=== PATIENT | male | born 1950 | race Caucasian/White ===

== ENCOUNTER 2017-09-21 22:01 | Emergency (ER) | payer MEDICARE, OTHER, SELFPAY ==
[2017-09-21 22:03] VITALS: BP 193/94; PULSE 62; RESP 14; TEMP 36.8; O2SAT 97; BMI 37.4
[2017-09-21 22:23] LABS: Color, Urine Yellow (Yellow); Glucose, Dipstick Normal (Normal); Ketone-Dipstick 5 mg/dl (Negative); Leukocyte Esterase-Dipstick 25 /ul (Negative); Mucous, Urine 0 SEEN /hpf (<or=2+); Nitrite-Dipstick Negative (Negative); Occult Blood-Urine 250 /ul (Negative); Protein-Dipstick 30 mg/dl (Negative); Urine Bilirubin Dipstick Negative (Negative); Urine Clarity Cloudy (Clear); Urine Urobilinogen 1 mg/dl (Normal); White Blood Cells 0 SEEN /hpf (0-5)
[2017-09-21 22:33] LABS: Red Blood Cells-Urine > 100 SEEN /hpf (0-5)
[2017-09-21 22:34] LABS: Bacteria 1+ /hpf (None Seen); Squamous Epithelial Cells - UA 0-5 SEEN /hpf (0-5)
--- NOTE | 2017-09-21 22:49 | CT_ITS ---
CT Abdomen And Pelvis W/O Contrast INDICATION: LEFT FLANK PAIN x 15 MINS, HX KS IN PAST, HX HTN, AK, STENTS, DIAB COMPARISON: None TECHNIQUE: Axial CT imaging of the abdomen and pelvis without contrast. Coronal and sagittal reformatted images. Radiation dose optimization technique applied. FINDINGS: Subsegmental atelectasis is seen at the visualized lung bases. Heart size is within normal limits. Trace pericardial effusion is noted. The liver, gallbladder, spleen, adrenal glands, and pancreas demonstrate grossly unremarkable noncontrast CT appearance. There is mild left-sided hydronephrosis and a less than 1 mm calculus is appreciated in the proximal left ureter at the L4-5 level. Urinary bladder is decompressed. Residual 4 mm left renal calculus is seen. No evidence of hydronephrosis or nephrolithiasis on the right. Small right cortical renal cyst is noted. Bowel loops are nondistended. Appendix is unremarkable. There is sigmoid diverticulosis without evidence of acute diverticulitis. No evidence of free air or free fluid. The osseous structures demonstrate multilevel degenerative changes at the lumbar spine. CT/Abdomen/Pelvis without Cont IMPRESSION: Less than 1 mm calculus in the left mid ureter with mild left-sided hydronephrosis. Residual 4 mm left renal calculus. Right cortical renal cyst, no evidence of right-sided hydronephrosis. Normal appendix. Sigmoid diverticulosis without evidence of acute diverticulitis. at 2355 Reported and signed by: Jazmine Pretty MD Electronically Signed: Jazmine Pretty MD at 22:54 EST Tel , Service support ,
--- NOTE | 2017-09-21 23:01 | ED.VISSUMM ---
- ER Visit Summary Date of Service: 09/21/17 Chief Complaint: Left-sided flank pain History of Present Illness: The patient is a 66 M with history of prior kidney stone presents with rather sudden onset left-sided flank pain. Patient states he was in his normal state of health. About an hour prior to arrival, he had a sudden sharp stabbing pain in his left flank with some nausea. He denies any vomiting. Patient has had history of prior kidney stone. He has required stenting in the past. He denies any fevers or chills. He denies any dysuria. The pain is begun to radiate into his left lower quadrant. The patient does have history of prior UT. He denies any chest pain or trouble breathing. Physical Examination: Vital signs reviewed General: Well-nourished, well-developed Head: Normocephalic, atraumatic Eyes: Pupils equal and reactive, extraocular muscles intact Neck, supple, no lymphadenopathy Heart: Regular rate and rhythm Respiratory: No distress, clear bilaterally Abdomen: Soft, nontender, nondistended, no peritoneal signs Back: Mild left CVA tenderness Extremities: Nontender, no edema, no cords Skin: Normal color no rash Neuro: Alert and oriented, no focal or lateralizing deficits Test Results: [] Emergency Department Course and Treatment: The patient has signs and symptoms that are consistent with urolithiasis. IV was established. He was given IV analgesics and antispasmodics. He had marked improvement of his symptoms. Screening labs are unremarkable. Urine does show evidence of blood. CT shows a 1 mm stone in the mid ureter with mild hydro-. On reevaluation his pain is resolved. I do feel the patient is safe for discharge. He will be given a short course of analgesics and urology follow-up. Treatment Plan: [] Disposition: Discharge Impression: 1. 1 mm left kidney stone with renal colic This note was generated with [employer] dictation software. It may contain incorrect words, spelling, and punctuation that were not noted in review of the chart prior to signing ED Disposition - Plan for ED Patient: Chief Complaint: Flank Pain Instructions: ED Stone Renal W Colic Prescriptions: Hydrocodone Bitart/Apap 5-325 [[place] 5/325] 1 tab PO Q4H PRN PRN #12 tab PRN Reason: Pain Referrals: Jalen Tobin MD [STAFF PHYSICIAN] -
[2017-09-21] MEDS: 0.9% Normal Saline 1,000 ML 250 ML IV (23:09)
[2017-09-21] MEDS: Ondansetron 4 MG/2 ML Vial IV (23:09)
[2017-09-21] MEDS: HYDROmorphone 1 MG/ML Syringe IV (23:09)
[2017-09-21 23:13] VITALS: BP 167/80; PULSE 67; RESP 18; O2SAT 97
[2017-09-21 23:27] LABS: Absolute Lymphocyte Count 2.97 X10^3/ul (0.83-4.51); Absolute Neutrophil Count 6.8 X10^3/uL (2.0-7.7); Basophil# 0.04 X10^3/uL; Basophil% 0.4 % (0-1); Eosinophil# 0.36 X10^3/uL; Eosinophils% 3.2 % (0-5); Hematocrit 44.3 % (40-54); Hemoglobin 14.8 g/dl (13.0-16.5); Lymphocyte # 2.97 X10^3/ul (4.0); Lymphocyte % 26.7 % (19-41); Mean Corp Hgb Conc 33.4 g/gl (32-36); Mean Corpuscular Hgb 30.6 pg (27.0-32.0); Mean Corpuscular Volume 91.7 fL (80-94); Mean Platelet Vol. 10.4 fl (6.2-12.0); Monocyte# 0.89 X10^3/uL; Neutrophil # 6.82 X10^3/uL (2.7-7.7); Neutrophil % 61.4 % (47-70); Platelet Count 286 K/mm3 (150-450); RBC Distribution Width CV 15.5 % (11.6-14.6); RBC Distribution Width SD 49.6 fl (35.1-43.9); Red Blood Count 4.83 M/mm3 (4.6-6.2); White Blood Count 11.1 K/mm3 (4.4-11.0)
[2017-09-21 23:32] LABS: Anion Gap 8 (5-15); BUN 16 mg/dL (7-18); Calcium,Total 9.1 mg/dL (8.5-10.1); Chloride 103 mmol/L (98-107); Creatinine, Serum 1.23 mg/dL (0.70-1.30); EST Glomerular Filtration Rate 62 mL/min (>60); Est Glom Filt Rate - Afr Amer 75 mL/min (>60); Estimated Creatinine Clearance 60.17 ml/min; Glucose 127 mg/dL (70-110); Potassium 3.5 mmol/L (3.5-5.1); Sodium Level 141 mmol/L (136-145)
[2017-09-21 23:46] LABS: POSITIVE COUNT NO; POSITIVE DIFFERENTIAL NO; POSITIVE MORPHOLOGY NO
[2017-09-22] MEDS: HYDROcodone Bitartrate/Apap 5/325 Tablet PO (00:59)
[2017-09-22] MEDS: Ondansetron ODT 4 MG Tablet PO (01:00)
[2017-09-22 01:03] VITALS: BP 142/69; PULSE 66; RESP 16; O2SAT 97
== END 2017-09-22 01:04 | disposition home or self-care (01) ==
LOC: ED 09-22 00:34
PROVIDERS: Emergency Provider Emergency Medicine; Family Provider Family Medicine; PCP Family Medicine
DX: N20.0 Calculus of kidney (principal); N23 Unspecified renal colic; I10 Essential (primary) hypertension; E78.00 Pure hypercholesterolemia, unspecified; I25.10 Atherosclerotic heart disease of native coronary artery without angina pectoris; I25.2 Old myocardial infarction; Z87.442 Personal history of urinary calculi
CPT/HCPCS: 74176; 80048; 81001; 85025; 99284; J7030; J2405

== ENCOUNTER → 2017-11-22 11:13 | Outpatient (CLI) | payer MEDICARE, OTHER, SELFPAY ==
[2017-11-22 12:52] LABS: ALB/GLOB Ratio 0.8 RATIO (0.9-2.4); AST(SGOT) 30 U/L (15-37); Alanine Aminotransfer ALT/SGPT 39 U/L (16-61); Albumin, Serum 3.1 g/dL (3.2-5.0); Alkaline Phosphatase 86 U/L (45-117); Anion Gap 6 (5-15); BUN 15 mg/dL (7-18); BUN/Creat Ratio 14.6 RATIO (10-20); Calcium,Total 8.5 mg/dL (8.5-10.1); Chloride 106 mmol/L (98-107); Cholesterol 117 mg/dL (200); Creatinine, Serum 1.03 mg/dL (0.70-1.30); EST Glomerular Filtration Rate 76 mL/min (>60); Est Glom Filt Rate - Afr Amer 92 mL/min (>60); Globulin 3.8 g/dL (2.2-4.2); Glucose 126 mg/dL (74-106); High Density Lipoprotein 38 mg/dL; Potassium 3.4 mmol/L (3.5-5.1); Protein, Total 6.9 g/dL (6.4-8.2); Sodium Level 143 mmol/L (136-145); Thyroid Stim Hormone (TSH) 2.44 uIU/mL (0.358-3.74); Triglycerides 122 mg/dL; Very Low Density Lipoprotein 24 mg/dL (5-40)
== END ==
PROVIDERS: Visit Provider Family Medicine
DX: E11.9 Type 2 diabetes mellitus without complications (principal); I10 Essential (primary) hypertension
CPT/HCPCS: 36415; 80053; 80061; 84443

== ENCOUNTER → 2017-12-08 16:06 | Outpatient (CLI) | payer MEDICARE, OTHER, SELFPAY ==
[2017-12-08 17:54] LABS: Absolute Lymphocyte Count 2.11 X10^3/ul (0.83-4.51); Absolute Neutrophil Count 5.5 X10^3/uL (2.0-7.7); Basophil# 0.03 X10^3/uL; Basophil% 0.4 % (0-1); Eosinophil# 0.25 X10^3/uL; Eosinophils% 2.9 % (0-5); Hematocrit 42.5 % (40-54); Hemoglobin 13.7 g/dl (13.0-16.5); Lymphocyte # 2.11 X10^3/ul (4.0); Lymphocyte % 24.7 % (19-41); Mean Corp Hgb Conc 32.2 g/gl (32-36); Mean Corpuscular Hgb 30.1 pg (27.0-32.0); Mean Corpuscular Volume 93.4 fL (80-94); Mean Platelet Vol. 10.5 fl (6.2-12.0); Monocyte# 0.64 X10^3/uL; Monocyte% 7.5 % (0-10); Neutrophil # 5.49 X10^3/uL (2.7-7.7); Neutrophil % 64.1 % (47-70); Platelet Count 273 K/mm3 (150-450); RBC Distribution Width CV 15.7 % (11.6-14.6); RBC Distribution Width SD 51.4 fl (35.1-43.9); Red Blood Count 4.55 M/mm3 (4.6-6.2); White Blood Count 8.6 K/mm3 (4.4-11.0)
[2017-12-08 17:55] LABS: POSITIVE COUNT NO; POSITIVE DIFFERENTIAL NO; POSITIVE MORPHOLOGY NO
[2017-12-08 18:10] LABS: ALB/GLOB Ratio 0.9 RATIO (0.9-2.4); AST(SGOT) 25 U/L (15-37); Alanine Aminotransfer ALT/SGPT 30 U/L (16-61); Albumin, Serum 3.3 g/dL (3.2-5.0); Alkaline Phosphatase 80 U/L (45-117); Anion Gap 7 (5-15); BUN 18 mg/dL (7-18); BUN/Creat Ratio 16.4 RATIO (10-20); Calcium,Total 8.6 mg/dL (8.5-10.1); Chloride 106 mmol/L (98-107); EST Glomerular Filtration Rate 71 mL/min (>60); Est Glom Filt Rate - Afr Amer 86 mL/min (>60); Globulin 3.5 g/dL (2.2-4.2); Glucose 109 mg/dL (74-106); PSA,Total- Diagnostic 1.29 ng/mL (0.0-4.0); Potassium 3.6 mmol/L (3.5-5.1); Protein, Total 6.8 g/dL (6.4-8.2); Sodium Level 143 mmol/L (136-145)
== END ==
PROVIDERS: Family Provider Family Medicine; PCP Family Medicine; Visit Provider Family Medicine
DX: R31.9 Hematuria, unspecified (principal)
CPT/HCPCS: 36415; 80053; 84153; 85025; 87086

== ENCOUNTER → 2017-12-10 10:54 | Outpatient (CLI) | payer MEDICARE, OTHER, SELFPAY ==
--- NOTE | 2017-12-10 10:57 | US_ITS ---
STUDY: RENAL ULTRASOUND - COMPLETE REASON FOR EXAM: Male, 67 years old. HEMATURIA TECHNIQUE: Ultrasound evaluation of the kidneys was performed with real-time and static prado-scale imaging. COMPARISON: None. FINDINGS: RIGHT KIDNEY: Normal location of the right kidney, which is normal in size. The right kidney measures 11.7X6X6.7 cm. There is a normal cortex of the right kidney. The renal cortex measures 2.2 cm. Right renal cyst measuring 29 x 27 x 31 mm. There are no right renal calculi. There is no right hydronephrosis. DISTAL RIGHT URETER: There is non-visualization of the distal right ureter. There is no demonstrated right ureterovesical junction calculus. There is a visualized right ureteral jet. LEFT KIDNEY: Normal location of the left kidney, which is normal in size. The left kidney measures 11.4X4.8X5.7 cm. There is a normal cortex of the left kidney. The renal cortex measures 1.9 cm. 2 cysts. These measure 9 x 9 mm and 13 x 11 x 9 mm. Nonobstructive left renal stone measuring 3 x 6 mm. There is no left hydronephrosis. DISTAL LEFT URETER: There is non-visualization of the distal left ureter. There is no demonstrated left ureterovesical junction calculus. There is a visualized left ureteral jet. AORTA: There is obscuration of the abdominal aorta by overlying bowel gas I.V.C.: The IVC is obscured. BLADDER: The distended urinary bladder has a volume of 94.5 ml. The empty urinary bladder has a volume of 14.4 ml. There is a normal wall thickness of the distended urinary bladder. There is a 17 x 18 x 10 mm mass in the urinary bladder. This may be in an calcified stone versus a transitional cell carcinoma. There are no demonstrated bladder calculi. US/Kidney and Bladder IMPRESSION: Simple bilateral renal cysts. There is a 17 x 18 x 10 mm mass in the urinary bladder. This may be in an calcified stone versus a transitional cell carcinoma. Direct visualization with cystoscopy is recommended. Nonobstructive left renal stone. Electronically Signed: Mauricio Hendrix MD at 17:43 EDT , Service support ,
== END ==
PROVIDERS: Family Provider Family Medicine; PCP Family Medicine; Visit Provider Family Medicine
DX: R31.9 Hematuria, unspecified (principal)
CPT/HCPCS: 76770

== ENCOUNTER → 2017-12-22 14:42 | Outpatient (CLI) | payer MEDICARE, OTHER, SELFPAY ==
--- NOTE | 2017-12-22 14:47 | RAD_ITS ---
STUDY: X-RAY - LUMBAR SPINE REASON FOR EXAM: Male, 67 years old. Back pain TECHNIQUE: 5 view(s) of the lumbar spine were obtained. COMPARISON: None FINDINGS: Normal lumbar lordosis. There is scoliosis. There is a normal alignment of the vertebrae. Degenerative findings in the left hip. There is multilevel endplate spondylosis of the lumbar vertebrae. There is multi-level degenerative disc disease with multi-level disc space narrowing. There are atherosclerotic vascular calcifications. The soft tissue structures are unremarkable. RAD/L/S Spine Min 4 Views IMPRESSION: Degenerative changes of the spine, as detailed above. Electronically Signed: Mauricio Hendrix MD at 17:08 EDT , Service support ,
== END ==
PROVIDERS: Family Provider Family Medicine; PCP Family Medicine; Visit Provider Family Medicine
DX: M54.9 Dorsalgia, unspecified (principal)
CPT/HCPCS: 72110

== ENCOUNTER → 2017-12-27 19:18 | Outpatient (CLI) | payer MEDICARE, OTHER, SELFPAY ==
--- NOTE | 2017-12-27 16:30 | CYSPIN_PTH ---
PATIENT: ADARSH WYATT LOC: [facility] U#:[id number] AGE/SX: 74/M ROOM: RE12/27/[address]: Dr. Jalen Tobin MD : 1950 BED: DIS: SPEC #: [id number] RECD: 12/28/17 08:04 STATUS: ARPITA LEO #: [id number] LISS: 12/27/17 16:[address]: Jalen Tobin DEPT: CYTOLOGY RECD BY: Jc Sánchez ENTERED: 12/28/17 08:05 SP TYPE: CYSPIN FL OTHR DR: Dr. Mook Damon MD Tissues: Urine Procedures: Pap Stain (control) Special Stain Group II Cytospin Fluid HEADER OPERATION: Not noted PRE-OP DIAGNOSIS: Bladder mass TISSUE SUBMITTED: Urine for cytology DIAGNOSIS CYTOLOGY Urine for cytology (cytospin): A few mildly atypical urothelial cells noted.. SJ:lennie 12/29/17 COMMENT Clinical correlation and appropriate follow up are necessary. CYTOLOGY STUDY Slides are reviewed. CYTOLOGY GROSS Received is 40 ml of cloudy yellow fluid labeled with the patient's name and and designated per the requisition as urine. Submitted for cytology preparation. / RB:lyssa 12/28/17 TC:5 CPT: 42337
[2017-12-27 19:20] LABS: Cytology, Body Fluid / CSF SEE PATHOLOGY REPORT
== END ==
PROVIDERS: Family Provider Family Medicine; PCP Family Medicine; Visit Provider Urology
DX: N32.9 Bladder disorder, unspecified (principal)
CPT/HCPCS: 88108; 88313

== ENCOUNTER → 2018-01-06 16:26 | Outpatient (CLI) | payer MEDICARE, OTHER, SELFPAY ==
--- NOTE | 2018-01-06 16:29 | CT_ITS ---
STUDY: CT ABDOMEN AND PELVIS WITH CONTRAST REASON FOR EXAM: Male, 67 years old. Hematuria RADIATION DOSAGE (If Supplied By Facility): CTDIvol = ( 20.4 ) mGy, DLP = ( 2305.08 ) mGycm TECHNIQUE: Transaxial images were obtained from the dome of the diaphragm to the symphysis pubis without oral contrast. 100 ml of Isovue 250 contrast was administered. Sagittal and coronal images were reconstructed. Individualized dose optimization techniques were used for this CT. COMPARISON: 09/21/2017 FINDINGS: The visualized lung bases are unremarkable. Coronary artery calcifications are seen. Normal liver. Normal gallbladder and extrahepatic biliary system. Normal spleen. There are multiple splenules. Normal pancreas. Normal bilateral adrenal glands. There is a 2.8 cm cyst within the right kidney. A 6 mm calcification is seen within the left renal pelvis. No hydronephrosis or left ureteral calculus. Normal visualized stomach. Normal small intestine. There are multiple colonic diverticula consistent with diverticulosis. The appendix is visualized and appears normal. There is diffuse atherosclerotic calcification of the abdominal aorta, without a demonstrated aneurysm. Normal inferior vena cava. Normal retroperitoneum. Normal urinary bladder. The prostate gland is slightly enlarged. There are prostate calcifications. Bilateral fat-containing inguinal hernias are present. There are diffuse degenerative changes of the visualized lumbar spine. CT/Abdomen/Pelvis W IV Cont ONLY IMPRESSION: Diverticulosis, without acute diverticulitis. No bowel obstruction or acute renal pathology. 6 mm calculus within the left renal pelvis. Additional findings, as detailed above. Electronically Signed: Félix Claudio DO at 11:32 EDT Tel , Service support ,
== END ==
PROVIDERS: Family Provider Family Medicine; PCP Family Medicine; Visit Provider Urology
DX: R31.9 Hematuria, unspecified (principal)
CPT/HCPCS: 74177

== ENCOUNTER 2018-01-21 10:07 | Day surgery (SDC) | payer MEDICARE, OTHER, SELFPAY ==
[2018-01-14 14:28] VITALS: BP 133/73; PULSE 60; RESP 16; TEMP 36.7; O2SAT 95; BMI 37.3
--- NOTE | 2018-01-21 10:11 | RAD_ITS ---
STUDY: X-RAY - ABDOMEN/PELVIS REASON FOR EXAM: Male, 67 years old. Left kidney stone. TECHNIQUE: Two AP supine views of the abdomen and pelvis. COMPARISON: Comparison is made with a prior CT scan of abdomen dated January 06, 2018. FINDINGS: Normal visualized lung bases. There is a moderate amount of colonic fecal material. The visualized liver, spleen and kidneys are grossly normal in size and morphology. No left renal calculus is seen at this time. Prostatic calcifications. There are diffuse degenerative changes of the visualized lumbar spine. RAD/Abdomen Single View IMPRESSION: No abnormal calcification is seen overlying the kidneys or course of the ureters. Electronically Signed: Abner Gotti MD at 10:35 EDT Tel [phone], Service support ,
[2018-01-21 10:44] VITALS: BP 132/74; PULSE 57; RESP 16; TEMP 36.5; O2SAT 95; BMI 37.3
[2018-01-21 11:01] LABS: Bedside Glucose 160 mg/dL (70-110)
[2018-01-21] MEDS: Cefazolin 2 GM in 0.9% Normal Saline 100 ML IV (11:52)
--- NOTE | 2018-01-21 12:47 | DCINST_ITS ---
Discharge Diet: Light diet - advance as tolerated Discharge Activity: May not drive while taking narcotic pain medications. Instructions: Shock Wave Lithotripsy Allergies/Adverse Reactions: Allergies ticagrelor [From [facility]] Allergy (Verified 01/21/18 10:42) Shortness of breath Medications to take at Discharge Aspirin [Aspirin, Baby] 81 mg PO DAILY@0800 01/03/16 Hydrochlorothiazide [Hctz] 25 mg PO DAILY 01/03/16 Metformin HCl [Metformin HCl ER] 500 mg PO DAILY 01/03/16 Atorvastatin Calcium [Lipitor] 80 mg PO QHS 01/10/16 Carvedilol [Carvedilol] 12.5 mg PO BID 01/10/16 Clopidogrel Bisulfate [Plavix] 75 mg PO DAILY 01/10/16 Pantoprazole Sodium [Protonix] 40 mg PO DAILY 01/10/16 amlodipine 2.5 mg tablet 5 mg PO QDAY tab 12/09/17 lisinopril 20 mg tablet 20 mg PO BID tab 12/09/17 Nitroglycerin 0.4 mg SL PRN PRN 01/14/18 Hydrocodone Bitart/Apap 5-325 [[place] 5MG-325MG] 1 tab PO Q4H PRN PRN 5 Days #14 tab 01/21/18 The following prescriptions were given: Hydrocodone Bitart/Apap 5-325 [[place] 5MG-325MG] 1 tab PO Q4H PRN PRN 5 Days #14 tab PRN Reason: Pain Primary Care Physician: Nathan Damon MD [Primary Care Provider] - Please Follow Up With: Jalen Tobin MD When: February 03 at 3pm
--- NOTE | 2018-01-21 12:49 | PCM.OPRPT ---
Report of Operation Date of Procedure: 01/21/18 Pre-Operative Diagnosis: Left renal calculi Post-Operative Diagnosis: Same Surgery/Procedure Performed:: left extracorporeal shockwave lithotripsy Description of Surgical Findings:: 67-year-old male with a stone in the left renal pelvis taken to the operating room today for shockwave lithotripsy. After induction of anesthesia he was placed supine on the table we then used fluoroscopy to identify the stone in the left renal pelvis. We then delivered 3000 shockwaves to the stone at a rate of 90 power between 5-7 and at the end of the treatment cycle the stone appeared to break up fairly well, patient's anesthetic was reversed he is taken back to the PACU condition decided not to leave a stent and the stone broke up well and he will see us in the office in a few weeks with a KUB. Type of Anesthesia:: General - Admit VTE Documentation VTE Present on Admission: No VTE Mechan Device Prophylaxis: SCD's VTE Pharm Prophylaxis ordered?: No Reason prophylaxis not ordered:: Treatment Not Indicated
[2018-01-21 12:57] VITALS: BP 130/73; BP 133/73; PULSE 64; RESP 18; TEMP 36.6; O2SAT 92
[2018-01-21 13:00] VITALS: BP 131/78; BP 133/73; PULSE 69; RESP 18; O2SAT 94
[2018-01-21 13:16] VITALS: BP 131/73; BP 133/73; PULSE 63; RESP 16; TEMP 36.7; O2SAT 98
[2018-01-21 14:14] VITALS: BP 133/73
== END 2018-01-21 14:21 | disposition home or self-care (01) ==
LOC: SDC 10:08 → AC 10:10
PROVIDERS: Family Provider Family Medicine; PCP Family Medicine; Visit Provider Urology
PROC: (CPT 50590; principal; 2018-01-21 11:35)
DX: N20.0 Calculus of kidney (principal); N40.0 Benign prostatic hyperplasia without lower urinary tract symptoms; R31.0 Gross hematuria; I10 Essential (primary) hypertension; K21.9 Gastro-esophageal reflux disease without esophagitis; E11.9 Type 2 diabetes mellitus without complications; E78.00 Pure hypercholesterolemia, unspecified; Z87.442 Personal history of urinary calculi
CPT/HCPCS: 74018; 82962; J7120; J2405

== ENCOUNTER 2018-01-22 19:41 | Inpatient (IN) | payer MEDICARE, OTHER, SELFPAY ==
[2018-01-22 19:43] VITALS: BP 199/87; PULSE 78; RESP 18; TEMP 37.3; O2SAT 93; BMI 37.8
--- NOTE | 2018-01-22 19:57 | CT_ITS ---
STUDY: CT ABDOMEN AND PELVIS WITHOUT CONTRAST REASON FOR EXAM: Male, 67 years old. Left flank pain status post lithotripsy RADIATION DOSAGE (If Supplied By Facility): CTDIvol = ( 18.04 ) mGy, DLP = ( 1407.66 ) mGycm TECHNIQUE: Transaxial images were obtained from the dome of the diaphragm to the symphysis pubis without oral contrast, and without intravenous contrast. Sagittal and coronal images were reconstructed. Individualized dose optimization techniques were used for this CT. COMPARISON: January 06, 2015 FINDINGS: There is subsegmental atelectasis in both lower lobes.. The heart is enlarged and there is mild coronary artery calcification. Normal liver. Normal gallbladder and extrahepatic biliary system. Normal spleen. Normal pancreas. Normal bilateral adrenal glands. There is a small right renal cyst. The left kidney contains tiny nonobstructing stones.. There is also mild pelvocaliectasis and stranding in the perinephric fat in association with multiple tiny calcifications within the proximal to mid ureter Normal visualized stomach. Normal small intestine. There are diffuse diverticular changes of colon without evidence for acute diverticulitis The appendix is visualized and appears normal. Atherosclerotic changes of the aorta without evidence for aneurysm. Normal inferior vena cava. Normal retroperitoneum. Normal urinary bladder. There are moderate-sized umbilical hernia containing fat bilaterally. Lumbar spine demonstrates moderate spondylosis. CT/Abdomen/Pelvis without Cont IMPRESSION: Mild left hydroureteronephrosis secondary to multiple tiny proximal and mid ureteral calculi.. Electronically Signed: Gibran Disla MD at 21:08 EDT , Service support ,
[2018-01-22 20:02] LABS: Absolute Lymphocyte Count 1.45 X10^3/ul (0.83-4.51); Absolute Neutrophil Count 9.5 X10^3/uL (2.0-7.7); Basophil# 0.01 X10^3/uL; Basophil% 0.1 % (0-1); Eosinophil# 0.11 X10^3/uL; Eosinophils% 0.9 % (0-5); Hematocrit 44.7 % (40-54); Hemoglobin 14.4 g/dl (13.0-16.5); Lymphocyte # 1.45 X10^3/ul (4.0); Lymphocyte % 12.3 % (19-41); Mean Corp Hgb Conc 32.2 g/gl (32-36); Mean Corpuscular Hgb 29.4 pg (27.0-32.0); Mean Corpuscular Volume 91.4 fL (80-94); Mean Platelet Vol. 9.7 fl (6.2-12.0); Monocyte# 0.73 X10^3/uL; Monocyte% 6.2 % (0-10); Neutrophil % 80.2 % (47-70); POSITIVE COUNT NO; POSITIVE DIFFERENTIAL NO; POSITIVE MORPHOLOGY NO; Platelet Count 224 K/mm3 (150-450); RBC Distribution Width CV 14.7 % (11.6-14.6); RBC Distribution Width SD 49.4 fl (35.1-43.9); Red Blood Count 4.89 M/mm3 (4.6-6.2); White Blood Count 11.8 K/mm3 (4.4-11.0)
[2018-01-22] MEDS: Ondansetron 4 MG/2 ML Vial IV (20:03)
[2018-01-22] MEDS: Morphine 4 MG/ML Syringe IV (20:03)
[2018-01-22] MEDS: 0.9% Normal Saline 1,000 ML 999 ML IV (20:04)
[2018-01-22 20:11] LABS: Anion Gap 6 (5-15); BUN 16 mg/dL (7-18); BUN/Creat Ratio 13.1 RATIO (10-20); Calcium,Total 8.7 mg/dL (8.5-10.1); Chloride 105 mmol/L (98-107); Creatinine, Serum 1.22 mg/dL (0.70-1.30); EST Glomerular Filtration Rate 63 mL/min (>60); Est Glom Filt Rate - Afr Amer 76 mL/min (>60); Estimated Creatinine Clearance 61.72 ml/min; Glucose 148 mg/dL (74-106); Potassium 3.6 mmol/L (3.5-5.1); Sodium Level 142 mmol/L (136-145)
[2018-01-22 20:49] LABS: Bacteria 0 SEEN /hpf (None Seen); Mucous, Urine 0 SEEN /hpf (<or=2+)
[2018-01-22 20:53] LABS: Color, Urine Yellow (Yellow); Glucose, Dipstick Normal (Normal); Ketone-Dipstick 5 mg/dl (Negative); Leukocyte Esterase-Dipstick Negative /ul (Negative); Nitrite-Dipstick Negative (Negative); Occult Blood-Urine 250 /ul (Negative); Protein-Dipstick 30 mg/dl (Negative); Specific Gravity, Urine 1.015 (1.002-1.030); Urine Bilirubin Dipstick Negative (Negative); Urine Clarity Clear (Clear); Urine Urobilinogen Normal (Normal)
[2018-01-22] MEDS: HYDROmorphone 1 MG/ML Syringe IV ×2 (20:54→23:44)
[2018-01-22 21:07] LABS: Red Blood Cells-Urine 50-100 SEEN /hpf (0-5)
[2018-01-22 21:08] LABS: Squamous Epithelial Cells - UA 0-5 SEEN /hpf (0-5); White Blood Cells 0-5 SEEN /hpf (0-5)
--- NOTE | 2018-01-22 21:20 | NURSING ---
PER DR. MOORE PATIENT'S PAIN LEVEL IS A 4/10 AFTER THE DILAUDID.
[2018-01-22 21:21] VITALS: BP 204/102; PULSE 69; RESP 18; TEMP 37.1; O2SAT 98
--- NOTE | 2018-01-22 21:22 | EKG12_ITS ---
Test Reason : FLANK PAIN Blood Pressure : / mmHG Vent. Rate : 065 BPM Atrial Rate : 065 BPM P-R Int : 224 ms QRS Dur : 130 ms QT Int : 410 ms P-R-T Axes : 047 -47 053 degrees QTc Int : 426 ms Sinus rhythm with 1st degree A-V block Left axis deviation Nonspecific intra ventricular conduction delay Abnormal ECG Confirmed by KASSI SHERMAN, CATHIE ([id number]), manager editorial GABRIELA DELGADO ([id number]) on 01/26/2018 2:25:05 PM Referred By: OSCAR Confirmed By:CATHIE SOLITARIO MD
--- NOTE | 2018-01-22 21:22 | RAD_ITS ---
STUDY: X-RAY CHEST REASON FOR EXAM: Male, 67 years old. Hypoxia TECHNIQUE: AP portable COMPARISON: None. FINDINGS: Diminished inspiratory effort is seen. There is subsegmental atelectasis or evolving infiltrate in both lower lobes. There is no demonstrated pleural abnormality. Heart is enlarged. Normal mediastinum and marly. Normal visualized pulmonary arteries. Normal visualized aortic arch and descending thoracic aorta. Dorsal spine demonstrates spondylosis. Normal visualized ribs, clavicles, and shoulders. There is no demonstrated abnormality of the visualized soft tissue structures of the upper abdomen. RAD/Chest 1 View IMPRESSION: Diminished inspiratory effort and bibasilar atelectasis or evolving infiltrates Electronically Signed: Gibran Disla MD at 22:11 EDT , Service support ,
[2018-01-22 22:17] VITALS: BP 208/105; PULSE 67; RESP 20; O2SAT 99
[2018-01-22] MEDS: hydrALAZINE 20 MG/ML Vial 10 MG IV (22:18)
--- NOTE | 2018-01-22 22:27 | PCM.HP.STD ---
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 Comment: [facility] w/PCI-Aspiration Thrombectomy & TAQUERIA-Prox RCA 01/04/16 (5) Diabetes mellitus type II, controlled Status: Chronic (6) Hyperlipidemia Status: Chronic (7) Hypertension Status: Chronic (8) Non-ST elevation (NSTEMI) myocardial infarction Status: Chronic History of Present Illness Date of Admission: 01/22/18 Chief Complaint: Acute hypoxic respiratory failure and hydroureteronephrosis The patient is a 67 year old male w/ h/o lipidemia, DMII, HTN, CAD, and renal stones admitted for left hydroureteronephrosis due to multiple tiny proximal and mid ureteral calculi. He had lithotripsy yesterday but experienced sudden onset of severe left flank pain this afternoon. Nothing appeared to make it better or worse. Pain was sharp and constant. Pain moved from the back to the front. No radiation of pain. Pain was associated with nausea. He had dysuria and hematuria. No other complaint. He went to the ED for further workup. Past Medical History Past Medical History (Chronic Problems): Chronic Problems (Last Reviewed 12/09/17 @ 10:16 by Chris Frazier MD) Hyperlipidemia (Chronic) Diabetes mellitus type II, controlled (Chronic) Hypertension (Chronic) Non-ST elevation (NSTEMI) myocardial infarction (Chronic) Atherosclerotic heart disease of picayune coronary artery without angina pectoris (Chronic) [facility] w/PCI-Aspiration Thrombectomy & TAQUERIA-Prox RCA 01/04/16 Allergies ticagrelor [From [facility]] Allergy (Verified 01/22/18 19:42) Shortness of breath Home Medications: Ambulatory Orders Medication Instructions Recorded Aspirin [Aspirin, Baby] 81 mg PO DAILY@0800 01/03/16 Hydrochlorothiazide [Hctz] 25 mg PO DAILY 01/03/16 Metformin HCl [Metformin HCl ER] 500 mg PO DAILY 01/03/16 Atorvastatin Calcium [Lipitor] 80 mg PO QHS 01/10/16 Carvedilol [Carvedilol] 12.5 mg PO BID 01/10/16 Clopidogrel Bisulfate [Plavix] 75 mg PO DAILY 01/10/16 Pantoprazole Sodium [Protonix] 40 mg PO DAILY 01/10/16 amlodipine 2.5 mg tablet 5 mg PO QDAY tab 12/09/17 lisinopril 20 mg tablet 20 mg PO BID tab 12/09/17 Nitroglycerin 0.4 mg SL PRN PRN 01/14/18 Hydrocodone Bitart/Apap 5-325 1 tab PO Q4H PRN PRN 5 Days #14 tab 01/21/18 [[place] 5MG-325MG] Surgical History: cataract, herniorrhaphy, tonsillectomy, - - vasectomy Lives: Spouse/ Significant Other Smoking Status: Never smoker Alcohol: None Drugs: None - *Family History Maternal History Items: No pertinent history Review of Systems Constitutional: Denies: Chills, Fever, Weight Change HEENT: Denies: Head Aches, Sinus Congestion, Sinus Drainage Cardiovascular: Denies: Chest Pain, Palpitations Respiratory: Denies: Cough, Shortness of breath at rest, Sputum production Gastrointestinal: Denies: Abdominal Pain, Nausea, Vomiting Genitourinary: Denies: Dysuria Musculoskeletal: Denies: Joint Pain, Joint Tenderness Skin: Denies: Rash, Wounds Neurological: Denies: Numbness, Tingling, Focal weakness Psychiatric: Denies: Anxiety, Depression, Homicidal Ideations, Suicidal Ideations Hematologic/ Lymphatic: Denies: Easy Bruising, Easy Bleeding VTE Information - Inpt Only VTE Present on Admission: No VTE Mechan Device Prophylaxis: SCD's VTE Pharm Prophylaxis ordered?: No Patient Problems: Active and Suspected Problems (Last Reviewed 12/09/17 @ 10:16 by Chris Frazier MD) Acute respiratory failure with hypoxia (Acute) Hydroureteronephrosis (Acute) - Physical Exam General: Alert, Oriented x3, Cooperative HEENT: Atraumatic, PERRLA, EOMI, Normocephalic Neck: Supple, No JVD, Negative Carotid Bruits Lungs: Clear to auscultation, Normal air movement Cardiovascular: Regular rate, No murmurs Abdomen: Bowel Sounds Present, Soft, Non Tender Extremities: No edema, Capillary Refill Less than 3 Seconds Skin: No rashes, No breakdown Musculoskeletal: No Tenderness to Palpation of Joints or Extremities Neurological: Cranial nerves II-XII grossly intact Psych/Mental Status: Normal Affect, Appropriate Vital Signs Temp Pulse Resp BP Pulse Ox 98.8 F 67 20 H 208/105 H 99 01/22/18 21:21 01/22/18 22:17 01/22/18 22:17 01/22/18 22:17 01/22/18 22:17 Oxygen Flow Rate (L/min) 2 Oxygen Delivery Method Nasal Cannula Weight: 123.1 kg Body Mass Index (BMI) 37.8 Laboratory Tests Past 24 Hrs 01/22/18 01/22/18 01/22/18 19:47 19:47 19:47 WBC 11.8 H RBC 4.89 Hgb 14.4 Hct 44.7 MCV 91.4 MCH 29.4 MCHC 32.2 RDW 14.7 H RDW Differential 49.4 H Plt Count 224 MPV 9.7 Immature Gran % (Auto) 0.300 Neut % (Auto) 80.2 H Lymph % (Auto) 12.3 L [place] % (Auto) 6.2 Eos % (Auto) 0.9 Baso % (Auto) 0.1 Absolute Neuts (auto) 9.5 H Absolute Lymphs (auto) 1.45 Total Counted Not Reportable Sodium 142 Potassium 3.6 Chloride 105 Carbon Dioxide 31.0 Anion Gap 6 BUN 16 Creatinine 1.22 Estim Creat Clear Calc 61.72 Est GFR (MDRD) Af Amer 76 Est GFR (MDRD) Non-Af 63 BUN/Creatinine Ratio 13.1 Glucose 148 H Calcium 8.7 Troponin I 0.016 Urine Color Urine Clarity Urine pH Ur Specific [place] Urine Protein Urine Glucose (UA) Urine Ketones Urine Occult Blood Urine Nitrite Urine Bilirubin Urine Urobilinogen Ur Leukocyte Esterase Urine RBC Urine WBC Ur Squamous Epith Cells Urine Bacteria Urine Mucus 01/22/18 20:45 WBC RBC Hgb Hct MCV MCH MCHC RDW RDW Differential Plt Count MPV Immature Gran % (Auto) Neut % (Auto) Lymph % (Auto) [place] % (Auto) Eos % (Auto) Baso % (Auto) Absolute Neuts (auto) Absolute Lymphs (auto) Total Counted Sodium Potassium Chloride Carbon Dioxide Anion Gap BUN Creatinine Estim Creat Clear Calc Est GFR (MDRD) Af Amer Est GFR (MDRD) Non-Af BUN/Creatinine Ratio Glucose Calcium Troponin I Urine Color Yellow Urine Clarity Clear Urine pH 6.0 Ur Specific [place] 1.015 Urine Protein 30 H Urine Glucose (UA) Normal Urine Ketones 5 H Urine Occult Blood 250 H Urine Nitrite Negative Urine Bilirubin Negative Urine Urobilinogen Normal Ur Leukocyte Esterase Negative Urine RBC 50-100 SEEN Urine WBC 0-5 SEEN Ur Squamous Epith Cells 0-5 SEEN Urine Bacteria 0 SEEN Urine Mucus 0 SEEN Assessment/Plan Active and Suspected Problems (Last Reviewed 12/09/17 @ 10:16 by Chris Frazier MD) Acute respiratory failure with hypoxia (Acute) Hydroureteronephrosis (Acute) 67 year old male w/ h/o lipidemia, DMII, HTN, CAD, and renal stones admitted for left hydroureteronephrosis due to multiple tiny proximal and mid ureteral calculi. 1) Left hydroureteronephrosis due to multiple tiny proximal and mid ureteral calculi: Consulted urology. Hydration. Pain controlled. 2) Acute hypoxic respiratory failure: Continue with oxygen. Probably secondary to shunting secondary to atelectasis. C/w pulmonary toiletry. Will consider workup if no improvement. 3) HTN: Resume home meds. Will consider increase dose if SBP continues to be high. 4) Prophylaxis: SCD.
--- NOTE | 2018-01-22 22:36 | ED.DCSUM_ITS ---
- ER Visit Summary Date of Service: 01/22/18 Chief Complaint: Left flank pain History of Present Illness: The patient is a 67 M who presents with left flank pain. He had a lithotripsy yesterday at about 11 AM. He states he was doing well until about 6 hours prior to presentation. His pain is sharp. It is left flank. He currently rates it as 8 out of 10. He reports nausea. He does report dysuria and hematuria. No vomiting. No chest pain or shortness of breath. Physical Examination: Initial blood pressure 199/87 pulse ox 93% on 2 L nasal cannula vitals otherwise unremarkable Moist mucous membranes Heart regular rate and rhythm Lungs are clear Abdomen soft nontender nondistended Mild CVA tenderness on the left Extremities nontender Test Results: EKG shows sinus rhythm with a first-degree AV block at a rate of 65. Chest x-ray shows bibasilar atelectasis. CT of flank shows mild left hydroureteronephrosis due to multiple tiny proximal and mid ureteral calculi. Laboratory studies notable for white blood cell count 11.8-50, 250 blood and 50 to 100 RBCs in the urine. Troponin normal. Emergency Department Course and Treatment: Patient was treated with IV fluids morphine and Zofran. He continued to complain of severe pain and was given IV Dilaudid with about a 50% improvement of his pain. He was taken off of oxygen and desaturated down to 85-86%. He has no respiratory symptoms. I suspect this is likely related to obstructive sleep apnea and atelectasis. The patient was discussed with Dr. Sanchez who asked that the patient be admitted under the medical service. Patient discussed with the hospitalist and admitted. Patient also has uncontrolled hypertension. He does note that he has a history of poorly controlled hypertension. He was treated with hydralazine. Treatment Plan: [] Disposition: Admit Impression: Atelectasis Hypoxia Ureterolithiasis Uncontrolled hypertension This note was generated with [employer] dictation software. It may contain incorrect words, spelling, and punctuation that were not noted in review of the chart prior to signing ED Disposition - Plan for ED Patient: Chief Complaint: Flank Pain Referrals: Nathan Damon MD [Primary Care Provider] -
[2018-01-22 23:03] VITALS: BP 179/86; PULSE 74; O2SAT 95
[2018-01-22 23:47] VITALS: BP 196/86; PULSE 76; O2SAT 94
[2018-01-23] VITALS (16 sets, daily range): BP systolic 123–178; BP diastolic 68–86; PULSE 62–80; RESP 16–18; TEMP 36.7–37.8; O2SAT 93–98; BMI 37.8; BMI 37.9
[2018-01-23] MEDS: oxyCODONE 5 MG Tablet PO ×3 (00:43→23:16)
[2018-01-23] MEDS: Ipratropium/Albuterol Sulfate 3 ML AMPUL.NEB INHALATION (00:44)
[2018-01-23] MEDS: 0.9% Normal Saline 1,000 ML 125 ML IV (00:44)
[2018-01-23 01:06] LABS: D-Dimer Quantitative (DVT/PE) < 0.27 FEU/ug/m (0.27-0.49)
[2018-01-23 01:31] LABS: BNP,B-Type NATRIURETIC PEPTIDE 126.6 pg/mL (0-100)
[2018-01-23] MEDS: Morphine 4 MG/ML Syringe IV (05:48)
[2018-01-23 06:51] LABS: Absolute Lymphocyte Count 1.88 X10^3/ul (0.83-4.51); Absolute Neutrophil Count 9.3 X10^3/uL (2.0-7.7); Basophil# 0.01 X10^3/uL; Basophil% 0.1 % (0-1); Eosinophil# 0.07 X10^3/uL; Eosinophils% 0.5 % (0-5); Hematocrit 44.2 % (40-54); Hemoglobin 14.3 g/dl (13.0-16.5); Lymphocyte # 1.88 X10^3/ul (4.0); Lymphocyte % 14.7 % (19-41); Mean Corp Hgb Conc 32.4 g/gl (32-36); Mean Corpuscular Hgb 30.1 pg (27.0-32.0); Mean Corpuscular Volume 93.1 fL (80-94); Mean Platelet Vol. 10.2 fl (6.2-12.0); Monocyte# 1.46 X10^3/uL; Monocyte% 11.4 % (0-10); Neutrophil # 9.33 X10^3/uL (2.7-7.7); Neutrophil % 72.8 % (47-70); Platelet Count 243 K/mm3 (150-450); RBC Distribution Width CV 14.9 % (11.6-14.6); RBC Distribution Width SD 49.4 fl (35.1-43.9); Red Blood Count 4.75 M/mm3 (4.6-6.2); White Blood Count 12.8 K/mm3 (4.4-11.0)
[2018-01-23 07:13] LABS: POSITIVE COUNT NO; POSITIVE DIFFERENTIAL NO; POSITIVE MORPHOLOGY NO
[2018-01-23 07:37] LABS: ALB/GLOB Ratio 0.8 RATIO (0.9-2.4); AST(SGOT) 19 U/L (15-37); Alanine Aminotransfer ALT/SGPT 18 U/L (16-61); Alkaline Phosphatase 92 U/L (45-117); Anion Gap 6 (5-15); BUN 16 mg/dL (7-18); BUN/Creat Ratio 10.4 RATIO (10-20); Calcium,Total 8.5 mg/dL (8.5-10.1); Chloride 106 mmol/L (98-107); Creatinine, Serum 1.54 mg/dL (0.70-1.30); EST Glomerular Filtration Rate 48 mL/min (>60); Est Glom Filt Rate - Afr Amer 58 mL/min (>60); Globulin 3.8 g/dL (2.2-4.2); Glucose 127 mg/dL (74-106); Potassium 4.4 mmol/L (3.5-5.1); Protein, Total 6.8 g/dL (6.4-8.2); Sodium Level 142 mmol/L (136-145)
[2018-01-23 09:04] LABS: Hemoglobin A1c 6.2 % (4.2-6.3)
[2018-01-23] MEDS: Pantoprazole Sodium 40 MG Tablet PO (09:14)
[2018-01-23] MEDS: 0.9% Normal Saline 1,000 ML 100 ML IV ×2 (09:14→13:00)
[2018-01-23] MEDS: amLODIPine 5 MG Tablet PO (09:15)
[2018-01-23] MEDS: Carvedilol 12.5 MG Tablet PO ×2 (09:15→20:43)
[2018-01-23] MEDS: Lisinopril 20 MG Tablet PO ×2 (09:16→20:43)
--- NOTE | 2018-01-23 09:20 | PCM.PN.HOSP ---
Patient Problems: Active and Suspected Problems (Last Reviewed 12/09/17 @ 10:16 by Chris Frazier MD) Acute respiratory failure with hypoxia (Acute) Hydroureteronephrosis (Acute) Subjective: The patient is a 67 y/o M w/ PMHx: CAD s/p LHC w/PCI-Aspiration Thrombectomy & TAQUERIA-Prox RCA 01/04/16 w/ Hx NSTEMI, Diabetes mellitus type II, HTN, HLD, Obesity, Hx Nephrolithiasis who presents to the [facility] ED on 01/22/18 with recent admission for L hydroureteronephrosis due to multiple tiny proximal and mid ureteral calculi s/p lithotripsy; however, onset on day of ED presentation severe L flank pain with nausea as well as ongoing dysuria and hematuria and ED noted hypoxia. Acute Flank Pain, secondary to Acute Ureterolithiasis without apparent UTI: UA without evidence UTI, notable hematuria, admitted to [place], maintained on hydration, maintain NPO for intervention, continue PRN oral and IV pain regimen, alter as needed, Urology consulted and planned intervention later in the day for planned stent placement, PRN anti-emetics, monitor I&Os. Hypoxia, RULED OUT Acute Respiratory Failure: Noted ED hypoxia, not technically respiratory failure, secondary to acute pain, poor effort, atelectasis secondary to #1 and narcotic usage, encourage HOB, IS especially post-op as expect pain to improve. Patient overnight with continued discomfort with need for pain medication regimen changes. Discussed plan of care which includes evaluation by Dr. Bustamante and stent placement for left hydroureternephrosis later in the day. Patient denies fevers, chills, nausea, emesis, abdominal pain, chest pain or dyspnea but does note ongoing left-sided CVA tenderness. Objective: Physical Examination: General: awake, alert, oriented x 3 and cooperative, seated upright in bed, notes ongoing mild discomfort, L CVA. Skin: normal color, turgor, no icterus, cyanosis. HEENT: AT/NC, EOMI, PERRLA, mildly dry MM. Lungs: CTA bilaterally, moderate effort, mild decrease BL bases, no rales, ronchi or wheezing. Heart: Regular rate and rhythm; no gallop, rub audible. Abdomen: soft, NTTP, no suprapubic TTP, + L CVA TTP, ND, hypoactive BS. Extremities: no cyanosis, clubbing, or edema. Neurological: patient awake, alert, oriented x 3; cognitive function intact; pupils equally reactive to light and accomodation; cranial nerves II-XII grossly normal, moving all 4 extremities, no focal deficits, strength severely globally decreased secondary to acute presentation. Psychiatric: affect appears normal, no acute evidence of depressive or anxiety feelings. Vitals/I&O's: Vital Signs Temp Pulse Resp BP Pulse Ox 98.6 F 73 16 159/75 H 93 01/23/18 06:00 01/23/18 06:00 01/23/18 06:00 01/23/18 06:00 01/23/18 08:12 Oxygen Flow Rate (L/min) 2 Oxygen Delivery Method Nasal Cannula Weight: 271 lb 6.224 oz Body Mass Index (BMI) 37.8 Intake and Output for Last 24 Hours 01/21/18 01/22/18 01/23/18 23:59 23:59 23:59 Intake Total 867 / 867 Output Total 400 / 400 Balance 467 / 467 Microbiology Past 72 Hours 01/23/18 00:40 Mucosa - Nasopharyngeal Influenza Types A,B Direct FA (LOCO) - Final Laboratory Results 01/23/18 05:53: WBC 12.8 H, RBC 4.75, Hgb 14.3, Hct 44.2, MCV 93.1, MCH 30.1, MCHC 32.4, RDW 14.9 H, RDW Differential 49.4 H, Plt Count 243, MPV 10.2, Immature Gran % (Auto) 0.500, Neut % (Auto) 72.8 H, Lymph % (Auto) 14.7 L, [place] % (Auto) 11.4 H, Eos % (Auto) 0.5, Baso % (Auto) 0.1, Absolute Neuts (auto) 9.3 H, Absolute Lymphs (auto) 1.88, Total Counted Not Reportable 01/23/18 05:53: Sodium 142, Potassium 4.4, Chloride 106, Carbon Dioxide 30.0, Anion Gap 6, BUN 16, Creatinine 1.54 H, Estim Creat Clear Calc 48.90, Est GFR (MDRD) Af Amer 58 L, Est GFR (MDRD) Non-Af 48 L, BUN/Creatinine Ratio 10.4, Glucose 127 H, Calcium 8.5, Total Bilirubin 1.10 H, AST 19, ALT 18, Alkaline Phosphatase 92, Total Protein 6.8, Albumin 3.0 L, Globulin 3.8, Albumin/Globulin Ratio 0.8 L 01/23/18 05:53: Hemoglobin A1c 6.2 Current Medications Hydrocodone Bitart/Acetaminophen ([place] 5mg-325mg) 1 tablet PO Q4H PRN PRN PRN Reason: PAIN Albuterol/Ipratropium (Duoneb) 3 ml INHALATION Q4H.RT [facility] Last Admin: 01/23/18 07:20 Dose: Not Given Amlodipine Besylate (Norvasc) 5 mg PO DAILY [facility] Last Admin: 01/23/18 09:15 Dose: 5 mg Aspirin (Aspirin, Baby) 81 mg PO DAILY@0800 [facility] Atorvastatin Calcium (Lipitor) 80 mg PO QHS [facility] Carvedilol (Coreg) 12.5 mg PO BID [facility] Last Admin: 01/23/18 09:15 Dose: 12.5 mg Clopidogrel Bisulfate (Plavix) 75 mg PO DAILY [facility] Hydrochlorothiazide (Hctz) 25 mg PO DAILY [facility] Hydromorphone HCl (Dilaudid Inj) 0.5 - 1 mg IV Q3H PRN PRN PRN Reason: SEVERE PAIN (6-10/10) Hydromorphone HCl (Dilaudid Inj) 0.5 - 1 mg IV Q3H PRN PRN PRN Reason: SEVERE PAIN (6-10/10) Sodium Chloride () 1,000 mls @ 100 mls/hr IV .Q10H [facility] Last Admin: 01/23/18 09:14 Dose: 100 mls/hr Insulin Human Lispro (Humalog Kwikpen (Bkc)) 0 unit SC ACHS [facility] PRN Reason: Protocol Lisinopril (Zestril) 20 mg PO BID [facility] Last Admin: 01/23/18 09:16 Dose: 20 mg Oxycodone HCl (Oxyir) 5 - 10 mg PO Q4H PRN PRN PRN Reason: Moderate Pain (pain scale 4-5) Pantoprazole Sodium (Protonix) 40 mg PO DAILY [facility] Last Admin: 01/23/18 09:14 Dose: 40 mg Sodium Chloride () 5 - 30 ml IV UD PRN PRN Reason: SALINE FLUSH Medical Necessity - Tobacco Use Smoking Status: Never smoker Assessment/Plan Active and Suspected Problems (Last Reviewed 12/09/17 @ 10:16 by Chris Frazier MD) Acute respiratory failure with hypoxia (Acute) Hydroureteronephrosis (Acute) The patient is a 67 y/o M w/ PMHx: CAD s/p LHC w/PCI-Aspiration Thrombectomy & TAQUERIA-Prox RCA 01/04/16 w/ Hx NSTEMI, Diabetes mellitus type II, HTN, HLD, Obesity, Hx Nephrolithiasis who presents to the [facility] ED on 01/22/18 with recent admission for L hydroureteronephrosis due to multiple tiny proximal and mid ureteral calculi s/p lithotripsy; however, onset on day of ED presentation severe L flank pain with nausea as well as ongoing dysuria and hematuria and ED noted hypoxia. (1) Acute Flank Pain, secondary to Acute Ureterolithiasis without apparent UTI: UA without evidence UTI, notable hematuria, admitted to [place], maintained on hydration, maintain NPO for intervention, continue PRN oral and IV pain regimen, alter as needed, Urology consulted and planned intervention later in the day for planned stent placement, PRN anti-emetics, monitor I&Os. (2) Hypoxia, RULED OUT Acute Respiratory Failure: Noted ED hypoxia, not technically respiratory failure, secondary to acute pain, poor effort, atelectasis secondary to #1 and narcotic usage, encourage HOB, IS especially post-op as expect pain to improve. (3) CAD: s/p LHC w/PCI-Aspiration Thrombectomy & TAQUERIA-Prox RCA 01/04/16 w/ Hx NSTEMI, continue home regimen asa, statin, BB. (4) Hypertension, Uncontrolled: Likely uncontrolled secondary to pain w/ acute presentation as noted #1, BPs improved following admission, continue to trend, maintain on Norvasc, Coreg, hydrochlorothiazide, lisinopril given stable renal function, PRN hydralazine. (5) Hyperlipidemia: Continue home statin regimen. (6) Diabetes mellitus type II: Hold oral home regimen, continue home insulin regimen, ADA diet once diet allowed, accu checks w/ ISS. (7) Obesity: Weight loss and lifestyle changes encouraged. (8) DVT prophylaxis: SCDs, defer chemoprophylaxis given acute presentation as noted #1. Code Visit Inpatient E&M: 77965 Subs Hosp L2
--- NOTE | 2018-01-23 09:30 | PN_ITS ---
Patient Problems: Active and Suspected Problems (Last Reviewed 12/09/17 @ 10:16 by Chris Frazier MD ) Acute respiratory failure with hypoxia (Acute) Hydroureteronephrosis (Acute) Subjective: The patient is a 67 y/o M w/ PMHx: CAD s/p LHC w/PCI-Aspiration Thrombectomy & TAQUERIA-Prox RCA 01/04/16 w/ Hx NSTEMI, Diabetes mellitus type II, HTN, HLD, Obesity, Hx Nephrolithiasis who presents to the [facility] ED on 01/22/18 with recent admission for L hydroureteronephrosis due to multiple tiny proximal and mid ureteral calculi s/p lithotripsy; however, onset on day of ED presentation severe L flank pain with nausea as well as ongoing dysuria and hematuria and ED noted hypoxia. Acute Flank Pain, secondary to Acute Ureterolithiasis without apparent UTI: UA without evidence UTI, notable hematuria, admitted to [place], maintained on hydration, maintain NPO for intervention, continue PRN oral and IV pain regimen , alter as needed, Urology consulted and planned intervention later in the day for planned stent placement, PRN anti-emetics, monitor I&Os. Hypoxia, RULED OUT Acute Respiratory Failure: Noted ED hypoxia, not technically respiratory failure , secondary to acute pain, poor effort, atelectasis secondary to #1 and narcotic usage, encourage HOB, IS especially post-op as expect pain to improve. Patient overnight with continued discomfort with need for pain medication regimen changes. Discussed plan of care which includes evaluation by Dr. Bustamante and stent placement for left hydroureternephrosis later in the day. Patient denies fevers, chills, nausea, emesis, abdominal pain, chest pain or dyspnea but does note ongoing left-sided CVA tenderness. Objective: Physical Examination: General: awake, alert, oriented x 3 and cooperative, seated upright in bed, notes ongoing mild discomfort, L CVA. Skin: normal color, turgor, no icterus, cyanosis. HEENT: AT/NC, EOMI, PERRLA, mildly dry MM. Lungs: CTA bilaterally, moderate effort, mild decrease BL bases, no rales, ronchi or wheezing. Heart: Regular rate and rhythm; no gallop, rub audible. Abdomen: soft, NTTP, no suprapubic TTP, + L CVA TTP, ND, hypoactive BS. Extremities: no cyanosis, clubbing, or edema. Neurological: patient awake, alert, oriented x 3; cognitive function intact; pupils equally reactive to light and accomodation; cranial nerves II-XII grossly normal, moving all 4 extremities, no focal deficits, strength severely globally decreased secondary to acute presentation. Psychiatric: affect appears normal, no acute evidence of depressive or anxiety feelings. Vitals/I&O's: Vital Signs Temp Pulse Resp BP Pulse Ox 98.6 F 73 16 159/75 H 93 01/23/18 06:00 01/23/18 06:00 01/23/18 06:00 01/23/18 06:00 01/23/18 08:12 Oxygen Flow Rate (L/min) 2 Oxygen Delivery Method Nasal Cannula Weight: 271 lb 6.224 oz Body Mass Index (BMI) 37.8 Intake and Output for Last 24 Hours 01/21/18 01/22/18 01/23/18 23:59 23:59 23:59 Intake Total 867 / 867 Output Total 400 / 400 Balance 467 / 467 Microbiology Past 72 Hours 01/23/18 00:40 Mucosa - Nasopharyngeal Influenza Types A,B Direct FA (LOCO) - Final Laboratory Results 01/23/18 05:53: WBC 12.8 H, RBC 4.75, Hgb 14.3, Hct 44.2, MCV 93.1, MCH 30.1, MCHC 32.4, RDW 14.9 H, RDW Differential 49.4 H, Plt Count 243, MPV 10.2, Immature Gran % (Auto) 0.500, Neut % (Auto) 72.8 H, Lymph % (Auto) 14.7 L, [place] % (Auto) 11.4 H, Eos % (Auto) 0.5, Baso % (Auto) 0.1, Absolute Neuts (auto) 9.3 H, Absolute Lymphs (auto) 1.88, Total Counted Not Reportable 01/23/18 05:53: Sodium 142, Potassium 4.4, Chloride 106, Carbon Dioxide 30.0, Anion Gap 6, BUN 16, Creatinine 1.54 H, Estim Creat Clear Calc 48.90, Est GFR ( MDRD) Af Amer 58 L, Est GFR (MDRD) Non-Af 48 L, BUN/Creatinine Ratio 10.4, Glucose 127 H, Calcium 8.5, Total Bilirubin 1.10 H, AST 19, ALT 18, Alkaline Phosphatase 92, Total Protein 6.8, Albumin 3.0 L, Globulin 3.8, Albumin/ Globulin Ratio 0.8 L 01/23/18 05:53: Hemoglobin A1c 6.2 Current Medications Hydrocodone Bitart/Acetaminophen ([place] 5mg-325mg) 1 tablet PO Q4H PRN PRN PRN Reason: PAIN Albuterol/Ipratropium (Duoneb) 3 ml INHALATION Q4H.RT [facility] Last Admin: 01/23/18 07:20 Dose: Not Given Amlodipine Besylate (Norvasc) 5 mg PO DAILY [facility] Last Admin: 01/23/18 09:15 Dose: 5 mg Aspirin (Aspirin, Baby) 81 mg PO DAILY@0800 [facility] Atorvastatin Calcium (Lipitor) 80 mg PO QHS [facility] Carvedilol (Coreg) 12.5 mg PO BID [facility] Last Admin: 01/23/18 09:15 Dose: 12.5 mg Clopidogrel Bisulfate (Plavix) 75 mg PO DAILY [facility] Hydrochlorothiazide (Hctz) 25 mg PO DAILY [facility] Hydromorphone HCl (Dilaudid Inj) 0.5 - 1 mg IV Q3H PRN PRN PRN Reason: SEVERE PAIN (6-10/10) Hydromorphone HCl (Dilaudid Inj) 0.5 - 1 mg IV Q3H PRN PRN PRN Reason: SEVERE PAIN (6-10/10) Sodium Chloride () 1,000 mls @ 100 mls/hr IV .Q10H [facility] Last Admin: 01/23/18 09:14 Dose: 100 mls/hr Insulin Human Lispro (Humalog Kwikpen (Bkc)) 0 unit SC ACHS [facility] PRN Reason: Protocol Lisinopril (Zestril) 20 mg PO BID [facility] Last Admin: 01/23/18 09:16 Dose: 20 mg Oxycodone HCl (Oxyir) 5 - 10 mg PO Q4H PRN PRN PRN Reason: Moderate Pain (pain scale 4-5) Pantoprazole Sodium (Protonix) 40 mg PO DAILY [facility] Last Admin: 01/23/18 09:14 Dose: 40 mg Sodium Chloride () 5 - 30 ml IV UD PRN PRN Reason: SALINE FLUSH Medical Necessity - Tobacco Use Smoking Status: Never smoker Assessment/Plan Active and Suspected Problems (Last Reviewed 12/09/17 @ 10:16 by Chris Frazier MD ) Acute respiratory failure with hypoxia (Acute) Hydroureteronephrosis (Acute) The patient is a 67 y/o M w/ PMHx: CAD s/p LHC w/PCI-Aspiration Thrombectomy & TAQUERIA-Prox RCA 01/04/16 w/ Hx NSTEMI, Diabetes mellitus type II, HTN, HLD, Obesity, Hx Nephrolithiasis who presents to the [facility] ED on 01/22/18 with recent admission for L hydroureteronephrosis due to multiple tiny proximal and mid ureteral calculi s/p lithotripsy; however, onset on day of ED presentation severe L flank pain with nausea as well as ongoing dysuria and hematuria and ED noted hypoxia. (1) Acute Flank Pain, secondary to Acute Ureterolithiasis without apparent UTI: UA without evidence UTI, notable hematuria, admitted to [place], maintained on hydration, maintain NPO for intervention, continue PRN oral and IV pain regimen , alter as needed, Urology consulted and planned intervention later in the day for planned stent placement, PRN anti-emetics, monitor I&Os. (2) Hypoxia, RULED OUT Acute Respiratory Failure: Noted ED hypoxia, not technically respiratory failure, secondary to acute pain, poor effort, atelectasis secondary to #1 and narcotic usage, encourage HOB, IS especially post-op as expect pain to improve. (3) CAD: s/p LHC w/PCI-Aspiration Thrombectomy & TAQUERIA-Prox RCA 01/04/16 w/ Hx NSTEMI, continue home regimen asa, statin, BB. (4) Hypertension, Uncontrolled: Likely uncontrolled secondary to pain w/ acute presentation as noted #1, BPs improved following admission, continue to trend, maintain on Norvasc, Coreg, hydrochlorothiazide, lisinopril given stable renal function, PRN hydralazine. (5) Hyperlipidemia: Continue home statin regimen. (6) Diabetes mellitus type II: Hold oral home regimen, continue home insulin regimen, ADA diet once diet allowed, accu checks w/ ISS. (7) Obesity: Weight loss and lifestyle changes encouraged. (8) DVT prophylaxis: SCDs, defer chemoprophylaxis given acute presentation as noted #1. Code Visit Inpatient E&M: 56384 Subs Hosp L2
[2018-01-23] MEDS: HYDROmorphone 0.5 MG/0.5 ML SYRINGE IV ×2 (10:32→19:51)
--- NOTE | 2018-01-23 13:28 | CM.UR ---
Met face to face with patient. explained role of nurse case mgmt. Denies anticipating any needs upon discharge. Case management available should any needs arise. Gaby Townsend RN, [facility].
--- NOTE | 2018-01-23 14:21 | PCM.CONS.U ---
Reason for Consult Date of Consultation: 01/22/18 Reason for Consultation: renal colic, s/p left ESWL History of Present Illness: The patient is a 67 year old Male with a left kidney stone, s/p left ESWL passing a few small fragments, had severe pain uncontrolled by oral meds needs IV meds. will place stent to alleviate pain and help pass small fragments Past Medical History Past Medical History (Chronic Problems): Chronic Problems (Last Reviewed 12/09/17 @ 10:16 by Chris Frazier MD) Hyperlipidemia (Chronic) Diabetes mellitus type II, controlled (Chronic) Hypertension (Chronic) Non-ST elevation (NSTEMI) myocardial infarction (Chronic) Atherosclerotic heart disease of [place] coronary artery without angina pectoris (Chronic) [facility] w/PCI-Aspiration Thrombectomy & TAQUERIA-Prox RCA 01/04/16 Allergies ticagrelor [From [facility]] Allergy (Verified 01/22/18 19:42) Shortness of breath Home Medications: Ambulatory Orders Medication Instructions Recorded Aspirin [Aspirin, Baby] 81 mg PO DAILY@0800 01/03/16 Hydrochlorothiazide [Hctz] 25 mg PO DAILY 01/03/16 Metformin HCl [Metformin HCl ER] 500 mg PO DAILY 01/03/16 Atorvastatin Calcium [Lipitor] 80 mg PO QHS 01/10/16 Carvedilol [Carvedilol] 12.5 mg PO BID 01/10/16 Clopidogrel Bisulfate [Plavix] 75 mg PO DAILY 01/10/16 Pantoprazole Sodium [Protonix] 40 mg PO DAILY 01/10/16 amlodipine 2.5 mg tablet 5 mg PO QDAY tab 12/09/17 lisinopril 20 mg tablet 20 mg PO BID tab 12/09/17 Nitroglycerin 0.4 mg SL PRN PRN 01/14/18 Hydrocodone Bitart/Apap 5-325 1 tab PO Q4H PRN PRN 5 Days #14 tab 01/21/18 [[place] 5MG-325MG] Surgical History: cataract, herniorrhaphy, tonsillectomy, - - vasectomy Lives: Spouse/ Significant Other Smoking Status: Never smoker Alcohol: None Drugs: None - *Family History Maternal History Items: No pertinent history Review of Systems Constitutional: Denies: Chills, Fever, Weight Change HEENT: Denies: Head Aches, Sinus Congestion, Sinus Drainage Cardiovascular: Denies: Chest Pain, Palpitations Respiratory: Denies: Cough, Shortness of breath at rest, Sputum production Gastrointestinal: Reports: Abdominal Pain Genitourinary: Denies: Dysuria Musculoskeletal: Denies: Joint Pain, Joint Tenderness Skin: Denies: Rash, Wounds Neurological: Denies: Numbness, Tingling, Focal weakness Psychiatric: Denies: Anxiety, Depression, Homicidal Ideations, Suicidal Ideations Hematologic/ Lymphatic: Denies: Easy Bruising, Easy Bleeding Physical Exam - Physical Exam Vital Signs Temp 98.9 F 01/23/18 12:00 Pulse 72 01/23/18 12:00 Resp 18 01/23/18 12:00 BP 133/81 H 01/23/18 12:00 Pulse Ox 98 01/23/18 12:00 Intake & Output 01/21/18 01/22/18 01/23/18 23:59 23:59 23:59 Intake Total 867 / 867 Output Total 400 / 400 Balance 467 / 467 Weight: 123.1 kg Intake: Oral 240 / 240 IV fluid/meds 627 / 627 Output: Urine 400 / 400 General: Alert, Oriented x3, Cooperative HEENT: Atraumatic Oral: Moist Mucosa Neck: Supple Lungs: Normal air movement Cardiovascular: Regular rate, Regular Rhythm Abdomen: Soft, Obese Rectal: Exam deferred Scrotum: No lesions, No warts Skin: No rashes, No breakdown Neurological: Cranial nerves II-XII grossly intact Psych/Mental Status: Normal Affect Microbiology Past 72 Hours 01/23/18 00:40 Influenza Types A,B Direct FA (LOCO) - Final Mucosa - Nasopharyngeal Laboratory Tests Past 24 Hrs 01/23/18 01/23/18 01/23/18 05:53 05:53 05:53 WBC 12.8 H RBC 4.75 Hgb 14.3 Hct 44.2 MCV 93.1 MCH 30.1 MCHC 32.4 RDW 14.9 H RDW Differential 49.4 H Plt Count 243 MPV 10.2 Immature Gran % (Auto) 0.500 Neut % (Auto) 72.8 H Lymph % (Auto) 14.7 L [place] % (Auto) 11.4 H Eos % (Auto) 0.5 Baso % (Auto) 0.1 Absolute Neuts (auto) 9.3 H Absolute Lymphs (auto) 1.88 Total Counted Not Reportable Sodium 142 Potassium 4.4 Chloride 106 Carbon Dioxide 30.0 Anion Gap 6 BUN 16 Creatinine 1.54 H Estim Creat Clear Calc 48.90 Est GFR (MDRD) Af Amer 58 L Est GFR (MDRD) Non-Af 48 L BUN/Creatinine Ratio 10.4 Glucose 127 H Hemoglobin A1c 6.2 Calcium 8.5 Total Bilirubin 1.10 H AST 19 ALT 18 Alkaline Phosphatase 92 Total Protein 6.8 Albumin 3.0 L Globulin 3.8 Albumin/Globulin Ratio 0.8 L Assessment/Plan Active and Suspected Problems (Last Reviewed 12/09/17 @ 10:16 by Chris Frazier MD) Acute respiratory failure with hypoxia (Acute) Hydroureteronephrosis (Acute) plan to place a stent today in or.
--- NOTE | 2018-01-23 14:21 | NURSING ---
OR-RN called report given. requesting patient being taken to PACU
--- NOTE | 2018-01-23 14:25 | CON.PCM_ITS ---
Reason for Consult Date of Consultation: 01/22/18 Reason for Consultation: renal colic, s/p left ESWL History of Present Illness: The patient is a 67 year old Male with a left kidney stone, s/p left ESWL passing a few small fragments, had severe pain uncontrolled by oral meds needs IV meds. will place stent to alleviate pain and help pass small fragments Past Medical History Past Medical History (Chronic Problems): Chronic Problems (Last Reviewed 12/09/17 @ 10:16 by Chris Frazier MD) Hyperlipidemia (Chronic) Diabetes mellitus type II, controlled (Chronic) Hypertension (Chronic) Non-ST elevation (NSTEMI) myocardial infarction (Chronic) Atherosclerotic heart disease of [place] coronary artery without angina pectoris (Chronic) [facility] w/PCI-Aspiration Thrombectomy & TAQUERIA-Prox RCA 01/04/16 Allergies ticagrelor [From BRILINTA] Allergy (Verified 01/22/18 19:42) Shortness of breath Home Medications: Ambulatory Orders Medication Instructions Recorded Aspirin [Aspirin, Baby] 81 mg PO DAILY@0800 01/03/16 Hydrochlorothiazide [Hctz] 25 mg PO DAILY 01/03/16 Metformin HCl [Metformin HCl ER] 500 mg PO DAILY 01/03/16 Atorvastatin Calcium [Lipitor] 80 mg PO QHS 01/10/16 Carvedilol [Carvedilol] 12.5 mg PO BID 01/10/16 Clopidogrel Bisulfate [Plavix] 75 mg PO DAILY 01/10/16 Pantoprazole Sodium [Protonix] 40 mg PO DAILY 01/10/16 amlodipine 2.5 mg tablet 5 mg PO QDAY tab 12/09/17 lisinopril 20 mg tablet 20 mg PO BID tab 12/09/17 Nitroglycerin 0.4 mg SL PRN PRN 01/14/18 Hydrocodone Bitart/Apap 5-325 1 tab PO Q4H PRN PRN 5 Days #14 tab 01/21/18 [[place] 5MG-325MG] Surgical History: cataract, herniorrhaphy, tonsillectomy, - - vasectomy Lives: Spouse/ Significant Other Smoking Status: Never smoker Alcohol: None Drugs: None - *Family History Maternal History Items: No pertinent history Review of Systems Constitutional: Denies: Chills, Fever, Weight Change HEENT: Denies: Head Aches, Sinus Congestion, Sinus Drainage Cardiovascular: Denies: Chest Pain, Palpitations Respiratory: Denies: Cough, Shortness of breath at rest, Sputum production Gastrointestinal: Reports: Abdominal Pain Genitourinary: Denies: Dysuria Musculoskeletal: Denies: Joint Pain, Joint Tenderness Skin: Denies: Rash, Wounds Neurological: Denies: Numbness, Tingling, Focal weakness Psychiatric: Denies: Anxiety, Depression, Homicidal Ideations, Suicidal Ideations Hematologic/ Lymphatic: Denies: Easy Bruising, Easy Bleeding Physical Exam - Physical Exam Vital Signs Temp 98.9 F 01/23/18 12:00 Pulse 72 01/23/18 12:00 Resp 18 01/23/18 12:00 BP 133/81 H 01/23/18 12:00 Pulse Ox 98 01/23/18 12:00 Intake & Output 01/21/18 01/22/18 01/23/18 23:59 23:59 23:59 Intake Total 867 / 867 Output Total 400 / 400 Balance 467 / 467 Weight: 123.1 kg Intake: Oral 240 / 240 IV fluid/meds 627 / 627 Output: Urine 400 / 400 General: Alert, Oriented x3, Cooperative HEENT: Atraumatic Oral: Moist Mucosa Neck: Supple Lungs: Normal air movement Cardiovascular: Regular rate, Regular Rhythm Abdomen: Soft, Obese Rectal: Exam deferred Scrotum: No lesions, No warts Skin: No rashes, No breakdown Neurological: Cranial nerves II-XII grossly intact Psych/Mental Status: Normal Affect Microbiology Past 72 Hours 01/23/18 00:40 Influenza Types A,B Direct FA (LOCO) - Final Mucosa - Nasopharyngeal Laboratory Tests Past 24 Hrs 01/23/18 01/23/18 01/23/18 05:53 05:53 05:53 WBC 12.8 H RBC 4.75 Hgb 14.3 Hct 44.2 MCV 93.1 MCH 30.1 MCHC 32.4 RDW 14.9 H RDW Differential 49.4 H Plt Count 243 MPV 10.2 Immature Gran % (Auto) 0.500 Neut % (Auto) 72.8 H Lymph % (Auto) 14.7 L Todd % (Auto) 11.4 H Eos % (Auto) 0.5 Baso % (Auto) 0.1 Absolute Neuts (auto) 9.3 H Absolute Lymphs (auto) 1.88 Total Counted Not Reportable Sodium 142 Potassium 4.4 Chloride 106 Carbon Dioxide 30.0 Anion Gap 6 BUN 16 Creatinine 1.54 H Estim Creat Clear Calc 48.90 Est GFR (MDRD) Af Amer 58 L Est GFR (MDRD) Non-Af 48 L BUN/Creatinine Ratio 10.4 Glucose 127 H Hemoglobin A1c 6.2 Calcium 8.5 Total Bilirubin 1.10 H AST 19 ALT 18 Alkaline Phosphatase 92 Total Protein 6.8 Albumin 3.0 L Globulin 3.8 Albumin/Globulin Ratio 0.8 L Assessment/Plan Active and Suspected Problems (Last Reviewed 12/09/17 @ 10:16 by Chris Frazier MD ) Acute respiratory failure with hypoxia (Acute) Hydroureteronephrosis (Acute) plan to place a stent today in or.
[2018-01-23] MEDS: Cefazolin 1 GM/50 ML BAG IV (14:45)
--- NOTE | 2018-01-23 15:21 | PCM.OPRPT ---
Report of Operation Date of Procedure: 01/23/18 Pre-Operative Diagnosis: Left kidney stone status post left ESWL with multiple fragments still passing and causing left hydronephrosis Post-Operative Diagnosis: Same Surgery/Procedure Performed:: Cystoscopy left retrograde pyelogram and left stent placement Description of Surgical Findings:: 67-year-old male who underwent shockwave lithotripsy for stone in the left kidney, the stone broke up well during the procedure he was discharged home in good condition then presented to the emergency room 2 days later with severe left flank pain CAT scan was done to demonstrate multiple small calculi along the course of the left ureter without passing causing severe flank pain and hydronephrosis because of this was admitted for pain control also was hypoxic probably from pain medications and now is taken to the operating room for stent placement on the left side. 67-year-old male underwent anesthesia he was placed in dorsal lithotomy position the penis and testicles were prepped and draped in usual sterile fashion went into the bladder with a 21 [place] rigid cystourethroscope along the course of the urethra a few annular strictures was able to get the scope through them. Prostate was normal, trigone was very close of the bladder neck identified the right ureteral orifice and identified the left ureteral orifice use the light, and a Glidewire and advanced a wire up in the left kidney performed a left retrograde Polygram to see the pelvis left the wire in place and then advanced the stent into the left kidney from the bladder drain the bladder left stent in good position from the kidney and bladder left the string on the stent for extraction. Plan to see him back in the office about 2 weeks and will remove the stent at that point. Type of Anesthesia:: General Drains: stent left side. - Admit VTE Documentation VTE Present on Admission: No VTE Mechan Device Prophylaxis: SCD's VTE Pharm Prophylaxis ordered?: No Reason prophylaxis not ordered:: Treatment Not Indicated
[2018-01-23 16:56] LABS: Bedside Glucose 142 mg/dL (70-110)
[2018-01-23] MEDS: Atorvastatin Calcium 80 MG Tablet PO (20:43)
[2018-01-23 21:00] LABS: Bedside Glucose 119 mg/dL (70-110)
[2018-01-24] VITALS (9 sets, daily range): BP systolic 112–160; BP diastolic 59–82; PULSE 60–70; RESP 16–20; TEMP 36.9–38.2; O2SAT 94–96
[2018-01-24] MEDS: 0.9% Normal Saline 1,000 ML 100 ML IV ×2 (02:39→11:47)
[2018-01-24 07:11] LABS: Bedside Glucose 131 mg/dL (70-110)
[2018-01-24] MEDS: oxyCODONE 5 MG Tablet PO ×2 (07:43→13:36)
--- NOTE | 2018-01-24 08:48 | PCM.PN.HOSP ---
Patient Problems: Active and Suspected Problems (Last Reviewed 12/09/17 @ 10:16 by Chris Frazier MD) Hydroureteronephrosis (Acute) Subjective: Still with hematuria (has been going on for 1 months, but worse after stent on 01/23). Now hematuria improving--no blood clots. Vitals/I&O's: Vital Signs Temp Pulse Resp BP Pulse Ox 38.2 C H 67 20 H 139/82 H 96 01/24/18 04:55 01/24/18 07:45 01/24/18 04:55 01/24/18 04:55 01/24/18 04:55 Oxygen Flow Rate (L/min) 2 Oxygen Delivery Method Room Air Weight: 123.1 kg Body Mass Index (BMI) 37.8 Intake and Output for Last 24 Hours 01/22/18 01/23/18 01/24/18 23:59 23:59 23:59 Intake Total 2561 / 2561 2137 / 213 Output Total 400 / 400 Balance 2161 / 2161 2137 General: Alert, Cooperative, No apparent distress HEENT: Atraumatic, Normocephalic Neck: No Nodes, Thyroid Normal Size and Texture Lungs: Clear to auscultation, Normal air movement, No rhonchi, No wheeze Cardiovascular: Regular rate, Regular Rhythm, Normal S1, Normal S2, No murmurs Abdomen: Bowel Sounds Present, Soft, Non Tender, Non-Distended, No Hepato-splenomegaly Extremities: No edema, No Calf Tenderness Skin: No rashes, No breakdown Psych/Mental Status: Normal Affect, Appropriate Microbiology Past 72 Hours 01/23/18 00:40 Mucosa - Nasopharyngeal Influenza Types A,B Direct FA (LOCO) - Final Laboratory Results 01/23/18 05:53: Hemoglobin A1c 6.2 01/23/18 16:36: POC Glucose 142 H 01/23/18 20:54: POC Glucose 119 H 01/24/18 07:03: POC Glucose 131 H Current Medications Hydrocodone Bitart/Acetaminophen ([place] 5mg-325mg) 1 tablet PO Q4H PRN PRN PRN Reason: PAIN Albuterol/Ipratropium (Duoneb) 3 ml INHALATION Q4H.RT KELSEY Last Admin: 01/24/18 03:16 Dose: Not Given Amlodipine Besylate (Norvasc) 5 mg PO DAILY [facility] Last Admin: 01/23/18 09:15 Dose: 5 mg Aspirin (Aspirin, Baby) 81 mg PO DAILY@0800 [facility] Atorvastatin Calcium (Lipitor) 80 mg PO QHS [facility] Last Admin: 01/23/18 20:43 Dose: 80 mg Carvedilol (Coreg) 12.5 mg PO BID [facility] Last Admin: 01/23/18 20:43 Dose: 12.5 mg Clopidogrel Bisulfate (Plavix) 75 mg PO DAILY [facility] Hydrochlorothiazide (Hctz) 25 mg PO DAILY [facility] Last Admin: 01/23/18 10:16 Dose: Not Given Hydromorphone HCl (Dilaudid Inj) 0.5 - 1 mg IV Q3H PRN PRN PRN Reason: SEVERE PAIN (6-10/10) Last Admin: 01/23/18 19:51 Dose: 0.5 mg Hydromorphone HCl (Dilaudid Inj) 0.5 - 1 mg IV Q3H PRN PRN PRN Reason: SEVERE PAIN (6-10/10) Sodium Chloride () 1,000 mls @ 100 mls/hr IV .Q10H [facility] Last Admin: 01/24/18 02:39 Dose: 100 mls/hr Insulin Human Lispro (Humalog Kwikpen (Bkc)) 0 unit SC ACHS [facility] PRN Reason: Protocol Last Admin: 01/24/18 07:14 Dose: Not Given Lisinopril (Zestril) 20 mg PO BID [facility] Last Admin: 01/23/18 20:43 Dose: 20 mg Oxycodone HCl (Oxyir) 5 - 10 mg PO Q4H PRN PRN PRN Reason: Moderate Pain (pain scale 4-5) Last Admin: 01/24/18 07:43 Dose: 10 mg Pantoprazole Sodium (Protonix) 40 mg PO DAILY [facility] Last Admin: 01/23/18 09:14 Dose: 40 mg Sodium Chloride () 5 - 30 ml IV UD PRN PRN Reason: SALINE FLUSH Medical Necessity - Tobacco Use Smoking Status: Never smoker Assessment/Plan Active and Suspected Problems (Last Reviewed 12/09/17 @ 10:16 by Chris Frazier MD) Hydroureteronephrosis (Acute) 1. hydroureternephrosis POD #1 cystoscopy with left stent placement clinically improving follow up with urology in 2 weeks for stent extraction 2. hematuria: / #1 has been ongoing for 1 month, but acutely worse after stent placement monitor follow up with exacerbated by concomitant use of DAPT 3. DVT proph: SCDs 4. Acute hypoxic respiratory failure not formally placed on vital, though from ER note patient dropped to 85-86% it is unclear if directly related with administration of Dilaudid or not subsequently pt has not been hypoxic therefore, I suspect it was related to dilaudid Code Visit Inpatient E&M: 30008 Subs Hosp L2
--- NOTE | 2018-01-24 08:57 | PN_ITS ---
Patient Problems: Active and Suspected Problems (Last Reviewed 12/09/17 @ 10:16 by Chris Frazier MD ) Hydroureteronephrosis (Acute) Subjective: Still with hematuria (has been going on for 1 months, but worse after stent on ). Now hematuria improving--no blood clots. Vitals/I&O's: Vital Signs Temp Pulse Resp BP Pulse Ox 38.2 C H 67 20 H 139/82 H 96 01/24/18 04:55 01/24/18 07:45 01/24/18 04:55 01/24/18 04:55 01/24/18 04:55 Oxygen Flow Rate (L/min) 2 Oxygen Delivery Method Room Air Weight: 123.1 kg Body Mass Index (BMI) 37.8 Intake and Output for Last 24 Hours 01/22/18 01/23/18 01/24/18 23:59 23:59 23:59 Intake Total 2561 / 2561 2137 / 213 Output Total 400 / 400 Balance 2161 / 2161 2137 General: Alert, Cooperative, No apparent distress HEENT: Atraumatic, Normocephalic Neck: No Nodes, Thyroid Normal Size and Texture Lungs: Clear to auscultation, Normal air movement, No rhonchi, No wheeze Cardiovascular: Regular rate, Regular Rhythm, Normal S1, Normal S2, No murmurs Abdomen: Bowel Sounds Present, Soft, Non Tender, Non-Distended, No Hepato- splenomegaly Extremities: No edema, No Calf Tenderness Skin: No rashes, No breakdown Psych/Mental Status: Normal Affect, Appropriate Microbiology Past 72 Hours 01/23/18 00:40 Mucosa - Nasopharyngeal Influenza Types A,B Direct FA (LOCO) - Final Laboratory Results 01/23/18 05:53: Hemoglobin A1c 6.2 01/23/18 16:36: POC Glucose 142 H 01/23/18 20:54: POC Glucose 119 H 01/24/18 07:03: POC Glucose 131 H Current Medications Hydrocodone Bitart/Acetaminophen ([place] 5mg-325mg) 1 tablet PO Q4H PRN PRN PRN Reason: PAIN Albuterol/Ipratropium (Duoneb) 3 ml INHALATION Q4H.RT [place] Last Admin: 01/24/18 03:16 Dose: Not Given Amlodipine Besylate (Norvasc) 5 mg PO DAILY [facility] Last Admin: 01/23/18 09:15 Dose: 5 mg Aspirin (Aspirin, Baby) 81 mg PO DAILY@0800 [facility] Atorvastatin Calcium (Lipitor) 80 mg PO QHS [facility] Last Admin: 01/23/18 20:43 Dose: 80 mg Carvedilol (Coreg) 12.5 mg PO BID [facility] Last Admin: 01/23/18 20:43 Dose: 12.5 mg Clopidogrel Bisulfate (Plavix) 75 mg PO DAILY [facility] Hydrochlorothiazide (Hctz) 25 mg PO DAILY [facility] Last Admin: 01/23/18 10:16 Dose: Not Given Hydromorphone HCl (Dilaudid Inj) 0.5 - 1 mg IV Q3H PRN PRN PRN Reason: SEVERE PAIN (6-10/10) Last Admin: 01/23/18 19:51 Dose: 0.5 mg Hydromorphone HCl (Dilaudid Inj) 0.5 - 1 mg IV Q3H PRN PRN PRN Reason: SEVERE PAIN (6-10/10) Sodium Chloride () 1,000 mls @ 100 mls/hr IV .Q10H [facility] Last Admin: 01/24/18 02:39 Dose: 100 mls/hr Insulin Human Lispro (Humalog Kwikpen (Bkc)) 0 unit SC ACHS [facility] PRN Reason: Protocol Last Admin: 01/24/18 07:14 Dose: Not Given Lisinopril (Zestril) 20 mg PO BID [facility] Last Admin: 01/23/18 20:43 Dose: 20 mg Oxycodone HCl (Oxyir) 5 - 10 mg PO Q4H PRN PRN PRN Reason: Moderate Pain (pain scale 4-5) Last Admin: 01/24/18 07:43 Dose: 10 mg Pantoprazole Sodium (Protonix) 40 mg PO DAILY [facility] Last Admin: 01/23/18 09:14 Dose: 40 mg Sodium Chloride () 5 - 30 ml IV UD PRN PRN Reason: SALINE FLUSH Medical Necessity - Tobacco Use Smoking Status: Never smoker Assessment/Plan Active and Suspected Problems (Last Reviewed 12/09/17 @ 10:16 by Chris Frazier MD ) Hydroureteronephrosis (Acute) 1. hydroureternephrosis * POD #1 cystoscopy with left stent placement * clinically improving * follow up with urology in 2 weeks for stent extraction 2. hematuria: * 2/ #1 * has been ongoing for 1 month, but acutely worse after stent placement * monitor * follow up with * exacerbated by concomitant use of DAPT 3. DVT proph: SCDs 4. Acute hypoxic respiratory failure * not formally placed on vital, though from ER note patient dropped to 85-86% * it is unclear if directly related with administration of Dilaudid or not * subsequently pt has not been hypoxic * therefore, I suspect it was related to dilaudid Code Visit Inpatient E&M: 06797 Subs Hosp L2
[2018-01-24] MEDS: Pantoprazole Sodium 40 MG Tablet PO (10:30)
[2018-01-24] MEDS: Clopidogrel Bisulfate 75 MG Tablet PO (10:30)
[2018-01-24] MEDS: Aspirin 81 MG TAB.CHEW PO (10:30)
[2018-01-24] MEDS: Carvedilol 12.5 MG Tablet PO (10:30)
[2018-01-24] MEDS: Lisinopril 20 MG Tablet PO (10:30)
[2018-01-24] MEDS: amLODIPine 5 MG Tablet PO (10:31)
[2018-01-24] MEDS: hydroCHLOROthiazide 25 MG Tablet PO (10:31)
[2018-01-24 12:21] LABS: Bedside Glucose 119 mg/dL (70-110)
--- NOTE | 2018-01-24 14:50 | PCM.DC ---
- Discharge Diagnoses Current Active Problems: Current Active and Chronic Problems (Last Reviewed 12/09/17 @ 10:16 by Chris Frazier MD) Hydroureteronephrosis (Acute) You will use the following diet at home:: Calorie/Carbohydrate Controlled (specify 1200, 1400, etc) - 1800 kcal/day Your food should be the consistency of: Regular Your liquids should be the consistency of: Regular/Thin Discharge Activity: Return to Normal Activity, - - ease back into your normal routine Weight Bearing Status: Full weight bearing Call your doctor if you observe: Fever of 101 or Higher, Inability to urinate, - - worsening blood in urine. worsening flank/abdominal pain. Allergies/Adverse Reactions: Allergies ticagrelor [From BRIL[place]TA] Allergy (Verified 01/22/18 19:42) Shortness of breath Medications to take at Discharge Aspirin [Aspirin, Baby] 81 mg PO DAILY@0800 01/03/16 Hydrochlorothiazide [Hctz] 25 mg PO DAILY 01/03/16 Metformin HCl [Metformin HCl ER] 500 mg PO DAILY 01/03/16 Atorvastatin Calcium [Lipitor] 80 mg PO QHS 01/10/16 Carvedilol 12.5 mg PO BID 01/10/16 Clopidogrel Bisulfate [Plavix] 75 mg PO DAILY 01/10/16 Pantoprazole Sodium [Protonix] 40 mg PO DAILY 01/10/16 amlodipine 2.5 mg tablet 5 mg PO QDAY tab 12/09/17 lisinopril 20 mg tablet 20 mg PO BID tab 12/09/17 Nitroglycerin 0.4 mg SL PRN PRN 01/14/18 Hydrocodone Bitart/Apap 5-325 [[place] 5/325] 1 tab PO Q4H PRN PRN 5 Days #14 tab 01/21/18 Hydrocodone Bitart/Apap 5-325 [[place] 5MG-325MG] 1 tab PO Q6H PRN PRN 3 Days #12 tab 01/24/18 Phenazopyridine [Pyridium] 100 mg PO TID #9 tab 01/24/18 The following prescriptions were given: Hydrocodone Bitart/Apap 5-325 [[place] 5MG-325MG] 1 tab PO Q6H PRN PRN 3 Days #12 tab PRN Reason: Pain Phenazopyridine [Pyridium] 100 mg PO TID #9 tab Primary Care Physician: Nathan Damon MD [Primary Care Provider] - Within 2 Weeks Please Follow Up With: Jalen Tobin MD When: 2 weeks Proposed Discharge Date: 01/24/18
--- NOTE | 2018-01-24 14:53 | DCINST_ITS ---
- Discharge Diagnoses Current Active Problems: Current Active and Chronic Problems (Last Reviewed 12/09/17 @ 10:16 by Chris Frazier MD) Hydroureteronephrosis (Acute) You will use the following diet at home:: Calorie/Carbohydrate Controlled ( specify 1200, 1400, etc) - 1800 kcal/day Your food should be the consistency of: Regular Your liquids should be the consistency of: Regular/Thin Discharge Activity: Return to Normal Activity, - - ease back into your normal routine Weight Bearing Status: Full weight bearing Call your doctor if you observe: Fever of 101 or Higher, Inability to urinate, - - worsening blood in urine. worsening flank/abdominal pain. Allergies/Adverse Reactions: Allergies ticagrelor [From BRIL[place]TA] Allergy (Verified 01/22/18 19:42) Shortness of breath Medications to take at Discharge Aspirin [Aspirin, Baby] 81 mg PO DAILY@0800 01/03/16 Hydrochlorothiazide [Hctz] 25 mg PO DAILY 01/03/16 Metformin HCl [Metformin HCl ER] 500 mg PO DAILY 01/03/16 Atorvastatin Calcium [Lipitor] 80 mg PO QHS 01/10/16 Carvedilol 12.5 mg PO BID 01/10/16 Clopidogrel Bisulfate [Plavix] 75 mg PO DAILY 01/10/16 Pantoprazole Sodium [Protonix] 40 mg PO DAILY 01/10/16 amlodipine 2.5 mg tablet 5 mg PO QDAY tab 12/09/17 lisinopril 20 mg tablet 20 mg PO BID tab 12/09/17 Nitroglycerin 0.4 mg SL PRN PRN 01/14/18 Hydrocodone Bitart/Apap 5-325 [[place] 5/325] 1 tab PO Q4H PRN PRN 5 Days #14 tab 01/21/18 Hydrocodone Bitart/Apap 5-325 [[place] 5MG-325MG] 1 tab PO Q6H PRN PRN 3 Days #12 tab 01/24/18 Phenazopyridine [Pyridium] 100 mg PO TID #9 tab 01/24/18 The following prescriptions were given: Hydrocodone Bitart/Apap 5-325 [[place] 5MG-325MG] 1 tab PO Q6H PRN PRN 3 Days #12 tab PRN Reason: Pain Phenazopyridine [Pyridium] 100 mg PO TID #9 tab Primary Care Physician: Nathan Damon MD [Primary Care Provider] - Within 2 Weeks Please Follow Up With: Jalen Tobin MD When: 2 weeks Proposed Discharge Date: 01/24/18
--- NOTE | 2018-01-24 14:53 | PCM.DC.SUM ---
Discharge Date and Diagnosis - Problem List Patient Problems: Active and Suspected Problems (Last Reviewed 12/09/17 @ 10:16 by Chris Frazier MD) Hydroureteronephrosis (Acute) Date of Admission: 01/22/18 Date of Discharge: 01/24/18 - Primary Discharge Diagnosis Active and Suspected Problems (Last Reviewed 12/09/17 @ 10:16 by Chris Frazier MD) Hydroureteronephrosis (Acute) - Secondary Discharge Diagnosis Chronic Problems (Last Reviewed 12/09/17 @ 10:16 by Chris Frazier MD) Hyperlipidemia (Chronic) Diabetes mellitus type II, controlled (Chronic) Hypertension (Chronic) Non-ST elevation (NSTEMI) myocardial infarction (Chronic) Atherosclerotic heart disease of [place] coronary artery without angina pectoris (Chronic) [facility] w/PCI-Aspiration Thrombectomy & TAQUERIA-Prox RCA 01/04/16 Hospital Course and Treatment Imaging Results: Clinical Impression(s) from Imaging Studies Abdomen/Pelvis CT 01/22/18 19:57 IMPRESSION: Mild left hydroureteronephrosis secondary to multiple tiny proximal and mid ureteral calculi.. Electronically Signed: Gibran Disla MD at 21:08 EDT , Service support , Chest X-Ray 01/22/18 21:22 IMPRESSION: Diminished inspiratory effort and bibasilar atelectasis or evolving infiltrates Electronically Signed: Gibran Disla MD at 22:11 EDT , Service support , [place] Operations: None Procedures: - - cystoscopy with left stent placement. Summary of Care Provided: The patient is a 67 year old M presents with left flank pain. Patient had a CAT scan that showed a left hydronephrosis due to tiny proximal and mid ureteral calculi. Patient previously had had lithotripsy. Patient was admitted and on underwent a cystoscopy of the left stent placements. Patient overall improved. Patient was having hematuria before the procedure and then also got worse afterwards. Today the hematuria is much better. Patient was also has some intermittent flank pain but overall doing better as well. Patient does endorse that he is having some this dysuria plus some frequency as well. I feel that the symptoms are related with his cystoscopies. Urinalysis here was negative for infection. I recommend patient take some Pyridium to help with the dysuria. Patient will follow up with urology as outpatient for eventual stent removal. Patient advised to return if he has worsening hematuria, worsening flank pain. [] Discharge Diet: 1800 Calorie Control Diet Discharge Activity: Return to Normal Activity, - - ease back into your normal routine Weight Bearing Status: Full weight bearing Call your doctor if you observe: Fever of 101 or Higher, Inability to urinate, - - worsening blood in urine. worsening flank/abdominal pain. Home Medications: Medications to take at Discharge Aspirin [Aspirin, Baby] 81 mg PO DAILY@0800 01/03/16 Hydrochlorothiazide [Hctz] 25 mg PO DAILY 01/03/16 Metformin HCl [Metformin HCl ER] 500 mg PO DAILY 01/03/16 Atorvastatin Calcium [Lipitor] 80 mg PO QHS 01/10/16 Carvedilol 12.5 mg PO BID 01/10/16 Clopidogrel Bisulfate [Plavix] 75 mg PO DAILY 01/10/16 Pantoprazole Sodium [Protonix] 40 mg PO DAILY 01/10/16 amlodipine 2.5 mg tablet 5 mg PO QDAY tab 12/09/17 lisinopril 20 mg tablet 20 mg PO BID tab 12/09/17 Nitroglycerin 0.4 mg SL PRN PRN 01/14/18 Hydrocodone Bitart/Apap 5-325 [[place] 5/325] 1 tab PO Q4H PRN PRN 5 Days #14 tab 01/21/18 Hydrocodone Bitart/Apap 5-325 [[place] 5MG-325MG] 1 tab PO Q6H PRN PRN 3 Days #12 tab 01/24/18 Phenazopyridine [Pyridium] 100 mg PO TID #9 tab 01/24/18 Following Prescrptions Were Given to Patient: Hydrocodone Bitart/Apap 5-325 [[place] 5MG-325MG] 1 tab PO Q6H PRN PRN 3 Days #12 tab PRN Reason: Pain Phenazopyridine [Pyridium] 100 mg PO TID #9 tab Primary Care Physician: Nathan Damon MD [Primary Care Provider] - Within 2 Weeks Please Follow Up With: Jalen Tobin MD When: 2 weeks Disposition: Home Minutes spent on discharge:: 32 Patient Condition:: Good Medical Necessity - Tobacco Use Smoking Status: Never smoker Meaningful Use Info Meaningful Use Diagnoses (Choose all that apply): None applicable Code Visit Inpatient E&M: 73257 Disch Hosp
--- NOTE | 2018-01-24 14:57 | DS.PCM_ITS ---
Discharge Date and Diagnosis - Problem List Patient Problems: Active and Suspected Problems (Last Reviewed 12/09/17 @ 10:16 by Chris Frazier MD ) Hydroureteronephrosis (Acute) Date of Admission: 01/22/18 Date of Discharge: 01/24/18 - Primary Discharge Diagnosis Active and Suspected Problems (Last Reviewed 12/09/17 @ 10:16 by Chris Frazier MD ) Hydroureteronephrosis (Acute) - Secondary Discharge Diagnosis Chronic Problems (Last Reviewed 12/09/17 @ 10:16 by Chris Frazier MD) Hyperlipidemia (Chronic) Diabetes mellitus type II, controlled (Chronic) Hypertension (Chronic) Non-ST elevation (NSTEMI) myocardial infarction (Chronic) Atherosclerotic heart disease of [place] coronary artery without angina pectoris (Chronic) [facility] w/PCI-Aspiration Thrombectomy & TAQUERIA-Prox RCA 01/04/16 Hospital Course and Treatment Imaging Results: Clinical Impression(s) from Imaging Studies Abdomen/Pelvis CT 01/22/18 19:57 IMPRESSION: Mild left hydroureteronephrosis secondary to multiple tiny proximal and mid ureteral calculi.. Electronically Signed: Gibran Disla MD at 21:08 EDT , Service support , Chest X-Ray 01/22/18 21:22 IMPRESSION: Diminished inspiratory effort and bibasilar atelectasis or evolving infiltrates Electronically Signed: Gibran Disla MD at 22:11 EDT , Service support , [employer] Operations: None Procedures: - - cystoscopy with left stent placement. Summary of Care Provided: The patient is a 67 year old M presents with left flank pain. Patient had a CAT scan that showed a left hydronephrosis due to tiny proximal and mid ureteral calculi. Patient previously had had lithotripsy. Patient was admitted and on underwent a cystoscopy of the left stent placements. Patient overall improved. Patient was having hematuria before the procedure and then also got worse afterwards. Today the hematuria is much better. Patient was also has some intermittent flank pain but overall doing better as well. Patient does endorse that he is having some this dysuria plus some frequency as well. I feel that the symptoms are related with his cystoscopies. Urinalysis here was negative for infection. I recommend patient take some Pyridium to help with the dysuria. Patient will follow up with urology as outpatient for eventual stent removal. Patient advised to return if he has worsening hematuria, worsening flank pain. [] Discharge Diet: 1800 Calorie Control Diet Discharge Activity: Return to Normal Activity, - - ease back into your normal routine Weight Bearing Status: Full weight bearing Call your doctor if you observe: Fever of 101 or Higher, Inability to urinate, - - worsening blood in urine. worsening flank/abdominal pain. Home Medications: Medications to take at Discharge Aspirin [Aspirin, Baby] 81 mg PO DAILY@0800 01/03/16 Hydrochlorothiazide [Hctz] 25 mg PO DAILY 01/03/16 Metformin HCl [Metformin HCl ER] 500 mg PO DAILY 01/03/16 Atorvastatin Calcium [Lipitor] 80 mg PO QHS 01/10/16 Carvedilol 12.5 mg PO BID 01/10/16 Clopidogrel Bisulfate [Plavix] 75 mg PO DAILY 01/10/16 Pantoprazole Sodium [Protonix] 40 mg PO DAILY 01/10/16 amlodipine 2.5 mg tablet 5 mg PO QDAY tab 12/09/17 lisinopril 20 mg tablet 20 mg PO BID tab 12/09/17 Nitroglycerin 0.4 mg SL PRN PRN 01/14/18 Hydrocodone Bitart/Apap 5-325 [Mineral 5/325] 1 tab PO Q4H PRN PRN 5 Days #14 tab 01/21/18 Hydrocodone Bitart/Apap 5-325 [Mineral 5MG-325MG] 1 tab PO Q6H PRN PRN 3 Days #12 tab 01/24/18 Phenazopyridine [Pyridium] 100 mg PO TID #9 tab 01/24/18 Following Prescrptions Were Given to Patient: Hydrocodone Bitart/Apap 5-325 [Mineral 5MG-325MG] 1 tab PO Q6H PRN PRN 3 Days #12 tab PRN Reason: Pain Phenazopyridine [Pyridium] 100 mg PO TID #9 tab Primary Care Physician: Nathan Damon MD [Primary Care Provider] - Within 2 Weeks Please Follow Up With: Jalen Tobin MD When: 2 weeks Disposition: Home Minutes spent on discharge:: 32 Patient Condition:: Good Medical Necessity - Tobacco Use Smoking Status: Never smoker Meaningful Use Info Meaningful Use Diagnoses (Choose all that apply): None applicable Code Visit Inpatient E&M: 30576 Disch Hosp
--- NOTE | 2018-01-25 16:04 | CASEMGMT ---
RN CM Discharge Follow-up Phone Call: BRYAN: Hoang Strata: 3 Call Date: 01/25/18 Discharge Date: 01/24/18 Time of Call: 1605 Duration: 1 Min Admitting Diagnosis: Acute hypoxia resp failure, kidney stone RN CM attempted follow-up phone call after recent hospitalization. No answer and voice message left with return contact information.
== END 2018-01-24 15:48 | disposition home or self-care (01) | DRG 693 ==
LOC: ED 20:52 → MS3 23:16
PROVIDERS: Anesthesiology; Family Medicine; Urology; Admitting Provider Internal Medicine; Emergency Provider Emergency Medicine; Family Provider Family Medicine; PCP Family Medicine
PROC: BT1FZZZ Fluoroscopy of Left Kidney, Ureter and Bladder (ICD-10-PCS; principal; 2018-01-23 14:30)
DX: N13.2 Hydronephrosis with renal and ureteral calculous obstruction (principal); J96.01 Acute respiratory failure with hypoxia; J98.11 Atelectasis; R31.9 Hematuria, unspecified; I10 Essential (primary) hypertension; I25.10 Atherosclerotic heart disease of native coronary artery without angina pectoris; I25.2 Old myocardial infarction; E11.9 Type 2 diabetes mellitus without complications; K21.9 Gastro-esophageal reflux disease without esophagitis; E78.5 Hyperlipidemia, unspecified; E66.9 Obesity, unspecified; Z68.37 Body mass index [BMI] 37.0-37.9, adult; Z87.442 Personal history of urinary calculi; Z79.82 Long term (current) use of aspirin; Z79.84 Long term (current) use of oral hypoglycemic drugs; Z79.02 Long term (current) use of antithrombotics/antiplatelets; Z79.899 Other long term (current) drug therapy
CPT/HCPCS: 71045; 74018; 74176; 76000; 80048; 80053; 81001; 82962; 83036; 83880; 84484; 85025; 85379; 87804; 93005; 94640; 94667; 94668; 99285; J7030; J7120; A4216; C1769; C2617; J2405

== ENCOUNTER 2018-02-01 01:50 | Inpatient (IN) | payer MEDICARE, OTHER, SELFPAY ==
--- NOTE | 2018-02-01 01:40 | RAD_ITS ---
STUDY: X-RAY CHEST REASON FOR EXAM: Male, 67 years old. Fever, flank pain and difficulty breathing. TECHNIQUE: Single frontal view of the chest. COMPARISON: January 22, 2018 FINDINGS: There is low volume inspiration with bibasilar atelectasis, left greater than right. The atelectasis is less than it was on the prior comparison study. There is no demonstrated pleural abnormality. There is stable borderline cardiomegaly. Normal mediastinum and marly. Normal visualized pulmonary arteries. Normal visualized aortic arch and descending thoracic aorta. Normal visualized thoracic spine. Normal visualized ribs, clavicles, and shoulders. There is no demonstrated abnormality of the visualized soft tissue structures of the upper abdomen. RAD/Chest 1 View (Portable) IMPRESSION: Stable borderline cardiomegaly with diminished atelectasis since the prior study. Electronically Signed: Rodney Howell MD at 11:47 EDT , Service support ,
--- NOTE | 2018-02-01 02:00 | CT_ITS ---
STUDY: CT ABDOMEN AND PELVIS WITHOUT CONTRAST REASON FOR EXAM: Male, 67 years old. Left-sided flank pain after lithotripsy one week ago. RADIATION DOSAGE (If Supplied By Facility): CTDIvol = ( 20.91 ) mGy, DLP = ( 1285.49 ) mGycm TECHNIQUE: Transaxial images were obtained from the dome of the diaphragm to the symphysis pubis without oral contrast, and without intravenous contrast. Sagittal and coronal images were reconstructed. Individualized dose optimization techniques were used for this CT. COMPARISON: CT of the abdomen and pelvis dated January 06, 2018. Preliminary report was reviewed. FINDINGS: There is bilateral basilar dependent atelectasis. There is mild prominence of bronchovascular markings. Lucencies are visible in the subpleural regions of the posterior segments of both lower lobes that may represent small pneumatoceles or sequela of paraseptal emphysema. The visualized portions of the heart are within normal limits. There are vascular calcifications of the coronary arteries. Normal liver. Normal gallbladder and extrahepatic biliary system. Normal spleen. Normal pancreas. Normal bilateral adrenal glands. There is a right-sided renal cyst measuring 2.9 cm. This has attenuation of approximately 2 Hounsfield units consistent with a cyst. Left kidney has a double pigtail ureteral stent with the proximal end in the left renal collecting system and the distal end in the urinary bladder. There is a tiny nonobstructing left-sided renal calculus measuring 5 mm. Normal visualized stomach. There is no evidence for dilated bowel, ascites or pneumoperitoneum. Small bowel has a grossly normal appearance. There are multiple colonic diverticula consistent with diverticulosis. The appendix is visualized and appears normal. Normal abdominal aorta. Normal inferior vena cava. Normal retroperitoneum. Normal urinary bladder. There is enlargement of the prostate gland. There are prostatic calcifications. Normal abdominal wall. There are diffuse degenerative changes of the visualized thoracic and lumbar spine. CT/Abdomen/Pelvis without Cont IMPRESSION: 1. No CT evidence of acute intra-abdominal disease. 2. Left-sided ureteral stent is in appropriate position. 3. Nonobstructing left-sided renal calculus. 4. Right-sided renal cyst. Electronically Signed: Olga Lester MD at 7:28 EDT , Service support ,
--- NOTE | 2018-02-01 03:29 | DT_ITS ---
This patient was seen during an EMR downtime January 31, 2018 - February 07, 2018. This patient may have a combination of paper and electronic documentation or all paper documentation. All documentation is viewable within the e-chart portion of [employer] for each patient visit.
--- NOTE | 2018-02-02 10:35 | RAD_ITS ---
STUDY: X-RAY - ABDOMEN/PELVIS REASON FOR EXAM: Male, 67 years old. Ureteral stent TECHNIQUE: Two AP supine views of the abdomen and pelvis. COMPARISON: None. FINDINGS: Normal visualized lung bases. There is an unremarkable bowel gas pattern. There is no demonstrated free abdominal air. The visualized liver, spleen and kidneys are grossly normal in size and morphology. Left ureteral stent. Normal soft tissue structures. Normal visualized osseous structures. RAD/Abdomen Single View IMPRESSION: No obstruction. Left ureteral stent. Electronically Signed: Moises Bess DO at 21:34 EDT , Service support ,
[2018-02-03 18:47] LABS: Color, Urine Yellow (Yellow); Glucose, Dipstick Normal (Normal); Ketone-Dipstick Negative (Negative); Leukocyte Esterase-Dipstick 1+ /ul (Negative); Mucous, Urine 0 SEEN /hpf (<or=2+); Nitrite-Dipstick Positive (Negative); Occult Blood-Urine 250 /ul (Negative); Protein-Dipstick 15 mg/dl (Negative); Urine Bilirubin Dipstick Negative (Negative); Urine Clarity Cloudy (Clear); Urine Urobilinogen Normal (Normal)
[2018-02-03 18:48] LABS: Bacteria 1+ /hpf (None Seen); Red Blood Cells-Urine 50-100 SEEN /hpf (0-5); Squamous Epithelial Cells - UA 0-5 SEEN /hpf (0-5); White Blood Cells 10-25 SEEN /hpf (0-5)
[2018-02-04 10:08] LABS: BUN 25 mg/dL (7-18); BUN/Creat Ratio 17.4 RATIO (10-20); Calcium,Total 8.5 mg/dL (8.5-10.1); Creatinine, Serum 1.44 mg/dL (0.70-1.30); EST Glomerular Filtration Rate 52 mL/min (>60); Est Glom Filt Rate - Afr Amer 63 mL/min (>60); Glucose 141 mg/dL (74-106); Potassium 3.4 mmol/L (3.5-5.1); Sodium Level 144 mmol/L (136-145)
[2018-02-04 10:09] LABS: Anion Gap 8 (5-15); Chloride 105 mmol/L (98-107)
[2018-02-04 13:29] LABS: Prothrombin Time (Protime)PT. 13.4 SECONDS (11.7-14.9); Red Blood Count 5.23 M/mm3 (4.6-6.2); White Blood Count 18.1 K/mm3 (4.4-11.0)
[2018-02-04 13:30] LABS: Absolute Lymphocyte Count 0.65 X10^3/ul (0.83-4.51); Absolute Neutrophil Count 16.3 X10^3/uL (2.0-7.7); Basophil# 0.03 X10^3/uL; Basophil% 0.2 % (0-1); Eosinophils% 1.7 % (0-5); Hematocrit 47.2 % (40-54); Hemoglobin 15.3 g/dl (13.0-16.5); Lymphocyte # 0.65 X10^3/ul (4.0); Lymphocyte % 3.6 % (19-41); Mean Corp Hgb Conc 32.4 g/gl (32-36); Mean Corpuscular Hgb 29.3 pg (27.0-32.0); Mean Corpuscular Volume 90.2 fL (80-94); Mean Platelet Vol. 10.2 fl (6.2-12.0); Monocyte% 4.4 % (0-10); Neutrophil # 16.26 X10^3/uL (2.7-7.7); Neutrophil % 89.9 % (47-70); POSITIVE COUNT NO; POSITIVE DIFFERENTIAL NO; POSITIVE MORPHOLOGY NO; Platelet Count 245 K/mm3 (150-450); RBC Distribution Width CV 14.7 % (11.6-14.6); RBC Distribution Width SD 47.8 fl (35.1-43.9)
[2018-02-05 08:16] LABS: Hematocrit 39.2 % (40-54); Hemoglobin 12.5 g/dl (13.0-16.5); Mean Corp Hgb Conc 31.9 g/gl (32-36); Mean Corpuscular Hgb 29.3 pg (27.0-32.0); Platelet Count 196 K/mm3 (150-450); RBC Distribution Width CV 14.9 % (11.6-14.6); RBC Distribution Width SD 48.8 fl (35.1-43.9); Red Blood Count 4.26 M/mm3 (4.6-6.2); White Blood Count 19.1 K/mm3 (4.4-11.0)
[2018-02-05 08:17] LABS: Mean Platelet Vol. 10.2 fl (6.2-12.0); Scan Indicated on CBC? Y/N NO
[2018-02-05 09:44] LABS: Anion Gap 9 (5-15); BUN 19 mg/dL (7-18); BUN/Creat Ratio 15.1 RATIO (10-20); Calcium,Total 9.3 mg/dL (8.5-10.1); Chloride 104 mmol/L (98-107); Creatinine, Serum 1.26 mg/dL (0.70-1.30); EST Glomerular Filtration Rate 60 mL/min (>60); Est Glom Filt Rate - Afr Amer 73 mL/min (>60); Glucose 164 mg/dL (74-106); Potassium 3.3 mmol/L (3.5-5.1); Sodium Level 143 mmol/L (136-145)
[2018-02-05 09:47] LABS: Lactic Acid 3.3 mmol/L (0.4-2.0)
[2018-02-05 11:05] LABS: Lactic Acid 3.1 mmol/L (0.4-2.0)
[2018-02-05 15:04] LABS: Hematocrit 37.5 % (40-54); Hemoglobin 11.8 g/dl (13.0-16.5); Red Blood Count 4.05 M/mm3 (4.6-6.2); White Blood Count 15.2 K/mm3 (4.4-11.0)
[2018-02-05 15:05] LABS: Mean Corp Hgb Conc 31.5 g/gl (32-36); Mean Corpuscular Hgb 29.1 pg (27.0-32.0); Mean Corpuscular Volume 92.6 fL (80-94); Mean Platelet Vol. 10.3 fl (6.2-12.0); Platelet Count 192 K/mm3 (150-450); RBC Distribution Width CV 14.9 % (11.6-14.6); RBC Distribution Width SD 49.2 fl (35.1-43.9); Scan Indicated on CBC? Y/N NO
[2018-02-07 16:16] LABS: White Blood Count 10.5 K/mm3 (4.4-11.0)
[2018-02-07 16:19] LABS: Hematocrit 37.9 % (40-54); Hemoglobin 12.2 g/dl (13.0-16.5); Mean Corp Hgb Conc 32.2 g/gl (32-36); Mean Corpuscular Hgb 28.9 pg (27.0-32.0); Mean Corpuscular Volume 89.8 fL (80-94); Platelet Count 239 K/mm3 (150-450); RBC Distribution Width CV 14.8 % (11.6-14.6); RBC Distribution Width SD 48.4 fl (35.1-43.9); Red Blood Count 4.22 M/mm3 (4.6-6.2); Scan Indicated on CBC? Y/N NO
[2018-02-07 22:29] LABS: Anion Gap 8 (5-15); BUN 31 mg/dL (7-18); BUN/Creat Ratio 21.1 RATIO (10-20); Calcium,Total 8.4 mg/dL (8.5-10.1); Chloride 105 mmol/L (98-107); Creatinine, Serum 1.47 mg/dL (0.70-1.30); EST Glomerular Filtration Rate 51 mL/min (>60); Est Glom Filt Rate - Afr Amer 62 mL/min (>60); Glucose 140 mg/dL (74-106); Sodium Level 142 mmol/L (136-145)
[2018-02-16 10:33] LABS: Bedside Glucose 175 mg/dL (70-110)
== END 2018-02-04 12:00 | disposition home or self-care (01) | DRG 872 ==
LOC: ED 02-02 13:55 → PCU 02-03 11:40
PROVIDERS: Nurse Practitioner Family; Admitting Provider Family Medicine; Emergency Provider Emergency Medicine; Family Provider Family Medicine; PCP Family Medicine; Visit Provider Family Medicine
DX: A41.9 Sepsis, unspecified organism (principal); R65.20 Severe sepsis without septic shock; N12 Tubulo-interstitial nephritis, not specified as acute or chronic; N20.1 Calculus of ureter; B96.5 Pseudomonas (aeruginosa) (mallei) (pseudomallei) as the cause of diseases classified elsewhere; I10 Essential (primary) hypertension; R09.02 Hypoxemia; E87.6 Hypokalemia; K21.9 Gastro-esophageal reflux disease without esophagitis; T50.2X5A Adverse effect of carbonic-anhydrase inhibitors, benzothiadiazides and other diuretics, initial encounter; Y92.9 Unspecified place or not applicable; Z95.5 Presence of coronary angioplasty implant and graft
CPT/HCPCS: 36415; 71045; 74018; 74176; 80048; 81001; 82962; 83605; 85025; 85027; 85610; 87040; 87077; 87086; 87088; 87184; 87186; 96365; 96375; 97162; 97166; 97530; 99285; J7030; J7040; A4216; G8978; G8979; G8987; G8988; J0696

== ENCOUNTER → 2018-02-15 13:13 | Outpatient (CLI) | payer MEDICARE, OTHER, SELFPAY ==
--- NOTE | 2018-02-15 13:17 | RAD_ITS ---
STUDY: X-RAY - ABDOMEN/PELVIS REASON FOR EXAM: Male, 67 years old. Left-sided stone TECHNIQUE: 2 views COMPARISON: None. FINDINGS: Normal visualized lung bases. There is an unremarkable bowel gas pattern. There is no demonstrated free abdominal air. No calcifications are seen over the renal shadows. Normal soft tissue structures. The degenerative vertebral changes. RAD/Abdomen Single View IMPRESSION: No calcifications over the renal shadows. Electronically Signed: Yossi Ambrocio DO at 23:58 EDT Tel [phone], Service support ,
== END ==
PROVIDERS: Family Provider Family Medicine; PCP Family Medicine; Visit Provider Urology
DX: N20.0 Calculus of kidney (principal)
CPT/HCPCS: 74018

== ENCOUNTER 2018-03-09 06:58 | Observation (INO) | payer MEDICARE, OTHER, SELFPAY ==
[2018-03-09] VITALS (9 sets, daily range): BP systolic 117–138; BP diastolic 58–74; PULSE 59–71; RESP 12–26; TEMP 36.6–36.8; O2SAT 93–100; BMI 43.7; BMI 37.0
--- NOTE | 2018-03-09 07:12 | EKG12_ITS ---
Test Reason : CP Blood Pressure : / mmHG Vent. Rate : 067 BPM Atrial Rate : 067 BPM P-R Int : 240 ms QRS Dur : 132 ms QT Int : 426 ms P-R-T Axes : 078 -47 036 degrees QTc Int : 450 ms Sinus rhythm with 1st degree A-V block Left axis deviation Non-specific intra-ventricular conduction block Abnormal ECG Confirmed by CRYSTAL SHERMAN, YUKI ([id number]), material expeditor GABRIELA DELGADO ([id number]) on 03/15/2018 2:34:57 PM Referred By: DARIUS Confirmed By:YUKI ROJAS MD
--- NOTE | 2018-03-09 07:15 | RAD_ITS ---
STUDY: X-RAY CHEST REASON FOR EXAM: Male, 67 years old. Chest pain TECHNIQUE: Single AP portable view of the chest. COMPARISON: 02/01/2018 FINDINGS: The lungs are clear and expanded. There is no demonstrated pleural abnormality. There is mild cardiac enlargement. Normal mediastinum and marly. Normal visualized pulmonary arteries. Normal visualized aortic arch and descending thoracic aorta. Normal visualized thoracic spine. Normal visualized ribs, clavicles, and shoulders. There is no demonstrated abnormality of the visualized soft tissue structures of the upper abdomen. RAD/Chest 1 View (Portable) IMPRESSION: No acute findings Electronically Signed: Nahun Trotter DO at 7:50 EDT Tel , Service support ,
--- NOTE | 2018-03-09 07:30 | ED.DCSUM_ITS ---
- ER Visit Summary Date of Service: 03/09/18 Chief Complaint: Chest pain History of Present Illness: The patient is a 67 M with history of coronary artery disease and myocardial infarction who presents for chest pain for 4 hours. Patient noticed right sided chest pain when he woke up. It is been persistent since then. He has associated belching. These are the same symptoms he had with his first heart attack. Pain is described as a tightness and was not relieved with his nitro at home. EMS gave him nitro with improvement of his pain to 1 out of 10. Patient currently rates it 2 out of 10. He also received 4 aspirin. Pain is nonradiating. No associated shortness of breath, abdominal pain, back pain. Patient has history of coronary artery disease, cardiac stent, hypertension, diabetes. He is allergic to Brilinta. Takes Plavix daily. Physical Examination: Vital signs: afebrile, hemodynamically stable, no hypoxia on room air General: well nourished, well developed, in no distress, sitting in bed Skin: warm, dry, no rash, no pallor HEENT: normocephalic and atraumatic; PERRL, EOMI, moist mucous membranes Cardiovascular: regular rate and rhythm without murmurs, no peripheral edema, 2 + pulses all distal extremities Respiratory: No increased work of breathing, lungs are clear to auscultation bilaterally, no rales, rhonchi or wheezing Abdominal: Abdomen is soft, nontender with normoactive bowel sounds, no epigastric or right upper quadrant tenderness, no guarding or rebound, no masses MSK: Moves all extremities, no deformities, normal strength Neuro: Awake and alert, oriented ?4. No facial droop, sensation and motor function intact and symmetric Test Results: Abnormal Lab Results 03/09/18 03/09/18 03/09/18 07:00 07:00 07:00 WBC 8.6 RBC 4.58 L Hgb 13.1 Hct 41.5 MCV 90.6 MCH 28.6 MCHC 31.6 L RDW 15.5 H RDW Differential 51.5 H Plt Count 245 MPV 9.8 Immature Gran % (Auto) 0.500 Neut % (Auto) 57.4 Lymph % (Auto) 29.2 [place] % (Auto) 9.8 Eos % (Auto) 2.8 Baso % (Auto) 0.3 Absolute Neuts (auto) 5.0 Absolute Lymphs (auto) 2.52 Total Counted Not Reportable PT 13.5 INR 1.0 APTT 36.3 H Sodium 143 Potassium 3.6 Chloride 105 Carbon Dioxide 31.0 Anion Gap 7 BUN 22 H Creatinine 1.34 H Estim Creat Clear Calc 56.19 Est GFR (MDRD) Af Amer 68 Est GFR (MDRD) Non-Af 56 L BUN/Creatinine Ratio 16.4 Glucose 157 H Calcium 8.5 Total Bilirubin 0.70 Direct Bilirubin 0.16 AST 19 ALT 27 Alkaline Phosphatase 88 Troponin I < 0.015 Total Protein 6.9 Albumin 2.9 L Globulin 4.0 Lipase 232 03/09/18 03/09/18 09:56 12:47 WBC RBC Hgb Hct MCV MCH MCHC RDW RDW Differential Plt Count MPV Immature Gran % (Auto) Neut % (Auto) Lymph % (Auto) [place] % (Auto) Eos % (Auto) Baso % (Auto) Absolute Neuts (auto) Absolute Lymphs (auto) Total Counted PT INR APTT Sodium Potassium Chloride Carbon Dioxide Anion Gap BUN Creatinine Estim Creat Clear Calc Est GFR (MDRD) Af Amer Est GFR (MDRD) Non-Af BUN/Creatinine Ratio Glucose Calcium Total Bilirubin Direct Bilirubin AST ALT Alkaline Phosphatase Troponin I < 0.015 < 0.015 Total Protein Albumin Globulin Lipase Clinical Impression(s) from Imaging Studies Chest X-Ray 03/09/18 07:15 IMPRESSION: No acute findings Electronically Signed: Nahun Trotter DO at 7:50 EDT Tel , Service support , Emergency Department Course and Treatment: Patient received aspirin prehospital. Presentation is concerning for possible acute coronary syndrome given that these are the same symptoms patient had with his first heart attack. He has no PE risk factors, no dyspnea, hypoxia or tachycardia. Thus no further PE workup performed. EKG showed sinus rhythm with first-degree block and left bundle branch block, present on old EKG. No ischemic changes noted. Initial troponin negative. Labs otherwise unremarkable for any acute changes. Patient had continued chest pain after nitroglycerin and was given 1 dose of he was discussed with his screening representative Dr. Frazier, who admitted the patient to his service for further ideation and management. Patient complained to nursing at one point that the chest pain had worsened. A repeat EKG showed no changes. Treatment Plan: [] Disposition: [] Impression: Acute chest pain, history of coronary artery disease. This note was generated with [employer] dictation software. It may contain incorrect words, spelling, and punctuation that were not noted in review of the chart prior to signing ED Disposition - Plan for ED Patient: Disposition: Acute Care [facility] Chief Complaint: Chest Pain
[2018-03-09 07:43] LABS: Absolute Lymphocyte Count 2.52 X10^3/ul (0.83-4.51); Basophil# 0.03 X10^3/uL; Basophil% 0.3 % (0-1); Eosinophil# 0.24 X10^3/uL; Eosinophils% 2.8 % (0-5); Hematocrit 41.5 % (40-54); Hemoglobin 13.1 g/dl (13.0-16.5); Lymphocyte # 2.52 X10^3/ul (4.0); Lymphocyte % 29.2 % (19-41); Mean Corp Hgb Conc 31.6 g/gl (32-36); Mean Corpuscular Hgb 28.6 pg (27.0-32.0); Mean Corpuscular Volume 90.6 fL (80-94); Mean Platelet Vol. 9.8 fl (6.2-12.0); Monocyte# 0.85 X10^3/uL; Monocyte% 9.8 % (0-10); Neutrophil # 4.96 X10^3/uL (2.7-7.7); Neutrophil % 57.4 % (47-70); Platelet Count 245 K/mm3 (150-450); RBC Distribution Width CV 15.5 % (11.6-14.6); RBC Distribution Width SD 51.5 fl (35.1-43.9); Red Blood Count 4.58 M/mm3 (4.6-6.2); White Blood Count 8.6 K/mm3 (4.4-11.0)
[2018-03-09 07:58] LABS: POSITIVE COUNT NO; POSITIVE DIFFERENTIAL NO; POSITIVE MORPHOLOGY NO
[2018-03-09 08:02] LABS: AST(SGOT) 19 U/L (15-37); Alanine Aminotransfer ALT/SGPT 27 U/L (16-61); Albumin, Serum 2.9 g/dL (3.2-5.0); Alkaline Phosphatase 88 U/L (45-117); Anion Gap 7 (5-15); BUN 22 mg/dL (7-18); BUN/Creat Ratio 16.4 RATIO (10-20); Bilirubin, Direct 0.16 mg/dL (0.00-0.30); Calcium,Total 8.5 mg/dL (8.5-10.1); Chloride 105 mmol/L (98-107); Creatinine, Serum 1.34 mg/dL (0.70-1.30); EST Glomerular Filtration Rate 56 mL/min (>60); Est Glom Filt Rate - Afr Amer 68 mL/min (>60); Estimated Creatinine Clearance 56.19 ml/min; Glucose 157 mg/dL (74-106); Lipase 232 U/L (73-393); Potassium 3.6 mmol/L (3.5-5.1); Protein, Total 6.9 g/dL (6.4-8.2); Sodium Level 143 mmol/L (136-145)
[2018-03-09 08:07] LABS: Partial Thromboplast Time 36.3 Seconds (24.1-36.2); Prothrombin Time (Protime)PT. 13.5 SECONDS (11.7-14.9)
--- NOTE | 2018-03-09 08:52 | STEWCON_ITS ---
Reason For Study: Chest Pain Stress Results Protocol: Samuel Protocol Maximum Predicted HR: 152 bpm Target HR: 129 bpm% Max imum Predicted HR: 82 % DurationHeart Rate Stage (mm:ss) (bpm) BPCom ment Baseline 55 132/74 No Chest Pain; 3 ML Diluted Definity Given Samuel Protocol Stage I 3:00 93 146/72No Chest Pain Samuel Protocol Stage II 2:33 12 5 170/72No Chest Pain; Moderate Dyspnea Recovery 79 122/70 No Chest Pain Stress Duration: 5:33 mm:ss Maximum Stress HR: 125 bpm Baseline Echocardiogram Findings Stress Echo Wall motion Data Resting WMIntermediate WMStress WM Resting Wall Motion Wall Motion Stress No regional wall motion No regional wall motion abnormalities noted. abnormalities noted. Ejection Fraction 60 %. Ejection Fraction 65 %. EKG Data Baseline ECG demonstrates normal sinus rhythm with a rate of 55 beats per minute. Normal intervals are noted. The resting blood pressure was 132/74. The patient exercised according to the regular Samuel protocol for a total duration of 5 min 33. The maximum heart rate attained was 127 beats per minute. This was 83% of maximum predicted heart rate. The patient exercised into stage 2 of the Samuel protocol. During stress, there were no ST or T wave changes noted to suggest ischemia. At peak exercise, upsloping ST changes only were noted, which did not meet the criteria for ischemia. No arrhythmias noted. No clinical angina was noted. Interpretation Summary Normal resting LV systolic function. Nonstenotic valves. With stress, the LV size decreased and all segments augmented normally. The LVEF increased from 60% to 65%. Negative for ischemia at 83% of MPHR and at 7 METS. Normal stress echo at a moderate workload. Ordering Physician: Chris Frazier Referring Physician: Chris Frazier Performed By: Farhana Hernandez RDCS
--- NOTE | 2018-03-09 08:55 | EKG12_ITS ---
Test Reason : REPEAT CP Blood Pressure : / mmHG Vent. Rate : 058 BPM Atrial Rate : 058 BPM P-R Int : 246 ms QRS Dur : 138 ms QT Int : 440 ms P-R-T Axes : 053 -47 023 degrees QTc Int : 431 ms Poor data quality, interpretation may be adversely affected Sinus bradycardia with 1st degree A-V block Left axis deviation Non-specific intra-ventricular conduction block Abnormal ECG Confirmed by CRYSTAL SHERMAN, YUKI ([id number]), industrial editor GABRIELA DELGADO ([id number]) on 03/15/2018 2:58:50 PM Referred By: DARIUS Confirmed By:YUKI ROJAS MD
[2018-03-09] MEDS: Morphine 4 MG/ML Syringe IV (08:57)
[2018-03-09] MEDS: Lisinopril 20 MG Tablet PO (10:13)
[2018-03-09] MEDS: Clopidogrel Bisulfate 75 MG Tablet PO (10:13)
--- NOTE | 2018-03-09 12:46 | PCM.CONS.C ---
Reason for Consult Date of Consultation: 03/09/18 Reason for Consultation: Epigastric a right-sided chest discomfort History of Present Illness: The patient is a 67 year old M gentleman with a history of non-ST elevation myocardial infarction status post right coronary artery thrombectomy and drug-eluting stent placement. He also has a history of hypertension and hyperlipidemia. He presented to the emergency room this morning with a complaint of right-sided chest discomfort as well as belching feeling. He did not take any antacid but he says that this was similar to the discomfort he had when he had his myocardial infarction therefore he presented to the emergency room. He was evaluated in the emergency room his electric cardiogram was noted to be normal and his troponin was normal cardiology was called to evaluate him on the basis of the discomfort being similar to what he had had before. He denies any nausea no diaphoresis no dizziness no near syncope or syncope. He tells me that over the last few weeks his blood pressures at home have been elevated in the 170 range he had seen you in your office and you had increased his lisinopril to 20 mg twice a day and added 2.5 mg of amlodipine. His then he says his blood pressures have been much better. He has had no neck arm or jaw discomfort suggest angina no dizziness or diaphoresis no near syncope or syncope. He has been having some urinary tract problems and is seeing the urologist for the above. He remains on the clopidogrel for his previously placed stent. His physical exam today demonstrates an normal blood pressure clear lung villatoro regular rate and rhythm and no pedal edema[] Past Medical History Allergies/Adverse Reactions: Allergies ticagrelor [From BRILINTA] Allergy (Verified 03/09/18 06:59) Shortness of breath Home Medications: Ambulatory Orders Medication Instructions Recorded Aspirin [Aspirin, Baby] 81 mg PO DAILY@0800 01/03/16 Hydrochlorothiazide [Hctz] 25 mg PO DAILY 01/03/16 Metformin HCl [Metformin HCl ER] 500 mg PO DAILY 01/03/16 Atorvastatin Calcium [Lipitor] 80 mg PO QHS 01/10/16 Carvedilol 12.5 mg PO BID 01/10/16 Clopidogrel Bisulfate [Plavix] 75 mg PO DAILY 01/10/16 Pantoprazole Sodium [Protonix] 40 mg PO DAILY 01/10/16 amlodipine 2.5 mg tablet 5 mg PO QDAY tab 12/09/17 lisinopril 20 mg tablet 20 mg PO BID tab 12/09/17 Nitroglycerin 0.4 mg SL PRN PRN 01/14/18 Tamsulosin HCl [Flomax] 0.4 mg PO DAILY PRN 03/09/18 Past Medical History (Chronic Problems): Chronic Problems (Last Reviewed 12/09/17 @ 10:16 by Chris Frazier MD) Hyperlipidemia (Chronic) Diabetes mellitus type II, controlled (Chronic) Hypertension (Chronic) Non-ST elevation (NSTEMI) myocardial infarction (Chronic) Atherosclerotic heart disease of [place] coronary artery without angina pectoris (Chronic) [facility] w/PCI-Aspiration Thrombectomy & TAQUERIA-Prox RCA 01/04/16 Surgical History: cataract, herniorrhaphy, tonsillectomy, - - vasectomy - *Family History Maternal Family History: Family History (Last Reviewed 12/09/17 @ 10:16 by Chris Frazier MD) Father CAD (coronary artery disease) Diabetes History Items: No pertinent history Smoking Status: Never smoker Alcohol: None Drugs: None Review of Systems - Review of Systems General: Denies: Fever, Night Sweats, Fatigue Cardiovascular: Reports: Chest Discomfort. Denies: Shortness of Breath, Orthopnea, PND, Peripheral Edema, Palpitations, Lightheadedness, Dizziness, Near Syncope, Syncope Respiratory: Denies: Cough, Sputum Production, Hemoptysis Gastrointestinal: Denies: Hematemesis, Hematochezia, Melena Genitourinary: Denies: Dysuria, Hematuria Skin: Denies: Rash Subjectve: Pleasant gentleman in no apparent distress Objective: Vital Signs Temp Pulse Resp BP Pulse Ox 97.8 F 59 L 16 134/70 H 100 03/09/18 09:55 03/09/18 10:01 03/09/18 09:55 03/09/18 09:55 03/09/18 09:55 Oxygen Delivery Method Room Air Weight: 265 lb 8 oz Body Mass Index (BMI) 37.0 General: Awake, Alert, Oriented x 3 HEENT: PERRL, EOMI, Sclera Non Icteric Neck: Supple, Good ROM, No Lymph Node Enlargement Lungs: Clear to auscultation Cardiovascular: Regular Rhythm, Normal S1, Normal S2, No Murmurs, No Rubs, No Gallops Vascular: No Carotid Bruits, Normal Femoral Pulses, Normal Radial Pulses, Normal Dorsalis Pedal Pulse, Normal Posterior Tibial Pulses Abdomen: Bowel Sounds Present, Soft, Non Tender, No HSM, No Organomegaly Extremities: No Cyanosis, No Clubbing, No edema Neurological: No Focal Motor or Sensory Deficit 03/09/18 09:56: Troponin I < 0.015 Rhythm: EKG: Normal sinus rhythm with no acute changes ECHO: Stress Test: Cardiac Cath: PCI: CT Surgery: Holter monitor: EPS: PPM: CXR: Chest CT Scan: Assessment/Plan 1. Chest pain Patient presents with chest pain which appears to be somewhat atypical though he says that it is similar to what he had before. He does have known coronary artery disease status post stenting of his right coronary artery. I did suggest to him that we would perform serial cardiac enzymes with his normal EKG and also a stress test. If the above is normal then he will be followed up as an outpatient. He is agreeable to the above. 2. Hypertension His blood pressure appears to be under good control on the current medical therapy and no major changes will be made. 3. Hyperlipidemia He does have a history of hyperlipidemia and remains on lipid-lowering therapy which will be continued. Addendum The patient underwent stress echocardiographic evaluation where he exercised 5 minutes without any EKG evidence of ischemia and he did not have a recurrence of the chest discomfort. Echocardiographic images were noted to be normal at rest and at stress and therefore the patient will be discharged to have outpatient follow-up. The above has been communicated to the patient as well as his .
--- NOTE | 2018-03-09 12:51 | CON.PCM_ITS ---
Reason for Consult Date of Consultation: 03/09/18 Reason for Consultation: Epigastric a right-sided chest discomfort History of Present Illness: The patient is a 67 year old M gentleman with a history of non-ST elevation myocardial infarction status post right coronary artery thrombectomy and drug- eluting stent placement. He also has a history of hypertension and hyperlipidemia. He presented to the emergency room this morning with a complaint of right-sided chest discomfort as well as belching feeling. He did not take any antacid but he says that this was similar to the discomfort he had when he had his myocardial infarction therefore he presented to the emergency room. He was evaluated in the emergency room his electric cardiogram was noted to be normal and his troponin was normal cardiology was called to evaluate him on the basis of the discomfort being similar to what he had had before. He denies any nausea no diaphoresis no dizziness no near syncope or syncope. He tells me that over the last few weeks his blood pressures at home have been elevated in the 170 range he had seen you in your office and you had increased his lisinopril to 20 mg twice a day and added 2.5 mg of amlodipine. His then he says his blood pressures have been much better. He has had no neck arm or jaw discomfort suggest angina no dizziness or diaphoresis no near syncope or syncope. He has been having some urinary tract problems and is seeing the urologist for the above. He remains on the clopidogrel for his previously placed stent. His physical exam today demonstrates an normal blood pressure clear lung villatoro regular rate and rhythm and no pedal edema[] Past Medical History Allergies/Adverse Reactions: Allergies ticagrelor [From [facility]] Allergy (Verified 03/09/18 06:59) Shortness of breath Home Medications: Ambulatory Orders Medication Instructions Recorded Aspirin [Aspirin, Baby] 81 mg PO DAILY@0800 01/03/16 Hydrochlorothiazide [Hctz] 25 mg PO DAILY 01/03/16 Metformin HCl [Metformin HCl ER] 500 mg PO DAILY 01/03/16 Atorvastatin Calcium [Lipitor] 80 mg PO QHS 01/10/16 Carvedilol 12.5 mg PO BID 01/10/16 Clopidogrel Bisulfate [Plavix] 75 mg PO DAILY 01/10/16 Pantoprazole Sodium [Protonix] 40 mg PO DAILY 01/10/16 amlodipine 2.5 mg tablet 5 mg PO QDAY tab 12/09/17 lisinopril 20 mg tablet 20 mg PO BID tab 12/09/17 Nitroglycerin 0.4 mg SL PRN PRN 01/14/18 Tamsulosin HCl [Flomax] 0.4 mg PO DAILY PRN 03/09/18 Past Medical History (Chronic Problems): Chronic Problems (Last Reviewed 12/09/17 @ 10:16 by Chris Frazier MD) Hyperlipidemia (Chronic) Diabetes mellitus type II, controlled (Chronic) Hypertension (Chronic) Non-ST elevation (NSTEMI) myocardial infarction (Chronic) Atherosclerotic heart disease of [place] coronary artery without angina pectoris (Chronic) [facility] w/PCI-Aspiration Thrombectomy & TAQUERIA-Prox RCA 01/04/16 Surgical History: cataract, herniorrhaphy, tonsillectomy, - - vasectomy - *Family History Maternal Family History: Family History (Last Reviewed 12/09/17 @ 10:16 by Chris Frazier MD) Father CAD (coronary artery disease) Diabetes History Items: No pertinent history Smoking Status: Never smoker Alcohol: None Drugs: None Review of Systems - Review of Systems General: Denies: Fever, Night Sweats, Fatigue Cardiovascular: Reports: Chest Discomfort. Denies: Shortness of Breath, Orthopnea, PND, Peripheral Edema, Palpitations, Lightheadedness, Dizziness, Near Syncope, Syncope Respiratory: Denies: Cough, Sputum Production, Hemoptysis Gastrointestinal: Denies: Hematemesis, Hematochezia, Melena Genitourinary: Denies: Dysuria, Hematuria Skin: Denies: Rash Subjectve: Pleasant gentleman in no apparent distress Objective: Vital Signs Temp Pulse Resp BP Pulse Ox 97.8 F 59 L 16 134/70 H 100 03/09/18 09:55 03/09/18 10:01 03/09/18 09:55 03/09/18 09:55 03/09/18 09:55 Oxygen Delivery Method Room Air Weight: 265 lb 8 oz Body Mass Index (BMI) 37.0 General: Awake, Alert, Oriented x 3 HEENT: PERRL, EOMI, Sclera Non Icteric Neck: Supple, Good ROM, No Lymph Node Enlargement Lungs: Clear to auscultation Cardiovascular: Regular Rhythm, Normal S1, Normal S2, No Murmurs, No Rubs, No Gallops Vascular: No Carotid Bruits, Normal Femoral Pulses, Normal Radial Pulses, Normal Dorsalis Pedal Pulse, Normal Posterior Tibial Pulses Abdomen: Bowel Sounds Present, Soft, Non Tender, No HSM, No Organomegaly Extremities: No Cyanosis, No Clubbing, No edema Neurological: No Focal Motor or Sensory Deficit 03/09/18 09:56: Troponin I < 0.015 Rhythm: EKG: Normal sinus rhythm with no acute changes ECHO: Stress Test: Cardiac Cath: PCI: CT Surgery: Holter monitor: EPS: PPM: CXR: Chest CT Scan: Assessment/Plan 1. Chest pain * Patient presents with chest pain which appears to be somewhat atypical though he says that it is similar to what he had before. He does have known coronary artery disease status post stenting of his right coronary artery. I did suggest to him that we would perform serial cardiac enzymes with his normal EKG and also a stress test. If the above is normal then he will be followed up as an outpatient. He is agreeable to the above. * 2. Hypertension His blood pressure appears to be under good control on the current medical therapy and no major changes will be made. 3. Hyperlipidemia He does have a history of hyperlipidemia and remains on lipid-lowering therapy which will be continued. Addendum The patient underwent stress echocardiographic evaluation where he exercised 5 minutes without any EKG evidence of ischemia and he did not have a recurrence of the chest discomfort. Echocardiographic images were noted to be normal at rest and at stress and therefore the patient will be discharged to have outpatient follow-up. The above has been communicated to the patient as well as his .
--- NOTE | 2018-03-09 12:54 | DCINST_ITS ---
Allergies/Adverse Reactions: Allergies ticagrelor [From [facility]] Allergy (Verified 03/09/18 06:59) Shortness of breath Medications to take at Discharge Aspirin [Aspirin, Baby] 81 mg PO DAILY@0800 01/03/16 Hydrochlorothiazide [Hctz] 25 mg PO DAILY 01/03/16 Metformin HCl [Metformin HCl ER] 500 mg PO DAILY 01/03/16 Atorvastatin Calcium [Lipitor] 80 mg PO QHS 01/10/16 Carvedilol 12.5 mg PO BID 01/10/16 Clopidogrel Bisulfate [Plavix] 75 mg PO DAILY 01/10/16 Pantoprazole Sodium [Protonix] 40 mg PO DAILY 01/10/16 amlodipine 2.5 mg tablet 5 mg PO QDAY tab 12/09/17 lisinopril 20 mg tablet 20 mg PO BID tab 12/09/17 Nitroglycerin 0.4 mg SL PRN PRN 01/14/18 Tamsulosin HCl [Flomax] 0.4 mg PO DAILY PRN 03/09/18 Primary Care Physician: Nathan Damon MD [Primary Care Provider] - Test Results: Test results from this visit will be discussed in further detail at your follow- up appointment, if applicable.
[2018-03-09] MEDS: Carvedilol 12.5 MG Tablet PO (13:09)
[2018-03-09] MEDS: hydroCHLOROthiazide 25 MG Tablet PO (13:09)
[2018-03-09] MEDS: amLODIPine 5 MG Tablet PO (13:09)
[2018-03-09] MEDS: Pantoprazole Sodium 40 MG Tablet PO (13:09)
== END 2018-03-09 12:51 | disposition home or self-care (01) ==
LOC: ED 07:37 → PCU 09:20
PROVIDERS: Admitting Provider Internal Medicine Cardiovascular Disease; Emergency Provider Emergency Medicine; Family Provider Family Medicine; PCP Family Medicine; Visit Provider Internal Medicine Cardiovascular Disease
DX: R07.89 Other chest pain (principal); I25.2 Old myocardial infarction; I10 Essential (primary) hypertension; E78.5 Hyperlipidemia, unspecified; I25.10 Atherosclerotic heart disease of native coronary artery without angina pectoris; R14.2 Eructation; Z79.899 Other long term (current) drug therapy; Z79.82 Long term (current) use of aspirin; Z79.02 Long term (current) use of antithrombotics/antiplatelets; Z79.84 Long term (current) use of oral hypoglycemic drugs; E11.9 Type 2 diabetes mellitus without complications; Z95.5 Presence of coronary angioplasty implant and graft
CPT/HCPCS: 36415; 71045; 80048; 80076; 83690; 84484; 85025; 85610; 85730; 93005; 93017; 93350; 96374; 99218; 99285; J7050; Q9957; A4216; C8928; G0378

== ENCOUNTER → 2018-06-13 15:01 | Outpatient (CLI) | payer MEDICARE, OTHER, SELFPAY ==
--- NOTE | 2018-06-13 15:04 | RAD_ITS ---
STUDY: X-RAY - LUMBAR SPINE REASON FOR EXAM: Male, 67 years old. Injury. TECHNIQUE: 5 view(s) of the lumbar spine were obtained. COMPARISON: None FINDINGS: Normal lumbar lordosis. There is mild levoscoliosis of the lumbar spine. 5 mm anterolisthesis of L3 relative to L2. There is otherwise normal alignment of the vertebrae. There is multilevel endplate spondylosis of the lumbar vertebrae. Findings most pronounced at L2-L3. Multilevel facet joint degenerative disease. There is no demonstrated fracture. There is atherosclerotic calcification of the abdominal aorta without a demonstrated aneurysm. RAD/L/S Spine Min 4 Views IMPRESSION: No acute abnormality. Multilevel degenerative changes. Electronically Signed: Grant Forrest MD at 18:16 EDT , Service support ,
== END ==
PROVIDERS: Family Provider Family Medicine; PCP Family Medicine; Referring Provider Family Medicine; Visit Provider Family Medicine
DX: M54.40 Lumbago with sciatica, unspecified side (principal)
CPT/HCPCS: 72110

== ENCOUNTER 2018-08-18 14:00 | Outpatient (RCR) | payer MEDICARE, OTHER, SELFPAY ==
--- NOTE | 2018-06-23 16:49 | HP.PTEVAL_ITS ---
Patient's Visit Information ADARSH WYATT is a 67 year old M referred to Physical Therapy by Mook Damon with a diagnosis of DDD LUMBAR SPINE. Date of Evaluation: 06/23/18 Physical Therapist: Madhu Morocho PT, - Visit Plan Frequency: 2x /Week Duration: 4 Weeks Plan: INTIALLY MODALITIES FOR PAIN RELEIVE ,PROGRESS TO GRADE ROM ,OMAR EX''S ,DLS,. POSTURAL EX' - Subjective Subjective: This 67 y/o male presents to physical therapy with DDD lumbar spine with pain in lumbar region with radicular symptoms right greater left. Patient developed symmtrical lumbar pain [place] farm [place] [address] Thomson one later. Provided tramadol,steroid pack . Patient symptoms location symmtrical to hamstrings to calf. Patient had x-rays. Symptoms walking ,standing,lifting,bending. Symptoms better with sitting . Denies parathesia,c/o tingling legs. Patient pain affects sleeping unable to sleep in bed. Patient bowel/bladder -. Sneezing/coughing-. 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 SOCIAL: . VOCATION: [place] - Pain Bilateral Back Pain Intensity (Out of 10): 5 Pain Intensity Range: 10 Bilateral Lower Extremity Pain Intensity (Out of 10): 7 Pain Intensity Range: 10 - Objective POSTURE: lateral shift to left ,flat lumbar spine,flexed foward posture. GAIT: lateral shift ,hips knees flexed slow danny reciprocal antalgic gait. NEUR0: reflexes L3-4,L4-5,L5-S1 1/3 ,c/o tingling legs,mytomes intact. PALAPTION: unremarkable. LUMBAR ROM: flexion mod loss,extension mod/severe loss pain,side glides severe loss right left mod loss. MMT: quads/hams 4/5,hip flexion 4/5,ankle 4/5,GTE 4/5. FLEXABLITY: mod tight. SYMTRICAL: align - Special Tests L/S Slump test left side: Negative L/S Slump test right side: Negative L/S Left Straight Leg Raise: Positive L/S Right Straight Leg Raise: Positive Lumbar Standing: Flexion - Mechanical Response: No effect Lumbar Standing: Flexion - Symptoms During Testing: Increases Lumbar Standing: Flexion - Symptoms After Testing: No worse Lumbar Standing: Extension - Mechanical Response: No effect Lumbar Standing: Extension - Symptoms During Testing: Increases Lumbar Standing: Extension - Symptoms After Testing: Worse Comments:: right L-S Lumbar Standing: Right Side Glides - Mechanical Response: No effect Lumbar Standing: Right Side [place] - Symptoms During Testing: Increases Lumbar Standing: Right Side [place] - Symptoms After Testing: Worse Comments:: right L-S Lumbar Standing: Left Side [place] - Mechanical Response: No effect Lumbar Standing: Left Side [place] - Symptoms During Testing: Increases Lumbar Standing: Left Side [place] - Symptoms After Testing: No worse - Goals Goal 1:: Independant with HEP Goal Time Frame: 4-6 Weeks Goal 2:: Independant with posture for ADL'S Goal Time Frame: 4-6 Weeks Goal 3:: Decrease lumbar pain by 50% or greater to improve function with walking standing Goal Time Frame: 4-6 Weeks Goal 4:: Patient to improve lumbar ROM for function of recovery with less pain Goal Time Frame: 4-6 Weeks Goal 5:: Patient to normalize gait pattern with les antalgic gait Goal Time Frame: 4-6 Weeks Goal 6:: Patient to improve bcak owsestry by 5 pints to improve QOL Goal Time Frame: 4-6 Weeks - Rehabilitation Potential Physical Therapy Diagnosis: This patient has severe lumbar pain with radicular symptoms in legs with poor lumbar ROM ,lateral shift to left ,pain with walking standing impression with possible stenosis along with possible disc involvemnt with lateral left side shit ,may need MRI Rehabilitation Potential: Good - Anticipated Interventions Patient/Client Instruction: Educate patient on: Condition, Plan of Care For the Purpose of:: To decrease pain, To increase ROM, To improve muscle performance and motor function, To increase tolerance to activity/condition/position, To improve performance and independence with ADL's, To improve ability of physical actions for home/community/work/leisure, To improve gait and locomotor functions, To improve health of tissue, To decrease soft tissue restriction, To increase flexibility/ROM, To improve ability to perform tasks related to life management Therapeutic Exercise to Include: Strength training, Body mechanics, Postural training, Flexibilty training, Dynamic Lumbar Stabilization, Omar Exercises For the Purpose of:: To decrease pain, To increase ROM, To improve muscle performance and motor function, To improve ability to perform ADL's, To increase tolerance to activity/condition/position, To improve ability of physical actions for home/community/work/leisure, To improve health of tissue, To decrease soft tissue restriction, To increase flexibility/ROM, To reduce risk of recurrence, To improve ability to perform tasks related to life management TENS: Yes IF ES: Yes Cryotherapy (ice pack, ice massage): Yes Thermo therapy (hot pack): Yes Ultrasound (thermal/non thermal): Yes For the Purpose of:: To decrease pain, To increase ROM, To improve nutrient delivery to tissue, To increase oxygenation perfusion, To improve health of tissue, To decrease soft tissue restriction Thank you for the opportunity to evaluate your patient. For Medicare and Medicare HMO plans, please review the plan of care and approve it. It will need to be FAXED BACK to us at [phone] for Medicare purposes. Please let me know if there are questions or concerns regarding this plan of care. Physician Signature: Date:
--- NOTE | 2018-08-18 14:24 | HP.PTDCSUM ---
HP - PT D/C Summary It has been my pleasure to treat ADARSH WYATT under orders from Nathan Damon MD, for the diagnosis of DDD LUMBAR SPINE for a total of 9 visit(s). Discharge Date: 08/18/18 Please see the following information for a summary of their discharge status. - Subjective Subjective: Doing better .. min pain - Pain Bilateral Back Pain Intensity (Out of 10): 1 Bilateral Lower Extremity Pain Intensity (Out of 10): 0 - Objective Objective/Function: POSTURE: mild foward posture. GAIT: mild foward posture reciprocal pattern improved posture. LUMBAR ROM: flexion min loss,extension mod loss,side glides mod loss. MMT: 4/5 - Goals Goal 1:: Independant with HEP Goal Progress: Goal Met Goal 2:: Independant with posture for ADL'S Goal Progress: Goal Met Goal 3:: Decrease lumbar pain by 50% or greater to improve function with walking standing Goal Progress: Goal Met Goal 4:: Patient to improve lumbar ROM for function of recovery with less pain Goal Progress: Goal Met Goal 5:: Patient to normalize gait pattern with les antalgic gait Goal Progress: Goal Met Goal 6:: Patient to improve bcak owsestry by 5 pints to improve QOL Goal Progress: Goal Met - Plan Plan: D/C TO HEP - D/C Information Discharge Comments: HEP If there are questions or concerns regarding this patient's physical therapy, please feel free to call me at [phone]. Thank you for the referral of this patient. Sincerely, Madhu Morocho, PT, Cert MDT, OCS
== END 2018-08-18 19:00 | disposition home or self-care (01) ==
LOC: PT 14:00
PROVIDERS: Family Provider Family Medicine; PCP Family Medicine; Referring Provider Family Medicine; Visit Provider Family Medicine
DX: M51.36 Other intervertebral disc degeneration, lumbar region (principal)
CPT/HCPCS: 97014; 97035; 97110; 97162; 97530; G0283

== ENCOUNTER → 2019-01-18 12:54 | Outpatient (CLI) | payer MEDICARE, OTHER, SELFPAY ==
[2018-12-08 13:40] VITALS: BMI 39.0
[2019-01-18 14:25] LABS: ALB/GLOB Ratio 0.8 RATIO (0.9-2.4); AST(SGOT) 18 U/L (15-37); Alanine Aminotransfer ALT/SGPT 28 U/L (16-61); Alkaline Phosphatase 93 U/L (45-117); Anion Gap 4 (5-15); BUN 18 mg/dL (7-18); BUN/Creat Ratio 14.1 RATIO (10-20); Calcium,Total 8.6 mg/dL (8.5-10.1); Chloride 108 mmol/L (98-107); Cholesterol 125 mg/dL (200); Creatinine, Serum 1.28 mg/dL (0.70-1.30); EST Glomerular Filtration Rate 59 mL/min (>60); Est Glom Filt Rate - Afr Amer 72 mL/min (>60); Glucose 129 mg/dL (74-106); High Density Lipoprotein 40 mg/dL; Potassium 3.6 mmol/L (3.5-5.1); Sodium Level 144 mmol/L (136-145); Thyroid Stim Hormone (TSH) 2.35 uIU/mL (0.358-3.74); Triglycerides 167 mg/dL; Very Low Density Lipoprotein 33 mg/dL (5-40)
== END ==
PROVIDERS: Family Provider Family Medicine; PCP Family Medicine; Referring Provider Family Medicine; Visit Provider Family Medicine
DX: E11.9 Type 2 diabetes mellitus without complications (principal)
CPT/HCPCS: 36415; 80053; 80061; 84443

== ENCOUNTER → 2019-01-19 17:22 | Outpatient (CLI) | payer MEDICARE, OTHER, SELFPAY ==
[2018-12-08 13:40] VITALS: BMI 39.0
--- NOTE | 2019-01-19 17:25 | RAD_ITS ---
STUDY: X-RAY - LUMBAR SPINE REASON FOR EXAM: Male, 68 years old. Low back pain TECHNIQUE: 5 view(s) of the lumbar spine were obtained. COMPARISON: 12/22/2017 FINDINGS: There is straightening of the normal lumbar lordosis. There is a mild levoscoliosis of the lumbar spine. There is a normal alignment of the vertebrae in the lateral view. There is multilevel endplate spondylosis of the lumbar vertebrae. There is multi-level degenerative disc disease with multi-level disc space narrowing. There is no demonstrated fracture. There is atherosclerotic calcification of the abdominal aorta without a demonstrated aneurysm. RAD/L/S Spine Min 4 Views IMPRESSION: Degenerative changes of the spine, as detailed above. Electronically Signed: Gareth Sen MD at 13:34 EDT , Service support ,
== END ==
PROVIDERS: Family Provider Family Medicine; PCP Family Medicine; Referring Provider Family Medicine; Visit Provider Family Medicine
DX: M54.9 Dorsalgia, unspecified (principal)
CPT/HCPCS: 72110

== ENCOUNTER → 2020-05-09 12:10 | Outpatient (CLI) | payer MEDICARE, OTHER, SELFPAY ==
[2019-12-08 12:39] VITALS: BMI 37.8
[2020-05-09 15:51] LABS: ALB/GLOB Ratio 0.7 RATIO (0.9-2.4); AST(SGOT) 13 U/L (15-37); Alanine Aminotransfer ALT/SGPT 20 U/L (16-61); Albumin, Serum 3.1 g/dL (3.2-5.0); Alkaline Phosphatase 103 U/L (45-117); Anion Gap 6 (5-15); BUN 13 mg/dL (7-18); BUN/Creat Ratio 11.6 RATIO (10-20); Calcium,Total 9.2 mg/dL (8.5-10.1); Chloride 101 mmol/L (98-107); Creatinine, Serum 1.12 mg/dL (0.70-1.30); EST Glomerular Filtration Rate 69 mL/min (>60); Est Glom Filt Rate - Afr Amer 83 mL/min (>60); Globulin 4.3 g/dL (2.2-4.2); Glucose 137 mg/dL (74-106); PSA,Total - Annual Screen 1.49 ng/mL (0.00-4.00); Protein, Total 7.4 g/dL (6.4-8.2); Sodium Level 141 mmol/L (136-145); Thyroid Stim Hormone (TSH) 1.89 uIU/mL (0.358-3.74)
== END ==
PROVIDERS: PCP Family Medicine; Visit Provider Family Medicine
DX: E11.9 Type 2 diabetes mellitus without complications (principal); E78.00 Pure hypercholesterolemia, unspecified; Z12.5 Encounter for screening for malignant neoplasm of prostate
CPT/HCPCS: 36415; 80053; 84153; 84403; 84443; G0103

== ENCOUNTER → 2020-05-21 15:58 | Outpatient (CLI) | payer MEDICARE, OTHER, SELFPAY ==
[2019-12-08 12:39] VITALS: BMI 37.8
--- NOTE | 2020-05-21 16:02 | RAD_ITS ---
STUDY: X-RAY - LEFT FOOT CLINICAL: Male, 69 years old. [place] a pop 3 days ago, while walking TECHNIQUE: 3 view(s) of the foot. COMPARISON: None. FINDINGS: There is a plantar calcaneal spur. Spurring along the anterior talus. Spurring along the tibiotalar joint. Normal visualized subtalar, talonavicular, calcaneocuboid, tarsal and mild degenerative changes of the tarsometatarsal articulations. Normal metatarsi. There is mild degenerative arthrosis of the metatarsophalangeal joint of the hallux . There is a bipartite fibula sesamoid. Sclerosis of the sesamoid bones. Normal interphalangeal joint of the great toe. Normal phalanges of the great toe. Normal second through fifth metatarsophalangeal joints. Normal interphalangeal joints and phalanges of the lesser toes. Calcification along the dorsal plantar upper neurosis and lower Achilles tendon. RAD/Foot min 3 Views IMPRESSION: Mild degenerative changes. Soft tissue calcification as above. There is no acute displaced fracture or dislocation. Electronically Signed: Faith Lincoln MD at 5:49 EDT , Service support ,
--- NOTE | 2020-05-21 16:02 | RAD_ITS ---
STUDY: X-RAY - LEFT ANKLE REASON FOR EXAM: Male, 69 years old. [place] a pop 3 days ago, while walking TECHNIQUE: 3 view(s) of the ankle. COMPARISON: None. FINDINGS: Normal visualized distal tibia and fibula. Remote injuries lateral greater than medial malleolus versus ossicle/avulsed spurs. Mild cystic changes along the lateral malleolus cortex. Aligned tibiotalar articulation and ankle mortise. Heterogeneous trabecular pattern of the talus. Substantial calcification along the Achilles tendon and posterior plantar aponeurosis with moderate-sized plantar calcaneal spur. Joint space narrowing of the subtalar joint. The visualized talonavicular, calcaneocuboid and tarsal articulations are normal. The soft tissue structures are unremarkable. RAD/Ankle min 3 Views IMPRESSION: Calcification along the plantar aponeurosis and Achilles tendon with plantar calcaneal spur. Degenerative changes along the malleoli rather than remote injury/ossicles. Heterogeneous trabecular pattern of the talus, areas of subchondral cysts involving the lateral malleolus and talus. Degenerative changes of the subtalar joint. Electronically Signed: Faith Lincoln MD at 5:21 EDT , Service support ,
== END ==
PROVIDERS: PCP Family Medicine; Referring Provider Family Medicine; Visit Provider Family Medicine
DX: M79.672 Pain in left foot (principal); S93.402A Sprain of unspecified ligament of left ankle, initial encounter
CPT/HCPCS: 73610; 73630

== ENCOUNTER → 2020-06-10 14:15 | Outpatient (CLI) | payer MEDICARE, OTHER, SELFPAY ==
[2019-12-08 12:39] VITALS: BMI 37.8
== END ==
PROVIDERS: PCP Family Medicine; Referring Provider Family Medicine; Visit Provider Family Medicine
DX: Z00.00 Encounter for general adult medical examination without abnormal findings (principal)

== ENCOUNTER → 2020-06-12 15:54 | Outpatient (CLI) | payer MEDICARE, OTHER, SELFPAY ==
[2019-12-08 12:39] VITALS: BMI 37.8
[2020-06-12 18:22] LABS: Anion Gap 8 (5-15); BUN 24 mg/dL (7-18); BUN/Creat Ratio 19.8 RATIO (10-20); Calcium,Total 9.3 mg/dL (8.5-10.1); Chloride 105 mmol/L (98-107); Creatinine, Serum 1.21 mg/dL (0.70-1.30); EST Glomerular Filtration Rate 63 mL/min (>60); Est Glom Filt Rate - Afr Amer 76 mL/min (>60); Glucose 183 mg/dL (74-106); Potassium 3.8 mmol/L (3.5-5.1); Sodium Level 142 mmol/L (136-145)
== END ==
PROVIDERS: PCP Family Medicine; Referring Provider Family Medicine; Visit Provider Family Medicine
DX: E87.6 Hypokalemia (principal)
CPT/HCPCS: 36415; 80048

== ENCOUNTER → 2020-09-23 16:08 | Outpatient (CLI) | payer MEDICARE, OTHER, SELFPAY ==
[2019-12-08 12:39] VITALS: BMI 37.8
[2020-09-23 18:08] LABS: Anion Gap 4 (5-15); BUN 16 mg/dL (7-18); Calcium,Total 9.1 mg/dL (8.5-10.1); Chloride 104 mmol/L (98-107); Creatinine, Serum 1.23 mg/dL (0.70-1.30); EST Glomerular Filtration Rate 62 mL/min (>60); Est Glom Filt Rate - Afr Amer 75 mL/min (>60); Glucose 103 mg/dL (74-106); Potassium 3.7 mmol/L (3.5-5.1); Sodium Level 142 mmol/L (136-145)
== END ==
PROVIDERS: PCP Family Medicine; Visit Provider Family Medicine
DX: I10 Essential (primary) hypertension (principal)
CPT/HCPCS: 36415; 80048

== ENCOUNTER → 2020-12-23 14:47 | Outpatient (CLI) | payer MEDICARE, OTHER, SELFPAY ==
[2020-12-10 13:10] VITALS: BMI 39.3
[2020-12-23 18:31] LABS: Anion Gap 6 (5-15); BUN 16 mg/dL (7-18); BUN/Creat Ratio 13.3 RATIO (10-20); Calcium,Total 9.1 mg/dL (8.5-10.1); Chloride 103 mmol/L (98-107); EST Glomerular Filtration Rate 63 mL/min (>60); Est Glom Filt Rate - Afr Amer 77 mL/min (>60); Glucose 88 mg/dL (74-106); Potassium 3.6 mmol/L (3.5-5.1); Sodium Level 142 mmol/L (136-145)
== END ==
PROVIDERS: PCP Family Medicine; Visit Provider Family Medicine
DX: E11.9 Type 2 diabetes mellitus without complications (principal)
CPT/HCPCS: 36415; 80048

== ENCOUNTER → 2021-01-08 14:27 | Outpatient (CLI) | payer MEDICARE, OTHER, SELFPAY ==
[2020-12-10 13:10] VITALS: BMI 39.3
--- NOTE | 2021-01-08 14:43 | MRI_ITS ---
STUDY: MRI LUMBAR SPINE WITHOUT CONTRAST REASON FOR EXAM: Male, 70 years old. DDD TECHNIQUE: Standardized fat and water weighted pulse sequences were obtained in the sagittal and axial planes. COMPARISON: X-ray 01/19/2019 FINDINGS: T12-L1: Mild broad disc protrusion produces mild spinal stenosis and mild bilateral neural foraminal stenosis. Normal lumbar lordosis. Moderate levoscoliosis centered at L3. Normal conus medullaris that terminates at the L1. L1-2: Mild bilateral facet hypertrophy and moderate ligament flavum hypertrophy. 2 mm retrolisthesis of L1 on L2 with a moderate bilobed disc protrusion produces moderate spinal stenosis and mild bilateral neural foraminal stenosis. L2-3: Moderate bilateral facet hypertrophy and ligament flavum hypertrophy. 2 mm of retrolisthesis of L2 on L3 with a moderate bilobed disc protrusion produces moderate spinal stenosis with moderate bilateral lateral recess stenosis with abutment of the L3 nerve roots bilaterally and moderate right neural foraminal stenosis and mild left neural foraminal stenosis. Associated Modic type II endplate changes. L3-4: Moderate bilateral facet hypertrophy and ligament flavum hypertrophy. Moderate bilobed disc protrusion produces moderate spinal stenosis with moderate bilateral lateral recess stenosis with abutment of the L4 nerve roots bilaterally, moderate right neural foraminal stenosis and mild left neural foraminal stenosis. L4-5: Severe bilateral facet hypertrophy and ligament flavum hypertrophy. Moderate broad disc protrusion produces a severe spinal stenosis with severe bilateral lateral recess stenosis with effacement of the L5 nerve roots bilaterally and moderate bilateral neural foraminal stenosis. L5-S1: Moderate by lateral facet hypertrophy and ligament flavum hypertrophy. Mild broad disc protrusion produces a moderate spinal stenosis with moderate bilateral lateral recess stenosis with abutment of the S1 nerve roots bilaterally and moderate bilateral neural foraminal stenosis. Normal visualized sacral ala. Normal visualized paraspinous soft tissue structures. MRI/Spine Lumbar (Routine) IMPRESSION: Moderate levoscoliosis and degenerative disc disease as described above. Electronically Signed: Cruz Ortiz MD at 9:05 EDT Tel , Service support ,
== END ==
PROVIDERS: PCP Family Medicine; Referring Provider Family Medicine; Visit Provider Family Medicine
DX: M51.36 Other intervertebral disc degeneration, lumbar region (principal)
CPT/HCPCS: 72148

== ENCOUNTER → 2021-01-13 10:41 | Outpatient (CLI) | payer MEDICARE, OTHER, SELFPAY ==
[2020-12-10 13:10] VITALS: BMI 39.3
[2021-01-13 12:58] LABS: Anion Gap 5 (5-15); BUN 26 mg/dL (7-18); BUN/Creat Ratio 18.6 RATIO (10-20); Chloride 103 mmol/L (98-107); EST Glomerular Filtration Rate 53 mL/min (>60); Est Glom Filt Rate - Afr Amer 64 mL/min (>60); Glucose 162 mg/dL (74-106); Potassium 3.5 mmol/L (3.5-5.1); Sodium Level 143 mmol/L (136-145)
== END ==
PROVIDERS: PCP Family Medicine; Visit Provider Family Medicine
DX: I10 Essential (primary) hypertension (principal)
CPT/HCPCS: 36415; 80048

== ENCOUNTER → 2021-02-24 13:21 | Outpatient (CLI) | payer MEDICARE, OTHER, SELFPAY ==
[2020-12-10 13:10] VITALS: BMI 39.3
--- NOTE | 2021-02-24 13:25 | RAD_ITS ---
STUDY: X-RAY - PELVIS AND LEFT HIP REASON FOR EXAM: Male, 70 years old. Hip pain. TECHNIQUE: 3 views of the pelvis and hip. COMPARISON: None. FINDINGS: There is a non-specific bowel gas pattern. Vascular calcifications. Generalized osteopenia. Mild arthrosis of the sacroiliac joints. Normal bilateral superior and inferior pubic rami. Mild arthrosis of the symphysis pubis. Normal bilateral ischial tuberosities. Mild arthrosis of both hips without significant osteophyte formation. RAD/HIP, UNI W/ Pelvis 2-3 Views IMPRESSION: Osteopenia with mild arthrosis of the sacroiliac joints, symphysis pubis and both hips. No acute abnormality, erosive changes or periostitis. Electronically Signed: Rodney Howell MD at 9:35 EDT , Service support ,
== END ==
PROVIDERS: PCP Family Medicine; Referring Provider Anesthesiology Pain Medicine; Visit Provider Anesthesiology Pain Medicine
DX: M25.552 Pain in left hip (principal)
CPT/HCPCS: 73502

== ENCOUNTER → 2021-07-02 08:42 | Outpatient (CLI) | payer MEDICARE, OTHER, SELFPAY ==
[2021-07-02 10:29] LABS: Vitamin B12 323 pg/mL (211-911)
[2021-07-02 10:41] LABS: ALB/GLOB Ratio 0.7 RATIO (0.9-2.4); AST(SGOT) 15 U/L (15-37); Alanine Aminotransfer ALT/SGPT 22 U/L (16-61); Albumin, Serum 2.8 g/dL (3.2-5.0); Alkaline Phosphatase 89 U/L (45-117); Anion Gap 4 (5-15); BUN 23 mg/dL (7-18); BUN/Creat Ratio 17.3 RATIO (10-20); Chloride 103 mmol/L (98-107); Cholesterol 139 mg/dL (200); Creatinine, Serum 1.33 mg/dL (0.70-1.30); EST Glomerular Filtration Rate 56 mL/min (>60); Est Glom Filt Rate - Afr Amer 68 mL/min (>60); Globulin 4.3 g/dL (2.2-4.2); Glucose 130 mg/dL (74-106); High Density Lipoprotein 38 mg/dL; PSA,Total - Annual Screen 1.68 ng/mL (0.00-4.00); Potassium 3.7 mmol/L (3.5-5.1); Protein, Total 7.1 g/dL (6.4-8.2); Sodium Level 140 mmol/L (136-145); Thyroid Stim Hormone (TSH) 2.57 uIU/mL (0.358-3.74); Triglycerides 135 mg/dL; Very Low Density Lipoprotein 27 mg/dL (5-40)
== END ==
PROVIDERS: PCP Family Medicine; Referring Provider Family Medicine; Visit Provider Family Medicine
DX: E11.65 Type 2 diabetes mellitus with hyperglycemia (principal); Z12.5 Encounter for screening for malignant neoplasm of prostate
CPT/HCPCS: 36415; 80053; 80061; 82607; 84153; 84443; G0103

== ENCOUNTER 2021-11-06 10:30 | Outpatient (CLI) | payer MEDICARE, OTHER, SELFPAY ==
[2021-11-06 12:47] LABS: Anion Gap 3 (5-15); BUN 24 mg/dL (7-18); BUN/Creat Ratio 19.8 RATIO (10-20); Calcium,Total 9.1 mg/dL (8.5-10.1); Chloride 104 mmol/L (98-107); Creatinine, Serum 1.21 mg/dL (0.70-1.30); EST Glomerular Filtration Rate 63 mL/min (>60); Est Glom Filt Rate - Afr Amer 76 mL/min (>60); Glucose 133 mg/dL (74-106); Potassium 3.6 mmol/L (3.5-5.1); Sodium Level 141 mmol/L (136-145); Uric Acid 8.1 mg/dL (3.5-7.2)
[2021-11-06 13:05] LABS: Hemoglobin A1c 6.4 % (3.8-5.6)
== END 2021-11-06 23:59 | disposition home or self-care (01) ==
LOC: MFPLAB 10:33
PROVIDERS: PCP Family Medicine; Referring Provider Family Medicine; Visit Provider Family Medicine
DX: E11.65 Type 2 diabetes mellitus with hyperglycemia (principal); M10.9 Gout, unspecified
CPT/HCPCS: 36415; 80048; 83036; 84550

== ENCOUNTER 2021-12-10 13:55 | Outpatient (CLI) | payer MEDICARE, OTHER, SELFPAY ==
[2021-12-10 16:20] LABS: Uric Acid 7.3 mg/dL (3.5-7.2)
== END 2021-12-10 23:59 | disposition home or self-care (01) ==
LOC: MFPLAB 13:58
PROVIDERS: PCP Family Medicine; Referring Provider Family Medicine; Visit Provider Family Medicine
DX: M10.9 Gout, unspecified (principal)
CPT/HCPCS: 36415; 84550

== ENCOUNTER → 2022-02-03 | Outpatient (CLI) | payer MEDICARE, OTHER, SELFPAY ==
[2022-02-03 12:31] LABS: Vitamin B12 310 pg/mL (211-911)
[2022-02-03 12:52] LABS: ALB/GLOB Ratio 0.8 RATIO (0.9-2.4); AST(SGOT) 17 U/L (15-37); Alanine Aminotransfer ALT/SGPT 22 U/L (16-61); Albumin, Serum 3.1 g/dL (3.2-5.0); Alkaline Phosphatase 92 U/L (45-117); Anion Gap 3 (5-15); BUN 25 mg/dL (7-18); BUN/Creat Ratio 20.2 RATIO (10-20); Calcium,Total 9.3 mg/dL (8.5-10.1); Chloride 106 mmol/L (98-107); Cholesterol 120 mg/dL (200); Creatinine, Serum 1.24 mg/dL (0.70-1.30); EST Glomerular Filtration Rate 61 mL/min (>60); Est Glom Filt Rate - Afr Amer 74 mL/min (>60); Glucose 125 mg/dL (74-106); High Density Lipoprotein 40 mg/dL; Potassium 3.6 mmol/L (3.5-5.1); Protein, Total 7.1 g/dL (6.4-8.2); Sodium Level 141 mmol/L (136-145); Thyroid Stim Hormone (TSH) 4.07 uIU/mL (0.358-3.74); Triglycerides 89 mg/dL; Very Low Density Lipoprotein 18 mg/dL (5-40)
[2022-02-05 14:04] LABS: T4 Free Direct 1.13 ng/dL (0.76-1.46)
== END | disposition home or self-care (01) ==
LOC: MFPLAB 10:12
PROVIDERS: PCP Family Medicine; Referring Provider Family Medicine; Visit Provider Family Medicine
DX: E11.9 Type 2 diabetes mellitus without complications (principal)
CPT/HCPCS: 36415; 80053; 80061; 82607; 84439; 84443

== ENCOUNTER → 2022-11-24 | Outpatient (CLI) | payer MEDICARE, OTHER, SELFPAY ==
[2022-11-24 18:13] LABS: Hematocrit 46.9 % (40-54); Mean Corpuscular Hgb 28.4 pg (27.0-32.0); Mean Corpuscular Volume 88.8 fL (80-94); Mean Platelet Vol. 10.1 fl (6.2-12.0); Platelet Count 293 K/mm3 (150-450); RBC Distribution Width CV 16.1 % (11.6-14.6); RBC Distribution Width SD 52.7 fl (35.1-43.9); Red Blood Count 5.28 M/mm3 (4.6-6.2); White Blood Count 13.5 K/mm3 (4.4-11.0)
[2022-11-24 18:22] LABS: ALB/GLOB Ratio 0.9 RATIO (0.9-2.4); AST(SGOT) 14 U/L (15-37); Alanine Aminotransfer ALT/SGPT 19 U/L (16-61); Albumin, Serum 3.2 g/dL (3.2-5.0); Alkaline Phosphatase 97 U/L (45-117); Anion Gap 6 (5-15); BUN 29 mg/dL (7-18); BUN/Creat Ratio 23.6 RATIO (10-20); Calcium,Total 9.4 mg/dL (8.5-10.1); Chloride 102 mmol/L (98-107); Cholesterol 133 mg/dL (200); Creatinine, Serum 1.23 mg/dL (0.70-1.30); EST Glomerular Filtration Rate 61 mL/min (>60); Est Glom Filt Rate - Afr Amer 74 mL/min (>60); Globulin 3.7 g/dL (2.2-4.2); Glucose 121 mg/dL (74-106); High Density Lipoprotein 54 mg/dL; PSA,Total - Annual Screen 1.91 ng/mL (0.00-4.00); Potassium 3.9 mmol/L (3.5-5.1); Protein, Total 6.9 g/dL (6.4-8.2); Sodium Level 140 mmol/L (136-145); Triglycerides 111 mg/dL; Uric Acid 6.8 mg/dL (3.5-7.2); Very Low Density Lipoprotein 22 mg/dL (5-40)
[2022-11-24 18:35] LABS: Vitamin B12 285 pg/mL (211-911)
== END | disposition home or self-care (01) ==
LOC: MFPLAB 15:36
PROVIDERS: PCP Family Medicine; Referring Provider Family Medicine; Visit Provider Family Medicine
DX: I25.10 Atherosclerotic heart disease of native coronary artery without angina pectoris (principal); E11.22 Type 2 diabetes mellitus with diabetic chronic kidney disease; M10.9 Gout, unspecified; R79.89 Other specified abnormal findings of blood chemistry; Z12.5 Encounter for screening for malignant neoplasm of prostate
CPT/HCPCS: 36415; 80053; 80061; 82607; 84153; 84443; 84550; 85027; G0103

== ENCOUNTER → 2023-03-05 | Outpatient (CLI) | payer MEDICARE, OTHER, SELFPAY ==
--- NOTE | 2023-03-05 10:00 | STRESSREP ---
Stress Test Report Exercise myocardial perfusion stress test. 72-year-old male with a history of coronary artery disease Stress protocol: Resting EKG demonstrates normal sinus rhythm, with a first-degree AV block with a rate of 65 bpm resting blood pressure is 138/84 mmHg. The patient exercised according to the regular Samuel protocol for a total duration of 3 minutes and 42 seconds attaining a maximum heart rate of 139 bpm which was 94% of maximum predicted heart rate; the maximum workload was 6.2 metabolic equivalents. At rest there were no ST or T wave changes noted to suggest ischemia and at peak exercise upsloping ST changes only were noted which did not meet the criteria for ischemia. No clinical angina was noted the test was terminated due to the target heart rate being achieved/fatigue. The peak blood pressure was 184/94 mmHg. Rate-pressure product was 18,000. Myocardial perfusion protocol. 14.8 mCi of technetium 99m sestamibi was injected at rest. The patient exercised according to regular Samuel protocol for total duration of 3 minutes and 42 seconds and at peak exercise 44.7 mCi of technetium 99m sestamibi was injected stress images were obtained stress and rest images were reconstructed in comparing the short axis vertical long and horizontal long axis. Gated images were also obtained. Perfusion SPECT analysis: Review of the stress images demonstrate normal uptake of tracer noted in all areas of the myocardium. The resting images similarly demonstrate normal uptake of tracer noted in all areas of the myocardium. No areas of reversibility are noted to suggest ischemia no previous infarct was noted. Gated SPECT analysis: The gated ejection fraction is 63%. Conclusion: Normal exercise myocardial perfusion stress test at a low to moderate workload Preserved ejection fraction.
== END | disposition home or self-care (01) ==
LOC: CVS 06:58
PROVIDERS: PCP Family Medicine; Referring Provider Internal Medicine Cardiovascular Disease; Visit Provider Internal Medicine Cardiovascular Disease
DX: I25.10 Atherosclerotic heart disease of native coronary artery without angina pectoris (principal); Z95.5 Presence of coronary angioplasty implant and graft
CPT/HCPCS: 78452; 93017; A9500; A4216

== ENCOUNTER 2023-03-13 11:09 | Emergency (ER) | payer MEDICARE, OTHER, SELFPAY ==
[2023-03-13 11:10] VITALS: BP 150/83; PULSE 57; RESP 16; TEMP 36.5; O2SAT 93; BMI 38.0
[2023-03-13 11:19] VITALS: BP 155/75; PULSE 59; RESP 15; O2SAT 90
[2023-03-13 11:24] VITALS: BP 155/75; PULSE 58; RESP 19; O2SAT 94
--- NOTE | 2023-03-13 11:27 | CT_ITS ---
INDICATION: Right arm tingling EXAMINATION: CT BRAIN - CT Head or Brain W/O Contrast Injection TECHNIQUE: Multiple axial images were obtained of the head without intravenous contrast. A radiation dose optimization technique was used for this scan. IV Contrast dosage and agent: None. RADIATION DOSAGE (If Supplied By Facility): CTDIvol = ( 44.99 ) mGy, DLP = ( 846.73 ) mGycm COMPARISON: No prior examinations are available for comparison. FINDINGS: BRAIN PARENCHYMA: No intra- or extra-axial hemorrhage. No evidence of acute infarct. No intracranial mass or mass effect. There is preservation of the silva/white matter interface. Posterior fossa structures are unremarkable. Atherosclerotic calcifications of the cavernous internal carotid arteries. The CSF SPACES: Appropriate for age. No hydrocephalus. Basal cisterns are patent. CALVARIUM, SKULL BASE, PARANASAL SINUSES AND MASTOID AIR CELLS: Mild mucosal thickening of the frontal sinuses. No discrete lytic or blastic abnormalities. ORBITS: The globes are grossly intact. Left cataract surgery. ASPECTS Score for Acute Strokes: 10 CT/Brain/Head without Contrast IMPRESSION: No acute intracranial process. Intracranial atherosclerotic vascular calcifications. Electronically Signed: Des Norwood MD at 13:07 EDT ,
--- NOTE | 2023-03-13 11:29 | EDS_ITS ---
HPI History of Present Illness Chief Complaint: Numb/Ting Informant: patient and spouse/S.O. Onset/Context/Timing Onset: Days Context: Gradual Onset Timing: Intermittent Current Severity: Mild Maximum Severity: Mild Narrative Narrative: 72-year-old male history of CAD, IA, 1 cardiac stent, cardiomyopathy, diabetes and hypertension. He is on aspirin and Plavix. He says really felt well for a week there is been good days and not so good days. Has had some intermittent tingling of his right arm but no weakness or clumsiness. No trouble with his vision or speech. No trouble ambulating. Denies any recent illness. No vomiting, diarrhea or fever. No chest pain or shortness of breath. He actually had a outpatient stress test about 1 to 2 weeks ago which was unremarkable. Prior similar symptoms: No Recent Illness/Hospitalization: No [facility] Medical History (Updated 03/13/23 @ 13:[address] Hu Fields MD) Acute respiratory failure with hypoxia Atherosclerosis of [place] coronary artery of [place] heart without angina pectoris Diabetes mellitus type II, controlled Essential (primary) hypertension Hematuria Hydroureteronephrosis Ischemic cardiomyopathy Kidney stones Non-ST elevation (NSTEMI) myocardial infarction (01/14/16) Obesity Pure hypercholesterolemia Home Medications aspirin 81 mg chewable tablet 81 mg PO DAILY@0800 01/03/16 [History Last Taken 01/14/18 81 MG] nitroglycerin 0.4 mg sublingual tablet 0.4 mg sublingual ONCE PRN chest pain #25 tabs 12/10/20 [Rx Last Taken Unknown] lisinopril 20 mg tablet 20 mg PO BID #180 tabs 06/10/21 [Rx Last Taken Unknown] furosemide 20 mg tablet 10 mg PO DAILY 12/10/21 [History Last Taken Unknown] potassium chloride 20 mEq tablet,extended release 20 meq PO DAILY 12/10/21 [ History Last Taken Unknown] carvedilol 12.5 mg tablet 12.5 mg PO BID #180 tabs 02/08/22 [Rx Last Taken Unknown] clopidogrel 75 mg tablet 75 mg PO DAILY #90 tabs 07/06/22 [Rx Last Taken Unknown] hydrochlorothiazide 25 mg tablet 25 mg PO DAILY #90 tabs 07/06/22 [Rx Last Taken Unknown] pantoprazole 40 mg tablet,delayed release 40 mg PO DAILY #90 tabs 08/27/22 [Rx Last Taken Unknown] amlodipine 5 mg tablet See Rx Instructions .Route .COMPLEX #90 tabs 12/30/22 [Rx Last Taken Unknown] allopurinol 100 mg tablet 200 mg PO DAILY 01/07/23 [History Last Taken Unknown] cyanocobalamin (vitamin B-12) 1,000 mcg tablet 1,000 mcg PO DAILY 01/07/23 [History Last Taken Unknown] metformin 500 mg 24 hr tablet,extended release 1,000 mg PO DAILY 01/07/23 [History Last Taken Unknown] atorvastatin 80 mg tablet 80 mg PO QHS #90 tabs 01/12/23 [Rx Last Taken Unknown] Allergy/AdvReac Type Severity Reaction Status Date / Time ticagrelor [From [facility]] Allergy Shortness Verified 03/13/23 11:12 of breath Family History Father CAD (coronary artery disease) Diabetes Surgical History History of cataract surgery History of coronary artery stent placement (01/04/16) History of tonsillectomy History of umbilical hernia repair History of vasectomy Social History Smoking Status: Never smoker ROS ROS ED ROS Narrative Denies recent illness. Review of Systems ROS Unobtainable: Denies due to encephalopathy Constitutional Constitutional ED: Denies chills or fever(s) Eyes Eyes: Denies blurry vision ENT ENT ED: Denies ear pain Cardiovascular Cardiovascular: Denies chest pain Respiratory/Chest Respiratory/Chest: Denies cough or dyspnea Gastrointestinal Gastrointestinal: Denies abdominal pain, diarrhea, melena, nausea or vomiting Genitourinary Genitourinary ED: Denies dysuria or hematuria Musculoskeletal Musculoskeletal: Denies arthralgias Integumentary Denies abscess Neurologic Neurologic: Denies headache(s) Psychiatric Psychiatric: Denies anxiety Endocrine Endocrinology: Denies cold intolerance Hematologic/Lymphatic Hematologic/Lymphatic: Reports none Allergic/Immunologic Allergic/Immunologic ED: Denies mouth swelling, tongue swelling or urticaria EXAM Physical Exam Narrative Exam Narrative: 72-year-old male no acute distress. Vital signs stable afebrile. Patient does not look septic or toxic in any distress. Sitting upright in bed. at bedside. H EENT exam unremarkable. No facial droop. Normal speech. Neck nontender. No lymphadenopathy. Lungs clear to auscultation bilaterally. Heart regular rate and rhythm rate about 60 no murmur. Chest wall nontender. Abdomen soft nontender. Moving all 4 extremities. 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 Equal symmetrical radial pulses. He has normal fingertip to nose. Normal range of motion. No deformity or tenderness. Lower extremities are unremarkable. Normal dorsi and plantarflexion. Neurologically he is awake and alert with no focal motor deficits. Const Vital Signs: 03/13/23 11:10 03/13/23 11:19 03/13/23 11:22 Temperature 97.7 F L Temperature Source Temporal Pulse Rate 57 L 59 L Respiratory Rate 16 15 Respiratory Effort Short of Breath Blood Pressure 150/83 H 155/75 H Blood Pressure Mean 105 101 Pulse Ox 93 90 Oxygen Delivery Method Room Air Room Air 03/13/23 11:24 03/13/23 13:06 Temperature Temperature Source Pulse Rate 58 L 56 L Respiratory Rate 19 H 24 H Respiratory Effort Blood Pressure 155/75 H 151/81 H Blood Pressure Mean 101 104 Pulse Ox 94 93 Oxygen Delivery Method Room Air Room Air Positive well nourished and well developed; Negative for cachectic, contractures or unkempt General Appearance ED: well developed and NAD; Negative for unkempt, cachectic, contractures, cyanotic, diaphoretic or pallor Nutritional Appearance: Negative for cachectic HEENT Reports moist mucous membranes; Denies dry mucous membranes or other Negative for trauma, tenderness or other Mouth ED: No dry mucous membranes Mouth: No dry mucous membranes Eyes PERRL and EOMs intact bilaterally General Eye ED: Negative for pale conjunctiva or scleral icterus Neck no lymphadenopathy, supple and no JVD General: Negative for tenderness Lymph Lymphatic: Negative for other Chest Wall inspection of chest normal and palpation of chest normal Chest: Negative for other Resp normal respiratory effort and clear to auscultation bilaterally Effort and Inspection: Negative for retractions Auscultation: Negative for rales, rhonchi or wheezes Cardio regular rate, regular rhythm, S1 normal heart sound, S2 normal heart sound and no murmurs GI normal to inspection, nondistended, normoactive bowel sounds, non-tender, non- distended and no masses Inspection: Negative for abdominal distention Auscultation: normoactive bowel sounds Palpation: soft; Negative for tender or guarding Back/Spine no CVA tenderness General Back: Negative for CVA tenderness Cervical Spine: Negative for cervical spine tenderness Thoracic Spine / Upper Back: Negative for thoracic spinal tenderness Lumbar Spine / Lower Back: Negative for lumbar spinal tenderness Extremity normal to inspection Neuro oriented x3 and CN's II-XII intact bilaterally Sensorium / Orientation: alert; Negative for orientation impaired, lethargic or stuporous Motor Exam: strength 5/5 throughout Psych mental status grossly normal Appearance: Negative for unkempt Attitude: No agitated Mood & Affect: Negative for depressed, anxious or tearful Skin no rashes or lesions noted, no wounds and skin turgor normal General Skin Exam: elasticity normal; Negative for jaundice or pallor Lesions: No lesion noted Rashes: No rashes noted Trauma: Negative for abrasion Wounds: Negative for wounds noted MDM MDM MDM Narrative Medical decision making narrative: 72-year-old male with right arm tingling. Has a normal neurologic exam. He just had malaise intermittently for a week. Screening labs will be obtained. His exam is benign as are his vital signs. Exam at 1:20 PM patient is doing well. We went over all his test results of both he and his . His repeat exam is normal and unchanged. He has normal strength and pulse in his right hand. Hand is neurovascularly intact. He will be discharged home with outpatient follow-up. He does not need any further testing or imaging. He does not require admission. History & Record Review Discussion w/independent historian: Patient and Family Lab Data Attestation: I reviewed the patient's lab results. Lab results narrative: CBC unremarkable. White count is 6.9. H&H 13.6 and 42. Platelets 218. Chemistries show a gap of 3. Normal BUN and creatinine of 1.2. Glucose of 112. Labs: Laboratory Results - last 24 hr 03/13/23 11:40 WBC 6.9 RBC 4.80 Hgb 13.6 Hct 42.3 MCV 88.1 MCH 28.3 MCHC 32.2 RDW Std Deviation 52.7 H RDW Coeff of Zay 16.4 H Plt Count 218 MPV 10.1 Immature Gran % (Auto) 0.400 Neut % (Auto) 65.0 Lymph % (Auto) 22.1 Cloud % (Auto) 7.9 Eos % (Auto) 4.2 Baso % (Auto) 0.4 Absolute Neuts (auto) 4.5 Absolute Lymphs (auto) 1.53 Nucleated RBC % 0 Sodium 142 Potassium 4.0 Chloride 109 H Carbon Dioxide 30.0 Anion Gap 3 L BUN 18 Creatinine 1.22 Estim Creat Clear Calc 55.68 Est GFR (MDRD) Af Amer 75 Est GFR (MDRD) Non-Af 62 BUN/Creatinine Ratio 14.8 Glucose 112 H Calcium 9.0 Radiography Chest X-Ray - ED: 1 View, Read by ED Physician, Read by Radiologist, Heart, Lungs, Mediastinum, Bony Structures, No Acute Disease and Chronic Changes Diagnostic Testing: Clinical Impression(s) from Imaging Studies Brain CT 03/13/23 11:27 IMPRESSION: No acute intracranial process. Intracranial atherosclerotic vascular calcifications. Electronically Signed: Des Norwood MD at 13:07 EDT , Chest X-Ray 03/13/23 11:57 IMPRESSION: No radiographic evidence of acute cardiopulmonary disease. Electronically Signed: Des Norwood MD at 12:11 EDT , Chest x-ray, portable, single view shows no acute abnormality. Interpreted both by myself and radiologist. Rhythm Strip Rhythm Strip: Sinus Rhythm Rate: 57 Ectopy: None EKG Initial EKG: Attestation: I personally reviewed and interpreted this EKG as follows: Interpretation: Sinus Rhythm and Sinus Bradycardia Comments: Sinus bradycardia rate of 57. No acute signs of IA or ischemia. Discharge Plan Triage Chief Complaint: Numb/Ting ED Provider: Hu Fields Dx/Rx/DC Orders Clinical Impression: Numbness and tingling of right arm, History of diabetes mellitus Instructions: ED Paraesthesias Prescriptions: No Action nitroglycerin 0.4 mg tablet, sublingual 0.4 mg SUBLINGUAL ONCE PRN (Reason: chest pain) Qty: 25 6RF Rx Instructions: take one tablet for chest pain every 5-15 minutes for a total of 3 doses potassium chloride 20 mEq tablet extended release 20 meq PO DAILY furosemide 20 mg tablet 10 mg PO DAILY allopurinol 100 mg tablet 200 mg PO DAILY cyanocobalamin (vitamin B-12) 1,000 mcg tablet 1,000 mcg PO DAILY aspirin 81 MG tablet,chewable 81 mg PO DAILY@0800 Patient Comments: ON HOLD metformin 500 mg tablet,ER ana.retention 24 hr 1,000 mg PO DAILY lisinopril 20 mg tablet 20 mg PO BID Qty: 180 4RF carvedilol 12.5 mg tablet 12.5 mg PO BID Qty: 180 4RF clopidogrel 75 mg tablet 75 mg PO DAILY Qty: 90 4RF hydrochlorothiazide 25 mg tablet 25 mg PO DAILY Qty: 90 4RF pantoprazole 40 mg tablet,delayed release (DR/EC) 40 mg PO DAILY Qty: 90 3RF amlodipine 5 mg tablet See Rx Instructions .ROUTE .COMPLEX Qty: 90 3RF Dose Instruction: TAKE 1 TABLET EVERY DAY Rx Instructions: TAKE 1 TABLET EVERY DAY atorvastatin 80 mg tablet 80 mg PO QHS Qty: 90 4RF Primary Care Provider: Nathan Damon Referrals: Nathan Damon MD [Primary Care Provider] - 3-5 Days Activity Restrictions/Additional Instructions: Your exam, lab work, chest x-ray, EKG and CAT scan are unremarkable. Nothing bad that we can find. Call and follow-up your primary care physician. Disposition Disposition: Home, Self Care
[2023-03-13 11:54] LABS: Absolute Lymphocyte Count 1.53 X10^3/uL (0.83-4.51); Absolute Neutrophil Count 4.5 X10^3/uL (2.0-7.7); Basophil# 0.03 X10^3/uL; Basophil% 0.4 % (0-1); Eosinophil# 0.29 X10^3/uL; Eosinophils% 4.2 % (0-5); Hematocrit 42.3 % (40-54); Hemoglobin 13.6 g/dL (13.0-16.5); Lymphocyte # 1.53 X10^3/ul (0.83-4.51); Lymphocyte % 22.1 % (19-41); Mean Corp Hgb Conc 32.2 g/dL (32-36); Mean Corpuscular Hgb 28.3 pg (27.0-32.0); Mean Corpuscular Volume 88.1 fL (80-94); Mean Platelet Vol. 10.1 fl (6.2-12.0); Monocyte# 0.55 X10^3/uL; Monocyte% 7.9 % (0-10); NRBC Flagged by Analyzer 0 % (0-5); Platelet Count 218 K/mm3 (150-450); RBC Distribution Width CV 16.4 % (11.6-14.6); RBC Distribution Width SD 52.7 fl (35.1-43.9); White Blood Count 6.9 K/mm3 (4.4-11.0)
--- NOTE | 2023-03-13 11:57 | RAD_ITS ---
INDICATION: weakness EXAMINATION/TECHNIQUE: X-RAY - XR Chest 1 View COMPARISON: None. FINDINGS: LINES/DEVICES: None. LUNGS: No consolidation, edema or effusion. No pneumothorax. MEDIASTINUM AND CARDIOVASCULAR STRUCTURES: Cardiac silhouette not enlarged. Central airways and mediastinal contour are unremarkable. BONES AND SOFT TISSUES: Unremarkable. RAD/Chest 1 View (Portable) IMPRESSION: No radiographic evidence of acute cardiopulmonary disease. Electronically Signed: Des Norwood MD at 12:11 EDT ,
[2023-03-13 12:06] LABS: Anion Gap 3 (5-15); BUN 18 mg/dL (7-18); BUN/Creat Ratio 14.8 RATIO (10-20); Chloride 109 mmol/L (98-107); Creatinine, Serum 1.22 mg/dL (0.70-1.30); EST Glomerular Filtration Rate 62 mL/min (>60); Est Glom Filt Rate - Afr Amer 75 mL/min (>60); Estimated Creatinine Clearance 55.68 ml/min; Glucose 112 mg/dL (74-106); Sodium Level 142 mmol/L (136-145)
[2023-03-13 13:06] VITALS: BP 151/81; PULSE 56; RESP 24; O2SAT 93
[2023-03-13 13:29] VITALS: BP 153/71
== END 2023-03-13 13:30 | disposition home or self-care (01) ==
PROVIDERS: Emergency Provider Emergency Medicine; PCP Family Medicine; Visit Provider Emergency Medicine
DX: R20.2 Paresthesia of skin (principal); E11.9 Type 2 diabetes mellitus without complications; E78.00 Pure hypercholesterolemia, unspecified; Z95.5 Presence of coronary angioplasty implant and graft; I25.5 Ischemic cardiomyopathy; I10 Essential (primary) hypertension; R20.0 Anesthesia of skin; I25.2 Old myocardial infarction; I5A Non-ischemic myocardial injury (non-traumatic); Z79.02 Long term (current) use of antithrombotics/antiplatelets; Z79.82 Long term (current) use of aspirin; Z79.899 Other long term (current) drug therapy; Z79.84 Long term (current) use of oral hypoglycemic drugs; Z98.52 Vasectomy status
CPT/HCPCS: 70450; 71045; 80048; 85025; 93005; 99285

== ENCOUNTER → 2023-03-23 | Outpatient (CLI) | payer MEDICARE, OTHER, SELFPAY ==
--- NOTE | 2023-03-23 16:20 | RAD_ITS ---
EXAM: XR ABDOMEN, 2 VIEWS AND XR CHEST, 1 VIEW CLINICAL INDICATION: bloating, belching. TECHNIQUE: Frontal view of the chest, frontal view of the abdomen/pelvis and upright or decubitus view of the abdomen. COMPARISON: Previous chest radiographs of 03/13/2023 and 03/09/2018. FINDINGS: CHEST: LUNGS AND PLEURAL SPACES: Small pleural effusions have developed, blunting the lateral costophrenic angles; the left pleural effusion is slightly larger than the right. Minimal infiltrate is noted adjacent to the pleural effusions, consistent with bibasilar atelectasis. Mid to upper lungs are clear. HEART: Heart size is mildly enlarged with normal pulmonary vasculature. MEDIASTINUM: Central airways and mediastinal contour are unremarkable. ABDOMEN: INTRAPERITONEAL SPACE: No free air. GASTROINTESTINAL TRACT: Unremarkable. Non-obstructive. No bowel or stomach distention. ORGANS: Unremarkable as visualized. No organomegaly. No abnormal calcifications. TUBES, LINES AND DEVICES: None. BONES/JOINTS: Thoracolumbar degenerative spurring is present with mild thoracic levoscoliosis. SOFT TISSUES: No acute findings. RAD/Acute Abdomen Inc Chest IMPRESSION: Small pleural effusions with bibasilar atelectasis. No findings of small bowel obstruction or other acute intra-abdominal abnormality. Electronically Signed: Luis Villatoro MD at 4:53 EDT ,
[2023-03-23 18:25] LABS: BNP,B-Type NATRIURETIC PEPTIDE 59.9 pg/mL (0-100)
[2023-03-23 18:48] LABS: ALB/GLOB Ratio 0.9 RATIO (0.9-2.4); AST(SGOT) 15 U/L (15-37); Alanine Aminotransfer ALT/SGPT 22 U/L (16-61); Albumin, Serum 3.1 g/dL (3.2-5.0); Alkaline Phosphatase 109 U/L (45-117); Anion Gap 4 (5-15); BUN 19 mg/dL (7-18); BUN/Creat Ratio 14.6 RATIO (10-20); Calcium,Total 8.8 mg/dL (8.5-10.1); Chloride 111 mmol/L (98-107); Cholesterol 111 mg/dL (200); EST Glomerular Filtration Rate 57 mL/min (>60); Est Glom Filt Rate - Afr Amer 70 mL/min (>60); Globulin 3.6 g/dL (2.2-4.2); Glucose 89 mg/dL (74-106); High Density Lipoprotein 36 mg/dL; Potassium 3.8 mmol/L (3.5-5.1); Protein, Total 6.7 g/dL (6.4-8.2); Sodium Level 145 mmol/L (136-145); Triglycerides 134 mg/dL; Very Low Density Lipoprotein 27 mg/dL (5-40)
[2023-03-23 18:49] LABS: Vitamin B12 643 pg/mL (211-911)
== END | disposition home or self-care (01) ==
LOC: MTLAB 16:17
PROVIDERS: PCP Family Medicine; Referring Provider Family Medicine; Visit Provider Family Medicine
DX: R10.13 Epigastric pain (principal); E11.22 Type 2 diabetes mellitus with diabetic chronic kidney disease; E53.8 Deficiency of other specified B group vitamins; I25.10 Atherosclerotic heart disease of native coronary artery without angina pectoris
CPT/HCPCS: 36415; 74022; 80053; 80061; 82607; 83880

== ENCOUNTER 2023-06-23 04:36 | Inpatient (IN) | payer MEDICARE, OTHER, SELFPAY ==
[2023-06-23] VITALS (12 sets, daily range): BP systolic 149–193; BP diastolic 70–92; PULSE 62–67; RESP 16–27; TEMP 36.4–36.6; O2SAT 84–97; BMI 39.1; BMI 37.8
--- NOTE | 2023-06-23 05:10 | EX.ED.DYSGE1 ---
HPI History of Present Illness Chief Complaint: Shortness of Breath Informant: patient and spouse/S.O. Narrative Narrative: 72-year-old male with a history of coronary artery disease presenting to the emergency room with dyspnea. Patient notes months of shortness of breath. He states that during the summer due to having a prior coronary artery disease and intervention he underwent a stress test. After that he began to notice belching particularly with every breath at night. He notes that he has been short of breath ever since. He states last week he did a home sleep test that measured his oxygen level and he was told that his oxygen drops into the 50% at night. He has not had a formal sleep study. He was referred to pulmonology has an appointment July 07. He states that he has been now sleeping in a chair unable to lay flat. He wakes up gasping/frequently catching his breath. He notes dyspnea with exertion. He takes Lasix 10 mg per day. He states that he was having problems with the higher doses of Lasix because of having to spend so much time using the bathroom. He denies a history of congestive heart failure. He follows locally with [facility]. He did have the stress test which was negative earlier this year. He denies fevers. He notes a cough that is nonproductive and frequent. [facility] Medical History (Updated 06/23/23 @ 06:[address] Konrad Maldonado ) Acute respiratory failure with hypoxia Atherosclerosis of [place] coronary artery of [place] heart without angina pectoris Diabetes mellitus type II, controlled Essential (primary) hypertension Hematuria Hydroureteronephrosis Ischemic cardiomyopathy Kidney stones Non-ST elevation (NSTEMI) myocardial infarction (01/14/16) Obesity Pure hypercholesterolemia Home Medications aspirin 81 mg chewable tablet 81 mg PO DAILY@0800 01/03/16 [History Last Taken 01/14/18 81 MG] lisinopril 20 mg tablet 20 mg PO BID #180 tabs 06/10/21 [Rx Last Taken Unknown] furosemide 20 mg tablet 10 mg PO DAILY 12/10/21 [History Last Taken Unknown] potassium chloride 20 mEq tablet,extended release 20 meq PO DAILY 12/10/21 [History Last Taken Unknown] clopidogrel 75 mg tablet 75 mg PO DAILY #90 tabs 07/06/22 [Rx Last Taken Unknown] pantoprazole 40 mg tablet,delayed release 40 mg PO DAILY #90 tabs 08/27/22 [Rx Last Taken Unknown] allopurinol 100 mg tablet 200 mg PO DAILY 01/07/23 [History Last Taken Unknown] cyanocobalamin (vitamin B-12) 1,000 mcg tablet 1,000 mcg PO DAILY 01/07/23 [History Last Taken Unknown] metformin 500 mg 24 hr tablet,extended release 1,000 mg PO DAILY 01/07/23 [History Last Taken Unknown] atorvastatin 80 mg tablet 80 mg PO QHS #90 tabs 01/12/23 [Rx Last Taken Unknown] nitroglycerin 0.4 mg sublingual tablet 0.4 mg sublingual ONCE PRN chest pain #25 tabs 03/19/23 [Rx Last Taken Unknown] carvedilol 12.5 mg tablet 12.5 mg PO BID #180 tabs 03/29/23 [Rx Last Taken Unknown] amlodipine 5 mg tablet 5 mg PO DAILY 06/23/23 [History Last Taken Unknown] Allergy/AdvReac Type Severity Reaction Status Date / Time ticagrelor [From [place]] Allergy Shortness Verified 06/23/23 04:42 of breath Family History Father CAD (coronary artery disease) Diabetes Surgical History History of cataract surgery History of coronary artery stent placement (01/04/16) History of tonsillectomy History of umbilical hernia repair History of vasectomy Social History Smoking Status: Never smoker ROS ROS ED Constitutional Constitutional ED: Denies chills or weight loss Eyes Eyes: Denies change in vision or diplopia ENT ENT ED: Denies ear pain, rhinorrhea or sore throat Cardiovascular Cardiovascular: Reports orthopnea; Denies chest pain, palpitations or racing heartbeat Respiratory/Chest Respiratory/Chest: Reports cough, dyspnea, dyspnea on exertion and orthopnea Gastrointestinal Gastrointestinal: Reports other Details: Belching ; Denies abdominal pain, diarrhea, nausea or vomiting Genitourinary Genitourinary ED: Denies dysuria, hematuria or urinary frequency Musculoskeletal Musculoskeletal: Denies arthralgias or myalgias Integumentary Denies abscess or rash Neurologic Neurologic: Denies headache(s) or weakness Psychiatric Psychiatric: Denies anxiety, depression, suicidal ideation or suicidal thoughts Endocrine Endocrinology: Denies polydipsia, polyphagia or polyuria Allergic/Immunologic Allergic/Immunologic ED: Denies mouth swelling, tongue swelling or urticaria EXAM Physical Exam Const Vital Signs: 06/23/23 04:37 06/23/23 04:40 06/23/23 06:00 Temperature 97.7 F L 97.7 F L Temperature Source Temporal Temporal Pulse Rate 65 64 Respiratory Rate 27 H 24 H Respiratory Effort Short of Breath Respiratory Depth Normal Respiratory Pattern Normal Blood Pressure 183/85 H 183/85 H Blood Pressure Mean 117 117 Pulse Ox 89 88 Oxygen Delivery Method Room Air Room Air Oxygen Flow Rate (L/min) 06/23/23 06:31 06/23/23 06:36 06/23/23 06:50 Temperature Temperature Source Pulse Rate Respiratory Rate Respiratory Effort Respiratory Depth Respiratory Pattern Blood Pressure Blood Pressure Mean Pulse Ox 84 84 95 Oxygen Delivery Method Room Air Room Air Nasal Cannula Oxygen Flow Rate (L/min) 2 06/23/23 07:38 Temperature 97.5 F L Temperature Source Oral Pulse Rate 67 Respiratory Rate 19 H Respiratory Effort Respiratory Depth Respiratory Pattern Blood Pressure 193/92 H Blood Pressure Mean 125 Pulse Ox 95 Oxygen Delivery Method Nasal Cannula Oxygen Flow Rate (L/min) 2 Positive well nourished, well developed and obese General Appearance ED: well developed Nutritional Appearance: obese HEENT Reports normocephalic, head/scalp atraumatic and moist mucous membranes Eyes PERRL and EOMs intact bilaterally Neck no lymphadenopathy, supple and no JVD Resp normal respiratory effort Auscultation: diminished lung sounds bilateral lower Cardio regular rate, regular rhythm and no murmurs GI normal to inspection, nondistended, normoactive bowel sounds and non-tender Palpation: soft Back/Spine no CVA tenderness and normal ROM Extremity General Extremety ED: Yes edema General Extremity: edema bilateral lower extremity Details: moderate Neuro oriented x3 and CN's II-XII intact bilaterally Sensorium / Orientation: alert Motor Exam: strength 5/5 throughout Psych mental status grossly normal Mood & Affect: Negative for depressed or tearful Skin no rashes or lesions noted and no wounds MDM MDM MDM Narrative Medical decision making narrative: While at rest the patient's oxygen is 90 to 93% with a good waveform. The 10 to 15 feet to the bathroom the patient becomes acutely dyspneic and his pulse ox is in the mid to low 80s. My independent interpretation of the chest x-ray is small pleural effusions. White count 8.6 with hemoglobin of 13.4. Platelet count of 2 2 BUN of 18 with a creatinine of 1.18. Total bilirubin 1.8 direct bilirubin 0.48. Urinalysis shows no overt infection. CT of the chest with IV contrast obtained which demonstrates bilateral pleural effusions -right greater than left. No large pericardial effusion was noted. Coming back from CT and sitting him up he is 84% on room air. This is with a good waveform. Patient received supplemental oxygen and later Lasix 80 mg IV. I do not see a recent echocardiogram with ejection fraction of the computer. He has bilateral pleural effusions and orthopnea. He has hypoxia with exertion. He does not feel like he can take a deep breath. He has lower extremity edema. His diuretics are low-dose. Any the patient most likely has evidence of heart failure would benefit from admission and aggressive diuresis further treatment. In addition he is requiring supplemental oxygen with any type of exertion. Lab Data Attestation: I reviewed the patient's lab results. Labs: Laboratory Results - last 24 hr 06/23/23 06/23/23 04:47 06:00 WBC 8.6 RBC 5.08 Hgb 13.4 Hct 43.5 MCV 85.6 MCH 26.4 L MCHC 30.8 L RDW Std Deviation 56.3 H RDW Coeff of [place] 18.3 H Plt Count 228 MPV 10.9 Immature Gran % (Auto) 0.600 Neut % (Auto) 71.9 H Lymph % (Auto) 15.8 L [place] % (Auto) 7.1 Eos % (Auto) 3.9 Baso % (Auto) 0.7 Absolute Neuts (auto) 6.2 Absolute Lymphs (auto) 1.36 Nucleated RBC % 0 Sodium 144 Potassium 3.6 Chloride 110 H Carbon Dioxide 32.0 Anion Gap 2 L BUN 18 Creatinine 1.18 Estim Creat Clear Calc 57.57 Est GFR (MDRD) Af Amer 78 Est GFR (MDRD) Non-Af 64 BUN/Creatinine Ratio 15.3 Glucose 117 H Calcium 8.9 Total Bilirubin 1.80 H Direct Bilirubin 0.48 H AST 13 L ALT 20 Alkaline Phosphatase 111 Troponin I High Sens 41 Total Protein 7.1 Albumin 3.2 Globulin 3.9 Urine Color Yellow Urine Clarity Clear Urine pH 7.0 Ur Specific [place] 1.010 Urine Protein 15 H Urine Glucose (UA) Normal Urine Ketones 5 H Urine Occult Blood Negative Urine Nitrite Negative Urine Bilirubin Negative Urine Urobilinogen 8 H Ur Leukocyte Esterase Negative Urine RBC 0 SEEN Urine WBC 0 SEEN Ur Squamous Epith Cells 0 SEEN Amorphous Sediment 1+ Urine Bacteria 0 SEEN Urine Mucus 1+ Radiography Diagnostic Testing: Clinical Impression(s) from Imaging Studies Chest X-Ray 06/23/23 05:30 IMPRESSION: Small bilateral pleural effusions more prominent on the left. Compressive atelectasis in the lung bases. Electronically Signed: Chio Corona MD at 6:01 EDT , Chest CT 06/23/23 06:09 IMPRESSION: Moderate bilateral pleural effusions with compressive atelectasis in the lung bases. There is a small pericardial effusion. Electronically Signed: Chio Corona MD at 7:26 EDT , EKG Initial EKG: Attestation: I personally reviewed and interpreted this EKG as follows: Comments: Sinus rhythm with 1st degree AV Block. ventricular rate 64 bpm. Discharge Plan Dx/Rx/DC Orders Clinical Impression: Congestive heart failure, Acute hypoxemic respiratory failure, Atherosclerosis of [place] coronary artery of [place] heart without angina pectoris, Bilateral pleural effusion Disposition Disposition: Acute Care [facility]
[2023-06-23 05:21] LABS: Absolute Lymphocyte Count 1.36 X10^3/uL (0.83-4.51); Absolute Neutrophil Count 6.2 X10^3/uL (2.0-7.7); Basophil# 0.06 X10^3/uL; Basophil% 0.7 % (0-1); Eosinophil# 0.34 X10^3/uL; Eosinophils% 3.9 % (0-5); Hematocrit 43.5 % (40-54); Hemoglobin 13.4 g/dL (13.0-16.5); Lymphocyte # 1.36 X10^3/ul (0.83-4.51); Lymphocyte % 15.8 % (19-41); Mean Corp Hgb Conc 30.8 g/dL (32-36); Mean Corpuscular Hgb 26.4 pg (27.0-32.0); Mean Corpuscular Volume 85.6 fL (80-94); Mean Platelet Vol. 10.9 fl (6.2-12.0); Monocyte# 0.61 X10^3/uL; Monocyte% 7.1 % (0-10); NRBC Flagged by Analyzer 0 % (0-5); Neutrophil # 6.21 X10^3/uL (2.7-7.7); Neutrophil % 71.9 % (47-70); Platelet Count 228 K/mm3 (150-450); RBC Distribution Width CV 18.3 % (11.6-14.6); RBC Distribution Width SD 56.3 fl (35.1-43.9); Red Blood Count 5.08 M/mm3 (4.6-6.2); White Blood Count 8.6 K/mm3 (4.4-11.0)
--- NOTE | 2023-06-23 05:30 | RAD_ITS ---
INDICATION: dyspnea EXAMINATION/TECHNIQUE: X-RAY - XR Chest 1 View COMPARISON: CR Chest, Mar 09 2018 . CR Chest, Mar 13 2023 FINDINGS: LINES/DEVICES: None. LUNGS: Small bilateral pleural effusions more prominent on the left. Compressive atelectasis in the lung bases. MEDIASTINUM AND CARDIOVASCULAR STRUCTURES: Cardiac silhouette not enlarged. Central airways and mediastinal contour are unremarkable. BONES AND SOFT TISSUES: Unremarkable. RAD/Chest 1 View (Portable) IMPRESSION: Small bilateral pleural effusions more prominent on the left. Compressive atelectasis in the lung bases. Electronically Signed: Chio Corona MD at 6:01 EDT ,
[2023-06-23 05:38] LABS: AST(SGOT) 13 U/L (15-37); Alanine Aminotransfer ALT/SGPT 20 U/L (16-61); Albumin, Serum 3.2 g/dL (3.2-5.0); Alkaline Phosphatase 111 U/L (45-117); Anion Gap 2 (5-15); BUN 18 mg/dL (7-18); BUN/Creat Ratio 15.3 RATIO (10-20); Bilirubin, Direct 0.48 mg/dL (0.00-0.30); Calcium,Total 8.9 mg/dL (8.5-10.1); Chloride 110 mmol/L (98-107); Creatinine, Serum 1.18 mg/dL (0.70-1.30); EST Glomerular Filtration Rate 64 mL/min (>60); Est Glom Filt Rate - Afr Amer 78 mL/min (>60); Estimated Creatinine Clearance 57.57 ml/min; Globulin 3.9 g/dL (2.2-4.2); Glucose 117 mg/dL (74-106); Potassium 3.6 mmol/L (3.5-5.1); Protein, Total 7.1 g/dL (6.4-8.2); Sodium Level 144 mmol/L (136-145); Troponin-I HS 41 pg/mL (3.0-78.0)
--- NOTE | 2023-06-23 06:09 | CT_ITS ---
INDICATION: dyspnea pleural effusion EXAMINATION: CT CHEST WITH CONTRAST - CT Chest W/ Contrast Injection TECHNIQUE: Helically acquired images were obtained of the chest following IV contrast. A radiation dose optimization technique was used for this scan. IV Contrast dosage and agent: 100mL [id number] RADIATION DOSAGE (If Supplied By Facility): CTDIvol = ( 18.38 ) mGy, DLP = ( 858.73 ) mGycm COMPARISON: CR Chest, Mar 13 2023 FINDINGS: LUNGS, PLEURA AND LARGE AIRWAYS: Moderate bilateral pleural effusions with compressive atelectasis in the lung bases. No pneumothorax. THYROID: No thyroid lesions. HEART AND PERICARDIUM: Heart size is normal. There is a small pericardial effusion. VESSELS: Thoracic aorta is not dilated. No aortic dissection. No obvious central pulmonary embolism although this study was not performed with the pulmonary embolism protocol. MEDIASTINUM AND ZEE: No mediastinal or hilar adenopathy. Esophagus is unremarkable. No hiatal hernia. UPPER ABDOMEN: Bilateral renal cysts, the largest measures 4 cm. BONES: No suspicious lytic or blastic abnormality. CT/Chest WITH Contrast IMPRESSION: Moderate bilateral pleural effusions with compressive atelectasis in the lung bases. There is a small pericardial effusion. Electronically Signed: Chio Corona MD at 7:26 EDT ,
[2023-06-23 06:11] LABS: Bacteria 0 SEEN /hpf (None Seen); Red Blood Cells-Urine 0 SEEN /hpf (0-5); Squamous Epithelial Cells - UA 0 SEEN /hpf (0-5); White Blood Cells 0 SEEN /hpf (0-5)
[2023-06-23 06:12] LABS: Color, Urine Yellow (Yellow); Glucose, Dipstick Normal (Normal); Ketone-Dipstick 5 mg/dl (Negative); Leukocyte Esterase-Dipstick Negative /ul (Negative); Nitrite-Dipstick Negative (Negative); Occult Blood-Urine Negative /ul (Negative); Protein-Dipstick 15 mg/dl (Negative); Urine Bilirubin Dipstick Negative (Negative); Urine Clarity Clear (Clear); Urine Urobilinogen 8 mg/dl (Normal)
[2023-06-23 06:34] LABS: Amorphous Sediment 1+; Mucous, Urine 1+ /hpf (<or=2+)
[2023-06-23] MEDS: Furosemide 100 MG/10 ML Vial 80 MG IV (06:39)
--- NOTE | 2023-06-23 07:39 | NURSING ---
DR MARTINEZ FOR DR JOHN
--- NOTE | 2023-06-23 07:50 | NURSING ---
PCU CHF, HYPOXIA KOTSONIS
--- NOTE | 2023-06-23 10:48 | ECHOD_ITS ---
Reason For Study: CHF Procedure This was a 2D Doppler, Color Flow transthoracic echocardiogram. The study was technically difficult. Exam performed portable in patient room. Left Ventricle Mild concentric left ventricular hypertrophy. Normal LV size. The left ventricular ejection fraction is 55 %. Diastolic function is indeterminate. Right Ventricle Normal right ventricle. A moderator band is seen in the right ventricle. Atria The left atrium is moderately enlarged. Normal right atrium. Mitral Valve Trivial mitral valve insufficiency. Tricuspid Valve Trivial tricuspid valve insufficiency. Unable to estimate RV systolic pressure due to insufficient tricuspid regurgitant envelope. Aortic Valve The aortic valve is not well visualized in the short axis view. Trivial aortic valve insufficiency. Pulmonic Valve The pulmonic valve is not well visualized. Great Vessels Normal sized aortic root. Pericardium/Pleural Small pericardial effusion noted. No echo evidence of tamponade. MMode/2D Measurements & Calculations LVIDd: 5.8 cm IVSd: 1.2 cm Ao root diam: 3.2 cm LVIDs: 3.7 cm LVPWd: 1.2 cm RVDd: 3.4 cm FS: 35.4 % LAV(MOD-bp): 127.9 ml LVAd ap4: 37.9 cm2 LVAd ap2: 36.4 cm2 LAV(MOD-bp) Indexed: 54.5 ml/m2 LVLd ap4: 8.2 cm LVLd ap2: 8.1 cm LAV(MOD-sp2): 105.7 ml EDV(MOD-sp4): 150.5 ml EDV(MOD-sp2): 140.8 ml LAV(MOD-sp4): 134.0 ml EDV(sp4-el): 147.9 ml EDV(sp2-el): 138.1 ml LVAs ap4: 17.9 cm2 LVAs ap2: 19.3 cm2 LVLs ap4: 7.1 cm LVLs ap2: 6.6 cm ESV(MOD-sp4): 41.3 ml ESV(MOD-sp2): 53.4 ml ESV(sp4-el): 38.3 ml ESV(sp2-el): 48.0 ml EF(MOD-sp4): 72.6 % EF(MOD-sp2): 62.1 % EF(sp4-el): 74.1 % SV(MOD-sp4): 109.2 ml SV(MOD-sp2): 87.5 ml SV(sp4-el): 109.6 ml LA dimension(2D): 4.1 cm LA A4 area: 32.8 cm2 RA A4 area: 18.5 cm2 TAPSE: 2.4 cm Time Measurements MV dec time: 0.18 sec Doppler Measurements & Calculations MV E max glen: 108.6 cm/sec Lat Peak E' Glen: 9.2 cm/sec Med Peak E' Glen: 6.7 cm/sec MV A max glen: 68.8 cm/sec E/E' lat: 11.9 E/E' med: 16.2 MV E/A: 1.6 MV V2 max: 146.4 cm/sec MV P1/2t max glen: 123.2 cm/sec Ao V2 max: 123.4 cm/sec MV max P.6 mmHg MV P1/2t: 62.7 msec Ao max P.1 mmHg MV V2 mean: 64.8 cm/sec MV dec slope: 575.6 cm/sec2 Ao V2 mean: 83.2 cm/sec MV mean P.2 mmHg Ao mean P.2 mmHg MV V2 VTI: 38.1 cm MVA(P1/2t): 3.5 cm2 Ao V2 VTI: 27.7 cm AV (velocity ratio): 0.80 LV V1 max: 102.3 cm/sec PA V2 max: 114.9 cm/sec LV V1 max P.2 mmHg PA V2 mean: 82.3 cm/sec LV V1 mean P.3 mmHg LV V1 mean: 72.7 cm/sec LV V1 VTI: 22.3 cm ECHO/Echo Complete Interpretation Summary Mild concentric left ventricular hypertrophy. The left ventricular ejection fraction is 55 %. Diastolic function is indeterminate. The left atrium is moderately enlarged. The study was technically difficult. Small pericardial effusion noted. No echo evidence of tamponade. Ordering Physician: Davide Vasques Referring Physician: Mook Damon Performed By: Ashley Jane, KIMBERLEE, RVT
[2023-06-23 11:15] LABS: Magnesium 2.1 mg/dL (1.6-2.6); Phosphorus 2.5 mg/dL (2.5-4.9)
[2023-06-23 11:28] LABS: BNP,B-Type NATRIURETIC PEPTIDE 118.3 pg/mL (0-100)
[2023-06-23 11:30] LABS: Bedside Glucose 129 mg/dL (74-106)
[2023-06-23] MEDS: Potassium Chloride Oral Tablet 20 MEQ PO (11:49)
[2023-06-23] MEDS: amLODIPine 5 MG Tablet PO (11:50)
[2023-06-23] MEDS: Carvedilol 12.5 MG Tablet PO ×2 (11:51→21:55)
[2023-06-23] MEDS: Pantoprazole Sodium 40 MG Tablet PO (11:52)
[2023-06-23] MEDS: Aspirin 81 MG TAB.CHEW PO (11:52)
[2023-06-23] MEDS: Clopidogrel Bisulfate 75 MG Tablet PO (11:52)
[2023-06-23] MEDS: Lisinopril 20 MG Tablet PO ×2 (11:52→21:56)
[2023-06-23] MEDS: Enoxaparin 40 MG/0.4 ML Syringe SC (11:53)
[2023-06-23] MEDS: Allopurinol 100 MG Tablet 200 MG PO (11:57)
[2023-06-23] MEDS: 0.9% Saline Lock 10 ML Syringe IV (12:30)
--- NOTE | 2023-06-23 15:23 | CHAPLAIN ---
Type of Pastoral Visit _x__ Initial Visit ___ Follow-up Visit ___ On-call Visit ___ General Patient Visit ___ Spiritual Assessment ___ Family Conference ___ Bereavement ___ Rapid Response ___ Code Blue ___ Other (describe below) Pastoral Care Referral From _x__ Patient ___ Family ___ Nurse ___ Physician ___ New Accounts Representative ___ Client Services Associate ___ Other (describe below) Sacrament/Intervention _x__ Active listening ___ Anointing ___ Synagogue ___ Bereavement ___ Communion _x__ Maye exploration ___ ___ Life review _x__ Prayer ___ Reconciliation ___ Sacrament of Sick _x__ Supportive presence ___ Wedding ___ Other (describe below) Pastoral Comments patient expresses relief as he has had improvement and has been given some answers or plans for treatment; pt expresses his maye in God and is acknolwedging the blessing of his large and maye filled family; pt welcomes presence and prayer for support today
--- NOTE | 2023-06-23 15:32 | HP.PCM.HOS_ITS ---
HPI - General General Date of Admission: 06/23/23 HPI Narrative ADARSH WYATT, is a 72 M who presents to the hospital with current progressive worsening shortness of breath. He has difficulty walking even 10 feet and has also noticed issues with laying flat and he wakes up gasping for air while sleeping for the last several months. says that he has had signs of sleep apnea with snoring and apneic episodes over the last several years and there had been discussions about 10 to 15 years ago about potentially needing sleep study. Unfortunate this was never done. In the ER he has a CT scan of his chest which demonstrates bilateral mild to moderate pleural effusions. He was given of dose of Lasix in the ED. BNP was slightly elevated to 118 with a normal troponin. He has not seen pulmonology yet as an outpatient as the referral was for 07/07/2023. [facility] Medical History Acute respiratory failure with hypoxia Atherosclerosis of [place] coronary artery of [place] heart without angina pectoris Diabetes mellitus type II, controlled Essential (primary) hypertension Hematuria Hydroureteronephrosis Ischemic cardiomyopathy Kidney stones Non-ST elevation (NSTEMI) myocardial infarction (01/14/16) Obesity Pure hypercholesterolemia Home Medications aspirin 81 mg chewable tablet 81 mg PO DAILY@0800 01/03/16 [History Last Taken 01/14/18 81 MG] lisinopril 20 mg tablet 20 mg PO BID #180 tabs 06/10/21 [Rx Last Taken Unknown] furosemide 20 mg tablet 10 mg PO DAILY 12/10/21 [History Last Taken Unknown] potassium chloride 20 mEq tablet,extended release 20 meq PO DAILY 12/10/21 [History Last Taken Unknown] clopidogrel 75 mg tablet 75 mg PO DAILY #90 tabs 07/06/22 [Rx Last Taken Unknown] pantoprazole 40 mg tablet,delayed release 40 mg PO DAILY #90 tabs 08/27/22 [Rx Last Taken Unknown] allopurinol 100 mg tablet 200 mg PO DAILY 01/07/23 [History Last Taken Unknown] cyanocobalamin (vitamin B-12) 1,000 mcg tablet 1,000 mcg PO DAILY 01/07/23 [History Last Taken Unknown] metformin 500 mg 24 hr tablet,extended release 1,000 mg PO DAILY 01/07/23 [History Last Taken Unknown] atorvastatin 80 mg tablet 80 mg PO QHS #90 tabs 01/12/23 [Rx Last Taken Unknown] nitroglycerin 0.4 mg sublingual tablet 0.4 mg sublingual ONCE PRN chest pain #25 tabs 03/19/23 [Rx Last Taken Unknown] carvedilol 12.5 mg tablet 12.5 mg PO BID #180 tabs 03/29/23 [Rx Last Taken Unknown] amlodipine 5 mg tablet 5 mg PO DAILY 06/23/23 [History Last Taken Unknown] Allergy/AdvReac Type Severity Reaction Status Date / Time ticagrelor [From [place]] Allergy Shortness Verified 06/23/23 04:42 of breath Family History Father CAD (coronary artery disease) Diabetes Surgical History History of cataract surgery History of coronary artery stent placement (01/04/16) History of tonsillectomy History of umbilical hernia repair History of vasectomy Social History Smoking Status: Never smoker ROS Constitutional Constitutional: Denies chills, fatigue, fever(s) or malaise Eyes Eyes: Denies blurry vision ENT HEENT: Denies headache(s) or nasal discharge Cardiovascular Cardiovascular: Reports orthopnea; Denies chest pain, dyspnea on exertion or syncope Respiratory/Chest Respiratory/Chest: Reports shortness of breath with exertion; Denies cough or shortness of breath at rest Gastrointestinal Gastrointestinal: Denies constipation, diarrhea, nausea or vomiting Genitourinary Genitourinary: Denies dysuria Neurologic Neurologic: Denies focal weakness, numbness or tremor(s) Psychiatric Psychiatric: Denies anxiety or depression Vital Signs Vital Signs Vital Signs: 06/23/23 04:37 06/23/23 04:40 06/23/23 06:00 Temperature 97.7 F L 97.7 F L Temperature Source Temporal Temporal Pulse Rate 65 64 Pulse Strength Respiratory Rate 27 H 24 H Respiratory Effort Short of Breath Respiratory Depth Normal Respiratory Pattern Normal Blood Pressure 183/85 H 183/85 H Blood Pressure Mean 117 117 Blood Pressure Source Blood Pressure Position Blood Pressure Location Pulse Ox 89 88 Oxygen Delivery Method Room Air Room Air Oxygen Flow Rate (L/min) 06/23/23 06:31 06/23/23 06:36 06/23/23 06:50 Temperature Temperature Source Pulse Rate Pulse Strength Respiratory Rate Respiratory Effort Respiratory Depth Respiratory Pattern Blood Pressure Blood Pressure Mean Blood Pressure Source Blood Pressure Position Blood Pressure Location Pulse Ox 84 84 95 Oxygen Delivery Method Room Air Room Air Nasal Cannula Oxygen Flow Rate (L/min) 2 06/23/23 07:38 06/23/23 08:13 06/23/23 08:45 Temperature 97.5 F L 97.5 F L 97.7 F L Temperature Source Oral Oral Oral Pulse Rate 67 64 67 Pulse Strength Respiratory Rate 19 H 21 H 18 Respiratory Effort Respiratory Depth Respiratory Pattern Blood Pressure 193/92 H 158/70 H 166/81 H Blood Pressure Mean 125 99 109 Blood Pressure Source Monitor Blood Pressure Position Semi-Fowlers Blood Pressure Location Right Arm Pulse Ox 95 93 95 Oxygen Delivery Method Nasal Cannula Nasal Cannula Nasal Cannula Oxygen Flow Rate (L/min) 2 2 2 06/23/23 10:00 06/23/23 08:45 06/23/23 12:02 Temperature Temperature Source Pulse Rate Pulse Strength Weak (1+) Respiratory Rate Respiratory Effort Normal Non-Labored Respiratory Depth Normal Respiratory Pattern Normal Blood Pressure Blood Pressure Mean Blood Pressure Source Blood Pressure Position Blood Pressure Location Pulse Ox 95 Oxygen Delivery Method Nasal Cannula Nasal Cannula Oxygen Flow Rate (L/min) 2 2 Weight Weight: 263 lb 3.711 oz Body Mass Index (BMI) 37.8 Physical Exam Narrative General: Alert, Oriented x3, Cooperative, No apparent distress HEENT: Atraumatic, PERRLA, EOMI, Normocephalic Oral: Moist Mucosa Neck: Supple, No JVD Lungs: Diminished, Normal air movement, No rhonchi, No wheeze, rales bilateral bases Cardiovascular: Regular rate, Regular Rhythm, Normal S1, Normal S2, No murmurs Abdomen: Soft, Non Tender, Non-Distended, No Hepato-splenomegaly Extremities: Edema, Capillary Refill Less than 3 Seconds Skin: No rashes, No breakdown Musculoskeletal: No Tenderness to Palpation of Joints or Extremities Neurological: Cranial nerves II-XII grossly intact, Motor Exam 5/5 strength throughout, Sensory exam intact to light touch and pain Psych/Mental Status: Flat Results Lab / Micro Data 06/23/23 04:47 06/23/23 04:47 Labs: Laboratory Results - last 24 hr 06/23/23 04:47: WBC 8.6, RBC 5.08, Hgb 13.4, Hct 43.5, MCV 85.6, MCH 26.4 L, MCHC 30.8 L, RDW Std Deviation 56.3 H, RDW Coeff of Zay 18.3 H, Plt Count 228, MPV 10.9, Immature Gran % (Auto) 0.600, Neut % (Auto) 71.9 H, Lymph % (Auto) 15.8 L, [place] % (Auto) 7.1, Eos % (Auto) 3.9, Baso % (Auto) 0.7, Absolute Neuts ( auto) 6.2, Absolute Lymphs (auto) 1.36, Nucleated RBC % 0, Sodium 144, Potassium 3.6, Chloride 110 H, Carbon Dioxide 32.0, Anion Gap 2 L, BUN 18, Creatinine 1.18, Estim Creat Clear Calc 57.57, Est GFR (MDRD) Af Amer 78, Est GFR (MDRD) Non-Af 64, BUN/Creatinine Ratio 15.3, Glucose 117 H, Calcium 8.9, Phosphorus 2.5, Magnesium 2.1, Total Bilirubin 1.80 H, Direct Bilirubin 0.48 H, AST 13 L, ALT 20, Alkaline Phosphatase 111, Troponin I High Sens 41, B-Natriuretic Peptide 118.3 H, Total Protein 7.1, Albumin 3.2, Globulin 3.9 06/23/23 06:00: Urine Color Yellow, Urine Clarity Clear, Urine pH 7.0, Ur Specific [place] 1.010, Urine Protein 15 H, Urine Glucose (UA) Normal, Urine Ketones 5 H, Urine Occult Blood Negative, Urine Nitrite Negative, Urine Bilirubin Negative, Urine Urobilinogen 8 H, Ur Leukocyte Esterase Negative, Urine RBC 0 SEEN, Urine WBC 0 SEEN, Ur Squamous Epith Cells 0 SEEN, Amorphous Sediment 1+, Urine Bacteria 0 SEEN, Urine Mucus 1+ 06/23/23 11:10: POC Glucose 129 H Radiology Impression Chest X-Ray 06/23/23 05:30 IMPRESSION: Small bilateral pleural effusions more prominent on the left. Compressive atelectasis in the lung bases. Electronically Signed: Chio Corona MD at 6:01 EDT Reading Location ID and State: [facility] / [place] Tel , Service support , Chest CT 06/23/23 06:09 IMPRESSION: Moderate bilateral pleural effusions with compressive atelectasis in the lung bases. There is a small pericardial effusion. Electronically Signed: Chio Corona MD at 7:26 EDT Reading Location ID and State: [facility] / [place] Tel , Service support , Assessment & Plan Assessment/Plan (1) Bilateral pleural effusion: (2) Congestive heart failure: PLAN: Plan 1. CHF unknown type with bilateral pleural effusions/HTN/HLD/CAD status post stent ? He likely has worsening obstructive sleep apnea leading to right-sided heart failure though his BNP is only slightly elevated to 118 ? We will order an echo ? We will place him on a fluid restriction ? Continue with Lasix ? We will resume his home blood pressure medications and monitor make adjustments as necessary ? We will continue his home Lipitor 2. DM2 ? We will hold his metformin ? Accu-Cheks ACHS ? Sliding scale insulin ? We will monitor and make adjustments as necessary 3. GERD ? Stable ? Continue with PPI DVT: Lovenox 75 minutes was spent on direct patient care, including documentation as well as chart review and collaboration with colleagues Charges/Coding Visit Charges Inpatient E&M: 04052 Init Hosp L3
[2023-06-23 17:20] LABS: Bedside Glucose 115 mg/dL (74-106)
[2023-06-23 21:31] LABS: Bedside Glucose 132 mg/dL (74-106)
[2023-06-23] MEDS: Atorvastatin Calcium 80 MG Tablet PO (21:59)
[2023-06-24 02:30] VITALS: BP 148/71; PULSE 62; RESP 18; TEMP 36.7; O2SAT 97
[2023-06-24 02:50] VITALS: BMI 37.1
[2023-06-24 06:45] LABS: Absolute Lymphocyte Count 1.02 X10^3/uL (0.83-4.51); Absolute Neutrophil Count 5.1 X10^3/uL (2.0-7.7); Basophil# 0.03 X10^3/uL; Basophil% 0.4 % (0-1); Eosinophil# 0.19 X10^3/uL; Eosinophils% 2.6 % (0-5); Hematocrit 39.5 % (40-54); Hemoglobin 11.9 g/dL (13.0-16.5); Lymphocyte # 1.02 X10^3/ul (0.83-4.51); Lymphocyte % 14.2 % (19-41); Mean Corp Hgb Conc 30.1 g/dL (32-36); Mean Corpuscular Hgb 25.9 pg (27.0-32.0); Mean Corpuscular Volume 85.9 fL (80-94); Mean Platelet Vol. 10.7 fl (6.2-12.0); Monocyte# 0.86 X10^3/uL; NRBC Flagged by Analyzer 0 % (0-5); Neutrophil # 5.06 X10^3/uL (2.7-7.7); Neutrophil % 70.5 % (47-70); Platelet Count 195 K/mm3 (150-450); RBC Distribution Width CV 18.2 % (11.6-14.6); RBC Distribution Width SD 56.6 fl (35.1-43.9); White Blood Count 7.2 K/mm3 (4.4-11.0)
[2023-06-24 07:11] LABS: Anion Gap 2 (5-15); BUN 22 mg/dL (7-18); BUN/Creat Ratio 17.5 RATIO (10-20); Calcium,Total 8.7 mg/dL (8.5-10.1); Chloride 105 mmol/L (98-107); Creatinine, Serum 1.26 mg/dL (0.70-1.30); EST Glomerular Filtration Rate 60 mL/min (>60); Est Glom Filt Rate - Afr Amer 72 mL/min (>60); Estimated Creatinine Clearance 53.91 ml/min; Glucose 114 mg/dL (74-106); Potassium 3.2 mmol/L (3.5-5.1); Sodium Level 142 mmol/L (136-145)
[2023-06-24 07:27] VITALS: O2SAT 93
[2023-06-24 09:44] VITALS: BP 120/68; PULSE 61; RESP 16; TEMP 36.7; O2SAT 95
[2023-06-24] MEDS: Potassium Chloride Oral Tablet 20 MEQ PO (09:56)
[2023-06-24] MEDS: Potassium Chloride Oral Tablet 20 MEQ 60 MEQ PO (09:56)
[2023-06-24] MEDS: Aspirin 81 MG TAB.CHEW PO (09:56)
[2023-06-24] MEDS: Furosemide 40 MG/4 ML Vial IV ×2 (09:57→18:01)
[2023-06-24] MEDS: Enoxaparin 40 MG/0.4 ML Syringe SC (09:57)
[2023-06-24] MEDS: Allopurinol 100 MG Tablet 200 MG PO (09:57)
[2023-06-24] MEDS: amLODIPine 5 MG Tablet PO (09:57)
[2023-06-24] MEDS: Carvedilol 12.5 MG Tablet PO ×2 (09:57→22:27)
[2023-06-24] MEDS: 0.9% Saline Lock 10 ML Syringe IV ×2 (09:58→18:01)
[2023-06-24] MEDS: Pantoprazole Sodium 40 MG Tablet PO (09:58)
[2023-06-24] MEDS: Lisinopril 20 MG Tablet PO ×2 (09:58→22:27)
[2023-06-24] MEDS: Clopidogrel Bisulfate 75 MG Tablet PO (09:58)
[2023-06-24 11:41] LABS: Bedside Glucose 109 mg/dL (74-106)
[2023-06-24 12:50] LABS: Bedside Glucose 113 mg/dL (74-106)
--- NOTE | 2023-06-24 13:32 | PCM.PN.HOSP ---
Subjective Subjective Doing well, feels little bit better today than yesterday. Down to 1 L nasal cannula Objective Data Objective Data Vital Signs: Vital Signs Temp Pulse Resp BP Pulse Ox O2 Del Method O2 Flow Rate 98.1 F 61 16 120/68 95 Nasal Cannula 1 06/24/23 09:44 06/24/23 09:44 06/24/23 09:44 06/24/23 09:44 06/24/23 09:44 06/24/23 09:51 06/24/23 09:51 Oxygen Flow Rate (L/min) 1 Oxygen Delivery Method Nasal Cannula Weight: 258 lb 13.163 oz Body Mass Index (BMI) 37.1 Intake & Output: Intake and Output for Last 24 Hours 06/23/23 06/24/23 06/25/23 03:59 03:59 03:59 Intake Total 1230 / 1230 150 / 150 Output Total 5600 / 5600 250 / 250 Balance -4370 / -4370 -100 / -100 Lab / Micro Data 06/24/23 05:57 06/24/23 05:57 Labs: Laboratory Results - last 24 hr 06/23/23 17:00: POC Glucose 115 H 06/23/23 20:48: POC Glucose 132 H 06/24/23 05:57: WBC 7.2, RBC 4.60, Hgb 11.9 L, Hct 39.5 L, MCV 85.9, MCH 25.9 L, MCHC 30.1 L, RDW Std Deviation 56.6 H, RDW Coeff of Z[place] 18.2 H, Plt Count 195, MPV 10.7, Immature Gran % (Auto) 0.300, Neut % (Auto) 70.5 H, Lymph % (Auto) 14.2 L, [place] % (Auto) 12.0 H, Eos % (Auto) 2.6, Baso % (Auto) 0.4, Absolute Neuts (auto) 5.1, Absolute Lymphs (auto) 1.02, Nucleated RBC % 0, Sodium 142, Potassium 3.2 L, Chloride 105, Carbon Dioxide 35.0 H, Anion Gap 2 L, BUN 22 H, Creatinine 1.26, Estim Creat Clear Calc 53.91, Est GFR (MDRD) Af Amer 72, Est GFR (MDRD) Non-Af 60, BUN/Creatinine Ratio 17.5, Glucose 114 H, Calcium 8.7 06/24/23 06:04: POC Glucose 109 H 06/24/23 12:31: POC Glucose 113 H Radiography Diagnostic Testing: Radiology Impression Echocardiogram 06/23/23 10:48 Interpretation Summary Mild concentric left ventricular hypertrophy. The left ventricular ejection fraction is 55 %. Diastolic function is indeterminate. The left atrium is moderately enlarged. The study was technically difficult. Small pericardial effusion noted. No echo evidence of tamponade. Ordering Physician: Davide Vasques Referring Physician: Mook Damon Performed By: Ashley Jane, LAMONTECS, RVT Physical Exam Narrative General: Alert, Oriented x3, Cooperative, No apparent distress HEENT: Atraumatic, PERRLA, EOMI, Normocephalic Oral: Moist Mucosa Neck: Supple, No JVD Lungs: Diminished, Normal air movement, No rhonchi, No wheeze, rales bilateral bases Cardiovascular: Regular rate, Regular Rhythm, Normal S1, Normal S2, No murmurs Abdomen: Soft, Non Tender, Non-Distended, No Hepato-splenomegaly Extremities: Trace edema, Capillary Refill Less than 3 Seconds Skin: No rashes, No breakdown Musculoskeletal: No Tenderness to Palpation of Joints or Extremities Neurological: Cranial nerves II-XII grossly intact, Motor Exam 5/5 strength throughout, Sensory exam intact to light touch and pain Psych/Mental Status: Normal affect Assessment & Plan Assessment/Plan (1) Bilateral pleural effusion: (2) Congestive heart failure: PLAN: Plan 1. CHF unknown type with bilateral pleural effusions/HTN/HLD/CAD status post stent ? He likely has worsening obstructive sleep apnea leading to right-sided heart failure though his BNP is only slightly elevated to 118 ? Echo with 55% unfortunately it was a difficult study so it was difficult to assess pulmonary artery function however right atrium was normal and the right ventricle also appeared to be normal ? We will place him on a fluid restriction ? Continue with Lasix ? We will resume his home blood pressure medications and monitor make adjustments as necessary ? We will continue his home Lipitor 2. DM2 ? We will hold his metformin ? Accu-Cheks ACHS ? Sliding scale insulin ? We will monitor and make adjustments as necessary 3. GERD ? Stable ? Continue with PPI DVT: Lovenox Charges/Coding Visit Charges Inpatient E&M: 95473 Subs Hosp L2
--- NOTE | 2023-06-24 14:00 | CASEMGMT ---
RN?CM?CRM ARCHITECT?CM?to room to meet with patient for initial transition planning/care coordination?assessment.?RN?CM?introduced self and role at [facility].? Pt voices understanding and consents to?assessment?at this time.? Pt resting in bed in no distress at this time. at bedside.? Pt is A/O at this time and answers all questions appropriately.?? Care providers, pharmacy, and demographics verified/updated at this time. PCP: Dr Damon Specialists: [facility]/cardiology, Dr Martinez-pain mgnt. Pt has 1st appt w/Dr Castillo, pulmonology, scheduled for Jul 07. Preferred Pharmacy: [facility] @ [address] Insurance:MCR, AARP Prescription Benefit:? Living Will/HPOA:?Pt has both LW and HCPOA. brought in paperwork, copies made and placed on chart, and original given back to pt by nurse. LNOK: , Rose Marie. Son, Thaddeus Living Arrangements: Lives w/ in 2-story home w/basement and 4 steps to enter. [employer]. Indep w/ADL's. and pt share home mgnt tasks. Transportation:?Pt states drives self and states no transportation concerns at this time.? also drives. DME: ? Denies using any DME and denies needs.?No home O2 and pt does not have a pulse ox. Pt states if O2 is needed, [employer] is preferred co and he states he can afford to purchase a pulse ox. HHC/SNF: No hx of either. No needs identified. Pt Link: Discussed Pt Link. Pt agreeable to a referral, although he is not sure if he will sign on. Pt wishes to return home and states has no concerns with going home at time of discharge.? CM?to follow for home oxygen needs and any further discharge planning/needs.? Pt voices no further concerns/needs at this time.? Advised pt to ask for?CM?if any further questions/concerns/needs arise.? Voices understanding. PLAN:??Home w/Pt Link referral. Follow for possible home O2. Renu ABBASIN?RN?CM
[2023-06-24 15:25] VITALS: BP 120/59; PULSE 55; RESP 16; TEMP 36.8; O2SAT 95
[2023-06-24 17:56] VITALS: BP 143/67; PULSE 61; RESP 16; O2SAT 90
[2023-06-24 18:12] LABS: Bedside Glucose 117 mg/dL (74-106)
[2023-06-24 21:08] LABS: Bedside Glucose 177 mg/dL (74-106)
[2023-06-24 21:25] VITALS: BP 143/57; PULSE 65; RESP 18; TEMP 36.7; O2SAT 92
[2023-06-24] MEDS: Atorvastatin Calcium 80 MG Tablet PO (22:27)
[2023-06-25 05:24] VITALS: BMI 36.6
[2023-06-25 08:05] LABS: Anion Gap 3 (5-15); BUN 21 mg/dL (7-18); BUN/Creat Ratio 18.1 RATIO (10-20); Calcium,Total 8.9 mg/dL (8.5-10.1); Chloride 105 mmol/L (98-107); Creatinine, Serum 1.16 mg/dL (0.70-1.30); EST Glomerular Filtration Rate 66 mL/min (>60); Est Glom Filt Rate - Afr Amer 79 mL/min (>60); Estimated Creatinine Clearance 58.56 ml/min; Glucose 106 mg/dL (74-106); Potassium 3.3 mmol/L (3.5-5.1); Sodium Level 142 mmol/L (136-145)
[2023-06-25 08:26] VITALS: O2SAT 93
[2023-06-25 09:17] VITALS: BP 141/59; PULSE 61; RESP 16; TEMP 37.1; O2SAT 92
[2023-06-25 09:30] VITALS: O2SAT 88; O2SAT 94; O2SAT 95
[2023-06-25] MEDS: Aspirin 81 MG TAB.CHEW PO (09:42)
[2023-06-25] MEDS: Allopurinol 100 MG Tablet 200 MG PO (09:43)
[2023-06-25] MEDS: Pantoprazole Sodium 40 MG Tablet PO (09:43)
[2023-06-25] MEDS: Carvedilol 12.5 MG Tablet PO (09:43)
[2023-06-25] MEDS: Potassium Chloride Oral Tablet 20 MEQ PO (09:43)
[2023-06-25] MEDS: Furosemide 40 MG/4 ML Vial IV (09:43)
[2023-06-25] MEDS: Enoxaparin 40 MG/0.4 ML Syringe SC (09:44)
[2023-06-25] MEDS: Clopidogrel Bisulfate 75 MG Tablet PO (09:44)
[2023-06-25] MEDS: 0.9% Saline Lock 10 ML Syringe IV (09:44)
[2023-06-25] MEDS: Lisinopril 20 MG Tablet PO (09:44)
[2023-06-25] MEDS: amLODIPine 5 MG Tablet PO (09:44)
[2023-06-25 12:22] LABS: Bedside Glucose 159 mg/dL (74-106)
--- NOTE | 2023-06-25 12:56 | CASEMGMT ---
Patient discharging today. Patient qualifies for home oxgen, script received. KEVIN TINAJERO in to discuss discharge needs with patient. Patient prefers [facility] for home oxygen. Patient denied further needs. Patient had no further questions or concerns. KEVIN TINAJERO sent referral to [employer] via [employer] and arranged for delivery of portable tank to room.
--- NOTE | 2023-06-25 12:59 | DCINST_ITS ---
Discharge Instructions Diet Discharge Diet: Low fat / Low cholesterol, 6 Cup Fluid Restriction and Carb Control Diet Activity Discharge Activity: Return to Normal Activity Dressing / Incision Call your doctor if you observe: Fever of 101 or Higher, Shortness of breath, Dizziness, Fainting spells, Swelling in the ankles, Chest pain and Increased palpitations (irregular heartbeat) Follow Up Care Test Results: Test results from this visit will be discussed in further detail at your follow- up appointment, if applicable. Discharge Plan Admission Admit Date/Time: 06/23/23 10:12 Attending Provider: Davide Vasques Primary Care Provider: Nathan Damon Instructions Additional Instructions / Restrictions: Up with your PCP in 3 to 5 days to monitor your renal function and potassium secondary to your Lasix usage. Continue with oxygen and monitor your pulse oximeter as an outpatient and follow-up with pulmonology as previously scheduled on 07/07/2023 Discharge Orders/Prescriptions Prescriptions: New furosemide [Lasix] 40 mg tablet 40 mg PO DAILY Qty: 30 3RF Continued potassium chloride 20 mEq tablet extended release 20 meq PO DAILY allopurinol 100 mg tablet 200 mg PO DAILY cyanocobalamin (vitamin B-12) 1,000 mcg tablet 1,000 mcg PO DAILY aspirin 81 MG tablet,chewable 81 mg PO DAILY@0800 Patient Comments: ON HOLD metformin 500 mg tablet,ER ana.retention 24 hr 1,000 mg PO DAILY amlodipine 5 mg tablet 5 mg PO DAILY Rx Instructions: TAKE 1 TABLET EVERY DAY lisinopril 20 mg tablet 20 mg PO BID Qty: 180 4RF clopidogrel 75 mg tablet 75 mg PO DAILY Qty: 90 4RF pantoprazole 40 mg tablet,delayed release (DR/EC) 40 mg PO DAILY Qty: 90 3RF atorvastatin 80 mg tablet 80 mg PO QHS Qty: 90 4RF nitroglycerin 0.4 mg tablet, sublingual 0.4 mg SUBLINGUAL ONCE PRN (Reason: chest pain) Qty: 25 3RF Rx Instructions: take one tablet for chest pain every 5-15 minutes for a total of 3 doses carvedilol 12.5 mg tablet 12.5 mg PO BID Qty: 180 4RF Discontinued furosemide 20 mg tablet 10 mg PO DAILY Referrals / Follow Up: Nathan Damon MD [Primary Care Provider] - Within 1 Week Kwaku Castillo MD [Med Staff - Active Staff] - 07/07/23 Disposition Disposition (needs filled in before D/C Order can be placed): Home, Self Care
--- NOTE | 2023-06-25 13:34 | DS.PCM_ITS ---
Providers Date of Admission: 06/23/23 Primary Care Physician: Dr. Nathan Damon MD Reason For Visit: CHF EXACERBATION Diagnosis Discharge Diagnosis (1) Bilateral pleural effusion: Status: Acute Code(s): J90 - Pleural effusion, not elsewhere classified (2) Congestive heart failure: Status: Acute Code(s): I50.9 - Heart failure, unspecified Plan 1. CHF unknown type with bilateral pleural effusions/HTN/HLD/CAD status post stent ? He likely has worsening obstructive sleep apnea leading to right-sided heart failure though his BNP is only slightly elevated to 118 ? Echo with 55% unfortunately it was a difficult study so it was difficult to assess pulmonary artery function however right atrium was normal and the right ventricle also appeared to be normal ? We will place him on a fluid restriction ? Continue with Lasix ? We will resume his home blood pressure medications and monitor make adjustments as necessary ? We will continue his home Lipitor 2. DM2 ? We will hold his metformin ? Accu-Cheks ACHS ? Sliding scale insulin ? We will monitor and make adjustments as necessary 3. GERD ? Stable ? Continue with PPI DVT: Lovenox Medications at Discharge Home Medications aspirin 81 mg chewable tablet 81 mg PO DAILY@0800 01/03/16 lisinopril 20 mg tablet 20 mg PO BID #180 tabs 06/10/21 potassium chloride 20 mEq tablet,extended release 20 meq PO DAILY 12/10/21 clopidogrel 75 mg tablet 75 mg PO DAILY #90 tabs 07/06/22 pantoprazole 40 mg tablet,delayed release 40 mg PO DAILY #90 tabs 08/27/22 allopurinol 100 mg tablet 200 mg PO DAILY 01/07/23 cyanocobalamin (vitamin B-12) 1,000 mcg tablet 1,000 mcg PO DAILY 01/07/23 metformin 500 mg 24 hr tablet,extended release 1,000 mg PO DAILY 01/07/23 atorvastatin 80 mg tablet 80 mg PO QHS #90 tabs 01/12/23 nitroglycerin 0.4 mg sublingual tablet 0.4 mg sublingual ONCE PRN chest pain #25 tabs 03/19/23 carvedilol 12.5 mg tablet 12.5 mg PO BID #180 tabs 03/29/23 amlodipine 5 mg tablet 5 mg PO DAILY 06/23/23 furosemide 40 mg tablet (Lasix) 40 mg PO DAILY #30 tabs 06/25/23 Hospital Course Operations None Procedures 2-D Echocardiogram Summary of Care Provided Minutes Spent on Discharge: 45 Hospital Course: Per HPI: ADARSH WYATT, is a 72 M who presents to the hospital with current progressive worsening shortness of breath. He has difficulty walking even 10 feet and has also noticed issues with laying flat and he wakes up gasping for air while sleeping for the last several months. says that he has had signs of sleep apnea with snoring and apneic episodes over the last several years and there had been discussions about 10 to 15 years ago about potentially needing sleep study. Unfortunate this was never done. In the ER he has a CT scan of his chest which demonstrates bilateral mild to moderate pleural effusions. He was given of dose of Lasix in the ED. BNP was slightly elevated to 118 with a normal troponin. He has not seen pulmonology yet as an outpatient as the referral was for 07/07/2023. Hospital Course: 1. CHF unknown type with bilateral pleural effusion/HTN/HLD/CAD status post stent?72-year-old male presented with signs and symptoms consistent with heart failure etiology still unclear though it is likely component of obstructive sleep apnea. He did have an echo which demonstrated an EF of 55% however it was a difficult study performing diastolic dysfunction could not be assessed neither could have pulmonary artery function. The right side of the heart did look okay but he did have significant improvement with IV Lasix while here in the hosp ital. He had about 7-1/2 L removed and he is down to about 255 pounds on the day of discharge. I had extensive discussion with him the need for fluid restriction as well as continuing Lasix. He did have an ambulatory pulse ox today which demonstrated the need for 2 L at rest and with ambulation, will need portable oxygen as he is active in the community. He does have outpatient appointment with pulmonology on July 07, 2023. Recommend outpatient sleep study to evaluate for RABIA. I discussed with him the plan for discharge and he expressed understanding of the risk benefits of going home and he would like to go home today. I did give him the option to stay 1 more day to see if we can get him home without oxygen however he would prefer to go home today. The only medication change was increasing his home Lasix from 10 mg p.o. daily to 40 mg p.o. daily. 2. Type 2 diabetes and GERD are chronic medical conditions which complicate his care. His home medications were continued where appropriate Physical Exam Narrative General: Alert, Oriented x3, Cooperative, No apparent distress HEENT: Atraumatic, PERRLA, EOMI, Normocephalic Oral: Moist Mucosa Neck: Supple, No JVD Lungs: Diminished, Normal air movement, No rhonchi, No wheeze, rales bilateral bases Cardiovascular: Regular rate, Regular Rhythm, Normal S1, Normal S2, No murmurs Abdomen: Soft, Non Tender, Non-Distended, No Hepato-splenomegaly Extremities: Trace edema, Capillary Refill Less than 3 Seconds Skin: No rashes, No breakdown Musculoskeletal: No Tenderness to Palpation of Joints or Extremities Neurological: Cranial nerves II-XII grossly intact, Motor Exam 5/5 strength throughout, Sensory exam intact to light touch and pain Psych/Mental Status: Normal affect Weight / BMI Weight Weight: 255 lb 1.197 oz Body Mass Index (BMI) 36.6 ABG / Lab / Microbiology Data 06/24/23 05:57 06/25/23 06:44 Laboratory: Laboratory Results - last 24 hr 06/24/23 16:23: POC Glucose 117 H 06/24/23 20:27: POC Glucose 177 H 06/25/23 06:44: Sodium 142, Potassium 3.3 L, Chloride 105, Carbon Dioxide 34.0 H , Anion Gap 3 L, BUN 21 H, Creatinine 1.16, Estim Creat Clear Calc 58.56, Est GFR (MDRD) Af Amer 79, Est GFR (MDRD) Non-Af 66, BUN/Creatinine Ratio 18.1, Glucose 106, Calcium 8.9 06/25/23 12:02: POC Glucose 159 H D/C Instructions Discharge Diet: Low fat / Low cholesterol, 6 Cup Fluid Restriction and Carb Control Diet Call your doctor if you observe: Fever of 101 or Higher, Shortness of breath, Dizziness, Fainting spells, Swelling in the ankles, Chest pain and Increased palpitations (irregular heartbeat) Meaningful Use Info Meaningful Use Diagnoses (Choose all that apply): None applicable Discharge Plan Admission Admit Date/Time: 06/23/23 10:12 Attending Provider: Davide Vasques Primary Care Provider: Nathan Damon Instructions Additional Instructions / Restrictions: Up with your PCP in 3 to 5 days to monitor your renal function and potassium secondary to your Lasix usage. Continue with oxygen and monitor your pulse oximeter as an outpatient and follow-up with pulmonology as previously scheduled on 07/07/2023 Discharge Orders/Prescriptions Prescriptions: New furosemide [Lasix] 40 mg tablet 40 mg PO DAILY Qty: 30 3RF Continued potassium chloride 20 mEq tablet extended release 20 meq PO DAILY allopurinol 100 mg tablet 200 mg PO DAILY cyanocobalamin (vitamin B-12) 1,000 mcg tablet 1,000 mcg PO DAILY aspirin 81 MG tablet,chewable 81 mg PO DAILY@0800 Patient Comments: ON HOLD metformin 500 mg tablet,ER ana.retention 24 hr 1,000 mg PO DAILY amlodipine 5 mg tablet 5 mg PO DAILY Rx Instructions: TAKE 1 TABLET EVERY DAY lisinopril 20 mg tablet 20 mg PO BID Qty: 180 4RF clopidogrel 75 mg tablet 75 mg PO DAILY Qty: 90 4RF pantoprazole 40 mg tablet,delayed release (DR/EC) 40 mg PO DAILY Qty: 90 3RF atorvastatin 80 mg tablet 80 mg PO QHS Qty: 90 4RF nitroglycerin 0.4 mg tablet, sublingual 0.4 mg SUBLINGUAL ONCE PRN (Reason: chest pain) Qty: 25 3RF Rx Instructions: take one tablet for chest pain every 5-15 minutes for a total of 3 doses carvedilol 12.5 mg tablet 12.5 mg PO BID Qty: 180 4RF Discontinued furosemide 20 mg tablet 10 mg PO DAILY Referrals / Follow Up: Nathan Damon MD [Primary Care Provider] - Within 1 Week Adarsh Castillo MD [Med Staff - Active Staff] - 07/07/23 Disposition Disposition (needs filled in before D/C Order can be placed): Home, Self Care Charges/Coding Visit Charges Inpatient E&M: 00202 Disch Hosp >30min
[2023-06-25 14:03] VITALS: BP 109/66; PULSE 57; RESP 16; TEMP 37; O2SAT 94
--- NOTE | 2023-06-30 13:34 | CCN.REFER ---
Patient has sinced decline patient link after going home. Education provided on importance of monitoring vitals, but patient continues to decline.
== END 2023-06-25 15:57 | disposition home or self-care (01) | DRG 293 ==
LOC: ED 06:31 → PCU 10:25
PROVIDERS: Admitting Provider Family Medicine; Emergency Provider Emergency Medicine; PCP Family Medicine; Visit Provider Family Medicine
DX: I11.0 Hypertensive heart disease with heart failure (principal); E11.9 Type 2 diabetes mellitus without complications; I50.9 Heart failure, unspecified; G47.33 Obstructive sleep apnea (adult) (pediatric); K21.9 Gastro-esophageal reflux disease without esophagitis; I25.2 Old myocardial infarction
CPT/HCPCS: 36415; 71045; 71260; 80048; 80076; 81001; 82962; 83735; 83880; 84100; 84484; 85025; 93005; 93306; 99284; Q9967; A4216; J1940

== ENCOUNTER → 2023-07-08 | Outpatient (CLI) | payer MEDICARE, OTHER, SELFPAY ==
[2023-07-08 19:22] LABS: BNP,B-Type NATRIURETIC PEPTIDE 56.8 pg/mL (0-100)
== END | disposition home or self-care (01) ==
LOC: MTLAB 14:17
PROVIDERS: PCP Family Medicine; Referring Provider Internal Medicine Pulmonary Disease; Visit Provider Internal Medicine Pulmonary Disease
DX: R06.02 Shortness of breath (principal)
CPT/HCPCS: 36415; 83880

== ENCOUNTER → 2023-12-08 | Outpatient (CLI) | payer MEDICARE, OTHER, SELFPAY ==
[2023-12-08 15:21] LABS: Anion Gap 2 (5-15); BUN 23 mg/dL (7-18); BUN/Creat Ratio 18.4 RATIO (10-20); Calcium,Total 9.3 mg/dL (8.5-10.1); Chloride 109 mmol/L (98-107); Creatinine, Serum 1.25 mg/dL (0.70-1.30); EST Glomerular Filtration Rate 60 mL/min (>60); Est Glom Filt Rate - Afr Amer 73 mL/min (>60); Glucose 90 mg/dL (74-106); Potassium 3.8 mmol/L (3.5-5.1); Sodium Level 145 mmol/L (136-145); Uric Acid 5.9 mg/dL (3.5-7.2)
== END | disposition home or self-care (01) ==
LOC: MFPLAB 12:12
PROVIDERS: PCP Family Medicine; Visit Provider Family Medicine
DX: I50.9 Heart failure, unspecified (principal); M10.9 Gout, unspecified
CPT/HCPCS: 36415; 80048; 84550

== ENCOUNTER → 2024-07-18 | Outpatient (CLI) | payer MEDICARE, OTHER, SELFPAY ==
[2024-07-18 12:11] LABS: Hematocrit 41.6 % (40-54); Mean Corp Hgb Conc 31.3 g/dL (32-36); Mean Corpuscular Hgb 28.4 pg (27.0-32.0); Mean Platelet Vol. 10.6 fl (6.2-12.0); Platelet Count 258 K/mm3 (150-450); RBC Distribution Width CV 16.1 % (11.6-14.6); RBC Distribution Width SD 54.3 fl (35.1-43.9); Red Blood Count 4.57 M/mm3 (4.6-6.2); White Blood Count 8.1 K/mm3 (4.4-11.0)
[2024-07-18 12:38] LABS: ALB/GLOB Ratio 0.8 RATIO (0.9-2.4); AST(SGOT) 15 U/L (15-37); Alanine Aminotransfer ALT/SGPT 19 U/L (16-61); Albumin, Serum 3.1 g/dL (3.2-5.0); Alkaline Phosphatase 104 U/L (45-117); Anion Gap 3 (5-15); BUN 19 mg/dL (7-18); BUN/Creat Ratio 16.1 RATIO (10-20); Calcium,Total 9.5 mg/dL (8.5-10.1); Chloride 107 mmol/L (98-107); Cholesterol 146 mg/dL (200); Creatinine, Serum 1.18 mg/dL (0.70-1.30); EST Glomerular Filtration Rate 64 mL/min (>60); Est Glom Filt Rate - Afr Amer 77 mL/min (>60); Glucose 104 mg/dL (74-106); High Density Lipoprotein 47 mg/dL; PSA,Total - Annual Screen 2.13 ng/mL (0.00-4.00); Potassium 3.8 mmol/L (3.5-5.1); Protein, Total 7.1 g/dL (6.4-8.2); Sodium Level 141 mmol/L (136-145); Triglycerides 96 mg/dL; Very Low Density Lipoprotein 19 mg/dL (5-40)
== END | disposition home or self-care (01) ==
LOC: MFPLAB 09:30
PROVIDERS: PCP Family Medicine; Visit Provider Family Medicine
DX: I25.10 Atherosclerotic heart disease of native coronary artery without angina pectoris (principal); Z12.5 Encounter for screening for malignant neoplasm of prostate
CPT/HCPCS: 36415; 80053; 80061; 84153; 84443; 85027; G0103

== ENCOUNTER → 2024-10-25 | Outpatient (CLI) | payer MEDICARE, OTHER, SELFPAY ==
[2024-10-25 15:25] LABS: Hemoglobin 13.2 g/dL (13.0-16.5); Mean Corp Hgb Conc 30.7 g/dL (32-36); Mean Corpuscular Hgb 26.9 pg (27.0-32.0); Mean Corpuscular Volume 87.8 fL (80-94); Mean Platelet Vol. 10.9 fl (6.2-12.0); Platelet Count 262 K/mm3 (150-450); RBC Distribution Width CV 16.1 % (11.6-14.6); White Blood Count 8.8 K/mm3 (4.4-11.0)
[2024-10-25 16:00] LABS: Microalbumin,Random Urine < 12.0 mg/L (NO RANGE EST.)
[2024-10-25 19:57] LABS: ALB/GLOB Ratio 1.4 RATIO (0.9-2.4); AST(SGOT) 26 U/L (<=37); Alanine Aminotransfer ALT/SGPT 12 U/L (<=46); Albumin, Serum 4.1 g/dL (3.4-4.8); Alkaline Phosphatase 127 U/L (40-129); BUN 18 mg/dL (4-19); BUN/Creat Ratio 15.6 RATIO (10-20); Calcium 9.7 mg/dL (7.6-11.0); Carbon Dioxide 29.3 mmol/L (22.0-29.0); Creatinine, Serum 1.1 mg/dL (0.8-1.3); EST Glomerular Filtration Rate 69 (>60); Glucose 107 mg/dL (70-99); Protein, Total 7.1 g/dL (5.9-8.4); Total Bilirubin 0.86 mg/dL (0.00-1.30)
[2024-10-25 20:00] LABS: Anion Gap 11 (5-15); Chloride 102 mmol/L (96-108); Potassium 4.2 mmol/L (3.3-5.1); Sodium Level 143 mmol/L (133-145)
[2024-10-26 01:17] LABS: Pro- Brain NATRIURETIC PEPTIDE 173 pg/mL (<=1800)
== END | disposition home or self-care (01) ==
PROVIDERS: PCP Family Medicine; Referring Provider Family Medicine; Visit Provider Family Medicine
DX: Z00.00 Encounter for general adult medical examination without abnormal findings (principal); I50.9 Heart failure, unspecified
CPT/HCPCS: 36415; 80053; 82043; 83880; 85027

== ENCOUNTER → 2024-11-03 | Outpatient (CLI) | payer MEDICARE, OTHER, SELFPAY ==
--- NOTE | 2024-11-03 09:15 | US_ITS ---
PROCEDURE: ULTRASOUND ABDOMEN COMPLETE REASON FOR EXAM: Intra-abdominal and pelvic swelling. COMPARISON: CT abdomen dated 02/01/2018. Acute abdomen series dated 03/23/2023. FINDINGS: Liver: Grossly normal size and echotexture. Liver measures 16 cm sagittally. Hepatopetal blood flow. Gallbladder: No stones, sludge, wall thickening or tenderness. A non mobile hyperechoic nodule measuring 0.4 x 0.3 x 0.3 cm. Common bile duct: Normal measuring 0.22 cm.. Pancreas: Echogenic parenchyma. Kidneys: The right kidney measures 13.5 x 6.6 x 6.4 cm. Right renal cortex measures 1.5 cm.. The left kidney measures 11.5 x 4.6 x 5.2 cm. Left renal cortex measures 1.4 cm.. Tiny hyper echogenic foci in the right kidney measuring up to 0.5 cm. Hyper echogenic foci in the left kidney measuring up to 0.4 cm. Right superior pole anechoic mass measuring 5.0 x 5.0 x 4.5 cm. Small anechoic mass in the left superior pole measuring 2.01 x 1.02 x 1.69 cm. Spleen: Normal in size and echotexture measuring spleen measures 10.0 x 5.0 x 7.5 cm.. Aorta: Visualized abdominal aorta is of normal size. IVC: Visualized inferior vena cava is unremarkable. Peritoneal Findings: No ascites identified. US/Abdomen Complete IMPRESSION: 1. Small gallbladder polyp 2. Bilateral nonobstructing nephrolithiasis. 3. Bilateral renal cysts. Reading Location: [place] [id number]
== END | disposition home or self-care (01) ==
LOC: US 09:13
PROVIDERS: PCP Family Medicine; Referring Provider Family Medicine; Visit Provider Family Medicine
DX: R19.00 Intra-abdominal and pelvic swelling, mass and lump, unspecified site (principal)
CPT/HCPCS: 76700

== ENCOUNTER → 2025-03-06 | Outpatient (CLI) | payer MEDICARE, OTHER, SELFPAY ==
[2025-03-06 15:54] LABS: Anion Gap 10 (5-15); BUN 17 mg/dL (4-19); BUN/Creat Ratio 13.7 RATIO (10-20); Calcium,Total 9.2 mg/dL (7.6-11.0); Carbon Dioxide 27.9 mmol/L (21.0-32.0); Chloride 107 mmol/L (98-108); Glucose 97 mg/dL (70-99); Potassium 4.4 mmol/L (3.3-5.1)
[2025-03-07 18:57] LABS: Creatinine, Urine (random) 80.30 mg/dL (39.00-259.00)
[2025-03-07 19:00] LABS: Microalbumin,Random Urine < 12.0 mg/L (NO RANGE EST.)
== END | disposition home or self-care (01) ==
LOC: LAB 13:55
PROVIDERS: PCP Family Medicine; Referring Provider Internal Medicine Cardiovascular Disease; Visit Provider Internal Medicine Cardiovascular Disease
DX: Z95.5 Presence of coronary angioplasty implant and graft (principal)
CPT/HCPCS: 36415; 80048; 82043; 82570

== ENCOUNTER 2025-07-26 13:04 | Emergency (ER) | payer MEDICARE, OTHER, SELFPAY ==
[2025-07-26 13:05] VITALS: BP 196/68; PULSE 65; RESP 15; TEMP 36.6; O2SAT 100
--- NOTE | 2025-07-26 13:23 | EX.ED.DYSGE1 ---
HPI History of Present Illness Chief Complaint: Abscess Detail of Chief Complaint: Painful lump left side of face near the angle of the mandible Informant: patient and spouse/S.O. Onset/Context/Timing Onset: Days (Initial marble sized mass noted July 24) Context: Sudden Onset Timing: Continuous Quality: Pain Location: In the proximity of the left parotid gland Current Severity: Mild Maximum Severity: Moderate Worsened by: Palpation Relieved by: Nothing Associated Symptoms Associated Symptoms: No fever or chills or symptoms of hyperglycemia Narrative Narrative: Patient is a 74-year-old male. He states he noted a bump that was a size of a small to medium sized marble on July 24. The mass enlarged and he went to urgent care. There was consideration for mumps. He then was told this is not his parotid gland. He denies fever or chills. He denies headache. He denies dysphonia. He denies trouble swallowing. He denies ocular or auditory symptoms. He denies dental pain. He has a past medical history of coronary disease with stent placement, non-ST elevation [place], essential primary hypertension, pure hypercholesterolemia, and type 2 diabetes on metformin. Prior similar symptoms: No Recent Illness/Hospitalization: No [facility] Medical History (Updated 07/26/25 @ 14:[address] Jason Vasquez MD) Atherosclerosis of [place] coronary artery of [place] heart without angina pectoris Pure hypercholesterolemia Essential (primary) hypertension Hydroureteronephrosis Acute respiratory failure with hypoxia Hematuria Kidney stones Obesity Diabetes mellitus type II, controlled Non-ST elevation (NSTEMI) myocardial infarction (01/14/16) Ischemic cardiomyopathy Home Medications ?Medication ?Instructions ?Recorded ?Last Taken ?Type aspirin 81 mg chewable tablet 81 mg PO DAILY@0800 01/03/16 01/14/18 History 81 MG allopurinol 100 mg tablet 200 mg PO DAILY 01/07/23 Unknown History cyanocobalamin (vitamin B-12) 1,000 mcg PO DAILY 01/07/23 Unknown History 1,000 mcg tablet atorvastatin 80 mg tablet 80 mg PO QHS #90 tabs 01/12/23 Unknown Rx nitroglycerin 0.4 mg sublingual 0.4 mg sublingual ONCE PRN chest 03/19/23 Unknown Rx tablet pain #25 tabs lisinopril 20 mg tablet 20 mg PO BID #180 tabs 02/23/25 Unknown Rx amlodipine 10 mg tablet 10 mg PO DAILY #90 TABLETS 03/06/25 Unknown Rx furosemide 40 mg tablet (Lasix) 40 mg PO Q OTHER DAY #30 tabs 03/06/25 Unknown Rx metformin 500 mg 24 hr 500 mg PO DAILY 03/06/25 Unknown History tablet,extended release (gastric retention) carvedilol 6.25 mg tablet 6.25 mg PO BID #180 tabs 05/14/25 Unknown Rx clopidogrel 75 mg tablet 75 mg PO QDAY #90 tabs 06/07/25 Unknown Rx amoxicillin 875 mg-potassium 875 mg PO Q12H #14 TABLETS 07/26/25 Unknown Rx clavulanate 125 mg tablet hydrocodone-acetaminophen 5-325mg 1 tab PO Q6H PRN PRN Pain 2 days 07/26/25 Unknown Rx 5mg-325mg #6 TABLETS Allergy/AdvReac Type Severity Reaction Status Date / Time ticagrelor (From [place]) Allergy Shortness Verified 07/26/25 13:06 of breath Family History Father CAD (coronary artery disease) Diabetes Surgical History History of vasectomy History of tonsillectomy History of cataract surgery History of umbilical hernia repair History of coronary artery stent placement (01/04/16) Social History (Updated 07/26/25 @ 13:[address] Jason Vasquez MD) household members: spouse Smoking Status: Never smoker ROS ROS ED Constitutional Constitutional ED: Denies chills, fever(s), subjective or sweats Eyes Eyes: Denies blurry vision, change in vision or diplopia ENT ENT ED: Denies ear pain, rhinorrhea or sore throat Cardiovascular Cardiovascular: Denies chest pain, palpitations or racing heartbeat Respiratory/Chest Respiratory/Chest: Denies cough, dyspnea or dyspnea on exertion Gastrointestinal Gastrointestinal: Denies nausea or vomiting Integumentary Denies rash Neurologic Neurologic: Denies headache(s) EXAM Physical Exam Const Vital Signs: 07/26/25 13:05 07/26/25 13:55 Temperature 97.9 F Temperature Source Oral Pulse Rate 65 56 L Respiratory Rate 15 16 Blood Pressure 196/68 H 132/59 H Blood Pressure Mean 110 83 Pulse Ox 100 94 Oxygen Delivery Method Room Air Room Air Positive well nourished and well developed Constitutional Narrative: Blood pressure is elevated 196/68 with a wide pulse pressure. Patient has no allergy to antibiotics. BMI is greater than 40. General Appearance ED: well developed; Negative for pallor HEENT Reports moist mucous membranes HEENT Narrative: Patient has no obvious acute dental pathology. There is no trismus. There is no discomfort with tapping of his teeth. There is pain palpation over the left parotid gland. With massaging of the parotid gland there is no discharge noted from Stensen's duct. There is no submandibular lymphadenopathy. There is no dysphonia. There is no drooling. Eyes PERRL and EOMs intact bilaterally General Eye ED: Negative for pale conjunctiva or scleral icterus Neck no lymphadenopathy, supple and no JVD Neck Narrative: There is no carotid bruit noted on the left. Resp normal respiratory effort and clear to auscultation bilaterally Cardio regular rate, regular rhythm and no murmurs Extremity normal to inspection Neuro oriented x3 and CN's II-XII intact bilaterally Sensorium / Orientation: alert Psych mental status grossly normal Skin no rashes or lesions noted, no wounds and skin turgor normal General Skin Exam: Negative for jaundice or pallor MDM MDM MDM Narrative Medical decision making narrative: There is pain to palpation and swelling of the left parotid gland. There is no discharge with palpation from Stensen's duct. This may represent an infection due to an obstructing stone. Since patient is diabetic we will obtain BMP to assess glucose CO2 anion gap and renal function since he will require antibiotics and to determine if his dosage needs to be adjusted. CBC was obtained to determine if he is got a significantly elevated white count. If his white count is significantly elevated we will consider CT of the neck with IV contrast. He received 3.0 g of Unasyn in the emergency department. Will monitor his blood pressure. He has seen Dr. Martinez in the past. He has not seen him recently, however. History & Record Review Additional record(s) reviewed:: Prior inpatient record (Admitted May 2023 for acute hypoxemic respiratory failure.), Prior ED visit (Seen for hyperglycemia due to diabetes February 2023.) and Prior labs Lab Data Labs: Laboratory Results - last 24 hr 07/26/25 13:39 WBC 10.6 RBC 4.89 Hgb 13.5 Hct 42.7 MCV 87.3 MCH 27.6 MCHC 31.6 L RDW Std Deviation 52.6 H RDW Coeff of Zay 16.4 H Plt Count 250 MPV 9.9 Immature Gran % (Auto) 0.600 Neut % (Auto) 71.5 H Lymph % (Auto) 17.0 L [place] % (Auto) 8.1 Eos % (Auto) 2.3 Baso % (Auto) 0.5 Absolute Neuts (auto) 7.6 Absolute Lymphs (auto) 1.81 Nucleated RBC % 0 Sodium 143 Potassium 4.0 Chloride 107 Carbon Dioxide 26.7 Anion Gap 10 BUN 25 H Creatinine 1.20 Estim Creat Clear Calc 67.98 Est GFR (MDRD) Non-Af 63 BUN/Creatinine Ratio 20.8 H Glucose 154 H Calcium 9.5 Treatment and Re-Evaluation :: Apparently there are no pharmacies are open. Until 7 PM there is no meds to bed. Trouble Clerk was contacted since patient will need to be discharged with antibiotics. Asked if possible for me to send prescription electronically to the retail pharmacy and to be filled after 7 PM. Comments:: Since our no pharmacies open and unable to send to the retail pharmacy at the hospital and have patient [facility] pharmacist will give an additional dose of Augmentin to be taken later this evening and he is to [facility] his prescription at his regular pharmacy tomorrow morning. Discharge Plan Triage Chief Complaint: Abscess ED Provider: Jason Vasquez Dx/Rx/DC Orders Clinical Impression: Acute parotitis, Elevated blood pressure reading with diagnosis of hypertension, Prerenal azotemia Instructions: ED Salivary Gland Infection Prescriptions: New amoxicillin-pot clavulanate 875-125 mg tablet 875 mg PO Q12H Qty: 14 0RF hydrocodone-acetaminophen 5-325 mg tablet 1 tab PO Q6H PRN PRN (Reason: Pain) 2 Days Qty: 6 0RF No Action allopurinol 100 mg tablet 200 mg PO DAILY cyanocobalamin (vitamin B-12) 1,000 mcg tablet 1,000 mcg PO DAILY furosemide [Lasix] 40 mg tablet 40 mg PO Q OTHER DAY Qty: 30 3RF amlodipine 10 mg tablet 10 mg PO DAILY Qty: 90 3RF aspirin 81 MG tablet,chewable 81 mg PO DAILY@0800 Patient Comments: ON HOLD metformin 500 mg tablet,ER ana.retention 24 hr 500 mg PO DAILY atorvastatin 80 mg tablet 80 mg PO QHS Qty: 90 4RF nitroglycerin 0.4 mg tablet, sublingual 0.4 mg SUBLINGUAL ONCE PRN (Reason: chest pain) Qty: 25 3RF Rx Instructions: take one tablet for chest pain every 5-15 minutes for a total of 3 doses lisinopril 20 mg tablet 20 mg PO BID Qty: 180 3RF carvedilol 6.25 mg tablet 6.25 mg PO BID Qty: 180 3RF clopidogrel 75 mg tablet 75 mg PO QDAY Qty: 90 3RF Primary Care Provider: Mook Damon Referrals: Mook Damon MD [Primary Care Provider, Family Practice] Thaddeus Westbrook MD [Med Staff - Active Staff, Ear Nose Throat (ENT)] - 3-5 Days Activity Restrictions/Additional Instructions: Take medication as prescribed. Contact Dr. Thaddeus Westbrook's office tomorrow morning to be seen first part of next week. If you would develop a temperature greater than 100, unable to open or close your mouth completely, trouble swallowing return to the emergency department Print Language: U[place] Disposition Disposition: Home, Self Care
--- OUTSIDE RECORDS SUMMARY | 2025-07-26 13:28 | XMS RPT_ITS | CCD ---
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 Nathan Damon Primary Care Provider Dr. Nathan Damon Referring Provider [facility] TEMPORARY DATA ENTRY CLERK, TEMPORARY DATA ENTRY CLERKFrances Koo Attending Provider Roxie Damon MD Primary Care Provider RILEY JAEGER Attending Unavailable Melany Crespo Referring Unavailable ROXIE DAMON Primary Care UnavailMelany Evans Attending Unavailable ROXIE DAMON Primary Care Dr. Nathan Vital Primary Care Provider [phone] Dr. Nathan Damon Referring Provider Dr. Chris Frazier Attending Provider Dr. Chris Frazier Referring Provider Dr. Chris Frazier Other Provider Dr. Nathan Damon Primary Care Provider Dr. Chris Frazier Attending Provider Dr. Konrad Maldonado Emergency Provider Dr. Davide Vasques Admit Provider Dr. Davide Vasques Attending Provider Dr. Davide Vasques Other Provider Dr. Marilyn Araujo Attending Provider Roxie Damon MD Primary Care Provider Marisol SHERMAN, Dr. Delvalle Primary Care Provider Marisol SHERMAN, Dr. Delvalle Attending Provider [phone] Marisol SHERMAN, Dr. Delvalle Referring Provider Marisol SHERMAN, Dr. Delvalle Primary Care Provider Marisol SHERMAN, Dr. Delvalle Attending Provider Marisol SHERMAN, Dr. Delvalle Primary Care Provider Marisol SHERMAN, Dr. Delvalle Referring Provider [phone] Freddie SHERMAN, Dr. Perez Attending Provider [phone] Freddie SHERMAN, Dr. Perez Referring Provider [phone] Roxie Damon Primary Care Unavailable Chris Frazier Attending Unavailable Chris Frazier Referring Unavailable Roxie Damon Primary Care Unavailable Roxie Damon Attending Unavailable Roxie Damon Referring Unavailable Roxie Damon Primary Care Unavailable Roxie Damon Attending Unavailable Roxie Damon Primary Care Unavailable Chris Frazier Attending Unavailable Roxie Damon Referring Unavailable Roxie Damon Referring Unavailable Roxie Damon Primary Care Unavailable Roxie Damon Attending Unavailable Allergies Allergy Classification Reported Allergen(s) Allergy Type Date of Onset Reaction(s) Facility (3 sources) ticagrelor drug allergy 6 shortness of breath [facility] Work Phone: (6 sources) NKDA; Translations: [NKDA] allergy to substance [address] [facility] [employer] Work Phone: (15 sources) Ticagrelor; Translations: [TICAGRELOR] Drug Allergy 9 Shortness of Breath [facility] (1 source) Ticagrelor Drug Allergy 5 [facility] Medications Current Medications Medication Drug Class(es) Dates Sig (Normalized) Sig (Original) allopurinol 100 mg oral tablet (13 sources) Xanthine Oxidase Inhibitor Start: 01-07-2023 take 2 tablets by mouth once daily Allopurinol 100 mg tablet Active 200 mg PO DAILY January 07, 2023 12:00am Start: 01-07-2023 take 200 mg by mouth once pratibha y Allopurinol Active 200 MG PO DAILY January 07, 2023 12:00am take 1 tablet by jayson th twice daily allopurinol (ZYLOPRIM) 100 mg tablet Take 100 mg by mouth twice daily. 0 Active Comment on above: Take 100 mg by mouth twice daily. amLODIPine 10 mg oral tablet (20 sources) Dihydropyridine Calcium Channel Angelica Start: take 1 tablet by mouth once daily Amlodipine 10 mg tablet Active 10 mg PO DAILY 90 March 06, 2025 1:50pm Start: 06-09-2018 End: 03-06-2025 take 1 tablet by mouth once daily Amlodipine 5 mg tablet Discontinued 5 mg PO DAILY 90 3 December 30, 2023 8:02am March 06, 2025 1:51pm Start: 12-09-2017 End: 06-09-2018 take 2 tablets by mouth once daily Amlodipine 2.5 mg tablet Discontinued 5 mg PO daily December 09, 2017 12:00am June 09, 2018 1:17pm Start: 12-09-2017 End: 06-09-2018 take 5 mg by mouth once daily Amlodipine Discontinued 5 MG PO daily December 09, 2017 12:00am June 09, 2018 1:17pm Comment on above: Take 5 mg by mouth o nce daily. carvedilol 6.25 mg oral tablet (20 sources) alpha-Adrenergic Angelica, beta-Adrenergic Angelica Start: 03-06-2025 take 1 tablet by mouth twice daily Carvedilol 6.25 mg tablet Active 6.25 mg PO TWICE A DAY 60 March 06, 2025 1:48pm Start: 01-10-2016 End: 03-06-2025 take 1 tablet by mouth twice daily Carvedilol 12.5 mg tablet Discontinued 12.5 mg PO TWICE A DAY 180 August 27, 2023 2:33pm March 06, 2025 1:51pm Comment on above: Take 12.5 mg by mout h twice daily with meals. furosemide 40 mg oral tablet (20 sources) Loop Diuretic Start: 03-06-2025 take 1 tablet by mouth every other day Furosemide (Lasix) 40 mg tablet Active 40 mg PO every other day 30 3 March 06, 2025 1:49pm Start: 06-25-2023 End: 03-06-2025 take 1 tablet by mouth once daily Furosemide (Lasix) 40 mg tablet Discontinued 40 mg PO DAILY 30 3 June 25, 2023 12:00am March 06, 2025 1:51pm Start: 12-10-2021 End: 06-25-2023 take 10 mg by mouth once daily Furosemide 20 mg tablet Discontinued 10 mg PO DAILY December 10, 2021 12:00am June 25, 2023 12:59pm Start: 12-10-2021 End: 06-25-2023 take 10 mg by mouth once daily Furosemide Discontinued 10 MG PO DAILY December 10, 2021 12:00am June 25, 2023 12:59pm take 1 tablet by jayson th twice daily furosemide (LASIX) 20 mg tablet Take 20 mg by mouth twice daily. 0 Active Comment on above: Take 20 mg by mouth twice daily. modified 24 hr metFORMIN hydrochloride 500 mg extended release oral tablet (20 sources) Biguanide Start: 03-06-2025 take 1 tablet by mouth once daily Metformin 500 mg tablet,ER ana.retention 24 hr Active 500 mg PO DAILY March 06, 2025 1:21pm Start: 01-07-2023 End: 03-06-2025 take 1 tablet by mouth once daily Metformin 500 mg tablet,ER ana.retention 24 hr Discontinued 1000 mg PO DAILY January 07, 2023 1:06pm March 06, 2025 1:22pm Start: 12-10-2020 End: 01-07-2023 take 1 tablet by mouth twice daily Metformin 500 mg tablet,ER ana.retention 24 hr Discontinued 500 mg PO TWICE A DAY December 10, 2020 1:12pm January 07, 2023 1:06pm Start: 01-20-2016 take 1 tablet by jayson th once daily METFORMIN HCL 500 MG TABS One tablet by mouth daily METFORMIN HCL [id number] Aurelia Charles RN Start: 01-03-2016 End: 12-10-2020 take 1 tablet by mouth once daily Metformin 500 MG tablet,ER ana.retention 24 hr Discontinued 500 mg PO DAILY January 03, 2016 12:00am December 10, 2020 1:12pm Comment on above: Take 500 mg by mouth daily with breakfast. vitamin b12 1 mg oral tablet (11 sources) Vitamin B12 Start: 01-07-2023 take 1 tablet by mouth once daily Cyanocobalamin (Vitamin B-12) 1,000 mcg tablet Active 1000 ug PO DAILY January 07, 2023 12:00am Completed/Discontinued Medications Medication Drug Class(es) Dates Sig (Normalized) Sig (Original) acetaminophen 325 mg / HYDROcodone bitartrate 5 mg oral tablet (20 sources) Opioid Agonist Start: 07-01-2017 End: 12-09-2017 Hydrocodone-Acetami nophen 1 TABLET tablet Discontinued 1 {tbl} PO EVERY 4 HOURS NEEDED as needed for Pain September 22, 2017 1:00am December 09, 2017 9:33am Calculus of left kidney Calculus of kidney Start: 07-01-2017 End: 12-09-2017 take 1 tablet by mouth every four hours as needed Hydrocodone-Acetaminophen Discontinued 1 TABLET PO EVERY 4 HOURS NEEDED September 22, 2017 1:00am December 09, 2017 9:33am aspirin 81 mg oral tablet (20 sources) Nonsteroidal Anti-inflammatory Drug Start: 01-20-2016 take 1 tablet by mouth once daily ASPIRIN 81 MG TABS One tablet by mouth daily ASPIRIN [id number] Aurelia Charles RN Start: 01-03-2016 take 1 tablet by jayson th once daily Aspirin 81 MG tablet,chewable Active 81 mg PO DAILY@0800 January 03, 2016 12:00am Start: 10-24-2012 take 1 tablet by jayson th once daily aspirin, enteric coated (ASPIR-LOW) 81 mg EC tablet Take 1 tablet by mouth once daily. 0 10/24/2012 Active Comment on above: Take 1 tablet by jayson th once daily. atorvastatin 80 mg oral tablet (20 sources) HMG-CoA Reductase Inhibitor Start: 2015 End: 2022 take 1 tablet by mouth at bedtime Atorvastatin 80 mg tablet Discontinued 80 mg PO AT BEDTIME 90 4 July 06, 2022 5:05pm January 12, 2023 2:48pm Comment on above: Take 80 mg by mouth once daily. clopidogrel 75 mg oral tablet (20 sources) P2Y12 Platelet Inhibitor Start: 2015 End: 2024 Clopidogrel 75 mg tablet Discontinued 0 .ROUTE .COMPLEX 90 3 November 07, 2024 4:16pm March 06, 2025 1:48pm TAKE 1 TABLET EVERY DAY Comment on above: Take 75 mg by mouth once daily. hydroCHLOROthiazide 25 mg oral tablet (20 sources) Thiazide Diuretic Start: 2015 End: 2022 take 1 tablet by mouth once daily Hydrochlorothiazide 25 mg tablet Discontinued 25 mg PO DAILY 90 4 July 06, 2022 4:54pm June 23, 2023 6:45am Comment on above: Take 25 mg by mouth once daily. lisinopril 20 mg oral tablet (20 sources) Angiotensin Converting Enzyme Inhibitor Start: 2017 End: 2024 take 1 tablet by mouth twice daily Lisinopril 20 mg tablet Discontinued 20 mg PO TWICE A DAY 60 February 23, 2025 1:27pm February 23, 2025 1:28pm Start: 01-20-2016 take 1 tablet by jayson th once daily LISINOPRIL 2.5 MG TABS One tablet by mouth daily LISINOPRIL [id number] Chris Frazier MD Start: 01-20-2016 take 1 tablet by jayson th once daily LISINOPRIL 20 MG TABS One tablet by mouth daily LISINOPRIL [id number] Chris Frazier MD Start: 01-03-2016 End: 12-09-2017 Lisinopril 40 MG tablet Disc ontinued 20 mg PO DAILY January 03, 2016 12:00am December 09, 2017 9:32am Start: 01-03-2016 End: 12-09-2017 take 20 mg by mouth once daily Lisinopril Discontinued 20 MG PO DAILY January 03, 2016 12:00am December 09, 2017 9:32am Start: 10-24-2012 take 1 tablet by jayson th once daily lisinopril (ZESTRIL) 40 mg tablet Take 1 tablet by mouth once daily. 0 10/24/2012 Active Comment on above: Take 1 tablet by jayson th once daily. nitroglycerin 0.4 mg sublingual tablet (20 sources) Nitrate Vasodilator Start: 01-14-2018 End: 03-19-2023 Nitroglycerin 0.4 mg tablet, sublingual Discontinued 0.4 mg SL ONCE as needed for chest pain 21 02December 10, 2020 1:21pm March 19, 2023 12:57pm take one tablet for chest pain every 5-15 minutes for a total of 3 doses Start: 01-10-2016 End: 12-09-2017 Nitroglycerin 0.4 MG tablet Discontinued 0.4 mg SL Q5M as needed for Chest Pain January 10, 2016 12:00am December 09, 2017 9:33am Comment on above: Dissolve 0.4 mg unde r the tongue every 5 minutes as needed. pantoprazole 40 mg delayed release oral tablet (20 sources) Proton Pump Inhibitor Start: 6 End: 5 take 1 tablet by mouth once daily Pantoprazole 40 mg tablet,delayed release (DR/EC) Discontinued 40 mg PO DAILY 90 3 August 09, 2024 9:31am March 06, 2025 1:50pm Comment on above: Take 40 mg by mouth once daily. polyethylene glycol 3350 133522 mg / potassium chloride 2970 mg / sodium bicarbonate 6740 mg / sodium chloride 5860 mg / sodium sulfate 50795 mg powder for oral solution (1 source) Osmotic Laxative Start: 3 End: 3 peg 3350-Electrolytes (GOLYTELY) 236-22.74-6.74 -5.86 gram suspension Take 4,000 mL by mouth one time only for 1 dose. 1 Each 0 11/27/2022 11/27/2022 Comment on above: Take 4,000 mL by jayson th one time only for 1 dose. potassium chloride 20 meq extended release oral tablet (14 sources) Start: 2 End: 5 take 1 tablet by mouth once daily Potassium Chloride 20 mEq tablet extended release Discontinued 20 meq PO DAILY December 10, 2021 12:00am March 06, 2025 1:49pm potassium chlori de SR (MICRO-K) 10 mEq CR capsule Take 20 mEq by mouth once daily. 0 Active Comment on above: Take 20 mEq by mouth once daily. tamsulosin hydrochloride 0.4 mg oral capsule (12 sources) alpha-Adrenergic Angelica Start: 8 End: 1 take 1 capsule by mouth once daily as needed Tamsulosin 0.4 MG capsule Discontinued 0.4 mg PO DAILY as needed for kidney stone March 09, 2018 12:00am December 10, 2020 1:12pm Problems Active Problems Problem Classification Problem Date Documented Da te Episodic/Chronic Acute myocardial infarction (16 sources) Non-ST elevation (NSTEMI) myocardial infarction; Translations: [Myocardial infarction] Onset: 01-14-2016 01-20-2016 Chronic Congestive heart failure; nonhypertensive (11 sources) Congestive heart failure; Translations: [Heart failure, unspecified] Onset: 03-06-2025 06-23-2023 Chronic Coronary atherosclerosis and other heart disease (20 sources) Generalized ischemic myocardial dysfunction; Translations: [Atherosclerotic heart disease of [place] coronary artery without angina pectoris] Onset: 01-20-2016 01-20-2016 Chronic Coronary atherosclerosis and other heart disease (5 sources) Presence of coronary angioplasty implant and graft; Translations: [Percutaneous transluminal coronary angioplasty status] Onset: 01-04-2016 Episodic Diabetes mellitus without complication (3 sources) Type 2 diabetes mellitus without complication; Translations: [Type 2 diabetes mellitus without complications] Onset: 01-20-2016 01-20-2016 Chronic Disorders of lipid metabolism (20 sources) Hyperlipidemia; Translations: [Pure hypercholesterolemi a] Onset: 01-20-2016 01-20-2016 Chronic Essential hypertension (20 sources) Hypertensive disorder; Translations: [Essential hypertension] Onset: 01-20-2016 01-20-2016 Chronic Other and unspecified benign neoplasm (2 sources) History of polyp of colon; Translations: [Personal history of colonic polyps] Episodic Other and unspecified benign neoplasm (1 source) Personal history of colonic polyps; Translations: [Personal history of colonic polyps] Onset: 01-05-2023 Episodic Other nervous system disorders (10 sources) Paresthesia of upper limb; Translations: [Anesthesia of skin] 03-13-2023 Episodic Other nutritional; endocrine; and metabolic disorders (10 sources) H/O: diabetes mellitus; Translations: [Personal history of other endocrine, nutritional and metabolic disease] 03-13-2023 Episodic Other screening for suspected conditions (not mental disorders or infectious disease) (2 sources) Encounter for screening for malignant neoplasm of colon; Translations: [Patient encounter status] Onset: 01-05-2023 01-03-2023 Episodic Pleurisy; pneumothorax; pulmonary collapse (10 sources) Bilateral pleural effusion; Translations: [Pleural effusion, not elsewhere classified] 06-23-2023 Episodic Residual codes; unclassified (2 sources) Family history of cancer of colon; Translations: [Family history of malignant neoplasm of digestive organs] Episodic Residual codes; unclassified (1 source) Family history of malignant neoplasm of digestive organs; Translations: [Family history of colon cancer] Onset: 01-05-2023 Episodic Respiratory failure; insufficiency; arrest (adult) (10 sources) Acute hypoxemic respiratory failure; Translations: [Acute respiratory failure with hypoxia] 06-23-2023 Episodic Unclassified (3 sources) Body mass index (BMI) 37.0-37.9, adult; Translations: [Body mass index (BMI) 37.0-37.9, adult] Onset: 03-05-2016 03-05-2016 Chronic Unclassified (3 sources) Placement of stent in coronary artery ; Translations: [Presence of coronary angioplasty implant and graft] Onset: 01-20-2016 01-20-2016 Unclassified (2 sources) Long-term drug therapy; Translations: [Other fdc (current) drug therapy] Onset: 01-20-2016 01-20-2016 Past or Other Problems Problem Classification Problem Date Documented Da te Episodic/Chronic Abdominal hernia (4 sources) Hernia of anterior abdominal wall; Translations: [Ventral hernia without obstruction or gangrene] Onset: 01-26-2013 01-26-2013 Episodic Other aftercare (1 source) 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; Translations: [Other fdc (current) drug therapy] Onset: 01-20-2016 01-20-2016 Episodic Other and unspecified benign neoplasm (2 sources) Benign neoplasm of colon; Translations: [Benign neoplasm of colon, unspecified] Onset: 07-09-2014 07-09-2014 Episodic Other gastrointestinal disorders (1 source) Intra-abdominal and pelvic swelling, mass and lump, unspecified site; Translations: [Intra-abdominal and pelvic swelling, mass and lump, unspecified site] Onset: 11-16-2024 Episodic Results Test Name Value Interpretation Reference Range Facility Microalb:Creat Ratio,Random URon 03-07-2025 MALB:CREAT UNABLE TO CALCULATE Normal [facility] Comment on above: Performed By: #### L 501.9910, L500.4100, L500.4050, L100.0500, L501.9520 #### [facility] [address] [place], [address] MICROALBUMIN,UR < 12.0 Normal NO RANGE EST. [facility] Comment on above: Performed By: #### L 501.9910, L500.4100, L500.4050, L100.0500, L501.9520 #### [facility] [address] [place], [address] Anion gap in Serum or Plasma Ordered By: Providence Freddie on 03-06-2025 Anion gap [Moles/Vol] 10 mmol/L 01-11 [facility] BUN/creatinine ratioOrdered By: Providence Freddie on 03-06-2025 Urea nitrogen/Creatinine [Mass ratio] 13.7 mg/mg 06-18 [facility] Basic Metabolic Profile (BMP )on 03-06-2025 BUN/CRE 13.7 RATIO Normal 06-18 [facility] Comment on above: Performed By: #### L 501.9910, L500.4100, L500.4050, L100.0500, L501.9520 #### [facility] [address] [place], [address] GAP 10 Normal 01-11 [facility] Comment on above: Performed By: #### L [id number], L500.4100, L500.4050, L100.0500, L501.9520 #### [facility] [address] [place], [address] Potassium [Moles/Vol] 4.4 mmol/L Normal 3.3-5.1 [facility] Comment on above: Result Comment: Hemo lysis present, Results??could be affected. ?? Performed By: #### L [id number], L500.4100, L500.4050, L100.0500, L501.9520 #### [facility] [address] [place], [address] Carbon dioxide, total [Moles /volume] in Central venous bloodOrdered By: Chris Frazier on 03-06-2025 CO2 [Moles/Vol] 27.9 mmol/L Normal 21.0-32.0 [facility] Comment on above: Performed By: #### L 501.9910, L500.4100, L500.4050, L100.0500, L501.9520 #### [facility] [address] [place], [place], [address] Cardiology Visit Reporton Cardiology Visit Report [facility] [address] [place], [place] [address] OFFICE VISIT Date of Service: 03/06/25 MR#: [id number] Acct: [id number] Name: ADARSH MAYER Rep #: [id number] : 1950 Provider: Dr. Chris Frazier MD Age/Sex: 74/M Location: [facility] Status: Signed HPI HPI History of Present Illness Details: ADARSH MAYER, is a 74 M who presents to the office today for a cardiovascular outpatient follow- up. He has a history of coronary artery disease status post non-ST elevated myocardial infarction with RCA thrombectomy and drug-eluting stent placement in December 2014, hypertension, and hyperlipidemia. He underwent a stress test in February of 2023- No ischemia was noted. He states he is now using a CPAP. From a cardiac standpoint, the patient is doing well. He denies any palpitations, chest pain, pressure or heaviness. He denies SOB, Orthopnea, and PND. He does not have bleeding issues; no blood in urine, stool or nosebleeds. He denies any decrease in energy level, myalgias, or claudication. He does have occasional bilateral lower extremity edema. He denies sudden weight gain. He denies dizziness, lightheadedness, syncopal or near syncopal episodes, and headaches. 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 Accompanied by: Self Is patient in pain?: No Allergies ticagrelor (From [facility]) Allergy (Verified 03/06/25 13:20) Shortness of breath Medications ???Medication ???Instructions ???Recorded ???Confirmed ???Type aspirin 81 mg chewable tablet 81 mg PO DAILY@0800 01/03/1603/06 History allopurinol 100 mg tablet 200 mg PO DAILY 01/07/23 03/06/25 History cyanocobalamin (vitamin B-12) 1,000 mcg PO DAILY 01/07/23 History 1,000 mcg tablet atorvastatin 80 mg tablet 80 mg PO QHS #90 tabs 01/12/2304/23 Rx nitroglycerin 0.4 mg sublingual 0.4 mg sublingual ONCE PRN chest 0 03/19/23 03/06/25 Rx tablet pain #25 tabs lisinopril 20 mg tablet 20 mg PO BID #180 tabs 02/23/25 Rx amlodipine 10 mg tablet 10 mg PO DAILY #90 TABLETS 5 03/06/25 Rx carvedilol 6.25 mg tablet 6.25 mg PO BID #60 tabs 03/06/25 0 03/06/25 Rx furosemide 40 mg tablet (Lasix) 40 mg PO Q OTHER DAY #30 tabs 04/2303/06/25 Rx metformin 500 mg 24 hr 500 mg PO DAILY 03/06/25 03/06/25 History tablet,extended release (gastric retention) Have you fallen in the past year?: No PFSH Medical History Atherosclerosis of [place] coronary artery of [place] heart without angina pectoris Pure hypercholesterolemia Essential (primary) hypertension Hydroureteronephrosis Acute respiratory failure with hypoxia Hematuria Kidney stones Obesity Diabetes mellitus type II, controlled Non-ST elevation (NSTEMI) myocardial infarction (01/14/16) Ischemic cardiomyopathy Surgical History History of vasectomy History of tonsillectomy History of cataract surgery History of umbilical hernia repair History of coronary artery stent placement (01/04/16) Family History Father CAD (coronary artery disease) Diabetes Social History Smoking Status: Never smoker ROS Const Const: Negative for fatigue, weakness, headache(s), daytime sleepiness or difficulty sleeping ENT ENT: Negative for headache(s), dizziness or Nosebleed/epistaxis Cardio Chest Pain: No Palpitations: No Edema: Bilateral (BLE trace at times ) Resp Respiratory: Negative for SOB with activity, SOB at rest, SOB orthopnea SOB lying down or Cough GI GI: Negative nausea, vomiting or heartburn Neuro Neuro: Negative for dizziness, lightheadedness, near syncope, headache(s) or weakness Endo Endo: Negative for fatigue Cardiology Exam Const Appearance: cooperative, healthy appearing, no acute distress, well developed and well groomed Nutritional Appearance: average body habitus, well nourished and obese Orientation: alert, awake and oriented x3 Head Head: normal to inspection, normocephalic and atraumatic Ears: hearing grossly normal bilaterally and external ears normal Nose: external nose normal, nares normal and nasal mucous membranes and turbinates normal Face and Sinus: face symmetric Eyes General: appearance normal, both eyes and all related structures Eyelids: eyelids normal Conjunctivae: conjunctivae no (more content not included)... Normal [facility] Chloride assayOrdered By: Jose Frazier on 03-06-2025 Chloride [Moles/Vol] 107 mmol/L Normal 98-108 [facility] Comment on above: Performed By: #### L 501.9910, L500.4100, L500.4050, L100.0500, L501.9520 #### [facility] [address] [place], [address] Glomerular filtration rate ( GFR) estimation/1.73 sq m using serum, plasma, or whole bOrdered By: Chris Frazier on 03-06-2025 GFR/1.73 sq M.predicted among non-blacks MDRD (S/P/Bld) [Vol rate/Area] 59 mL/min/{1.73_m2} Low >60 [facility] Comment on above: mL/min/1.73m2 CKD-EP I Creatinine Equation (2020) Result Comment: mL/m in/1.73m2 CKD-EPI Creatinine Equation (2020) Performed By: #### L [id number], L500.4100, L500.4050, L100.0500, L501.9520 #### [facility] [address] [place], [place], [id number] Microalbumin/creat ratio urO rdered By: Chris Freddie on 03-06-2025 Urine microalbumin/creatinine ratio measurement UNABLE TO CALCULATE mg/g CRE [facility] Potassium measurement (mass/ volume)Ordered By: Chris Freddie on 03-06-2025 Potassium (Unsp spec) [Mass/Vol] 4.4 mmol/L 3.3-5.1 [facility] Comment on above: Hemolysis present, R esults could be affected. Random urine creatinine barron urement (mass/volume)Ordered By: Chris Frazire on 03-06-2025 Creatinine Unsp time (U) [Mass/Vol] 80.30 mg/dL 39.00-259.0 0 [facility] Serum creatinine measurement (mass/volume)Ordered By: Chris Freddie on 03-06-2025 Creatinine [Mass/Vol] 1.27 mg/dL High 0.70-1.20 [facility] Comment on above: Performed By: #### L 501.9910, L500.4100, L500.4050, L100.0500, L501.9520 #### [facility] [address] [place], [place], [id number] Serum glucose measurement (m ass/volume)Ordered By: Chris Frazier on 03-06-2025 Glucose [Mass/Vol] 97 mg/dL Normal 70-99 [facility] Comment on above: Performed By: #### L 501.9910, L500.4100, L500.4050, L100.0500, L501.9520 #### [facility] [address] [place], [address] Serum or plasma calcium barron urement (mass/volume)Ordered By: Chris Freddie on 03-06-2025 Calcium [Mass/Vol] 9.2 mg/dL Normal 7.6-11.0 [facility] Comment on above: Performed By: #### L 501.9910, L500.4100, L500.4050, L100.0500, L501.9520 #### [facility] [address] [facility] [place], [address] Serum or plasma urea nitroge n measurement (mass/volume)Ordered By: Chris Freddie on 03-06-2025 Urea nitrogen [Mass/Vol] 17 mg/dL Normal 4-19 [facility] Comment on above: Performed By: #### L 501.9910, L500.4100, L500.4050, L100.0500, L501.9520 #### [facility] [address] [facility] [place], [address] Sodium levelOrdered By: Josexenia mcdaniels Freddie on 03-06-2025 Sodium [Moles/Vol] 145 mmol/L Normal 133-145 [facility] Comment on above: Performed By: #### L 501.9910, L500.4100, L500.4050, L100.0500, L501.9520 #### [facility] [address] [place], [place], [address] Urine albumin measurement [facility] detection limit of 20 mg/L or less (mass/volume)Ordered By: Chris Freddie on 03-06-2025 Albumin DL <= 20 mg/L (U) [Mass/Vol] < 12.0 mg/L NO RANGE EST. [facility] Abdomen Completeon Abdomen Complete [facility] [address] [place], [place] [address] Abdomen Complete MR#: [id number] Acct: [id number] Name: ADARSH MAYER Rep #: [id number] : 1950 M 74 From: Chirag Ponce MD PCP: Dr. Roxie Damon MD Status: REG CLI Study: Abdomen Complete Date of Exam: 11/03/24 Exam# [id number] Ordering Dr: Roxie Damon M D PROCEDURE: ULTRASOUND ABDOMEN COMPLETE REASON FOR EXAM: Intra-abdominal and pelvic swelling. COMPARISON: CT abdomen dated 02/01/2018. Acute abdomen series dated 03/23/2023. FINDINGS: Liver: Grossly normal size and echotexture. Liver measures 16 cm sagittally. Hepatopetal blood flow. Gallbladder: No stones, sludge, wall thickening or tenderness. A non mobile hyperechoic nodule measuring 0.4 x 0.3 x 0.3 cm. Common bile duct: Normal measuring 0.22 cm.. Pancreas: Echogenic parenchyma. Kidneys: The right kidney measures 13.5 x 6.6 x 6.4 cm. Right renal cortex measures 1.5 cm.. The left kidney measures 11.5 x 4.6 x 5.2 cm. Left renal cortex measures 1.4 cm.. Tiny hyper echogenic foci in the right kidney measuring up to 0.5 cm. Hyper echogenic foci in the left kidney measuring up to 0.4 cm. Right superior pole anechoic mass measuring 5.0 x 5.0 x 4.5 cm. Small anechoic mass in the left superior pole measuring 2.01 x 1.02 x 1.69 cm. Spleen: Normal in size and echotexture measuring spleen measures 10.0 x 5.0 x 7.5 cm.. Aorta: Visualized abdominal aorta is of normal size. IVC: Visualized inferior vena cava is unremarkable. Peritoneal Findings: No ascites identified. US/Abdomen Complete IMPRESSION: 1. Small gallbladder polyp 2. Bilateral nonobstructing nephrolithiasis. 3. Bilateral renal cysts. Reading Location: [place] [address] CC: Dr. 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, [address] Laboratory - Chemistry and C hemistry - challengeOrdered By: Roxie Damon on 10-26-2024 Natriuretic peptide B (Bld) [Mass/Vol] 173 pg/mL <1800 [facility] Comment on above: Heart Failure Unlike ly: < 300 pg/mLHeart Failure Likely< 50 Years: > 450 pg/mL50-75 Years: > 900 pg/mL>75 Years: > 1800 pg/mL HF Unlikely: <300 pg/mL HF Likely: <50 years: >450 pg/mL 50 - 75 years: >900 pg/mL >75 years: >1800 pg/mL Albumin DL <= 20 mg/L (U) [M ass/Vol]Ordered By: Roxie Damon on 10-25-2024 Urine Random Microalbumin < 12.0 mg/L NO RANGE EST. [facility] Automated blood erythrocyte countOrdered By: Roxie Damon on 10-25-2024 RBC (Bld) [#/Vol] 4.90 10*6/uL Normal 4.6-6.2 [facility] Comment on above: Order Comment: Order Date: 10/25/24 Order Info: [id number] - CBC Performed By: #### L 500.4050, L100.0500 #### [facility] [address] [place], [place], [address] Automated blood hematocrit ( percentage)Ordered By: Roxie Damon on 10-25-2024 Hematocrit (Bld) [Volume fraction] 43.0 % Normal 40-54 [facility] Comment on above: Order Comment: Order Date: 10/25/24 Order Info: [id number] - CBC Performed By: #### L 500.4050, L100.0500 #### [facility] [address] [place], [address] BUN/creatinine ratioOrdered By: Roxie Damon on 10-25-2024 Urea nitrogen/Creatinine [Mass ratio] 15.6 mg/mg 10-20 [facility] Bilirubin, totalOrdered By: Roxie Damon on 10-25-2024 Bilirubin [Mass/Vol] 0.86 mg/dL 0.00-1.30 [facility] CBC-Complete Blood Cnt No Di ffon 10-25-2024 RDW SD 52.0 fl High 35.1-43.9 [facility] Comment on above: Order Comment: Order Date: 10/25/24 Order Info: [id number] - CBC Performed By: #### L 500.4050, L100.0500 #### [facility] [address] [place], [address] Carbon dioxide measurementOr dered By: Roxie Damon on 10-25-2024 CO2 [Moles/Vol] 29.3 mmol/L High 22.0-29.0 [facility] Chloride measurementOrdered By: Roxie Damon on 10-25-2024 Chloride [Moles/Vol] 102 mmol/L Normal 96-108 [facility] Comment on above: Order Comment: Order Date: 10/25/24 Order Info: [id number] - CMP Performed By: #### L 500.4050, L100.0500 #### [facility] [address] [place], [address] Creatinine [Moles/Vol]Ordere d By: Roxie Damon on 10-25-2024 Creatinine [Mass/Vol] 1.1 mg/dL 0.8-1.3 [facility] Erythrocyte distribution wid th ratioOrdered By: Roxie Damon on 10-25-2024 Erythrocyte distribution width (RBC) [Ratio] 16.1 % High 11.6-14.6 [facility] Comment on above: Order Comment: Order Date: 10/25/24 Order Info: [id number] - CBC Performed By: #### L 500.4050, L100.0500 #### [facility] [address] [place], [place], [address] Erythrocyte distribution wid th standard deviationOrdered By: Roxie Damon on 10-25-2024 Erythrocyte distribution width (RBC) [Entitic vol] 52.0 fL High 35.1-43.9 [facility] GFR/1.73 sq M.predicted martinez g non-blacks MDRD (S/P/Bld) [Vol rate/Area]Ordered By: Roxie Damon on 10-25-2024 Estimated GFR (MDRD) Non-Af Amer 69 >60 [facility] Comment on above: mL/min/1.73m2 CKD-EP I Creatinine Equation (2020) Hemoglobin measurementOrdere d By: Roxie Damon on 10-25-2024 Hemoglobin (Bld) [Mass/Vol] 13.2 g/dL Normal 13.0-16.5 [facility] Comment on above: Order Comment: Order Date: 10/25/24 Order Info: [id number] - CBC Performed By: #### L 500.4050, L100.0500 #### [facility] [address] [place], [place], [id number] Laboratory - Chemistry and C hemistry - challengeOrdered By: Roxie Damon on 10-25-2024 AST [Catalytic activity/Vol] 26 U/L <38 [facility] MCV (mean corpuscular volume ) determinationOrdered By: Roxie Damon on 10-25-2024 MCV (RBC) [Entitic vol] 87.8 fL Normal 80-94 [facility] Comment on above: Order Comment: Order Date: 10/25/24 Order Info: [id number] - CBC Performed By: #### L 500.4050, L100.0500 #### [facility] [address] [place], [address] Mean corpuscular hemoglobin (MCH) determinationOrdered By: Roxie Damon on 10-25-2024 MCH (RBC) [Entitic mass] 26.9 pg Low 27.0-32.0 [facility] Comment on above: Order Comment: Order Date: 10/25/24 Order Info: [id number] - CBC Performed By: #### L 500.4050, L100.0500 #### [facility] [address] [place], [address] Mean corpuscular hemoglobin concentration (MCHC) determinationOrdered By: Roxie Damon on 10-25-2024 MCHC (RBC) [Mass/Vol] 30.7 g/dL Low 32-36 [facility] Comment on above: Order Comment: Order Date: 10/25/24 Order Info: [id number] - CBC Performed By: #### L 500.4050, L100.0500 #### [facility] [address] [place], [address] Mean platelet volume determi nationOrdered By: Roxie Damon on 10-25-2024 Platelet mean volume (Bld) [Entitic vol] 10.9 fL Normal 6.2-12.0 [facility] Comment on above: Order Comment: Order Date: 10/25/24 Order Info: [id number] - CBC Performed By: #### L 500.4050, L100.0500 #### [facility] [address] [place], [address] Microalbumin,Random Urineon 10-25-2024 MICROALBUMIN,UR < 12.0 Normal NO RANGE EST. [facility] Comment on above: Order Comment: Order Date: 03/27/24 Order Info: [id number] - MIALB Performed By: #### L 502.0500 #### [facility] [address] [place], [address] Platelet countOrdered By: Norbert Damon on 10-25-2024 Platelets (Bld) [#/Vol] 262 10*3/uL Normal 150-450 [facility] Comment on above: Order Comment: Order Date: 10/25/24 Order Info: [id number] - CBC Performed By: #### L 500.4050, L100.0500 #### [facility] [address] [place], [place], [address] Serum globulin measurementOr dered By: Roxie Damon on 10-25-2024 Globulin (S) [Mass/Vol] 3.0 g/dL 2.2-4.2 [facility] Serum glucose measurement (m ass/volume)Ordered By: Roxie Damon on 10-25-2024 Glucose [Mass/Vol] 107 mg/dL High 70-99 [facility] Serum or plasma alanine doss otransferase (ALT) measurementOrdered By: Roxie Damon on 10-25-2024 ALT [Catalytic activity/Vol] 12 U/L <47 [facility] Serum or plasma albumin barron urement (mass/volume)Ordered By: Roxie Damon on 10-25-2024 Albumin [Mass/Vol] 4.1 g/dL 3.4-4.8 [facility] Serum or plasma albumin/glob ulin mass ratioOrdered By: Roxie Damon on 10-25-2024 Albumin/Globulin [Mass ratio] 1.4 {ratio} 0.9-2.4 [facility] Serum or plasma alkaline jimmie sphatase measurementOrdered By: Roxie Damon on 10-25-2024 ALP [Catalytic activity/Vol] 127 U/L 40-129 [facility] Serum or plasma anion gap de termination (moles/volume)Ordered By: Roxie Damon on 10-25-2024 Anion gap [Moles/Vol] 11 mmol/L Normal 5-15 [facility] Comment on above: Order Comment: Order Date: 10/25/24 Order Info: [id number] - CMP Performed By: #### L 500.4050, L100.0500 #### [facility] [address] [place], [address] Serum or plasma calcium barron urement (mass/volume)Ordered By: Roxie Damon on 10-25-2024 Calcium [Mass/Vol] 9.7 mg/dL 7.6-11.0 [facility] Serum or plasma potassium me asurementOrdered By: Roxie Damon on 10-25-2024 Potassium [Moles/Vol] 4.2 mmol/L Normal 3.3-5.1 [facility] Comment on above: Order Comment: Order Date: 10/25/24 Order Info: [id number] - CMP Performed By: #### L 500.4050, L100.0500 #### [facility] [address] [place], [place], [address] Serum or plasma sodium measu rement (moles/volume)Ordered By: Roxie Damon on 10-25-2024 Sodium [Moles/Vol] 143 mmol/L Normal 133-145 [facility] Comment on above: Order Comment: Order Date: 10/25/24 Order Info: [id number] - CMP Performed By: #### L 500.4050, L100.0500 #### [facility] [address] [place], [place], [address] Serum or plasma urea nitroge n measurement (mass/volume)Ordered By: Roxie Damon on 10-25-2024 Urea nitrogen [Mass/Vol] 18 mg/dL 4-19 [facility] Total proteinOrdered By: Rosanna Damon on 10-25-2024 Protein [Mass/Vol] 7.1 g/dL 5.9-8.4 [facility] White blood cell (WBC) count Ordered By: Roxie Damon on 10-25-2024 WBC (Bld) [#/Vol] 8.8 10*3/uL Normal 4.4-11.0 [facility] Comment on above: Order Comment: Order Date: 10/25/24 Order Info: [id number] - CBC Performed By: #### L 500.4050, L100.0500 #### [facility] [address] [place], [address] Albumin to globulin ratioOrd ered By: Roxie Damon on 07-18-2024 Albumin/Globulin [Mass ratio] 0.8 {ratio} Low 0.9-2.4 [facility] Bilirubin, totalOrdered By: Roxie Damon on 07-18-2024 Bilirubin [Mass/Vol] 0.70 mg/dL 0.20-1.00 [facility] Comment on above: For patients on eltr ombopag therapy, use of Dimension [place] TBIL is not recommended. Blood urea nitrogen (BUN)/cr eatinine ratioOrdered By: Roxie Damon on 07-18-2024 Urea nitrogen/Creatinine [Mass ratio] 16.1 mg/mg 10- [facility] CBC-Complete Blood Cnt No Di ffon 07-18-2024 Erythrocyte distribution width (RBC) [Ratio] 16.1 % High 11.6-14.6 [facility] Comment on above: Order Comment: Order Date: 03/27/24 Order Info: [id number] - CBC Performed By: #### L 501.9910, L500.4100, L500.4050, L100.0500, L501.9520 #### [facility] [address] [place], [address] Hematocrit (Bld) [Volume fraction] 41.6 % Normal 40-54 [facility] Comment on above: Order Comment: Order Date: 03/27/24 Order Info: [id number] - CBC Performed By: #### L 501.9910, L500.4100, L500.4050, L100.0500, L501.9520 #### [facility] [address] [place], [address] Hemoglobin (Bld) [Mass/Vol] 13.0 g/dL Normal 13.0-16.5 [facility] Comment on above: Order Comment: Order Date: 03/27/24 Order Info: [id number] - CBC Performed By: #### L 501.9910, L500.4100, L500.4050, L100.0500, L501.9520 #### [facility] [address] [place], [address] MCH (RBC) [Entitic mass] 28.4 pg Normal 27.0-32.0 [facility] Comment on above: Order Comment: Order Date: 03/27/24 Order Info: [id number] - CBC Performed By: #### L 501.9910, L500.4100, L500.4050, L100.0500, L501.9520 #### [facility] [address] [place], [address] MCHC (RBC) [Mass/Vol] 31.3 g/dL Low 32-36 [facility] Comment on above: Order Comment: Order Date: 03/27/24 Order Info: [id number] - CBC Performed By: #### L 501.9910, L500.4100, L500.4050, L100.0500, L501.9520 #### [facility] [address] [place], [address] MCV (RBC) [Entitic vol] 91.0 fL Normal 80-94 [facility] Comment on above: Order Comment: Order Date: 03/27/24 Order Info: [id number] - CBC Performed By: #### L 501.9910, L500.4100, L500.4050, L100.0500, L501.9520 #### [facility] [address] [place], [address] Platelet mean volume (Bld) [Entitic vol] 10.6 fL Normal 6.2-12.0 [facility] Comment on above: Order Comment: Order Date: 03/27/24 Order Info: [id number] - CBC Performed By: #### L 501.9910, L500.4100, L500.4050, L100.0500, L501.9520 #### [facility] [address] [place], [address] Platelets (Bld) [#/Vol] 258 10*3/uL Normal 150-450 [facility] Comment on above: Order Comment: Order Date: 03/27/24 Order Info: [id number] - CBC Performed By: #### L 501.9910, L500.4100, L500.4050, L100.0500, L501.9520 #### [facility] [address] [place], [address] RBC (Bld) [#/Vol] 4.57 10*6/uL Low 4.6-6.2 [facility] Comment on above: Order Comment: Order Date: 03/27/24 Order Info: [id number] - CBC Performed By: #### L 501.9910, L500.4100, L500.4050, L100.0500, L501.9520 #### [facility] [address] [place], [address] RDW SD 54.3 fl High 35.1-43.9 [facility] Comment on above: Order Comment: Order Date: 03/27/24 Order Info: [id number] - CBC Performed By: #### L 501.9910, L500.4100, L500.4050, L100.0500, L501.9520 #### [facility] [address] [place], [address] WBC (Bld) [#/Vol] 8.1 10*3/uL Normal 4.4-11.0 [facility] Comment on above: Order Comment: Order Date: 03/27/24 Order Info: [id number] - CBC Performed By: #### L 501.9910, L500.4100, L500.4050, L100.0500, L501.9520 #### [facility] [address] [place], [address] Carbon dioxide measurementOr dered By: Roxie Damon on 07-18-2024 CO2 [Moles/Vol] 30.0 mmol/L 21.0-32.0 [facility] Chloride measurementOrdered By: Roxie Damon on 07-18-2024 Chloride [Moles/Vol] 107 mmol/L 98-107 [facility] Comprehensive Metabolic Prof ilon 07-18-2024 Albumin [Mass/Vol] 3.1 g/dL Low 3.2-5.0 [facility] Comment on above: Order Comment: Order Date: 03/27/24 Order Info: [id number] - CMP Order Info: - LIPID Order Info: [id number] - TSH Order Info: [id number] - PSA Performed By: #### L 501.9910, L500.4100, L500.4050, L100.0500, L501.9520 #### [facility] [address] [place], [address] Albumin/Globulin [Mass ratio] 0.8 {ratio} Low 0.9-2.4 [facility] Comment on above: Order Comment: Order Date: 03/27/24 Order Info: [id number] - CMP Order Info: - LIPID Order Info: 3 - TSH Order Info: [id number] - PSA Performed By: #### L 501.9910, L500.4100, L500.4050, L100.0500, L501.9520 #### [facility] [address] [place], [address] ALK P 104 U/L Normal 45-117 [facility] Comment on above: Order Comment: Order Date: 03/27/24 Order Info: [id number] - CMP Order Info: [id number] - LIPID Order Info: 3 - TSH Order Info: 1 - PSA Performed By: #### L 501.9910, L500.4100, L500.4050, L100.0500, L501.9520 #### [facility] [address] [place], [address] ALT [Catalytic activity/Vol] 19 U/L Normal 16-61 [facility] Comment on above: Order Comment: Order Date: 03/27/24 Order Info: [id number]- - CMP Order Info: - LIPID Order Info: [id number] - TSH Order Info: [id number] - PSA Performed By: #### L 501.9910, L500.4100, L500.4050, L100.0500, L501.9520 #### [facility] [address] [place], [address] AST [Catalytic activity/Vol] 15 U/L Normal 15-37 [facility] Comment on above: Order Comment: Order Date: 03/27/24 Order Info: [id number] - CMP Order Info: - LIPID Order Info: [id number] - TSH Order Info: [id number] - PSA Performed By: #### L 501.9910, L500.4100, L500.4050, L100.0500, L501.9520 #### [facility] [address] [place], [address] Bilirubin [Mass/Vol] 0.70 mg/dL Normal 0.20-1.00 [facility] Comment on above: Order Comment: Order Date: 03/27/24 Order Info: [id number] - CMP Order Info: - LIPID Order Info: [id number] - TSH Order Info: [id number] - PSA Result Comment: For patients on eltrombopag therapy, use of Dimension [place] TBIL is not recommended. Performed By: #### L 501.9910, L500.4100, L500.4050, L100.0500, L501.9520 #### [facility] [address] [place], [address] BUN/CRE 16.1 RATIO Normal 10-20 [facility] Comment on above: Order Comment: Order Date: 03/27/24 Order Info: [id number] - CMP Order Info: [id number] - LIPID Order Info: 3 - TSH Order Info: [id number] - PSA Performed By: #### L 501.9910, L500.4100, L500.4050, L100.0500, L501.9520 #### [facility] [address] [place], [address] CA,Total 9.5 mg/dL Normal 8.5-10.1 [facility] Comment on above: Order Comment: Order Date: 03/27/24 Order Info: 785-1 - CMP Order Info: [id number] - LIPID Order Info: 3 - TSH Order Info: [id number] - PSA Performed By: #### L 501.9910, L500.4100, L500.4050, L100.0500, L501.9520 #### [facility] [address] [place], [address] Chloride [Moles/Vol] 107 mmol/L Normal 98-107 [facility] Comment on above: Order Comment: Order Date: 03/27/24 Order Info: [id number] - CMP Order Info: - LIPID Order Info: [id number] - TSH Order Info: [id number] - PSA Performed By: #### L 501.9910, L500.4100, L500.4050, L100.0500, L501.9520 #### [facility] [address] [place], [address] CO2 [Moles/Vol] 30.0 mmol/L Normal 21.0-32.0 [facility] Comment on above: Order Comment: Order Date: 03/27/24 Order Info: [id number] - CMP Order Info: - LIPID Order Info: 3 - TSH Order Info: 2857-1 - PSA Performed By: #### L 501.9910, L500.4100, L500.4050, L100.0500, L501.9520 #### [facility] [address] [place], [address] Creatinine [Mass/Vol] 1.18 mg/dL Normal 0.70-1.30 [facility] Comment on above: Order Comment: Order Date: 03/27/24 Order Info: 785- - CMP Order Info: - LIPID Order Info: [id number] - TSH Order Info: [id number] - PSA Result Comment: The validity of the calculated GFR GFRAA in patients over 70 years has not been determined. Clinical correlation is essential. Performed By: #### L 501.9910, L500.4100, L500.4050, L100.0500, L501.9520 #### [facility] [address] [place], [address] EST GFR - AA 77 mL/min Normal >60 [facility] Comment on above: Order Comment: Order Date: 03/27/24 Order Info: 785-08 - CMP Order Info: [id number] - LIPID Order Info: [id number] - TSH Order Info: [id number] - PSA Result Comment: Afri can Nigerian GFR Calc Performed By: #### L 501.9910, L500.4100, L500.4050, L100.0500, L501.9520 #### [facility] [address] [place], [address] GAP 3 Low 5-15 [facility] Comment on above: Order Comment: Order Date: 03/27/24 Order Info: [id number] - CMP Order Info: - LIPID Order Info: [id number] - TSH Order Info: [id number] - PSA Performed By: #### L 501.9910, L500.4100, L500.4050, L100.0500, L501.9520 #### [facility] [address] [place], [place], [address] GFR/1.73 sq M.predicted among non-blacks MDRD (S/P/Bld) [Vol rate/Area] 64 mL/min/{1.73_m2} Normal >60 [facility] Comment on above: Order Comment: Order Date: 03/27/24 Order Info: [id number] - CMP Order Info: - LIPID Order Info: [id number] - TSH Order Info: [id number] - PSA Result Comment: Non- GFR Calc Performed By: #### L 501.9910, L500.4100, L500.4050, L100.0500, L501.9520 #### [facility] [address] [place], [address] Globulin (S) [Mass/Vol] 4.0 g/dL Normal 2.2-4.2 [facility] Comment on above: Order Comment: Order Date: 03/27/24 Order Info: [id number] - CMP Order Info: - LIPID Order Info: [id number] - TSH Order Info: [id number] - PSA Performed By: #### L 501.9910, L500.4100, L500.4050, L100.0500, L501.9520 #### [facility] [address] [place], [address] Glucose [Mass/Vol] 104 mg/dL Normal 74-106 [facility] Comment on above: Order Comment: Order Date: 03/27/24 Order Info: [id number] - CMP Order Info: - LIPID Order Info: [id number] - TSH Order Info: [id number] - PSA Result Comment: Fast ing Glucose result from 100 to 125 mg/dL suggests IMPAIRED HOMEOSTASIS per A.D.A. criteria. Performed By: #### L 501.9910, L500.4100, L500.4050, L100.0500, L501.9520 #### [facility] [address] [place], [address] Potassium [Moles/Vol] 3.8 mmol/L Normal 3.5-5.1 [facility] Comment on above: Order Comment: Order Date: 03/27/24 Order Info: [id number] - CMP Order Info: - LIPID Order Info: [id number] - TSH Order Info: [id number] - PSA Performed By: #### L 501.9910, L500.4100, L500.4050, L100.0500, L501.9520 #### [facility] [address] [place], [address] Sodium [Moles/Vol] 141 mmol/L Normal 136-145 [facility] Comment on above: Order Comment: Order Date: 03/27/24 Order Info: 86-1 - CMP Order Info: [id number] - LIPID Order Info: 3 - TSH Order Info: 1 - PSA Performed By: #### L 501.9910, L500.4100, L500.4050, L100.0500, L501.9520 #### [facility] [address] [place], [address] T PROT 7.1 g/dL Normal 6.4-8.2 [facility] Comment on above: Order Comment: Order Date: 03/27/24 Order Info: [id number] - CMP Order Info: - LIPID Order Info: [id number] - TSH Order Info: [id number] - PSA Performed By: #### L 501.9910, L500.4100, L500.4050, L100.0500, L501.9520 #### [facility] [address] [place], [address] Urea nitrogen [Mass/Vol] 19 mg/dL High 7-18 [facility] Comment on above: Order Comment: Order Date: 03/27/24 Order Info: [id number] - CMP Order Info: [id number] - LIPID Order Info: 3 - TSH Order Info: 71 - PSA Performed By: #### L 501.9910, L500.4100, L500.4050, L100.0500, L501.9520 #### [facility] [address] [place], [address] Erythrocyte distribution wid th ratioOrdered By: Roxie Damon on 07-18-2024 Erythrocyte distribution width (RBC) [Ratio] 16.1 % High 11.6-14.6 [facility] Erythrocyte distribution wid th standard deviationOrdered By: Roxie Damon on 07-18-2024 Erythrocyte distribution width (RBC) [Entitic vol] 54.3 fL High 35.1-43.9 [facility] Estimated glomerular filtrat ion rate (GFR) AmericanOrdered By: Roxie Damon on 07-18-2024 Estimated GFR (MDRD) Amer 77 mL/min >60 [facility] Comment on above: GFR Calc Glomerular filtration rate ( GFR) estimationOrdered By: Roxie Damon on 07-18-2024 Estimated GFR (MDRD) Non-Af Amer 64 mL/min >60 [facility] Comment on above: Non- GFR Calc Glucose measurementOrdered B y: Roxie Damon on 07-18-2024 Glucose [Mass/Vol] 104 mg/dL 74-106 [facility] Comment on above: Fasting Glucose resu lt from 100 to 125 mg/dL suggests IMPAIRED HOMEOSTASIS per A.D.A. criteria. Hematocrit Auto (Bld) [Volum e fraction]Ordered By: Roxie Damon on 07-18-2024 Hematocrit (Bld) [Volume fraction] 41.6 % 40-54 [facility] Hemoglobin measurementOrdere d By: Roxie Damon on 07-18-2024 Hemoglobin (Bld) [Mass/Vol] 13.0 g/dL 13.0-16.5 [facility] High density lipoprotein (HD L) measurementOrdered By: Roxie Damon on 07-18-2024 Cholesterol in HDL [Mass/Vol] 47 mg/dL >40 [facility] Comment on above: The drugs N-Acetylcy steine and Metamizole may falsely depress this assay. Reference Range HDL <40 mg/dL Low HDL Cholesterol HDL >or= 60 mg/dL High HDL Cholesterol Laboratory - Chemistry and C hemistry - challengeOrdered By: Roxie Damon on 07-18-2024 AST [Catalytic activity/Vol] 15 U/L 15-37 [facility] Lipid Profileon 07-18-2024 Cholesterol [Mass/Vol] 146 mg/dL Normal 200 [facility] Comment on above: Order Comment: Order Date: 03/27/24 Order Info: [id number] - CMP Order Info: - LIPID Order Info: [id number] - TSH Order Info: [id number] - PSA Result Comment: <200 mg/dL Desirable 200-240 mg/dL Borderline >240 mg/dL High Risk Performed By: #### L 501.9910, L500.4100, L500.4050, L100.0500, L501.9520 #### [facility] [address] [place], [address] Cholesterol in HDL [Mass/Vol] 47 mg/dL Normal [facility] Comment on above: Order Comment: Order Date: 03/27/24 Order Info: [id number] - CMP Order Info: - LIPID Order Info: [id number] - TSH Order Info: [id number] - PSA Result Comment: The drugs N-Acetylcysteine and Metamizole may falsely depress this assay. Reference Range HDL <40 mg/dL Low HDL Cholesterol HDL >or= 60 mg/dL High HDL Cholesterol Performed By: #### L 501.9910, L500.4100, L500.4050, L100.0500, L501.9520 #### [facility] [address] [place], [address] Cholesterol in LDL [Mass/Vol] 80 mg/dL Normal 0-130 [facility] Comment on above: Order Comment: Order Date: 03/27/24 Order Info: [id number] - CMP Order Info: [id number] - LIPID Order Info: [id number] - TSH Order Info: [id number] - PSA Performed By: #### L 501.9910, L500.4100, L500.4050, L100.0500, L501.9520 #### [facility] [address] [place], [address] Cholesterol in VLDL [Mass/Vol] 19 mg/dL Normal 5-40 [facility] Comment on above: Order Comment: Order Date: 03/27/24 Order Info: [id number] - CMP Order Info: - LIPID Order Info: [id number] - TSH Order Info: [id number] - PSA Performed By: #### L 501.9910, L500.4100, L500.4050, L100.0500, L501.9520 #### [facility] [address] [place], [place], [id number] Triglyceride [Mass/Vol] 96 mg/dL Normal [facility] Comment on above: Order Comment: Order Date: 03/27/24 Order Info: [id number] - CMP Order Info: [id number] - LIPID Order Info: [id number] - TSH Order Info: [id number] - PSA Result Comment: The drugs N-Acetylcysteine and Metamizole may falsely depress this assay. Serum Triglycerides Reference Interval Normal <150 mg/dL Borderline high 150 - 199 mg/dL High 200 - 499 mg/dL Very High > or = 500 mg/dL Performed By: #### L 501.9910, L500.4100, L500.4050, L100.0500, L501.9520 #### [facility] [address] [place], [place], [id number] Low density lipoprotein (LDL ) cholesterol measurementOrdered By: Roxie Damon on 07-18-2024 Cholesterol in LDL [Mass/Vol] 80 mg/dL 0-130 [facility] MCV (mean corpuscular volume ) determinationOrdered By: Roxie Damon on 07-18-2024 MCV (RBC) [Entitic vol] 91.0 fL 80-94 [facility] Mean corpuscular hemoglobin (MCH) determinationOrdered By: Roxie Damon on 07-18-2024 MCH (RBC) [Entitic mass] 28.4 pg 27.0-32.0 [facility] Mean corpuscular hemoglobin concentration (MCHC) determinationOrdered By: Roxie Damon on 07-18-2024 MCHC (RBC) [Mass/Vol] 31.3 g/dL Low 32-36 [facility] Mean platelet volume determi nationOrdered By: Roxie Damon on 07-18-2024 Platelet mean volume (Bld) [Entitic vol] 10.6 fL 6.2-12.0 [facility] PSA,Total - Annual Screenon 07-18-2024 PSA,TOT SCREEN 2.13 ng/mL Normal 0.00-4.00 [facility] Comment on above: Order Comment: Order Date: 03/27/24 Order Info: [id number] - CMP Order Info: [id number] - LIPID Order Info: [id number] - TSH Order Info: [id number] - PSA Result Comment: This test was performed using the TPSA assay method for the [employer] chemistry system. Values obtained with different assay methods cannot be used interchangably. When changing PSA assays in the course of monitoring a patient, additional sequential testing should be carried out to confirm baseline values. Performed By: #### L 501.9910, L500.4100, L500.4050, L100.0500, L501.9520 #### [facility] [address] [place], [address] Platelet countOrdered By: Norbert Damon on 07-18-2024 Platelets (Bld) [#/Vol] 258 10*3/uL 150-450 [facility] Potassium measurementOrdered By: Roxie Damon on 07-18-2024 Potassium [Moles/Vol] 3.8 mmol/L 3.5-5.1 [facility] RBC Auto (Bld) [#/Vol]Ordere d By: Roxie Damon on 07-18-2024 RBC (Bld) [#/Vol] 4.57 10*6/uL Low 4.6-6.2 [facility] Screening prostate specific antigen (PSA) measurementOrdered By: Roxie Damon on 07-18-2024 Prostate Specific Antigen Screen 2.13 ng/mL 0.00-4.00 [facility] Comment on above: This test was perfor med using the TPSA assay method for the[employer] chemistry system. Values obtained with differentassay methods cannot be used interchangably.When changing PSA assays in the course of monitoring apatient, additional sequential testing should be carriedout to confirm baseline values. Serum anion gap measurementO rdered By: Roxie Damon on 07-18-2024 Anion gap [Moles/Vol] 3 mmol/L Low 5-15 [facility] Serum globulin measurementOr dered By: Roxie Damon on 07-18-2024 Globulin (S) [Mass/Vol] 4.0 g/dL 2.2-4.2 [facility] Serum or plasma alanine doss otransferase (ALT) measurementOrdered By: Roxie Damon on 07-18-2024 ALT [Catalytic activity/Vol] 19 U/L 16-61 [facility] Serum or plasma albumin barron urement (mass/volume)Ordered By: Roxie Damon on 07-18-2024 Albumin [Mass/Vol] 3.1 g/dL Low 3.2-5.0 [facility] Serum or plasma alkaline jimmie sphatase measurementOrdered By: Roxie Damon on 07-18-2024 ALP [Catalytic activity/Vol] 104 U/L 45-117 [facility] Serum or plasma calcium barron urement (mass/volume)Ordered By: Roxie Damon on 07-18-2024 Calcium [Mass/Vol] 9.5 mg/dL 8.5-10.1 [facility] Serum or plasma cholesterol measurement (mass/volume)Ordered By: Roxie Damon on 07-18-2024 Cholesterol [Mass/Vol] 146 mg/dL <200 [facility] Comment on above: <200 mg/dL Desirable 200-240 mg/dL Borderline >240 mg/dL High Risk Serum or plasma creatinine m easurement (mass/volume)Ordered By: Roxie Damon on 07-18-2024 Creatinine [Mass/Vol] 1.18 mg/dL 0.70-1.30 [facility] Comment on above: The validity of the calculated GFR & GFRAA in patients over 70 years has not been determined. Clinical correlation is essential. Serum or plasma urea nitroge n measurement (mass/volume)Ordered By: Roxie Damon on 07-18-2024 Urea nitrogen [Mass/Vol] 19 mg/dL High 7-18 [facility] Sodium levelOrdered By: Kathi aDmon on 07-18-2024 Sodium [Moles/Vol] 141 mmol/L 136-145 [facility] TSH QnOrdered By: Nathan Damon on 07-18-2024 Thyroid Stimulating Hormone (TSH) 3.300 uIU/mL 0.358-3.740 [facility] Thyroid Stim Hormone (TSH)on 07-18-2024 TSH 3.300 uIU/mL Normal 0.358-3.740 [facility] Comment on above: Order Comment: Order Date: 03/27/24 Order Info: [id number] - CMP Order Info: [id number] - LIPID Order Info: [id number] - TSH Order Info: [id number] - PSA Performed By: #### L 501.9910, L500.4100, L500.4050, L100.0500, L501.9520 #### [facility] [address] [place], [place], [id number] Total proteinOrdered By: Rosanna Damon on 07-18-2024 Protein [Mass/Vol] 7.1 g/dL 6.4-8.2 [facility] Triglycerides measurementOrd ered By: Roxie Damon on 07-18-2024 Triglyceride [Mass/Vol] 96 mg/dL <199 [facility] Comment on above: The drugs N-Acetylcy steine and Metamizole may falsely depress this assay.Serum Triglycerides Reference Interval Normal <150 mg/dL Borderline high 150 - 199 mg/dL High 200 - 499 mg/dL Very High > or = 500 mg/dL Very low density lipoprotein (VLDL) cholesterol measurementOrdered By: Roxie Damon on 07-18-2024 VLDL Cholesterol 19 mg/dL 5-40 [facility] White blood cell (WBC) count Ordered By: Roxie Damon on 07-18-2024 WBC (Bld) [#/Vol] 8.1 10*3/uL 4.4-11.0 [facility] Basophil percentageOrdered B y: Roxie Damon on 12-08-2023 Chloride [Moles/Vol] 109 mmol/L 98-107 [facility] Glucose [Mass/Vol] 90 mg/dL 74-106 [facility] Potassium [Moles/Vol] 3.8 mmol/L 3.5-5.1 [facility] Sodium [Moles/Vol] 145 mmol/L 136-145 [facility] Laboratory - Chemistry and C hemistry - challengeOrdered By: Roxie Damon on 12-08-2023 CO2 [Moles/Vol] 34.0 mmol/L 21.0-32.0 [facility] Urea nitrogen/Creatinine [Mass ratio] 18.4 mg/mg 10- [facility] No Panel InformationOrdered By: Roxie Damon on 12-08-2023 Estimated GFR (MDRD) Amer 73 mL/min >60 [facility] Comment on above: GFR Calc Estimated GFR (MDRD) Non-Af Amer 60 mL/min >60 [facility] Comment on above: Non- GFR Calc Serum or plasma calcium barron urement (mass/volume)Ordered By: Roxie Damon on 12-08-2023 Calcium [Mass/Vol] 9.3 mg/dL 8.5-10.1 [facility] Serum or plasma creatinine m easurement (mass/volume)Ordered By: Roxie Damon on 12-08-2023 Creatinine [Mass/Vol] 1.25 mg/dL 0.70-1.30 [facility] Comment on above: The validity of the calculated GFR & GFRAA in patients over 70 years has not been determined. Clinical correlation is essential. Serum or plasma urea nitroge n measurement (mass/volume)Ordered By: Roxie Damon on 12-08-2023 Urea nitrogen [Mass/Vol] 23 mg/dL 7-18 [facility] Serum or plasma uric acid me asurement (mass/volume)Ordered By: Roxie Damon on 12-08-2023 Urate [Mass/Vol] 5.9 mg/dL 3.5-7.2 [facility] Comment on above: The drugs N-Acetylcy steine and Metamizole may falsely depress this assay. Thin prep Papanicolaou smear with manual screeningOrdered By: Roxie Damon on 12-08-2023 Thin prep Papanicolaou smear with manual screening 2 5-15 [facility] Basophil percentageOrdered B y: Davide Vasques on 06-25-2023 Chloride [Moles/Vol] 105 mmol/L 98-107 [facility] Glucose [Mass/Vol] 106 mg/dL 74-106 [facility] Comment on above: Fasting Glucose resu lt from 100 to 125 mg/dL suggests IMPAIRED HOMEOSTASIS per A.D.A. criteria. Potassium [Moles/Vol] 3.3 mmol/L 3.5-5.1 [facility] Sodium [Moles/Vol] 142 mmol/L 136-145 [facility] Glucose Glucometer (BldC) [M ass/Vol]Ordered By: Davide Vasques on 06-25-2023 Glucose [Mass/Vol] 159 mg/dL 74-106 [facility] Comment on above: MANAGEMENT OF PATIEN T CARE PER NURSING PROTOCOL Laboratory - Chemistry and C hemistry - challengeOrdered By: Davide Vasques on 06-25-2023 CO2 [Moles/Vol] 34.0 mmol/L 21.0-32.0 [facility] Urea nitrogen/Creatinine [Mass ratio] 18.1 mg/mg 10-20 [facility] No Panel InformationOrdered By: Davide Vasques on 06-25-2023 Estimated Creatinine Clearance Calc 58.56 ml/min [facility] Estimated GFR (MDRD) Amer 79 mL/min >60 [facility] Comment on above: GFR Calc Estimated GFR (MDRD) Non-Af Amer 66 mL/min >60 [facility] Comment on above: Non- GFR Calc Serum or plasma calcium barron urement (mass/volume)Ordered By: Davide Vasques on 06-25-2023 Calcium [Mass/Vol] 8.9 mg/dL 8.5-10.1 [facility] Serum or plasma creatinine m easurement (mass/volume)Ordered By: Davide Vasques on 06-25-2023 Creatinine [Mass/Vol] 1.16 mg/dL 0.70-1.30 [facility] Comment on above: The validity of the calculated GFR & GFRAA in patients over 70 years has not been determined. Clinical correlation is essential. Serum or plasma urea nitroge n measurement (mass/volume)Ordered By: Davide Vasques on 06-25-2023 Urea nitrogen [Mass/Vol] 21 mg/dL 7-18 [facility] Thin prep Papanicolaou smear with manual screeningOrdered By: Davide Vasques on 06-25-2023 Thin prep Papanicolaou smear with manual screening 3 5-15 [facility] Absolute lymphocyte countOrd ered By: Davide Vasques on 06-24-2023 Lymphocytes Auto (Unsp spec) [#/Vol] 1.02 10*3/uL 0.83-4.51 [facility] Basophil percentageOrdered B y: Davide Vasques on 06-24-2023 Basophils/100 WBC (Bld) 0.4 % 0-1 [facility] Eosinophils/100 WBC (Bld) 2.6 % 0-5 [facility] Neutrophils (Bld) [#/Vol] 5.1 10*3/uL 2.0-7.7 [facility] Neutrophils/100 WBC (Bld) 70.5 % 47-70 [facility] WBC (Bld) [#/Vol] 7.2 10*3/uL 4.4-11.0 [facility] Blood erythrocytes count (nu mber/volume)Ordered By: aDvide Vasques on 06-24-2023 RBC (Bld) [#/Vol] 4.60 10*6/uL 4.6-6.2 [facility] Blood hemoglobin measurement (mass/volume)Ordered By: Davide Vasques on 06-24-2023 Hemoglobin (Bld) [Mass/Vol] 11.9 g/dL 13.0-16.5 [facility] Blood lymphocytes/100 leukoc ytesOrdered By: Davide Vasques on 06-24-2023 Lymphocytes/100 WBC (Bld) 14.2 % 19-41 [facility] Blood monocytes/100 leukocyt esOrdered By: Davide Vasques on 06-24-2023 Monocytes/100 WBC (Bld) 12.0 % 0-10 [facility] Blood platelet mean volumeOr dered By: Davide Vasques on 06-24-2023 Platelet mean volume (Bld) [Entitic vol] 10.7 fL 6.2-12.0 [facility] Determination of erythrocyte mean corpuscular volume (MCV)Ordered By: Davide Vasques on 06-24-2023 MCV (RBC) [Entitic vol] 85.9 fL 80-94 [facility] Hematocrit Auto (Bld) [Volum e fraction]Ordered By: Davide Vasques on 06-24-2023 Hematocrit (Bld) [Volume fraction] 39.5 % 40-54 [facility] - Hematology and Cell countsOrdered By: Davide Vasques on 06-24-2023 Erythrocyte distribution width (RBC) [Entitic vol] 56.6 fL 35.1-43.9 [facility] Erythrocyte distribution width (RBC) [Ratio] 18.2 % 11.6-14.6 [facility] Immature granulocytes/100 WBC (Bld) 0.300 % 0.0-0.9 [facility] Comment on above: IG% - Immature Granu locytes (promyelocytes, myelocytes and metamyelocytes) > 1% indicates that a LEFT SHIFT is Present. MCH (RBC) [Entitic mass] 25.9 pg 27.0-32.0 [facility] Nucleated RBC/100 WBC (Bld) [Ratio] 0 % 0-5 [facility] MCHC Auto (RBC) [Mass/Vol]Or dered By: Davide Vasques on 06-24-2023 MCHC (RBC) [Mass/Vol] 30.1 g/dL 32-36 [facility] Platelets bldOrdered By: Fernando Vasques on 06-24-2023 Platelets (Bld) [#/Vol] 195 10*3/uL 150-450 [facility] Absolute lymphocyte countOrd ered By: Konrad Maldonado on 06-23-2023 Lymphocytes Auto (Unsp spec) [#/Vol] 1.36 10*3/uL 0.83-4.51 [facility] Amorphous sediment detection in urine sediment by light microscopyOrdered By: Konrad Maldonado on 06-23-2023 Amorphous sediment LM Ql (Urine sed) 1+ [facility] Basophil percentageOrdered B y: Konrad Maldonado on 06-23-2023 Basophil percentage 0 SEEN /hpf 0-5 [facility] Basophils/100 WBC (Bld) 0.7 % 0-1 [facility] Bilirubin [Mass/Vol] 1.80 mg/dL 0.20-1.00 [facility] Comment on above: For patients on eltr ombopag therapy, use of Dimension [place] TBIL is not recommended. Chloride [Moles/Vol] 110 mmol/L 98-107 [facility] Eosinophils/100 WBC (Bld) 3.9 % 0-5 [facility] Glucose [Mass/Vol] 117 mg/dL 74-106 [facility] Comment on above: Fasting Glucose resu lt from 100 to 125 mg/dL suggests IMPAIRED HOMEOSTASIS per A.D.A. criteria. Neutrophils (Bld) [#/Vol] 6.2 10*3/uL 2.0-7.7 [facility] Neutrophils/100 WBC (Bld) 71.9 % 47-70 [facility] Potassium [Moles/Vol] 3.6 mmol/L 3.5-5.1 [facility] Protein [Mass/Vol] 7.1 g/dL 6.4-8.2 [facility] Sodium [Moles/Vol] 144 mmol/L 136-145 [facility] WBC (Bld) [#/Vol] 8.6 10*3/uL 4.4-11.0 [facility] Basophil percentageOrdered B y: Davide Vasques on 06-23-2023 Basophil percentage 2.5 mg/dL 2.5-4.9 [facility] Bilirubin Test strip Ql (U)O rdered By: Konrad Maldonado on 06-23-2023 Bilirubin Ql (U) Negative Negative [facility] Blood erythrocytes count (nu mber/volume)Ordered By: Konrda Maldonado on 06-23-2023 RBC (Bld) [#/Vol] 5.08 10*6/uL 4.6-6.2 [facility] Blood hemoglobin measurement (mass/volume)Ordered By: Konrad Maldonado on 06-23-2023 Hemoglobin (Bld) [Mass/Vol] 13.4 g/dL 13.0-16.5 [facility] Blood lymphocytes/100 leukoc ytesOrdered By: Konrad Maldonado on 06-23-2023 Lymphocytes/100 WBC (Bld) 15.8 % 19-41 [facility] Blood monocytes/100 leukocyt esOrdered By: Konrad Maldonado on 06-23-2023 Monocytes/100 WBC (Bld) 7.1 % 0-10 [facility] Blood platelet mean volumeOr dered By: Konrad Maldonado on 06-23-2023 Platelet mean volume (Bld) [Entitic vol] 10.9 fL 6.2-12.0 [facility] Determination of erythrocyte mean corpuscular volume (MCV)Ordered By: Konrad Maldonado on 06-23-2023 MCV (RBC) [Entitic vol] 85.6 fL 80-94 [facility] Direct bilirubinOrdered By: Konrad Maldonado on 06-23-2023 Bilirubin.direct [Mass/Vol] 0.48 mg/dL 0.00-0.30 [facility] Hematocrit Auto (Bld) [Volum e fraction]Ordered By: Konrad Maldonado on 06-23-2023 Hematocrit (Bld) [Volume fraction] 43.5 % 40-54 [facility] Ketones Test strip Ql (U)Ord ered By: Konrad Maldonado on 06-23-2023 Ketones Ql (U) 5 mg/dl Negative [facility] - Chemistry and C hemistry - challengeOrdered By: Konrad Maldonado on 06-23-2023 ALP [Catalytic activity/Vol] 111 U/L 45-117 [facility] ALT [Catalytic activity/Vol] 20 U/L 16-61 [facility] CO2 [Moles/Vol] 32.0 mmol/L 21.0-32.0 [facility] Globulin (S) [Mass/Vol] 3.9 g/dL 2.2-4.2 [facility] Natriuretic peptide B (Bld) [Mass/Vol] 118.3 pg/mL 0-100 [facility] Urea nitrogen/Creatinine [Mass ratio] 15.3 mg/mg 10-20 [facility] - Chemistry and C hemistry - challengeOrdered By: Davide Vasques on 06-23-2023 Magnesium [Mass/Vol] 2.1 mg/dL 1.6-2.6 [facility] - Hematology and Cell countsOrdered By: Konrad Maldonado on 06-23-2023 Erythrocyte distribution width (RBC) [Entitic vol] 56.3 fL 35.1-43.9 [facility] Erythrocyte distribution width (RBC) [Ratio] 18.3 % 11.6-14.6 [facility] Immature granulocytes/100 WBC (Bld) 0.600 % 0.0-0.9 [facility] Comment on above: IG% - Immature Granu locytes (promyelocytes, myelocytes and metamyelocytes) > 1% indicates that a LEFT SHIFT is Present. MCH (RBC) [Entitic mass] 26.4 pg 27.0-32.0 [facility] Nucleated RBC/100 WBC (Bld) [Ratio] 0 % 0-5 [facility] MCHC Auto (RBC) [Mass/Vol]Or dered By: Konrad Maldonado on 06-23-2023 MCHC (RBC) [Mass/Vol] 30.8 g/dL 32-36 [facility] Mucus LM Ql (Urine sed)Order ed By: Knorad Maldonado on 06-23-2023 Mucus Ql (Urine sed) 1+ /hpf [facility] Nitrite Test strip Ql (U)Ord ered By: Konrad Maldonado on 06-23-2023 Nitrite Ql (U) Negative Negative [facility] No Panel InformationOrdered By: Konrad Maldonado on 06-23-2023 Estimated Creatinine Clearance Calc 57.57 ml/min [facility] Estimated GFR (MDRD) Amer 78 mL/min >60 [facility] Comment on above: GFR Calc Estimated GFR (MDRD) Non-Af Amer 64 mL/min >60 [facility] Comment on above: Non- GFR Calc Troponin I High Sensitivity 41 pg/mL 3.0-78.0 [facility] Comment on above: Please Note: [place] t Units and Gender Specific Reference Ranges. For more information see Policy Stat Procedure [place] High Sensitivity Troponin (TNIH) and attachments. Platelets bldOrdered By: Aleksey Maldonado on 06-23-2023 Platelets (Bld) [#/Vol] 228 10*3/uL 150-450 [facility] Protein Test strip Ql (U)Ord ered By: Konrad Maldonado on 06-23-2023 Protein Ql (U) 15 mg/dl Negative [facility] Serum or plasma albumin barron urement (mass/volume)Ordered By: Konrad Maldonado on 06-23-2023 Albumin [Mass/Vol] 3.2 g/dL 3.2-5.0 [facility] Serum or plasma calcium barron urement (mass/volume)Ordered By: Konrad Maldonado on 06-23-2023 Calcium [Mass/Vol] 8.9 mg/dL 8.5-10.1 [facility] Serum or plasma creatinine m easurement (mass/volume)Ordered By: Konrad Maldonado on 06-23-2023 Creatinine [Mass/Vol] 1.18 mg/dL 0.70-1.30 [facility] Comment on above: The validity of the calculated GFR & GFRAA in patients over 70 years has not been determined. Clinical correlation is essential. Serum or plasma urea nitroge n measurement (mass/volume)Ordered By: Konrad Maldonado on 06-23-2023 Urea nitrogen [Mass/Vol] 18 mg/dL 7-18 [facility] Squamous epithelial cells de tection in urine sediment by light microscopyOrdered By: Konrad Maldonado on 06-23-2023 Epithelial cells.squamous LM Ql (Urine sed) 0 SEEN /hpf 0-5 [facility] Thin prep Papanicolaou smear with manual screeningOrdered By: Konrad Maldonado on 06-23-2023 Thin prep Papanicolaou smear with manual screening 13 U/L 15-37 [facility] Thin prep Papanicolaou smear with manual screening 2 5-15 [facility] Urine blood detectionOrdered By: Konrad Maldonado on 06-23-2023 RBC Ql (U) Negative Negative [facility] RBC Ql (U) 0 SEEN /hpf 0-5 [facility] Urine clarityOrdered By: Aleksey Maldonado on 06-23-2023 Clarity (U) Clear Clear [facility] Urine color determinationOrd ered By: Konrad Maldonado on 06-23-2023 Color (U) Yellow Yellow [facility] Urine glucose detectionOrder ed By: Konrad Maldonado on 06-23-2023 Glucose Ql (U) Normal mg/dl Normal [facility] Urine leukocyte esterase det ection by dipstickOrdered By: Konrad Maldonado on 06-23-2023 Leukocyte esterase Test strip Ql (U) Negative Negative [facility] Urine pHOrdered By: Konrad morillo on 06-23-2023 pH (U) 7.0 [pH] 5.0 - 8.0 [facility] Urine sediment bacteria coun t by microscopy (number/high power field)Ordered By: Konrad Maldonado on 06-23-2023 Bacteria LM.HPF (Urine sed) [#/Area] 0 /[HPF] None Seen [facility] Urine specific gravity measu rementOrdered By: Konrad Maldonado on 06-23-2023 Specific gravity (U) [Rel density] 1.010 1.002-1.030 [facility] Urobilinogen Auto test strip Ql (U)Ordered By: Konrad Maldonado on 06-23-2023 Urobilinogen Ql (U) 8 mg/dl Normal [facility] Basophil percentageOrdered B y: Nathan Damon on 03-23-2023 Bilirubin [Mass/Vol] 0.70 mg/dL 0.20-1.00 [facility] Comment on above: For patients on eltr ombopag therapy, use of Dimension [place] TBIL is not recommended. Chloride [Moles/Vol] 111 mmol/L 98-107 [facility] Cholesterol [Mass/Vol] 111 mg/dL <200 [facility] Comment on above: <200 mg/dL Desirable 200-240 mg/dL Borderline >240 mg/dL High Risk Glucose [Mass/Vol] 89 mg/dL 74-106 [facility] Potassium [Moles/Vol] 3.8 mmol/L 3.5-5.1 [facility] Protein [Mass/Vol] 6.7 g/dL 6.4-8.2 [facility] Sodium [Moles/Vol] 145 mmol/L 136-145 [facility] Triglyceride [Mass/Vol] 134 mg/dL <199 [facility] Comment on above: The drugs N-Acetylcy steine and Metamizole may falsely depress this assay.Serum Triglycerides Reference Interval Normal <150 mg/dL Borderline high 150 - 199 mg/dL High 200 - 499 mg/dL Very High > or = 500 mg/dL Laboratory - Chemistry and C hemistry - challengeOrdered By: Nathan Damon on 03-23-2023 Natriuretic peptide B (Bld) [Mass/Vol] 59.9 pg/mL 0-100 [facility] ALP [Catalytic activity/Vol] 109 U/L 45-117 [facility] ALT [Catalytic activity/Vol] 22 U/L 16-61 [facility] CO2 [Moles/Vol] 30.0 mmol/L 21.0-32.0 [facility] Cobalamin (Vitamin B12) [Mass/Vol] 643 pg/mL 211-911 [facility] Globulin (S) [Mass/Vol] 3.6 g/dL 2.2-4.2 [facility] Urea nitrogen/Creatinine [Mass ratio] 14.6 mg/mg 10-20 [facility] No Panel InformationOrdered By: Nathan Damon on 03-23-2023 Estimated GFR (MDRD) Amer 70 mL/min >60 [facility] Comment on above: GFR Calc Estimated GFR (MDRD) Non-Af Amer 57 mL/min >60 [facility] Comment on above: Non- GFR Calc Serum or plasma albumin barron urement (mass/volume)Ordered By: Nathan Damon on 03-23-2023 Albumin [Mass/Vol] 3.1 g/dL 3.2-5.0 [facility] Serum or plasma albumin/glob ulin mass ratioOrdered By: Nathan Damon on 03-23-2023 Albumin/Globulin [Mass ratio] 0.9 {ratio} 0.9-2.4 [facility] Serum or plasma calcium barron urement (mass/volume)Ordered By: Nathan Damon on 03-23-2023 Calcium [Mass/Vol] 8.8 mg/dL 8.5-10.1 [facility] Serum or plasma cholesterol in HDL measurement (mass/volume)Ordered By: Nathan Damon on 03-23-2023 Cholesterol in HDL [Mass/Vol] 36 mg/dL >40 [facility] Comment on above: The drugs N-Acetylcy steine and Metamizole may falsely depress this assay. Reference Range HDL <40 mg/dL Low HDL Cholesterol HDL >or= 60 mg/dL High HDL Cholesterol Serum or plasma cholesterol in VLDL measurement (mass/volume)Ordered By: Nathan Damon on 03-23-2023 Cholesterol in VLDL [Mass/Vol] 27 mg/dL 5-40 [facility] Serum or plasma creatinine m easurement (mass/volume)Ordered By: Nathan Damon on 03-23-2023 Creatinine [Mass/Vol] 1.30 mg/dL 0.70-1.30 [facility] Comment on above: The validity of the calculated GFR & GFRAA in patients over 70 years has not been determined. Clinical correlation is essential. Serum or plasma low density lipoprotein (LDL) cholesterol measurement (mass/volume)Ordered By: Nathan Damon on 03-23-2023 Cholesterol in LDL [Mass/Vol] 48 mg/dL 0-130 [facility] Serum or plasma urea nitroge n measurement (mass/volume)Ordered By: Nathan Damon on 03-23-2023 Urea nitrogen [Mass/Vol] 19 mg/dL 7-18 [facility] Thin prep Papanicolaou smear with manual screeningOrdered By: Nathan Damon on 03-23-2023 Thin prep Papanicolaou smear with manual screening 15 U/L 15-37 [facility] Thin prep Papanicolaou smear with manual screening 4 5-15 [facility] Absolute lymphocyte countOrd ered By: Hu Fields on 03-13-2023 Lymphocytes Auto (Unsp spec) [#/Vol] 1.53 10*3/uL 0.83-4.51 [facility] Basophil percentageOrdered B y: Hu Fields on 03-13-2023 Basophils/100 WBC (Bld) 0.4 % 0-1 [facility] Chloride [Moles/Vol] 109 mmol/L 98-107 [facility] Eosinophils/100 WBC (Bld) 4.2 % 0-5 [facility] Glucose [Mass/Vol] 112 mg/dL 74-106 [facility] Comment on above: Fasting Glucose resu lt from 100 to 125 mg/dL suggests IMPAIRED HOMEOSTASIS per A.D.A. criteria. Neutrophils (Bld) [#/Vol] 4.5 10*3/uL 2.0-7.7 [facility] Neutrophils/100 WBC (Bld) 65.0 % 47-70 [facility] Potassium [Moles/Vol] 4.0 mmol/L 3.5-5.1 [facility] Sodium [Moles/Vol] 142 mmol/L 136-145 [facility] WBC (Bld) [#/Vol] 6.9 10*3/uL 4.4-11.0 [facility] Blood erythrocytes count (nu mber/volume)Ordered By: Hu Fields on 03-13-2023 RBC (Bld) [#/Vol] 4.80 10*6/uL 4.6-6.2 [facility] Blood hemoglobin measurement (mass/volume)Ordered By: Hu Fields on 03-13-2023 Hemoglobin (Bld) [Mass/Vol] 13.6 g/dL 13.0-16.5 [facility] Blood lymphocytes/100 leukoc ytesOrdered By: Hu Fields on 03-13-2023 Lymphocytes/100 WBC (Bld) 22.1 % 19-41 [facility] Blood monocytes/100 leukocyt esOrdered By: Hu Fields on 03-13-2023 Monocytes/100 WBC (Bld) 7.9 % 0-10 [facility] Blood platelet mean volumeOr dered By: Hu Fields on 03-13-2023 Platelet mean volume (Bld) [Entitic vol] 10.1 fL 6.2-12.0 [facility] Determination of erythrocyte mean corpuscular volume (MCV)Ordered By: Hu Fields on 03-13-2023 MCV (RBC) [Entitic vol] 88.1 fL 80-94 [facility] Hematocrit Auto (Bld) [Volum e fraction]Ordered By: Hu Fields on 03-13-2023 Hematocrit (Bld) [Volume fraction] 42.3 % 40-54 [facility] Laboratory - Chemistry and C hemistry - challengeOrdered By: Hu Fields on 03-13-2023 CO2 [Moles/Vol] 30.0 mmol/L 21.0-32.0 [facility] Urea nitrogen/Creatinine [Mass ratio] 14.8 mg/mg 10-20 [facility] Laboratory - Hematology and Cell countsOrdered By: Hu Fields on 03-13-2023 Erythrocyte distribution width (RBC) [Entitic vol] 52.7 fL 35.1-43.9 [facility] Erythrocyte distribution width (RBC) [Ratio] 16.4 % 11.6-14.6 [facility] Immature granulocytes/100 WBC (Bld) 0.400 % 0.0-0.9 [facility] Comment on above: IG% - Immature Granu locytes (promyelocytes, myelocytes and metamyelocytes) > 1% indicates that a LEFT SHIFT is Present. MCH (RBC) [Entitic mass] 28.3 pg 27.0-32.0 [facility] Nucleated RBC/100 WBC (Bld) [Ratio] 0 % 0-5 [facility] MCHC Auto (RBC) [Mass/Vol]Or dered By: Hu Fields on 03-13-2023 MCHC (RBC) [Mass/Vol] 32.2 g/dL 32-36 [facility] No Panel InformationOrdered By: Hu Fields on 03-13-2023 Estimated Creatinine Clearance Calc 55.68 ml/min [facility] Estimated GFR (MDRD) Amer 75 mL/min >60 [facility] Comment on above: GFR Calc Estimated GFR (MDRD) Non-Af Amer 62 mL/min >60 [facility] Comment on above: Non- GFR Calc Platelets bldOrdered By: Srinivasa Fields on 03-13-2023 Platelets (Bld) [#/Vol] 218 10*3/uL 150-450 [facility] Serum or plasma calcium barron urement (mass/volume)Ordered By: Hu Fields on 03-13-2023 Calcium [Mass/Vol] 9.0 mg/dL 8.5-10.1 [facility] Serum or plasma creatinine m easurement (mass/volume)Ordered By: Hu Fields on 03-13-2023 Creatinine [Mass/Vol] 1.22 mg/dL 0.70-1.30 [facility] Comment on above: The validity of the calculated GFR & GFRAA in patients over 70 years has not been determined. Clinical correlation is essential. Serum or plasma urea nitroge n measurement (mass/volume)Ordered By: Hu Fields on 03-13-2023 Urea nitrogen [Mass/Vol] 18 mg/dL 7-18 [facility] Thin prep Papanicolaou smear with manual screeningOrdered By: Hu Fields on 03-13-2023 Thin prep Papanicolaou smear with manual screening 3 -15 [facility] COLONOSCOPY SCREENINGon 05-3 [facility] Colonoscopyon 01-05-2023 Colonoscopy [facility] G[facility] Endoscopy Patient Name: Adarsh Mayer Procedure Date: 01/05/2023 9:38 AM Date of : 1950 Admit Type: Outpatient Age: 72 Gender: Male Note Status: Finalized Procedure: Colonoscopy Indications: Screening in patient at increased risk: Family history of 1st-degree relative with colorectal cancer Providers: Riley Jaeger MD Patient Profile: This is a 72 year old male. Refer to note in patient chart for documentation of history and physical. Last Colonoscopy: 3 years ago. Referring Physician: Melany Crespo (pa) (Referring MD) Medicines: Midazolam 4 mg IV, Fentanyl 75 micrograms IV Complications: No immediate complications. Requesting Provider: Procedure: Pre-Anesthesia Assessment: - Prior to the procedure, a History and Physical was performed, and patient medications and allergies were reviewed. The patient is competent. The risks and benefits of the procedure and the sedation options and risks were discussed with the patient. All questions were answered and informed consent was obtained. Patient identification and proposed procedure were verified by the physician, the nurse and the boiler washer in the procedure room. Mental Status Examination: alert and oriented. Respiratory Examination: clear to auscultation. Prophylactic Antibiotics: The patient does not require prophylactic antibiotics. Prior Anticoagulants: The patient has taken Plavix (clopidogrel), last dose was 1 day prior to procedure. ASA Grade Assessment: III - A patient with severe systemic disease. After reviewing the risks and benefits, the patient was deemed in satisfactory condition to undergo the procedure. The anesthesia plan was to use moderate sedation / analgesia (conscious sedation). Immediately prior to administration of medications, the patient was re-assessed for adequacy to receive sedatives. The heart rate, respiratory rate, oxygen saturations, blood pressure, adequacy of pulmonary ventilation, and response to care were monitored throughout the procedure. The physical status of the patient was re-assessed after the procedure. After I obtained informed consent, the scope was passed under direct vision. Throughout the procedure, the patient's blood pressure, pulse, and oxygen saturations were monitored continuously. The Colonoscope was introduced through the anus and advanced to the cecum, identified by the appendiceal orifice, ileocecal valve and palpation. The colonoscopy was performed without difficulty. The patient tolerated the procedure well. The quality of the bowel preparation was good. The ileocecal valve, appendiceal orifice, and rectum were photographed. Moderate Sedation: Moderate (conscious) sedation was personally administered by the endoscopist. The following parameters were monitored: oxygen saturation, heart rate, blood pressure, and response to care. Total physician intraservice time was 17 minutes. The administration of moderate sedation was initiated at 09:50 AM. Findings: Hemorrhoids were found on perianal exam. Many small and large-mouthed diverticula were found in the entire colon. The exam was otherwise without abnormality on direct and retroflexion views. Impression: - Hemorrhoids found on perianal exam. - Diverticulosis in the entire examined colon. - The examination was otherwise normal on direct and retroflexion views. - No specimens collected. Recommendation: - Discharge patient to home. - Resume previous diet. - Continue present medications. - Repeat colonoscopy in 5 years for screening purposes. - Resume Plavix (clopidogrel) today at prior dose. - Patient has a contact number available for emergencies. The signs and symptoms of potential delayed complications were discussed with the patient. Return to normal activities tomorrow. Written discharge instructions were provided to the patient. Procedure Code(s): --- Professional --- 52214, Colonoscopy, flexible; diagnostic, including collection of specimen(s) by brushing or washing, when performed (separate procedure) G0500, Moderate sedation services provided by the same physician or other qualified health care transitions manager performing a gastrointestinal endoscopic service that sedation supports, requiring the presence of an independent trained observer to assist in the monitoring of the patient's level of consciousness and physiological status; initial 15 minutes of intra-service time; patient age 5 years or older (additional time may be reported with 76068, as appropriate) CPT copyright 202 [employer]. All rights reserved. The codes documented in this report are preliminary and upon drapery estimator review may be revised to meet current compliance requirements. Attending Participation: I was present and participated during the entire procedure, including non-zimmerman portions, and durin (more content not included)... [facility] GLUCOSE, BLOOD (POC)on 01-05 Glucose [Mass/Vol] 96 mg/dL 74 - 99 mg/dL [facility] HISTORY PHYSICALon HISTORY PHYSICAL HNO ID: [id number] Author: Riley Jaeger MD Service: General Surgery Author Type: Physician Type: HANDP Filed: 01/05/2023 8:42 AM Note Text: HISTORY AND PHYSICAL Adarsh Mayer 1950 REFERRING PHYSICIAN: No ref. provider found CHIEF COMPLAINT: Consult (colonoscopy) HPI: The patient is a 72 year old male referred for endoscopy. Adarsh notes no colon complaints. Patient denies any change in bowel habits, weight changes, blood in stools, black tarry stools or abdominal pain. Denies family history of colon issues. The patient notes no upper GI complaints. Adarsh has undergone prior endoscopy. Last colonoscopy with removal of adenomatous polyps, 3 year follow up recommended. Denies problems with sedation in the past. PAST MEDICAL HISTORY PAST MEDICAL HISTORY Diagnosis Date Coronary artery disease DM (diabetes mellitus), type 2 (HCC) GERD (gastroesophageal reflux disease) HTN (hypertension) Hypercholesterolemia NE (myocardial infarction) (HCC) PAST SURGICAL HISTORY PAST SURGICAL HISTORY Procedure Laterality Date COLONOSCOPY 06/26/2014 COLONOSCOPY FLX DX W/COLLJ SPEC WHEN PFRMD 09/19/2019 Colonoscopy HEART CATHETERIZATION 2015 with stent placement REMOVE CATARACT, INSERT LENS,EX 2012 REPAIR FIRST ABDOMINAL WALL HERNIA 02/03/13 medium ventralex TONSILLECTOMY PRIMARY/SECONDARY Tonsillectomy VASECTOMY UNI/BI SPX W/POSTOP SEMEN EXAMS CURRENT MEDICATIONS Current Outpatient Medications Medication Sig allopurinol (ZYLOPRIM) 100 mg tablet Take 100 mg by mouth twice daily. furosemide (LASIX) 20 mg tablet Take 20 mg by mouth twice daily. potassium chloride SR (MICRO-K) 10 mEq CR capsule Take 20 mEq by mouth once daily. atorvastatin (LIPITOR) 80 mg tablet Take 80 mg by mouth once daily. carvedilol (COREG) 12.5 mg tablet Take 12.5 mg by mouth twice daily with meals. clopidogrel (PLAVIX) 75 mg tablet Take 75 mg by mouth once daily. hydroCHLOROthiazide (HYDRODIURIL, ESIDRIX) 25 mg tablet Take 25 mg by mouth once daily. metFORMIN (GLUCOPHAGE) 500 mg tablet Take 500 mg by mouth daily with breakfast. pantoprazole DR (PROTONIX) 40 mg tablet Take 40 mg by mouth once daily. nitroglycerin sublingual (NITROQUICK) 0.4 mg SL tablet Dissolve 0.4 mg under the tongue every 5 minutes as needed. amLODIPine (NORVASC) 5 mg tablet Take 5 mg by mouth once daily. lisinopril (ZESTRIL) 40 mg tablet Take 1 tablet by mouth once daily. (Patient taking differently: Take 20 mg by mouth twice daily.) aspirin, enteric coated (ASPIR-LOW) 81 mg EC tablet Take 1 tablet by mouth once daily. No current facility-administered medications for this visit. ALLERGIES: Brilinta [Ticagrelor] PERSONAL HISTORY: SOCIAL HISTORY Social History Tobacco Use Smoking status: Never Smokeless tobacco: Never Vaping Use Vaping Use: Never used Substance Use Topics Alcohol use: No Drug use: No FAMILY HISTORY: FAMILY HISTORY FAMILY HISTORY Problem Relation Age of Onset Colon Cancer Father Diabetes Father Heart Father Hypertension Father Hypertension Mother REVIEW OF SYMPTOMS: The review of systems data was entered by the nurse and reviewed by me Nursing Notes: Lisa Haro LPN 11/27/2022 3:26 PM Signed REVIEW OF SYSTEMS: General: The patient denies fatigue, denies weight loss, denies weight gain, denies feeling hot, and denies feelings of cold. Eyes: The patient denies glaucoma, denies eye injury/surgery, wears glasses or contacts. Ear/Nose/Throat: The patient NOTES allergies, denies hayfever, denies ear infections, and denies bloody noses. Cardiovascular: The patient denies chest pain, NOTES heart disease, NOTES high blood pressure,denies cardiac stent, denies prior heart attack, denies irregular heart beat, NOTES high cholesterol, denies poor circulation, denies heart failure, other cardiac issues, denies claudication, denies cold feet, denies peripheral arterial stent. Respiratory: The patient denies tuberculosis, denies pneumonia, denies frequent cough, denies pulmonary embolism, denies shortness of breath, and denies coughing up blood. Gastrointestinal: The patient denies difficulty swallowing, denies acid reflux, denies ulcers, denies vomiting, denies jaundice/hepatitis, denies gallbladder problems, denies black or tarry stools, denies hemorrhoids, denies bleeding from rectum, denies diverticulitis, denies constipation, denies diarrhea, denies loss of stool control, and NOTES hernias. Kidney/Bladder: The patient denies kidney stones, denies urine infections, and denies bloody urine. Skin: The patient denies a history of skin cancer, denies bleeding/changing moles, and denies a history of skin rash. Neurologic: The patient denies a history of epilepsy/convulsions, denies headaches, denies head/spinal injuries, and denies stroke/TIA. Psychiatric: The patient denies psychiatric medications, denies depression, and denies voices, denies s (more content not included)... [facility] NURSING PROGon 01-05-2023 NURSING PROG HNO ID: [id number] Author: Zulma Rizzo RN Service: ? Author Type: Registered Nurse Type: Nursing Progress Note Filed: 01/05/2023 10:35 AM Note Text: Patient arrived laying on left side. Patient does not appear to be in any pain at this time. Abdomen appears to be nondistended and soft to palpation. Patient encouraged to belch and pass gas as needed. [facility] CNOVon 11-27-2022 CNOV Office Visit (GENSWS ) ADARSH MAYER ([id number]) 1950 M Date Time Provider Department 11/27/22 3:30 PM MELANY CRESPO During your visit today, we recorded the following information about you: Temperature Pulse Blood pressure Weight 97.9 degrees 67/minute 120/78 120.3 kg Height 1.778 m Lisa Haro LPN 11/27/2022 3:26 PM Signed REVIEW OF SYSTEMS: General: The patient denies fatigue, denies weight loss, denies weight gain, denies feeling hot, and denies feelings of cold. Eyes: The patient denies glaucoma, denies eye injury/surgery, wears glasses or contacts. Ear/Nose/Throat: The patient NOTES allergies, denies hayfever, denies ear infections, and denies bloody noses. Cardiovascular: The patient denies chest pain, NOTES heart disease, NOTES high blood pressure,denies cardiac stent, denies prior heart attack, denies irregular heart beat, NOTES high cholesterol, denies poor circulation, denies heart failure, other cardiac issues, denies claudication, denies cold feet, denies peripheral arterial stent. Respiratory: The patient denies tuberculosis, denies pneumonia, denies frequent cough, denies pulmonary embolism, denies shortness of breath, and denies coughing up blood. Gastrointestinal: The patient denies difficulty swallowing, denies acid reflux, denies ulcers, denies vomiting, denies jaundice/hepatitis, denies gallbladder problems, denies black or tarry stools, denies hemorrhoids, denies bleeding from rectum, denies diverticulitis, denies constipation, denies diarrhea, denies loss of stool control, and NOTES hernias. Kidney/Bladder: The patient denies kidney stones, denies urine infections, and denies bloody urine. Skin: The patient denies a history of skin cancer, denies bleeding/changing moles, and denies a history of skin rash. Neurologic: The patient denies a history of epilepsy/convulsions, denies headaches, denies head/spinal injuries, and denies stroke/TIA. Psychiatric: The patient denies psychiatric medications, denies depression, and denies voices, denies substance abuse. Endocrine: The patient denies thyroid disorders, denies diabetes, and denies hormonal problems. Hematologic: The patient denies a history of bruising, denies bleeding, and denies anemia, denies blood clots. Infections: The patient denies a history of measles and mumps, denies rheumatic fever, and denies sexually transmitted diseases. Musculoskeletal: The patient denies back pain/injury, denies back problems, denies sciatica, denies knee/foot trouble, denies arthritis, or denies gout. When was patient's last Mammogram screening? N/A Last Colonoscopy: 2013 TUNDE Gra PA-C 12/07/2022 7:55 PM Signed HISTORY AND PHYSICAL Adarsh Arenas Moreno 1950 REFERRING PHYSICIAN: No ref. provider found CHIEF COMPLAINT: Consult (colonoscopy) HPI: The patient is a 72 year old male referred for endoscopy. Adarsh notes no colon complaints. Patient denies any change in bowel habits, weight changes, blood in stools, black tarry stools or abdominal pain. Denies family history of colon issues. The patient notes no upper GI complaints. Adarsh has undergone prior endoscopy. Last colonoscopy with removal of adenomatous polyps, 3 year follow up recommended. Denies problems with sedation in the past. PAST MEDICAL HISTORY Diagnosis Date Coronary artery disease DM (diabetes mellitus), type 2 (HCC) GERD (gastroesophageal reflux disease) HTN (hypertension) Hypercholesterolemia NE (myocardial infarction) (HCC) PAST SURGICAL HISTORY Procedure Laterality Date COLONOSCOPY 06/26/2014 COLONOSCOPY FLX DX W/COLLJ SPEC WHEN PFRMD 09/19/2019 Colonoscopy HEART CATHETERIZATION 2016 with stent placement REMOVE CATARACT, INSERT LENS,EX 2012 REPAIR FIRST ABDOMINAL WALL HERNIA 02/03/13 medium ventralex TONSILLECTOMY PRIMARY/SECONDARY Tonsillectomy VASECTOMY UNI/BI SPX W/POSTOP SEMEN EXAMS Current Outpatient Medications Medication Sig allopurinol (ZYLOPRIM) 100 mg tablet Take 100 mg by mouth twice daily. furosemide (LASIX) 20 mg tablet Take 20 mg by mouth twice daily. potassium chloride SR (MICRO-K) 10 mEq CR capsule Take 20 mEq by mouth once daily. atorvastatin (LIPITOR) 80 mg tablet Take 80 mg by mouth once daily. carvedilol (COREG) 12.5 mg tablet Take 12.5 mg by mouth twice daily with meals. clopidogrel (PLAVIX) 75 mg tablet Take 75 mg by mouth once daily. hydroCHLOROthiazide (HYDRODIURIL, ESIDRIX) 25 mg tablet Take 25 mg by mouth once daily. metFORMIN (GLUCOPHAGE) 500 mg tablet Take 500 mg by mouth daily with breakfast. pantoprazole DR (PROTONIX) 40 mg tablet Take 40 mg by mouth once daily. nitroglycerin sublingual (NITROQUICK) 0.4 mg SL tablet Dissolve 0.4 mg under the tongue every 5 minutes as needed. amLODIPine (NORVASC) 5 mg tablet Take 5 mg by mouth once daily (more content not included)... [facility] Basophil percentageOrdered B y: Nathan Damon on 11-24-2022 Bilirubin [Mass/Vol] 0.90 mg/dL 0.20-1.00 [facility] Comment on above: For patients on eltr ombopag therapy, use of Dimension [place] TBIL is not recommended. Chloride [Moles/Vol] 102 mmol/L 98-107 [facility] Cholesterol [Mass/Vol] 133 mg/dL <200 [facility] Comment on above: <200 mg/dL Desirable 200-240 mg/dL Borderline >240 mg/dL High Risk Glucose [Mass/Vol] 121 mg/dL 74-106 [facility] Comment on above: Fasting Glucose resu lt from 100 to 125 mg/dL suggests IMPAIRED HOMEOSTASIS per A.D.A. criteria. Potassium [Moles/Vol] 3.9 mmol/L 3.5-5.1 [facility] Protein [Mass/Vol] 6.9 g/dL 6.4-8.2 [facility] Sodium [Moles/Vol] 140 mmol/L 136-145 [facility] Triglyceride [Mass/Vol] 111 mg/dL <199 [facility] Comment on above: The drugs N-Acetylcy steine and Metamizole may falsely depress this assay.Serum Triglycerides Reference Interval Normal <150 mg/dL Borderline high 150 - 199 mg/dL High 200 - 499 mg/dL Very High > or = 500 mg/dL WBC (Bld) [#/Vol] 13.5 10*3/uL 4.4-11.0 [facility] Blood erythrocytes count (nu mber/volume)Ordered By: Nathan Damon on 11-24-2022 RBC (Bld) [#/Vol] 5.28 10*6/uL 4.6-6.2 [facility] Blood hemoglobin measurement (mass/volume)Ordered By: Nathan Damon on 11-24-2022 Hemoglobin (Bld) [Mass/Vol] 15.0 g/dL 13.0-16.5 [facility] Blood platelet mean volumeOr dered By: Nathan Damon on 11-24-2022 Platelet mean volume (Bld) [Entitic vol] 10.1 fL 6.2-12.0 [facility] Determination of erythrocyte mean corpuscular volume (MCV)Ordered By: Nathan Damon on 11-24-2022 MCV (RBC) [Entitic vol] 88.8 fL 80-94 [facility] Hematocrit Auto (Bld) [Volum e fraction]Ordered By: Nathan Damon on 11-24-2022 Hematocrit (Bld) [Volume fraction] 46.9 % 40-54 [facility] Laboratory - Chemistry and C hemistry - challengeOrdered By: Nathan Damon on 11-24-2022 ALP [Catalytic activity/Vol] 97 U/L 45-117 [facility] ALT [Catalytic activity/Vol] 19 U/L 16-61 [facility] CO2 [Moles/Vol] 32.0 mmol/L 21.0-32.0 [facility] Cobalamin (Vitamin B12) [Mass/Vol] 285 pg/mL 211-911 [facility] Globulin (S) [Mass/Vol] 3.7 g/dL 2.2-4.2 [facility] Urea nitrogen/Creatinine [Mass ratio] 23.6 mg/mg 10-20 [facility] Laboratory - Hematology and Cell countsOrdered By: Nathan Damon on 11-24-2022 Erythrocyte distribution width (RBC) [Entitic vol] 52.7 fL 35.1-43.9 [facility] Erythrocyte distribution width (RBC) [Ratio] 16.1 % 11.6-14.6 [facility] MCH (RBC) [Entitic mass] 28.4 pg 27.0-32.0 [facility] MCHC Auto (RBC) [Mass/Vol]Or dered By: Nathan Damon on 11-24-2022 MCHC (RBC) [Mass/Vol] 32.0 g/dL 32-36 [facility] No Panel InformationOrdered By: Nathan Damon on 11-24-2022 Estimated GFR (MDRD) Amer 74 mL/min >60 [facility] Comment on above: GFR Calc Estimated GFR (MDRD) Non-Af Amer 61 mL/min >60 [facility] Comment on above: Non- GFR Calc Prostate Specific Antigen Screen 1.91 ng/mL 0.00-4.00 [facility] Comment on above: This test was perfor med using the TPSA assay method for the[employer] chemistry system. Values obtained with differentassay methods cannot be used interchangably.When changing PSA assays in the course of monitoring apatient, additional sequential testing should be carriedout to confirm baseline values. Thyroid Stimulating Hormone (TSH) 3.00 uIU/mL 0.358-3.74 [facility] Platelets bldOrdered By: Rosanna Damon on 11-24-2022 Platelets (Bld) [#/Vol] 293 10*3/uL 150-450 [facility] Serum or plasma albumin barron urement (mass/volume)Ordered By: Nathan Damon on 11-24-2022 Albumin [Mass/Vol] 3.2 g/dL 3.2-5.0 [facility] Serum or plasma albumin/glob ulin mass ratioOrdered By: Nathan Damon on 11-24-2022 Albumin/Globulin [Mass ratio] 0.9 {ratio} 0.9-2.4 [facility] Serum or plasma calcium barron urement (mass/volume)Ordered By: Nathan Damon on 11-24-2022 Calcium [Mass/Vol] 9.4 mg/dL 8.5-10.1 [facility] Serum or plasma cholesterol in HDL measurement (mass/volume)Ordered By: Nathan Damon on 11-24-2022 Cholesterol in HDL [Mass/Vol] 54 mg/dL >40 [facility] Comment on above: The drugs N-Acetylcy steine and Metamizole may falsely depress this assay. Reference Range HDL <40 mg/dL Low HDL Cholesterol HDL >or= 60 mg/dL High HDL Cholesterol Serum or plasma cholesterol in VLDL measurement (mass/volume)Ordered By: Nathan Damon on 11-24-2022 Cholesterol in VLDL [Mass/Vol] 22 mg/dL 5-40 [facility] Serum or plasma creatinine m easurement (mass/volume)Ordered By: Nathan Damon on 11-24-2022 Creatinine [Mass/Vol] 1.23 mg/dL 0.70-1.30 [facility] Comment on above: The validity of the calculated GFR & GFRAA in patients over 70 years has not been determined. Clinical correlation is essential. Serum or plasma low density lipoprotein (LDL) cholesterol measurement (mass/volume)Ordered By: Nathan Damon on 11-24-2022 Cholesterol in LDL [Mass/Vol] 57 mg/dL 0-130 [facility] Serum or plasma urea nitroge n measurement (mass/volume)Ordered By: Nathan Damon on 11-24-2022 Urea nitrogen [Mass/Vol] 29 mg/dL 7-18 [facility] Serum or plasma uric acid me asurement (mass/volume)Ordered By: Nathan Damon on 03-28-2023 Urate [Mass/Vol] 6.8 mg/dL 3.5-7.2 [facility] Comment on above: The drugs N-Acetylcy steine and Metamizole may falsely depress this assay. Thin prep Papanicolaou smear with manual screeningOrdered By: Nathan Damon on 11-24-2022 Thin prep Papanicolaou smear with manual screening 14 U/L 15-37 [facility] Thin prep Papanicolaou smear with manual screening 6 5-15 [facility] Laboratory - Chemistry and C hemistry - challengeon 02-05-2022 Free T4 [Mass/Vol] 1.13 ng/dL 0.76-1.46 [facility] Work Phone: Basophil percentageon 2021 Bilirubin [Mass/Vol] 0.90 mg/dL 0.20-1.00 [facility] Work Phone: Comment on above: For patients on eltr ombopag therapy, use of Dimension [place] TBIL is not recommended. Chloride [Moles/Vol] 106 mmol/L 98-107 [facility] Work Phone: Cholesterol [Mass/Vol] 120 mg/dL <200 [facility] Work Phone: Comment on above: <200 mg/dL Desirable 200-240 mg/dL Borderline >240 mg/dL High Risk Glucose [Mass/Vol] 125 mg/dL 74-106 [facility] Work Phone: Comment on above: Fasting Glucose resu lt from 100 to 125 mg/dL suggests IMPAIRED HOMEOSTASIS per A.D.A. criteria. Potassium [Moles/Vol] 3.6 mmol/L 3.5-5.1 [facility] Work Phone: Protein [Mass/Vol] 7.1 g/dL 6.4-8.2 [facility] Work Phone: Sodium [Moles/Vol] 141 mmol/L 136-145 [facility] Work Phone: Triglyceride [Mass/Vol] 89 mg/dL [facility] Work Phone: Comment on above: The drugs N-Acetylcy steine and Metamizole may falsely depress this assay.Serum Triglycerides Reference Interval Normal <150 mg/dL Borderline high 150 - 199 mg/dL High 200 - 499 mg/dL Very High > or = 500 mg/dL Laboratory - Chemistry and C hemistry - challengeon 02-03-2022 ALP [Catalytic activity/Vol] 92 U/L 45-117 [facility] Work Phone: ALT [Catalytic activity/Vol] 22 U/L 16-61 [facility] Work Phone: CO2 [Moles/Vol] 32.0 mmol/L 21.0-32.0 [facility] Work Phone: Cobalamin (Vitamin B12) [Mass/Vol] 310 pg/mL 211-911 [facility] Work Phone: Globulin (S) [Mass/Vol] 4.0 g/dL 2.2-4.2 [facility] Work Phone: Urea nitrogen/Creatinine [Mass ratio] 20.2 mg/mg 10-20 [facility] Work Phone: No Panel Informationon 02-03 Estimated GFR (MDRD) Amer 74 mL/min >60 [facility] Work Phone: Comment on above: GFR Calc Estimated GFR (MDRD) Non-Af Amer 61 mL/min >60 [facility] Work Phone: Comment on above: Non- GFR Calc Thyroid Stimulating Hormone (TSH) 4.07 uIU/mL 0.358-3.74 [facility] Work Phone: Serum or plasma albumin barron urement (mass/volume)on 02-03-2022 Albumin [Mass/Vol] 3.1 g/dL 3.2-5.0 [facility] Work Phone: Serum or plasma albumin/glob ulin mass ratioon 02-03-2022 Albumin/Globulin [Mass ratio] 0.8 {ratio} 0.9-2.4 [facility] Work Phone: Serum or plasma calcium barron urement (mass/volume)on 02-03-2022 Calcium [Mass/Vol] 9.3 mg/dL 8.5-10.1 [facility] Work Phone: Serum or plasma cholesterol in HDL measurement (mass/volume)on 02-03-2022 Cholesterol in HDL [Mass/Vol] 40 mg/dL [facility] Work Phone: Comment on above: The drugs N-Acetylcy steine and Metamizole may falsely depress this assay. Reference Range HDL <40 mg/dL Low HDL Cholesterol HDL >or= 60 mg/dL High HDL Cholesterol Serum or plasma cholesterol in VLDL measurement (mass/volume)on 02-03-2022 Cholesterol in VLDL [Mass/Vol] 18 mg/dL 5-40 [facility] Work Phone: Serum or plasma creatinine m easurement (mass/volume)on 02-03-2022 Creatinine [Mass/Vol] 1.24 mg/dL 0.70-1.30 [facility] Work Phone: Comment on above: The validity of the calculated GFR & GFRAA in patients over 70 years has not been determined. Clinical correlation is essential. Serum or plasma low density lipoprotein (LDL) cholesterol measurement (mass/volume)on 02-03-2022 Cholesterol in LDL [Mass/Vol] 62 mg/dL 0-130 [facility] Work Phone: Serum or plasma urea nitroge n measurement (mass/volume)on 02-03-2022 Urea nitrogen [Mass/Vol] 25 mg/dL 7-18 [facility] Work Phone: Thin prep Papanicolaou smear with manual screeningon 02-03-2022 Thin prep Papanicolaou smear with manual screening 17 U/L 15-37 [facility] Work Phone: Thin prep Papanicolaou smear with manual screening 3 5-15 [facility] Work Phone: Serum or plasma uric acid me asurement (mass/volume)on 12-10-2021 Urate [Mass/Vol] 7.3 mg/dL 3.5-7.2 [facility] Work Phone: Comment on above: The drugs N-Acetylcy steine and Metamizole may falsely depress this assay. Basophil percentageon 2021 Chloride [Moles/Vol] 104 mmol/L 98-107 [facility] Work Phone: Glucose [Mass/Vol] 133 mg/dL 74-106 [facility] Work Phone: Comment on above: Fasting Glucose resu lt greater than or equal to 126 mg/dL suggests DIABETES MELLITUS per A.D.A. criteria. Potassium [Moles/Vol] 3.6 mmol/L 3.5-5.1 [facility] Work Phone: Sodium [Moles/Vol] 141 mmol/L 136-145 [facility] Work Phone: Laboratory - Chemistry and C hemistry - challengeon 11-06-2021 CO2 [Moles/Vol] 34.0 mmol/L 21.0-32.0 [facility] Work Phone: Urea nitrogen/Creatinine [Mass ratio] 19.8 mg/mg 10- [facility] Work Phone: No Panel Informationon 11-06 Estimated GFR (MDRD) Amer 76 mL/min >60 [facility] Work Phone: Comment on above: GFR Calc Estimated GFR (MDRD) Non-Af Amer 63 mL/min >60 [facility] Work Phone: Comment on above: Non- GFR Calc Serum or plasma calcium barron urement (mass/volume)on 11-06-2021 Calcium [Mass/Vol] 9.1 mg/dL 8.5-10.1 [facility] Work Phone: Serum or plasma creatinine m easurement (mass/volume)on 11-06-2021 Creatinine [Mass/Vol] 1.21 mg/dL 0.70-1.30 [facility] Work Phone: Comment on above: The validity of the calculated GFR & GFRAA in patients over 70 years has not been determined. Clinical correlation is essential. Serum or plasma urea nitroge n measurement (mass/volume)on 11-06-2021 Urea nitrogen [Mass/Vol] 24 mg/dL 7-18 [facility] Work Phone: Serum or plasma uric acid me asurement (mass/volume)on 11-06-2021 Urate [Mass/Vol] 8.1 mg/dL 3.5-7.2 [facility] Work Phone: Comment on above: The drugs N-Acetylcy steine and Metamizole may falsely depress this assay. Thin prep Papanicolaou smear with manual screeningon 11-06-2021 Thin prep Papanicolaou smear with manual screening 3 5-15 [facility] Work Phone: Whole blood hemoglobin A1c/t otal hemoglobin ratio (mass fraction)on 11-06-2021 HbA1c (Bld) [Mass fraction] 6.4 % 3.8-5.6 [facility] Work Phone: Comment on above: Normal < 5.7 % Predi abetic 5.7 - 6.4 % Diabetic >or= 6.5 % Please note range changes. 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 Work Phone: Tobacco use [facility] Never smoker Invalid Interpretation Code [facility] Work Phone: [phone] Lab Report: Lipid Profileon 03-04-2016 Cholesterol 111 mg/dL Invalid Interpretation Code 200 [facility] Work Phone: [phone] HDL Cholesterol 37 mg/dL Low [facility] Work Phone: [phone] LDL Cholesterol 47 mg/dL Invalid Interpretation Code 0-130 [facility] Work Phone: [phone] Triglyceride 135 mg/dL Invalid Interpretation Code [facility] Work Phone: [phone] very low density lipoproteins 27 mg/dL Invalid Interpretation Code 5-40 [facility] Work Phone: [phone] Lab Report: Liver Profileon 03-04-2016 Alanine aminotransferase (ALT) 22 U/L Invalid Interpretation Code 12-78 [facility] Work Phone: [phone] Albumin 3.1 g/dL Low 3.4-5.0 [facility] Work Phone: [phone] Alkaline phosphatase (ALP) 71 U/L Invalid Interpretation Code 50-136 [facility] Work Phone: [phone] Aspartate aminotransferase (AST) 17 U/L Invalid Interpretation Code 15-37 [facility] Work Phone: [phone] Bilirubin (direct) 0.28 mg/dL Invalid Interpretation Code 0.00-0.30 [facility] Work Phone: [phone] Bilirubin (total) 1.10 mg/dL High 0.20-1.00 [facility] Work Phone: [phone] Globulin 3.8 g/dL High 2.3-3.5 [facility] Work Phone: [phone] Protein 6.9 g/dL Invalid Interpretation Code 6.4-8.2 [facility] Work Phone: [phone] Chart Maintenanceon 05-13-20 16 Anion gap 6 mmol/L Invalid Interpretation Code [facility] Work Phone: [phone] BUN/Creatinine Ratio 16.0 mg/mg Invalid Interpretation Code [facility] Work Phone: [phone] Calcium 8.6 mg/dL Invalid Interpretation Code [facility] Work Phone: [phone] Chloride 106 mmol/L Invalid Interpretation Code [facility] Work Phone: [phone] CO2 31 mmol/L Invalid Interpretation Code [facility] Work Phone: [phone] Creatinine 1.25 mg/dL Invalid Interpretation Code [facility] Work Phone: [phone] Glucose 117 mg/dL High [facility] Work Phone: Glucose mass conc 117 mg/dL High [facility] Work Phone: [phone] Hematocrit (HCT) 47.4 % Invalid Interpretation Code [facility] Work Phone: [phone] Hemoglobin mass conc (Bld) 15.6 g/dL Invalid Interpretation Code [facility] Work Phone: [phone] Platelets 255 10*3/mm3 Invalid Interpretation Code [facility] Work Phone: [phone] Potassium molar conc 3.5 mmol/L Invalid Interpretation Code [facility] Work Phone: [phone] Sodium 143 mmol/L Invalid Interpretation Code [facility] Work Phone: [phone] Urea nitrogen 20 mg/dL High [facility] Work Phone: [phone] Chart Maintenanceon 01-03-20 16 Erythrocytes (RBC) 5.44 10*6/uL Invalid Interpretation Code [facility] Work Phone: [phone] WBC (Leukocytes) 9.0 10*3/uL Invalid Interpretation Code [facility] Work Phone: [phone] Vital Signs Date Time Vital Sign Value Performing Clinician Faci jeny 03-06-2025 13:26-0400 Diastolic blood pressure 69 mm[Hg] Dr. Roxie Damon MD Work Phone: [facility] 03-06-2025 13:26-0400 Heart rate 49 /min Dr. Roxie Damon MD Work Phone: [facility] 03-06-2025 13:26-0400 Systolic blood pressure 139 mm[Hg] Dr. Roxie Damon MD Work Phone: [facility] 03-06-2025 13:19-0400 Body height 177.[address] Roxie Damon MD Work Phone: [phone](348)408-840079 [place] [address] 03-06-2025 13:19-0400 Body mass index (BMI) [Ratio] 36.8 kg/m2 Dr. Roxie Damon MD Work Phone: 3(891)989-764479 [place] [address] 03-06-2025 13:19-0400 Body weight 116.[address] Roxie Damon MD Work Phone: 0(474)949-505479 [place] [address] 03-06-2025 13:19-0400 Respiratory rate 16 /min Dr. Roxie Damon MD Work Phone: 5(790)211-501679 [place] [address] 06-25-2023 14:03-0400 Body temperature 98.6 [degF] Dr. Nathan Damon Work Phone: 2(635)332-050579 [place] [address] 06-25-2023 14:03-0400 Diastolic blood pressure 66 mm[Hg] Dr. Nathan Damon Work Phone: 4(396)122-518719 [place] [address] 06-25-2023 14:03-0400 Heart rate 57 /min Dr. Nathan Damon Work Phone: 4(480)547-967519 [place] [address] 06-25-2023 14:03-0400 Inhaled oxygen flow rate 1 L/min Dr. Nathan Damon Work Phone: [facility] 06-25-2023 14:03-0400 Respiratory rate 16 /min Dr. Nathan Damon Work Phone: 7(138)696-732719 [place] [address] 06-25-2023 14:03-0400 SaO2% (BldA) [Mass fraction] 94 % Dr. Nathan Damon Work Phone: 0(150)758-344319 [place] [address] 06-25-2023 14:03-0400 Systolic blood pressure 109 mm[Hg] Dr. Nathan Damon Work Phone: [facility] 06-25-2023 05:24-0400 Body mass index (BMI) [Ratio] 36.6 kg/m2 Dr. Nathan Damon Work Phone: [facility] 06-25-2023 05:24-0400 Body weight 115.[address] Nathan Damon Work Phone: [facility] 06-24-2023 13:15-0400 Body height 177.[address] Nathan Damon Work Phone: [facility] 06-23-2023 08:13-0400 Body temperature 97.5 [degF] Dr. Nathan Damon Work Phone: [facility] 06-23-2023 08:13-0400 Diastolic blood pressure 70 mm[Hg] Dr. Nathan Damon Work Phone: 2(396)139-301719 [place] [address] 06-23-2023 08:13-0400 Heart rate 64 /min Dr. Nathan Damon Work Phone: [facility] 06-23-2023 08:13-0400 Inhaled oxygen flow rate 2 L/min Dr. Nathan Damon Work Phone: [facility] 06-23-2023 08:13-0400 Respiratory rate 21 /min Dr. Nathan Damon Work Phone: [facility] 06-23-2023 08:13-0400 SaO2% (BldA) [Mass fraction] 93 % Dr. Nathan Damon Work Phone: [facility] 06-23-2023 08:13-0400 Systolic blood pressure 158 mm[Hg] Dr. Nathan Damon Work Phone: [facility] 06-23-2023 04:37-0400 Body height 177.[address] Nathan Damon Work Phone: [facility] 06-23-2023 04:37-0400 Body mass index (BMI) [Ratio] 39.1 kg/m2 Dr. Nathan Damon Work Phone: [facility] 06-23-2023 04:37-0400 Body weight 123.[address] Nathan Damon Work Phone: [facility] 03-13-2023 13:29-0400 Diastolic blood pressure 71 mm[Hg] Dr. Nathan Damon Work Phone: [facility] 03-13-2023 13:29-0400 Systolic blood pressure 153 mm[Hg] Dr. Nathan Damon Work Phone: [facility] 03-13-2023 13:06-0400 Heart rate 56 /min Dr. Nathan Damon Work Phone: [facility] 03-13-2023 13:06-0400 Respiratory rate 24 /min Dr. Nathan Damon Work Phone: [facility] 03-13-2023 13:06-0400 SaO2% (BldA) [Mass fraction] 93 % Dr. Nathan Damon Work Phone: [facility] 03-13-2023 11:10-0400 Body height 177.[address] Nathan Damon Work Phone: [facility] 03-13-2023 11:10-0400 Body mass index (BMI) [Ratio] 38 kg/m2 Dr. Nathan Damon Work Phone: [facility] 03-13-2023 11:10-0400 Body temperature 97.7 [degF] Dr. Nathan Damon Work Phone: [facility] 03-13-2023 11:10-0400 Body weight 120.[address] Nathan Damon Work Phone: [facility] 01-07-2023 13:04-0400 Body height 180.[address] Nathan Damon Work Phone: [facility] 01-07-2023 13:04-0400 Body mass index (BMI) [Ratio] 36.7 kg/m2 Dr. Nathan Damon Work Phone: [facility] 01-07-2023 13:04-0400 Body weight 119.[address] Nathan Damon Work Phone: [facility] 01-07-2023 13:04-0400 Diastolic blood pressure 75 mm[Hg] Dr. Nathan Damon Work Phone: [facility] 01-07-2023 13:04-0400 Heart rate 63 /min Dr. Nathan Damon Work Phone: [facility] 01-07-2023 13:04-0400 Respiratory rate 16 /min Dr. Nathan Damon Work Phone: [facility] 01-07-2023 13:04-0400 Systolic blood pressure 126 mm[Hg] Dr. Nathan Damon Work Phone: [facility] 01-05-2023 10:45-0400 Diastolic blood pressure 70 mm[Hg] Riley Jaeger MD Work Phone: [facility] 01-05-2023 10:45-0400 Heart rate 82 /min Riley Jaeger MD Work Phone: [facility] 01-05-2023 10:45-0400 Respiratory rate 16 /min Riley Jaeger MD Work Phone: [facility] 01-05-2023 10:45-0400 SaO2% (BldA) [Mass fraction] 94 % Riley Jaeger MD Work Phone: [facility] 01-05-2023 10:45-0400 Systolic blood pressure 120 mm[Hg] Riley Jaeger MD Work Phone: [facility] 01-05-2023 08:43-0400 Body temperature 97.2 [degF] Riley Jaeger MD Work Phone: [facility] 01-05-2023 08:43-0400 Body weight 120.3 kg Riley Jaeger MD Work Phone: [facility] 11-27-2022 15:20-0400 Body height 177.8 cm Melany Zak PA-C Work Phone: [facility] 11-27-2022 15:20-0400 Body temperature 97.9 [degF] Melany Zak PA-C Work Phone: [facility] 11-27-2022 15:20-0400 Body weight 120.29 kg Melany Linwood PA-C Work Phone: [facility] 11-27-2022 15:20-0400 Diastolic blood pressure 78 mm[Hg] Melany Zak PA-C Work Phone: [facility] 11-27-2022 15:20-0400 Heart rate 67 /min Melany Zak PA-C Work Phone: [facility] 11-27-2022 15:20-0400 SaO2% (BldA) [Mass fraction] 98 % Melany Linwood PA-C Work Phone: [facility] 11-27-2022 15:20-0400 Systolic blood pressure 120 mm[Hg] Melany Linwood PA-C Work Phone: [facility] 12-10-2021 13:00-0400 Body height 180.[address] Nathan Damon Work Phone: [facility] Work Phone: 12-10-2021 13:00-0400 Body weight 122.[address] Nathan Damon Work Phone: [facility] Work Phone: 12-10-2021 13:00-0400 Diastolic blood pressure 78 mm[Hg] Dr. Nathan Damon Work Phone: [facility] Work Phone: 12-10-2021 13:00-0400 Heart rate 61 /min Dr. Nathan Damon Work Phone: [facility] Work Phone: 12-10-2021 13:00-0400 Respiratory rate 18 /min Dr. Nathan Damon Work Phone: [facility] Work Phone: 12-10-2021 13:00-0400 SaO2% (BldA) [Mass fraction] 96 % Dr. Nathan Damon Work Phone: [facility] Work Phone: 12-10-2021 13:00-0400 Systolic blood pressure 122 mm[Hg] Dr. Nathan Damon Work Phone: [facility] Work Phone: 12-10-2020 13:10-0400 Body mass index (BMI) [Ratio] 39.3 kg/m2 Dr. Nathan Damon Work Phone: [facility] Work Phone: 06-08-2017 08:39-0400 BMI (Body Mass Index) 37.88 kg/m2 [facility] Work Phone: 06-08-2017 08:39-0400 BP Diastolic 74 mm[Hg] [facility] Work Phone: 06-08-2017 08:39-0400 BP Systolic 136 mm[Hg] [facility] Work Phone: 06-08-2017 08:39-0400 Height 177.8 cm [facility] Work Phone: 06-08-2017 08:39-0400 Pulse (Heart Rate) 64 /min [facility] Work Phone: 06-08-2017 08:39-0400 Respiratory Rate 20 /min [facility] Work Phone: 06-08-2017 08:39-0400 Weight 119.75 kg [facility] Work Phone: 03-05-2016 13:20-0400 BSA (Body Surface Area) 2.33 m2 [facility] Work Phone: Encounters Encounter Date Encounter Type Care Provider Facility Start: 03-06-2025 End: 03-06-[address] Chris Frazier MD -[facility] Work Phone: Start: 03-06-2025 End: 03-06-[address] Roxie Damon MD Work Phone: -[facility] Start: 03-06-2025 End: 03-06-2025 ambulatory Roxie Damon Facility:[facility] Start: 11-03-2024 End: 11-03-[address] Roxie Damon MD Work Phone: [facility] Work Phone: Start: 11-03-2024 End: 11-03-[address] Roxie Damon MD -Ultrasound, [facility] Work Phone: Start: 11-03-2024 End: 11-03-2024 ambulatory Roxie Damon Facility:[facility] Start: 10-25-2024 End: 10-25-[address] Roxie aDmon MD Work Phone: [facility] Work Phone: Start: 10-25-2024 End: 10-25-[address] Roxie Damon MD -Laboratory, [facility] Start: 10-25-2024 End: 10-25-2024 ambulatory Roxie Damon Facility:[facility] Start: 07-18-2024 End: 07-18-[address] Roxie Damon MD -Laboratory, [facility] Start: 07-18-2024 End: 07-18-2024 ambulatory Campbell Marisol Facility:[facility] Start: 12-08-2023 End: 12-08-2023 ambulatory [facility] Work Phone: Start: 12-08-2023 End: 12-08-2023 Patient encounter procedure [facility] Start: 06-25-2023 Non-patient / Non-visit Dr. Nathan Damon Work Phone: [facility] Work Phone: Start: 06-24-2023 Non-patient / Non-visit Dr. Nathan Damon Work Phone: [facility] Work Phone: Start: 06-23-2023 Non-patient / Non-visit Dr. Nathan Damon Work Phone: [facility] Start: 06-23-2023 End: 06-25-2023 Evaluation and management of inpatient Dr. Nathan Damon Work Phone: [facility] Work Phone: Start: 06-23-2023 Evaluation and management of inpatient Dr. Nathan Damon Work Phone: [facility] Work Phone: Start: 03-23-2023 End: 03-23-[address] Nathan Damon Work Phone: [facility] Work Phone: Start: 03-23-2023 End: 03-23-[address] Nathan Damon Work Phone: [facility] Work Phone: Start: 03-13-2023 End: 03-13-2023 Emergency department patient [facility] Work [facility] Start: 03-05-2023 Non-patient / Non-visit Dr. Nathan Damon Work Phone: [facility] Start: 03-05-2023 End: 03-05-[address] Nathan Damon Work Phone: [facility] Work Phone: Start: 03-05-2023 End: 03-05-[address] Nathan Damon Work Phone: [facility] Work Phone: Start: 01-07-2023 End: 01-07-[address] Nathan Damon Work Phone: [facility] Work Phone: Start: 01-05-2023 End: 01-05-2023 ambulatory RILEY JAEGER Facility:[facility] Start: 01-05-2023 End: 01-05-2023 Subsequent hospital visit by physician Riley Jaeger MD Work Phone: Ambulatory Surgery Comment on above: Family history of co marcie cancer [Z80.0] Start: 11-27-2022 End: 11-27-2022 ambulatory Melany Crespo Facility:[facility] Start: 11-27-2022 End: 11-27-2022 Patient encounter procedure Melany DYKES-Duglas Work Phone: General Surgery Comment on above: Family history of co marcie cancer (Primary Dx); Personal history of colonic polyps Start: 11-24-2022 End: 11-24-[address] Nathan Damon Work Phone: [facility] Start: 02-03-2022 End: 02-03-[address] Nathan Damon Work Phone: [facility] Start: 12-10-2021 End: 12-10-[address] Nathan Damon Work Phone: [facility] Start: 12-10-2021 End: 12-10-[address] Nathan Damon Work Phone: [facility] Start: 11-06-2021 End: 11-06-[address] Nathan Damon Work Phone: [facility] [place] Family Procedures Date Procedure Procedure Detail Performing Clinician Start: 11-03-[address] Mu Damon MD Work Phone: Start: 06-23-2023 CT of thorax with contrast Dr. Nathan Damon Work Phone: Start: 06-23-2023 Plain chest X-ray Dr. Duglas Damon Work Phone: Start: 03-23-2023 Diagnostic radiograp hy of abdomen Dr. Nathan Damon Work Phone: Start: 03-13-2023 Plain chest X-ray Dr. Duglas Damon Work Phone: Start: 03-13-2023 CT of head without contrast Dr. Nathan Damon Work Phone: Start: 03-05-2023 Radionuclide imaging of perfusion of myocardium under exercise stress Dr. Nathan Damon Work Phone: Start: 01-05-2023 Colonoscopy flx dx w/collj spec when pfrmd Melany Crespo PA-C Work Phone: Start: 01-05-2023 Gluc bld gluc mntr d ev cleared fda spec home use Riley Jaeger MD Work Phone: Start: 01-05-2023 Colonoscopy Riley ramirez MD Work Phone: Start: 09-19-2019 Colonoscopy Melany walker PA-C Work Phone: Start: 06-08-2017 End: 06-08-2017 MEDICAL OFFICE PROFESSIONAL INSTRUCTOR John Perez TEMPORARY DATA ENTRY CLERK Work Phone: Start: 06-08-2017 End: 06-08-2017 Follow Up Appt 6 months John Perez TEMPORARY DATA ENTRY CLERK Work Phone: Start: 06-08-2017 End: 06-08-2017 MEDICAL OFFICE PROFESSIONAL INSTRUCTOR John Perez TEMPORARY DATA ENTRY CLERK Work Phone: Start: 06-08-2017 End: 06-08-2017 Follow Up Appt 6 months John Perez TEMPORARY DATA ENTRY CLERK Work Phone: Start: 03-05-2016 End: 03-05-2016 Follow Up Appt 6 months Juventino Warren Start: 03-05-2016 End: 03-05-2016 JUDSON Frazier MD Start: 03-05-2016 End: 03-05-2016 Follow Up Appt 6 months Juventino Warren Start: 03-05-2016 End: 03-05-2016 JUDSON Frazier MD Start: 01-22-2016 End: 03-04-2016 *Hepatic Function Panel Juventino Warren Start: 01-22-2016 End: 01-22-2016 EDWARDO Frazier MD Start: 01-22-2016 End: 01-22-2016 Follow Up Appt 6 weeks Chris Frazier MD Start: 01-22-2016 End: 01-23-2016 Referral to torque tester Chris Frazier MD Start: 01-22-2016 End: 03-04-2016 Lipid 1996 panel - Serum or Plasma Chris Frazier MD Start: 01-22-2016 End: 03-04-2016 *Hepatic Function Panel Juventino Warren Start: 01-22-2016 End: 01-22-2016 EDWARDO Frazier MD Start: 01-22-2016 End: 01-22-2016 Follow Up Appt 6 weeks Chris Frazier MD Start: 01-22-2016 End: 03-04-2016 Lipid panel [AGGREGATE] Juventino Warren Start: 01-22-2016 End: 01-23-2016 Referral to torque tester Chris Frazier MD Start: 01-04-2016 History of placement of stent for coronary artery disease History of coronary artery stent placement Dr. Chris Frazier MD Comment on above: PCI-Aspiration Throm bectomy & TAQUERIA-Prox RCA w/ 3.5 x 38 mm Xience Alpine 01/04/16 Plan of Treatment Date Care Activity Detail Author Start: 08-06-2030 Urine microalbumin profile DTaP,Tdap,Td Vaccine (2 - Td or Tdap) [facility] Start: 01-06-2028 Colonoscopy Colonoscopy [facility] Start: 01-06-2028 Colorectal Cancer Screening Colorectal Cancer Screening [facility] Start: 03-06-2025 Evaluation of diagnostic study results [facility] Start: 06-25-2023 Patient discharge [facility] Start: 06-23-2023 Oxygen therapy [facility] Start: 06-23-2023 Following clinical pathway protocol [facility] Start: 06-23-2023 Ambulation without limitation [facility] Start: 06-23-2023 Assessment of risk of venous thromboembolism [facility] Start: 06-23-2023 Care regimes management [facility] Start: 06-23-2023 Insertion of catheter into peripheral vein [facility] Start: 06-23-2023 Measuring intake and output [facility] Start: 06-23-2023 Notification of physician [facility] Start: 06-23-2023 Providing care according to standard [facility] Start: 06-23-2023 [facility] Start: 06-23-2023 Admission procedure [facility] Start: 06-23-2023 Following clinical pathway protocol [facility] Start: 06-23-2023 Hospital admission, emergency, from emergency room, medical nature [facility] Start: 06-23-2023 End: 06-24-2023 [facility] Start: 06-23-2023 Brain natriuretic peptide measurement [facility] Start: 04-30-2023 Covid-19 Vaccine ( season) Covid-19 Vaccine ( season) [facility] Start: 04-30-2023 Influenza vaccination [facility] Start: 09-19-2022 Colonoscopy COLONOSCOPY [facility] Start: 09-19-2022 COLORECTAL CANCER SCREENING COLORECTAL CANCER SCREENING [facility] Start: 08-30-2022 ADVANCE DIRECTIVE DISCUSSION ADVANCE DIRECTIVE DISCUSSION [facility] Start: 08-30-2022 DEPRESSION ASSESSMENT DEPRESSION ASSESSMENT [facility] Start: 04-07-2022 COVID-19 VACCINE (5 - Booster for Moderna series) COVID-19 VACCINE (5 - Booster for Moderna series) [facility] Start: 03-04-2021 LIPID SCREEN LIPID SCREEN [facility] Start: 01-21-2021 Lipid 1996 panel - Serum or Plasma Lipid Screening [facility] Start: 01-03-2019 DIABETES SCREEN DIABETES SCREEN [facility] Start: 01-03-2019 Diabetes Screening Diabetes Screening [facility] Start: 12-09-2017 End: 12-09-2017 Appointment Appointment [facility] Work Phone: Start: 06-08-2017 End: 06-08-2017 [facility] MEDICAL OFFICE PROFESSIONAL INSTRUCTOR [facility] Work Phone: Start: 06-08-2017 End: 06-08-2017 Echocardiography Echocardiogram (complete) [facility] Work Phone: Start: 06-08-2017 End: 06-08-2017 Follow Up Appt 6 months Follow Up Appt 6 months [facility] Work Phone: Start: 06-08-2017 End: 06-08-2017 Nuclear stress test -exercise Nuclear stress test -exercise [facility] Work Phone: Start: 06-08-2017 End: 06-08-2017 MEDICAL OFFICE PROFESSIONAL INSTRUCTOR MEDICAL OFFICE PROFESSIONAL INSTRUCTOR [employer] Work Phone: Start: 06-08-2017 End: 06-08-2017 Echocardiography Echocardiogram (complete) [employer] Work Phone: Start: 06-08-2017 End: 06-08-2017 Follow Up Appt 6 months Follow Up Appt 6 months [employer] Work Phone: Start: 06-08-2017 End: 06-08-2017 Nuclear stress test -exercise Nuclear stress test -exercise [facility] Work Phone: Start: 04-05-2017 End: 02-11-2017 *Hepatic Function Panel *Hepatic Function Panel [facility] Work Phone: Start: 04-05-2017 End: 02-11-2017 Lipid panel [AGGREGATE] *Lipid Profile CC PCP [facility] Work Phone: Start: 04-05-2017 End: 02-11-2017 *Hepatic Function Panel *Hepatic Function Panel [facility] Work Phone: Start: 04-05-2017 End: 02-11-2017 Lipid panel [AGGREGATE] *Lipid Profile [facility] Work Phone: Start: 03-05-2016 End: 03-05-2016 Follow Up Appt 6 months Follow Up Appt 6 months [facility] Work Phone: Start: 03-05-2016 End: 03-05-2016 [facility] Work Phone: Start: 03-05-2016 End: 03-05-2016 Follow Up Appt 6 months Follow Up Appt 6 months [facility] Work Phone: Start: 03-05-2016 End: 03-05-2016 M[facility] Work Phone: Start: 01-22-2016 End: 03-04-2016 *Hepatic Function Panel *Hepatic Function Panel [facility] Work Phone: Start: 01-22-2016 End: 05-11-2016 Cardiac Rehab Cardiac Rehab [facility] Work Phone: Start: 01-22-2016 End: 01-22-2016 MEDICAL OFFICE PROFESSIONAL INSTRUCTOR MEDICAL OFFICE PROFESSIONAL INSTRUCTOR [facility] Work Phone: Start: 01-22-2016 End: 01-22-2016 Follow Up Appt 6 weeks Follow Up Appt 6 weeks [facility] Work Phone: Start: 01-22-2016 End: 03-04-2016 Lipid panel [AGGREGATE] *Lipid Profile CC PCP [facility] Work Phone: Start: 01-22-2016 End: 03-04-2016 *Hepatic Function Panel *Hepatic Function Panel [employer] [facility] [employer] [facility] Work Phone: Start: 01-22-2016 End: 05-11-2016 Cardiac Rehab Cardiac Rehab 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 Work Phone: Start: 01-22-2016 End: 01-22-2016 Follow Up Appt 6 weeks Follow Up Appt 6 weeks [facility] [employer] Work Phone: Start: 01-22-2016 End: 03-04-2016 Lipid panel [AGGREGATE] *Lipid Profile CC PCP [facility] [employer] Work Phone: Start: 2014 PNEUMOCOCCAL: 65+ (1 - PCV) PNEUMOCOCCAL: 65+ (1 - PCV) [facility] Start: 2009 RSV Vaccine (1 - 1-dose 60+ series) RSV Vaccine (1 - 1-dose 60+ series) [facility] Start: 1999 SHINGRIX VACCINE (1 of 2) SHINGRIX VACCINE (1 of 2) [facility] Start: 1994 COLOGUARD (FIT-DNA) COLOGUARD (FIT-DNA) [facility] Start: [address] COLONOGRAPHY [facility] Start: 1994 FECAL OCCULT BLOOD FECAL OCCULT BLOOD [facility] Start: 1994 SIGMOIDOSCOPY SIGMOIDOSCOPY [facility] Start: 1968 Urine microalbumin profile DTAP,TDAP,TD (1 - Tdap) [facility] Start: 1967 HEPATITIS C SCREENING HEPATITIS C SCREENING [facility] Patient Education [facility] Work Phone: Patient referral [facility] Work Phone: [facility] Immunization Date Immunization Notes Care Provider Claire roe 05-24-2023 influenza, injectabl e, quadrivalent, preservative free Dr. Nathan Damon Work Phone: [facility] 07-14-[address] Nathan Damon Work Phone: [facility] 06-30-[address] Nathan Damon Work Phone: [facility] 03-06-[address] Nathan Damon Work Phone: [facility] 02-10-2022 Covid (Moderna) Dr. Arlen Damon Work Phone: [facility] 12-28-[address] Nathan Damon Work Phone: [facility] 07-04-2021 Covid (Moderna) Dr. Arlen Damon Work Phone: [facility] 07-02-2021 influenza, injectabl e, quadrivalent, preservative free Dr. Nathan Damon Work Phone: [facility] 07-02-2021 influenza virus vaccine, unspecified formulation Riley Jaeger MD Work Phone: [facility] 10-29-2020 Covid (Moderna) Dr. Arlen Damon Work Phone: [facility] 10-01-2020 Covid (Moderna) Dr. Arlen Damon Work Phone: [facility] 04-30-[address] Nathan Damon Work Phone: [facility] Payers Date Payer Category Payer Self-pay [id number] 2018 Private Health Insurance [facility] SUPPLE[facility] [id number] 2018-Present [phone] [address] [place] [address] Indemnity [id number] 2018 Unknown [id number] 2014 Medicare MEDICARE MEDICAR E A AND B [id number] 2014-Present [phone] [address] [address] [place] [address] Medicare [id number] 2012 Medicare [id number] 2012 Medicare [id number] Unknown [id number] Unknown [id number] Unknown [id number] Unknown [id number] Unknown [id number] Social History Date Type Detail Facility Start: 12-10-2021 End: 06-23-2023 Tobacco smoking status NHIS Unknown if ever smoked [facility] Start: 03-09-2018 None [facility] Start: 01-23-2018 Spouse/ Signif icant Other [facility] Start: 01-14-2018 Non-smoker [facility] Start: 1950 Sex Assigned At Male [facility] Start: 08-28-2019 End: 06-23-2023 Tobacco smoking status NHIS Never smoked tobacco [facility] Start: 08-28-2019 End: 01-05-2023 Tobacco use and exposure Smokeless tobacco non-user [facility] Start: 11-27-2022 End: 01-05-2023 Alcohol intake Current non-drinker of alcohol (finding) [facility] Start: 1950 Sex Assigned At Not on file [facility] Start: 11-27-2022 End: 01-05-2023 History of Social function [facility] Start: 11-27-2022 End: 01-05-2023 Tobacco use panel [facility] National Score (1-100), lower number is lower risk 46 [facility] Start: 11-09-2024 End: 11-16-2024 Sex Male (finding) [facility] Medical Equipment Procedure Code Equipment Code Equipment Origin al Text Equipment Identifier Dates STENT,URETERAL 6 FR PIG [id number] FDA Start: 01-23-2018 STENT,URETERAL 6 FR PIG 6X26 FDA Start: 01-23-2018 STENT,URETERAL 6 FR PIG 6X26 FDA Start: 01-23-2018 STENT,URETERAL 6 FR PIG 6X26 FDA Start: 01-23-2018 STENT,URETERAL 6 FR PIG 6X26 FDA Start: 01-23-2018 STENT,URETERAL 6 FR PIG 6X26 FDA Start: 01-23-2018 STENT,URETERAL 6 FR PIG 6X26 FDA Start: 01-23-2018 STENT,URETERAL 6 FR PIG 6X26 FDA Start: 01-23-2018 STENT,URETERAL 6 FR PIG 6X26 FDA Start: 01-23-2018 STENT,URETERAL 6 FR PIG 6X26 FDA Start: 01-23-2018 STENT,URETERAL 6 FR PIG 6X26 FDA Start: 01-23-2018 STENT,URETERAL 6 FR PIG 6X26 FDA Start: 01-23-2018 Goals Date Patient Goal Desired Activity /State Functional Status Date Assessment Result Facility 06-25-2023 Functional status Activity Ability Indepe ndent [facility] Work Phone: 06-24-2023 Functional status Ambulates;Up a d venkat;Chair;Bathroom Privilege;Active Range of [employer] [facility] Work Phone: Mental Status Date Assessment Result Facility 06-25-2023 Cognitive function Voice/Name [facility] Work Phone: 03-13-2023 Cognitive function Voice/Name [facility] Work Phone: Clinical Notes 01-04-2016 to 03-06-2025 Note Date & Type Note Facility 03-06-2025 Evaluation note Diagnosis Onset Date Resolution Essential (primary) hypertension chronic March 06, 2025 1:09pm Pure hypercholesterolemia chronic March 06, 2025 1:09pm History of coronary artery stent placement January 04, 2016 resolved March 06, 2025 1:09pm [facility] Work Phone: 1(610) 457-315403-07-2025 Radiology Diagnostic study note [facility] [address] [place] [address] Abdomen Complete MR#: [id number] Acct: [id number] Name: ADARSH MAYER Rep #: [id number] : 1950 M 74 From: Hali Ponce MD PCP: Dr. Roxie Damon MD Status: REG CLI Study:Abdomen Complete Date of Exam: 03/23 Exam# [id number] Ordering Dr: Duglas Damon MD PROCEDURE: ULTRASOUND ABDOMEN COMPLETE REASON FOR EXAM: Intra-abdominal and pelvic swelling. COMPARISON: CT abdomen dated 02/01/2018. Acute abdomen series dated 03/23/2023. FINDINGS: Liver: Grossly normal size and echotexture. Liver measures 16 cm sagittally. Hepatopetal blood flow. Gallbladder: No stones, sludge, wall thickening or tenderness. A non mobile hyperechoic nodule measuring 0.4 x 0.3 x 0.3 cm. Common bile duct: Normal measuring 0.22 cm.. Pancreas: Echogenic parenchyma. Kidneys: The right kidney measures 13.5 x 6.6 x 6.4 cm. Right renal cortex measures 1.5 cm.. The left kidney measures 11.5 x 4.6 x 5.2 cm. Left renal cortex measures 1.4 cm.. Tiny hyper echogenic foci inthe right kidney measuring up to 0.5 cm. Hyper echogenic foci in the left kidney measuring up to 0.4 cm. Right superior pole anechoic mass measuring 5.0 x 5.0 x 4.5 cm. Small anechoic mass in the left superior pole measuring 2.01 x 1.02 x 1.69 cm. Spleen: Normal in size and echotexture measuring spleen measures 10.0 x 5.0 x 7.5 cm.. Aorta: Visualized abdominal aorta is of normal size. IVC: Visualized inferior vena cava is unremarkable. Peritoneal Findings: No ascites identified. US/Abdomen Complete IMPRESSION: 1. Small gallbladder polyp 2. Bilateral nonobstructing nephrolithiasis. 3. Bilateral renal cysts. Reading Location: [place] [address] CC: Dr. 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 Nathan Damon MD Status: ADM IN Location: [place] [address] Providers Date of Admission: 06/23/23 Primary Care Physician: Dr. Nathan Damon MD Reason For Visit: CHF EXACERBATION Diagnosis Discharge Diagnosis (1) Bilateral pleural effusion: Status: Acute Code(s): J90 - Pleural effusion, not elsewhere classified (2) Congestive heart failure: Status: Acute Code(s): I50.9 - Heart failure, unspecified Plan 1. CHF unknown type with bilateral pleural effusions/HTN/HLD/CAD status post stent ? He likely has worsening obstructive sleep apnea leading to right-sided heart failure though his BNP is only slightly elevated to 118 ? Echo with 55% unfortunately it was a difficult study so it was difficult to assess pulmonary artery function however right atrium was normal and the right ventricle also appeared to be normal ? We will place him on a fluid restriction ? Continue with Lasix ? We will resume his home blood pressure medications and monitor make adjustments as necessary ? We will continue his home Lipitor 2. DM2 ? We will hold his metformin ? Accu-Cheks ACHS ? Sliding scale insulin ? We will monitor and make adjustments as necessary 3. GERD ? Stable ? Continue with PPI DVT: Lovenox Medications at Discharge Home Medications aspirin 81 mg chewable tablet 81 mg PO DAILY@0800 01/03/16 lisinopril 20 mg tablet 20 mg PO BID #180 tabs 06/10/21 potassium chloride 20 mEq tablet,extended release 20 meq PO DAILY 12/10/21 clopidogrel 75 mg tablet 75 mg PO DAILY #90 tabs 07/06/22 pantoprazole 40 mg tablet,delayed release 40 mg PO DAILY #90 tabs 08/27/22 allopurinol 100 mg tablet 200 mg PO DAILY 01/07/23 cyanocobalamin (vitamin B-12) 1,000 mcg tablet 1,000 mcg PO DAILY 01/07/23 metformin 500 mg 24 hr tablet,extended release 1,000 mg PO DAILY 01/07/23 atorvastatin 80 mg tablet 80 mg PO QHS #90 tabs 01/12/23 nitroglycerin 0.4 mg sublingual tablet 0.4 mg sublingual ONCE PRN chest pain #25tabs 03/19/23 carvedilol 12.5 mg tablet 12.5 mg PO BID #180 tabs 03/29/23 amlodipine 5 mg tablet 5 mg PO DAILY 06/23/23 furosemide 40 mg tablet (Lasix) 40 mg PO DAILY #30 tabs 06/25/23 Hospital Course Operations None Procedures 2-D Echocardiogram Summary of Care Provided Minutes Spent on Discharge: 45 Hospital Course: Per HPI: ADARSH MAYER, is a 72 M who presents to the hospital with current progressive worsening shortness of breath. He has difficulty walking even 10 feet and has also noticed issues with laying flat and he wakes up gasping for air while sleeping for the last several months. says that he has had signsof sleep apnea with snoring and apneic episodes over the last several years and there had been discussions about 10 to 15 years ago about potentially needing sleep study. Unfortunate this was never done. In the ER he has a CT scan of his chest which demonstrates bilateral mild to moderate pleural effusions. He was given of dose of Lasix in the ED. BNP was slightly elevated to 118 with a normal troponin. He has not seen pulmonology yet as an outpatient as the referral was for 07/07/2023. Hospital Course: 1. CHF unknown type with bilateral pleural effusion/HTN/HLD/CAD status post stent?72-year-old male presented with signs and symptoms consistent with heart failure etiology still unclear though it is likely component of obstructive sleep apnea. He did have an echo which demonstrated an EF of 55% however it wasa difficult study performing diastolic dysfunction could not be assessed neithercould have pulmonary artery function. The right side of the heart did look okaybut he did have significant improvement with IV Lasix while here in the hospital. He had about 7-1/2 L removed and he is down to about 255 pounds on the day of discharge. I had extensive discussion with him the need for fluid restriction as well as continuing Lasix. He did have an ambulatory pulse ox today which demonstrated the need for 2 L at rest and with ambulation, will needportable oxygen as he is active in the community. He does have outpatient appointment with pulmonology on July 07, 2023. Recommend outpatient sleep study to evaluate for RABIA. I discussed with him the plan for discharge and he expressed understanding of the risk benefits of going home and he would like to go home today. I did give him the option to stay 1 more day to see if we can get him home without oxygen however he would prefer to go home today. The only medication change was increasing his home Lasix from 10 mg p.o. daily to 40 mg p.o. daily. 2. Type 2 diabetes and GERD are chronic medical conditions which complicate hiscare. His home medications were continued where appropriate Physical Exam Narrative General: Alert, Oriented x3, Cooperative, No apparent distress HEENT: Atraumatic, PERRLA, EOMI, Normocephalic Oral: Moist Mucosa Neck: Supple, No JVD Lungs: Diminished, Normal air movement, No rhonchi, No wheeze, rales bilateral bases Cardiovascular: Regular rate, Regular Rhythm, Normal S1, Normal S2, No murmurs Abdomen: Soft, Non Tender, Non-Distended, No Hepato-splenomegaly Extremities: Trace edema, Capillary Refill Less than 3 Seconds Skin: No rashes, No breakdown Musculoskeletal: No Tenderness to Palpation of Joints or Extremities Neurological: Cranial nerves II-XII grossly intact, Motor Exam 5/5 strength throughout, Sensory exam intact to light touch and pain Psych/Mental Status: Normal affect Weight / BMI Weight Weight: 255 lb 1.197 oz Body Mass Index (BMI) 36.6 ABG / Lab / Microbiology Data 06/24/23 05:57 06/25/23 06:44 Laboratory: Laboratory Results - last 24 hr 06/24/23 16:23: POC Glucose 117 H 06/24/23 20:27: POC Glucose 177 H 06/25/23 06:44: Sodium 142, Potassium 3.3 L, Chloride 105, Carbon Dioxide 34.0 H, Anion Gap 3 L, BUN 21 H, Creatinine 1.16, Estim Creat Clear Calc 58.56, Est GFR (MDRD) Af Amer 79, Est GFR (MDRD) Non-Af 66, BUN/Creatinine Ratio 18.1, Glucose 106, Calcium 8.9 06/25/23 12:02: POC Glucose 159 H D/C Instructions Discharge Diet: Low fat / Low cholesterol, 6 Cup Fluid Restriction and Carb Control Diet Call your doctor if you observe: Fever of 101 or Higher, Shortness of breath, Dizziness, Fainting spells, Swelling in the ankles, Chest pain and Increased palpitations (irregular heartbeat) Meaningful Use Info Meaningful Use Diagnoses (Choose all that apply): None applicable Discharge Plan Admission Admit Date/Time: 06/23/23 10:12 Attending Provider: Davide Vasques Primary Care Provider: Nathan Damon Instructions Additional Instructions / Restrictions: Up with your PCP in 3 to 5 days to monitor your renal function and potassium secondary to your Lasix usage. Continue with oxygen and monitor your pulse oximeter as an outpatient and follow-up with pulmonology as previously scheduledon 07/07/2023 Discharge Orders/Prescriptions Prescriptions: New furosemide [Lasix] 40 mg tablet 40 mg PO DAILY Qty: 30 3RF Continued potassium chloride 20 mEq tablet extended release 20 meq PO DAILY allopurinol 100 mg tablet 200 mg PO DAILY cyanocobalamin (vitamin B-12) 1,000 mcg tablet 1,000 mcg PO DAILY aspirin 81 MG tablet,chewable 81 mg PO DAILY@0800 Patient Comments: ON HOLD metformin 500 mg tablet,ER ana.retention 24 hr 1,000 mg PO DAILY amlodipine 5 mg tablet 5 mg PO DAILY Rx Instructions: TAKE 1 TABLET EVERY DAY lisinopril 20 mg tablet 20 mg PO BID Qty: 180 4RF clopidogrel 75 mg tablet 75 mg PO DAILY Qty: 90 4RF pantoprazole 40 mg tablet,delayed release (DR/EC) 40 mg PO DAILY Qty: 90 3RF atorvastatin 80 mg tablet 80 mg PO QHS Qty: 90 4RF nitroglycerin 0.4 mg tablet, sublingual 0.4 mg SUBLINGUAL ONCE PRN (Reason: chest pain) Qty: 25 3RF Rx Instructions: take one tablet for chest pain every 5-15 minutes for a total of 3 doses carvedilol 12.5 mg tablet 12.5 mg PO BID Qty: 180 4RF Discontinued furosemide 20 mg tablet 10 mg PO DAILY Referrals / Follow Up: Nathan Damon MD [Primary Care Provider] - Within 1 Week Adarsh Castillo MD [Med Staff - Active Staff] - 07/07/23 Disposition Disposition (needs filled in before D/C Order can be placed): Home, Self Care Charges/Coding Visit Charges Inpatient E&M: 25308 Disch Hosp >30min 06/25/23 1339 <Electronically signed by Davide Vasques MD> Cosigner Signature (if applicable): CC: Dr. Nathan Damon MD; Dr. Davide Vasques MD~ Signed [facility] Work Phone: 1(828) 369-147310-27-2023 Discharge summary Author Davide Vasques [facility] June 25, 2023 1:03pm Note Date/Time June 25, 2023 1 2:59pm [facility] Medical Records Department [address] [place] [address] Instructions for Home/Discharge Instructions 06/25/23 1259 MR#: [id number] Acct: [id number] Name: ADARSH MAYER Rep #:[id number] : 1950 72 From: Davide reyes MD PCP: Dr. Nathan Damon MD Status: ADM IN Discharge Instructions Diet Discharge Diet: Low fat / Low cholesterol, 6 Cup Fluid Restriction and Carb Control Diet Activity Discharge Activity: Return to Normal Activity Dressing / Incision Call your doctor if you observe: Fever of 101 or Higher, Shortness of breath, Dizziness, Fainting spells, Swelling in the ankles, Chest pain and Increased palpitations (irregular heartbeat) Follow Up Care Test Results: Test results from this visit will be discussed in further detail at your follow- up appointment, if applicable. Discharge Plan Admission Admit Date/Time: 06/23/23 10:12 Attending Provider: Davide Vasques Primary Care Provider: Nathan Damon Instructions Additional Instructions / Restrictions: Up with your PCP in 3 to 5 days to monitor your renal function and potassium secondary to your Lasix usage. Continue with oxygen and monitor your pulse oximeter as an outpatient and follow-up with pulmonology as previously scheduledon 07/07/2023 Discharge Orders/Prescriptions Prescriptions: New furosemide [Lasix] 40 mg tablet 40 mg PO DAILY Qty: 30 3RF Continued potassium chloride 20 mEq tablet extended release 20 meq PO DAILY allopurinol 100 mg tablet 200 mg PO DAILY cyanocobalamin (vitamin B-12) 1,000 mcg tablet 1,000 mcg PO DAILY aspirin 81 MG tablet,chewable 81 mg PO DAILY@0800 Patient Comments: ON HOLD metformin 500 mg tablet,ER ana.retention 24 hr 1,000 mg PO DAILY amlodipine 5 mg tablet 5 mg PO DAILY Rx Instructions: TAKE 1 TABLET EVERY DAY lisinopril 20 mg tablet 20 mg PO BID Qty: 180 4RF clopidogrel 75 mg tablet 75 mg PO DAILY Qty: 90 4RF pantoprazole 40 mg tablet,delayed release (DR/EC) 40 mg PO DAILY Qty: 90 3RF atorvastatin 80 mg tablet 80 mg PO QHS Qty: 90 4RF nitroglycerin 0.4 mg tablet, sublingual 0.4 mg SUBLINGUAL ONCE PRN (Reason: chest pain) Qty: 25 3RF Rx Instructions: take one tablet for chest pain every 5-15 minutes for a total of 3 doses carvedilol 12.5 mg tablet 12.5 mg PO BID Qty: 180 4RF Discontinued furosemide 20 mg tablet 10 mg PO DAILY Referrals / Follow Up: Nathan Damon MD [Primary Care Provider] - Within 1 Week Adarsh Castillo MD [Med Staff - Active Staff] - 07/07/23 Disposition Disposition (needs filled in before D/C Order can be placed): Home, Self Care 06/25/23 1303<Electronically signed by Davide Vasques MD>Davide Vasques MD CC: Dr. Nathan Damon MD ~ Signed [facility] Work Phone: 1(487) 617-797010-26-2023 Progress note Author Davide Vasques [facility] June 24, 2023 1:35pm Note Date/Time June 24, 2023 1 :35pm [facility] Medical Records Department [address] [place] [address] Progress Note - Hospitalist 06/24/23 1332 MR#: [id number] Acct: [id number] Name: ADARSH MAYER Rep #:[id number] : 1950 72 From: Davide reyes MD PCP: Dr. Nathan Damon MD Status: ADM IN Location: [place] [address] Subjective Subjective Doing well, feels little bit better today than yesterday. Down to 1 L nasal cannula Objective Data Objective Data Vital Signs: Vital Signs Temp Pulse Resp BP Pulse Ox O2 Del Method O2 Flow Rate 98.1 F 61 16 120/68 95 Nasal Cannula 1 06/24/23 09:44 06/24/23 09:44 06/24/23 09:44 06/24/23 09:44 06/24/23 09:44 06/24/23 09:51 06/24/23 09:51 Oxygen Flow Rate (L/min) 1 Oxygen Delivery Method Nasal Cannula Weight: 258 lb 13.163 oz Body Mass Index (BMI) 37.1 Intake & Output: Intake and Output for Last 24 Hours 06/23/23 06/24/23 06/25/23 03:59 03:59 03:59 Intake Total 1230 / 1230 150 / 150 Output Total 5600 / 5600 250 / 250 Balance -4370 / -4370 -100 / -100 Lab / Micro Data 06/24/23 05:57 06/24/23 05:57 Labs: Laboratory Results - last 24 hr 06/23/23 17:00: POC Glucose 115 H 06/23/23 20:48: POC Glucose 132 H 06/24/23 05:57: WBC 7.2, RBC 4.60, Hgb 11.9 L, Hct 39.5 L, MCV 85.9, MCH 25.9 L,MCHC 30.1 L, RDW Std Deviation 56.6 H, RDW Coeff of Zay 18.2 H, Plt Count 195, MPV 10.7, Immature Gran % (Auto) 0.300, Neut % (Auto) 70.5 H, Lymph % (Auto) 14.2 L, [place] % (Auto) 12.0 H, Eos % (Auto) 2.6, Baso % (Auto) 0.4, Absolute Neuts (auto) 5.1, Absolute Lymphs (auto) 1.02, Nucleated RBC % 0, Sodium 142, Potassium 3.2 L, Chloride 105, Carbon Dioxide 35.0 H, Anion Gap 2 L, BUN 22 H, Creatinine 1.26, Estim Creat Clear Calc 53.91, Est GFR (MDRD) Af Amer 72, Est GFR (MDRD) Non-Af 60, BUN/Creatinine Ratio 17.5, Glucose 114 H, Calcium 8.7 06/24/23 06:04: POC Glucose 109 H 06/24/23 12:31: POC Glucose 113 H Radiography Diagnostic Testing: Radiology Impression Echocardiogram 06/23/23 10:48 Interpretation Summary Mild concentric left ventricular hypertrophy. The left ventricular ejection fraction is 55 %. Diastolic function is indeterminate. The left atrium is moderately enlarged. The study was technically difficult. Small pericardial effusion noted. No echo evidence of tamponade. Ordering Physician: Davide Vasques Referring Physician: Roxie Damon Performed By: Ashley Jane, RDCS, RVT Physical Exam Narrative General: Alert, Oriented x3, Cooperative, No apparent distress HEENT: Atraumatic, PERRLA, EOMI, Normocephalic Oral: Moist Mucosa Neck: Supple, No JVD Lungs: Diminished, Normal air movement, No rhonchi, No wheeze, rales bilateral bases Cardiovascular: Regular rate, Regular Rhythm, Normal S1, Normal S2, No murmurs Abdomen: Soft, Non Tender, Non-Distended, No Hepato-splenomegaly Extremities: Trace edema, Capillary Refill Less than 3 Seconds Skin: No rashes, No breakdown Musculoskeletal: No Tenderness to Palpation of Joints or Extremities Neurological: Cranial nerves II-XII grossly intact, Motor Exam 5/5 strength throughout, Sensory exam intact to light touch and pain Psych/Mental Status: Normal affect Assessment & Plan Assessment/Plan (1) Bilateral pleural effusion: (2) Congestive heart failure: PLAN: Plan 1. CHF unknown type with bilateral pleural effusions/HTN/HLD/CAD status post stent ? He likely has worsening obstructive sleep apnea leading to right-sided heart failure though his BNP is only slightly elevated to 118 ? Echo with 55% unfortunately it was a difficult study so it was difficult to assess pulmonary artery function however right atrium was normal and the right ventricle also appeared to be normal ? We will place him on a fluid restriction ? Continue with Lasix ? We will resume his home blood pressure medications and monitor make adjustments as necessary ? We will continue his home Lipitor 2. DM2 ? We will hold his metformin ? Accu-Cheks ACHS ? Sliding scale insulin ? We will monitor and make adjustments as necessary 3. GERD ? Stable ? Continue with PPI DVT: Lovenox Charges/Coding Visit Charges Inpatient E&M: 30783 Subs Hosp L2 06/24/23 1335 <Electronically signed by Davide Vasques MD> Cosigner Signature (if applicable): CC: ~ Signed [facility] Work Phone: 1(838) 838-583510-25-2023 History and physical note Author Davide Vasques [facility] June 23, 2023 3:43pm Note Date/Time June 23, 2023 3 :39pm [facility] Medical Records Department [address] [place] [address] H&P Exam - Hospitalist 06/23/23 1532 MR#: [id number] Acct: [id number] Name: ADARSH MAYER Rep #:[id number] : 1950 72 From: Davide reyes MD PCP: Dr. Nathan Damon MD Status: ADM IN Location: [facility] [id number] HPI - General General Date of Admission: 06/23/23 HPI Narrative ADARSH MAYER, is a 72 M who presents to the hospital with current progressive worsening shortness of breath. He has difficulty walking even 10 feet and has also noticed issues with laying flat and he wakes up gasping for air while sleeping for the last several months. says that he has had signsof sleep apnea with snoring and apneic episodes over the last several years and there had been discussions about 10 to 15 years ago about potentially needing sleep study. Unfortunate this was never done. In the ER he has a CT scan of his chest which demonstrates bilateral mild to moderate pleural effusions. He was given of dose of Lasix in the ED. BNP was slightly elevated to 118 with a normal troponin. He has not seen pulmonology yet as an outpatient as the referral was for 07/07/2023. [facility] Medical History Acute respiratory failure with hypoxia Atherosclerosis of [place] coronary artery of [place] heart without angina pectoris Diabetes mellitus type II, controlled Essential (primary) hypertension Hematuria Hydroureteronephrosis Ischemic cardiomyopathy Kidney stones Non-ST elevation (NSTEMI) myocardial infarction (01/14/16) Obesity Pure hypercholesterolemia Home Medications aspirin 81 mg chewable tablet 81 mg PO DAILY@0800 01/03/16 [History Last Taken 01/14/18 81 MG] lisinopril 20 mg tablet 20 mg PO BID #180 tabs 06/10/21 [Rx Last Taken Unknown] furosemide 20 mg tablet 10 mg PO DAILY 12/10/21 [History Last Taken Unknown] potassium chloride 20 mEq tablet,extended release 20 meq PO DAILY 12/10/21 [History Last Taken Unknown] clopidogrel 75 mg tablet 75 mg PO DAILY #90 tabs 07/06/22 [Rx Last Taken Unknown] pantoprazole 40 mg tablet,delayed release 40 mg PO DAILY #90 tabs 08/27/22 [Rx Last Taken Unknown] allopurinol 100 mg tablet 200 mg PO DAILY 01/07/23 [History Last Taken Unknown] cyanocobalamin (vitamin B-12) 1,000 mcg tablet 1,000 mcg PO DAILY 01/07/23 [History Last Taken Unknown] metformin 500 mg 24 hr tablet,extended release 1,000 mg PO DAILY 01/07/23 [History Last Taken Unknown] atorvastatin 80 mg tablet 80 mg PO QHS #90 tabs 01/12/23 [Rx Last Taken Unknown] nitroglycerin 0.4 mg sublingual tablet 0.4 mg sublingual ONCE PRN chest pain #25tabs 03/19/23 [Rx Last Taken Unknown] carvedilol 12.5 mg tablet 12.5 mg PO BID #180 tabs 03/29/23 [Rx Last Taken Unknown] amlodipine 5 mg tablet 5 mg PO DAILY 06/23/23 [History Last Taken Unknown] Allergy/AdvReac Type Severity Reaction Status Date / Time ticagrelor [From BRILINTA] Allergy Shortness Verified 06/23/23 04:42 of breath Family History Father CAD (coronary artery disease) Diabetes Surgical History History of cataract surgery History of coronary artery stent placement (01/04/16) History of tonsillectomy History of umbilical hernia repair History of vasectomy Social History Smoking Status: Never smoker ROS Constitutional Constitutional: Denies chills, fatigue, fever(s) or malaise Eyes Eyes: Denies blurry vision ENT HEENT: Denies headache(s) or nasal discharge Cardiovascular Cardiovascular: Reports orthopnea; Denies chest pain, dyspnea on exertion or syncope Respiratory/Chest Respiratory/Chest: Reports shortness of breath with exertion; Denies cough or shortness of breath at rest Gastrointestinal Gastrointestinal: Denies constipation, diarrhea, nausea or vomiting Genitourinary Genitourinary: Denies dysuria Neurologic Neurologic: Denies focal weakness, numbness or tremor(s) Psychiatric Psychiatric: Denies anxiety or depression Vital Signs Vital Signs Vital Signs: 06/23/23 04:37 06/23/23 04:40 06/23/23 06:00 Temperature 97.7 F L 97.7 F L Temperature Source Temporal Temporal Pulse Rate 65 64 Pulse Strength Respiratory Rate 27 H 24 H Respiratory Effort Short of Breath Respiratory Depth Normal Respiratory Pattern Normal Blood Pressure 183/85 H 183/85 H Blood Pressure Mean 117 117 Blood Pressure Source Blood Pressure Position Blood Pressure Location Pulse Ox 89 88 Oxygen Delivery Method Room Air Room Air Oxygen Flow Rate (L/min) 06/23/23 06:31 06/23/23 06:36 06/23/23 06:50 Temperature Temperature Source Pulse Rate Pulse Strength Respiratory Rate Respiratory Effort Respiratory Depth Respiratory Pattern Blood Pressure Blood Pressure Mean Blood Pressure Source Blood Pressure Position Blood Pressure Location Pulse Ox 84 84 95 Oxygen Delivery Method Room Air Room Air Nasal Cannula Oxygen Flow Rate (L/min) 2 06/23/23 07:38 06/23/23 08:13 06/23/23 08:45 Temperature 97.5 F L 97.5 F L 97.7 F L Temperature Source Oral Oral Oral Pulse Rate 67 64 67 Pulse Strength Respiratory Rate 19 H 21 H 18 Respiratory Effort Respiratory Depth Respiratory Pattern Blood Pressure 193/92 H 158/70 H 166/81 H Blood Pressure Mean 125 99 109 Blood Pressure Source Monitor Blood Pressure Position Semi-Fowlers Blood Pressure Location Right Arm Pulse Ox 95 93 95 Oxygen Delivery Method Nasal Cannula Nasal Cannula Nasal Cannula Oxygen Flow Rate (L/min) 2 2 2 06/23/23 10:00 06/23/23 08:45 06/23/23 12:02 Temperature Temperature Source Pulse Rate Pulse Strength Weak (1+) Respiratory Rate Respiratory Effort Normal Non-Labored Respiratory Depth Normal Respiratory Pattern Normal Blood Pressure Blood Pressure Mean Blood Pressure Source Blood Pressure Position Blood Pressure Location Pulse Ox 95 Oxygen Delivery Method Nasal Cannula Nasal Cannula Oxygen Flow Rate (L/min) 2 2 Weight Weight: 263 lb 3.711 oz Body Mass Index (BMI) 37.8 Physical Exam Narrative General: Alert, Oriented x3, Cooperative, No apparent distress HEENT: Atraumatic, PERRLA, EOMI, Normocephalic Oral: Moist Mucosa Neck: Supple, No JVD Lungs: Diminished, Normal air movement, No rhonchi, No wheeze, rales bilateral bases Cardiovascular: Regular rate, Regular Rhythm, Normal S1, Normal S2, No murmurs Abdomen: Soft, Non Tender, Non-Distended, No Hepato-splenomegaly Extremities: Edema, Capillary Refill Less than 3 Seconds Skin: No rashes, No breakdown Musculoskeletal: No Tenderness to Palpation of Joints or Extremities Neurological: Cranial nerves II-XII grossly intact, Motor Exam 5/5 strength throughout, Sensory exam intact to light touch and pain Psych/Mental Status: Flat Results Lab / Micro Data 06/23/23 04:47 06/23/23 04:47 Labs: Laboratory Results - last 24 hr 06/23/23 04:47: WBC 8.6, RBC 5.08, Hgb 13.4, Hct 43.5, MCV 85.6, MCH 26.4 L, MCHC 30.8 L, RDW Std Deviation 56.3 H, RDW Coeff of Zay 18.3 H, Plt Count 228, MPV 10.9, Immature Gran % (Auto) 0.600, Neut % (Auto) 71.9 H, Lymph % (Auto) 15.8 L, [place] % (Auto) 7.1, Eos % (Auto) 3.9, Baso % (Auto) 0.7, Absolute Neuts (auto) 6.2, Absolute Lymphs (auto) 1.36, Nucleated RBC % 0, Sodium 144, Potassium 3.6, Chloride 110 H, Carbon Dioxide 32.0, Anion Gap 2 L, BUN 18, Creatinine 1.18, Estim Creat Clear Calc 57.57, Est GFR (MDRD) Af Amer 78, Est GFR (MDRD) Non-Af 64, BUN/Creatinine Ratio 15.3, Glucose 117 H, Calcium 8.9, Phosphorus 2.5, Magnesium 2.1, Total Bilirubin 1.80 H, Direct Bilirubin 0.48 H, AST 13 L, ALT 20, Alkaline Phosphatase 111, Troponin I High Sens 41, B-Natriuretic Peptide 118.3 H, Total Protein 7.1, Albumin 3.2, Globulin 3.9 06/23/23 06:00: Urine Color Yellow, Urine Clarity Clear, Urine pH 7.0, Ur Specific [place] 1.010, Urine Protein 15 H, Urine Glucose (UA) Normal, Urine Ketones 5 H, Urine Occult Blood Negative, Urine Nitrite Negative, Urine Bilirubin Negative, Urine Urobilinogen 8 H, Ur Leukocyte Esterase Negative, Urine RBC 0SEEN, Urine WBC 0 SEEN, Ur Squamous Epith Cells 0 SEEN, Amorphous Sediment 1+, Urine Bacteria 0 SEEN, Urine Mucus 1+ 06/23/23 11:10: POC Glucose 129 H Radiology Impression Chest X-Ray 06/23/23 05:30 IMPRESSION: Small bilateral pleural effusions more prominent on the left. Compressive atelectasis in the lung bases. Electronically Signed: Chio Corona MD at 6:01 EDT Reading Location ID and State: [facility] / [place] Tel , Service support , Chest CT 06/23/23 06:09 IMPRESSION: Moderate bilateral pleural effusions with compressive atelectasis in the lung bases. There is a small pericardial effusion. Electronically Signed: Chio Corona MD at 7:26 EDT Reading Location ID and State: [address] [place] [address] Tel , Service support , Assessment & Plan Assessment/Plan (1) Bilateral pleural effusion: (2) Congestive heart failure: PLAN: Plan 1. CHF unknown type with bilateral pleural effusions/HTN/HLD/CAD status post stent ? He likely has worsening obstructive sleep apnea leading to right-sided heart failure though his BNP is only slightly elevated to 118 ? We will order an echo ? We will place him on a fluid restriction ? Continue with Lasix ? We will resume his home blood pressure medications and monitor make adjustments as necessary ? We will continue his home Lipitor 2. DM2 ? We will hold his metformin ? Accu-Cheks ACHS ? Sliding scale insulin ? We will monitor and make adjustments as necessary 3. GERD ? Stable ? Continue with PPI DVT: Lovenox 75 minutes was spent on direct patient care, including documentation as well as chart review and collaboration with colleagues Charges/Coding Visit Charges Inpatient E&M: 77362 Init Hosp L3 06/23/23 1543 <Electronically signed by Davide Vasques MD> Cosigner Signature (if applicable): CC: Dr. Nathan Damon MD; Dr. Davide Vasques MD~ Signed [facility] Work Phone: 1([phone]) 672-861110-25-2023 Discharge summary Author Konrad Maldonado [facility] June 23, 2023 7:58am Note Date/Time June 23, 2023 5 :13am [facility] Medical Records Department [address] [place] [address] Emergency Department Summary 06/23/23 MR#: [id number] Acct: [id number] Name: ADARSH MAYER Rep #:[id number] : 1950 72 From: Konrad Cote PCP: Dr. Nathan Damon MD Status: REG ER Location: ED HPI History of Present Illness Chief Complaint: Shortness of Breath Informant: patient and spouse/S.O. Narrative Narrative: 72-year-old male with a history of coronary artery disease presenting to the emergency room with dyspnea. Patient notes months of shortness of breath. He states that during the summer due to having a prior coronary artery disease and intervention he underwent a stress test. After that he began to notice belchingparticularly with every breath at night. He notes that he has been short of breath ever since. He states last week he did a home sleep test that measured his oxygen level and he was told that his oxygen drops into the 50% at night. He has not had a formal sleep study. He was referred to pulmonology has an appointment July 07. He states that he has been now sleeping in a chair unable to lay flat. He wakesup gasping/frequently catching his breath. He notes dyspnea with exertion. He takes Lasix 10 mg per day. He states that he was having problems with the higher doses of Lasix because of having to spend so much time using the bathroom. He denies a history of congestive heart failure. He follows locally with [facility]. He did have the stress test which was negative earlier this year. He denies fevers. He notes a cough that is nonproductive and frequent. [facility] Medical History (Updated 06/23/23 @ 06:[address] Konrad Maldonado, ) Acute respiratory failure with hypoxia Atherosclerosis of [place] coronary artery of [place] heart without angina pectoris Diabetes mellitus type II, controlled Essential (primary) hypertension Hematuria Hydroureteronephrosis Ischemic cardiomyopathy Kidney stones Non-ST elevation (NSTEMI) myocardial infarction (01/14/16) Obesity Pure hypercholesterolemia Home Medications aspirin 81 mg chewable tablet 81 mg PO DAILY@0800 01/03/16 [History Last Taken 01/14/18 81 MG] lisinopril 20 mg tablet 20 mg PO BID #180 tabs 06/10/21 [Rx Last Taken Unknown] furosemide 20 mg tablet 10 mg PO DAILY 12/10/21 [History Last Taken Unknown] potassium chloride 20 mEq tablet,extended release 20 meq PO DAILY 12/10/21 [History Last Taken Unknown] clopidogrel 75 mg tablet 75 mg PO DAILY #90 tabs 07/06/22 [Rx Last Taken Unknown] pantoprazole 40 mg tablet,delayed release 40 mg PO DAILY #90 tabs 08/27/22 [Rx Last Taken Unknown] allopurinol 100 mg tablet 200 mg PO DAILY 01/07/23 [History Last Taken Unknown] cyanocobalamin (vitamin B-12) 1,000 mcg tablet 1,000 mcg PO DAILY 01/07/23 [History Last Taken Unknown] metformin 500 mg 24 hr tablet,extended release 1,000 mg PO DAILY 01/07/23 [History Last Taken Unknown] atorvastatin 80 mg tablet 80 mg PO QHS #90 tabs 01/12/23 [Rx Last Taken Unknown] nitroglycerin 0.4 mg sublingual tablet 0.4 mg sublingual ONCE PRN chest pain #25tabs 03/19/23 [Rx Last Taken Unknown] carvedilol 12.5 mg tablet 12.5 mg PO BID #180 tabs 03/29/23 [Rx Last Taken Unknown] amlodipine 5 mg tablet 5 mg PO DAILY 06/23/23 [History Last Taken Unknown] Allergy/AdvReac Type Severity Reaction Status Date / Time ticagrelor [From [facility]TA] Allergy Shortness Verified 06/23/23 04:42 of breath Family History Father CAD (coronary artery disease) Diabetes Surgical History History of cataract surgery History of coronary artery stent placement (01/04/16) History of tonsillectomy History of umbilical hernia repair History of vasectomy Social History Smoking Status: Never smoker ROS ROS ED Constitutional Constitutional ED: Denies chills or weight loss Eyes Eyes: Denies change in vision or diplopia ENT ENT ED: Denies ear pain, rhinorrhea or sore throat Cardiovascular Cardiovascular: Reports orthopnea; Denies chest pain, palpitations or racing heartbeat Respiratory/Chest Respiratory/Chest: Reports cough, dyspnea, dyspnea on exertion and orthopnea Gastrointestinal Gastrointestinal: Reports other Details: Belching ; Denies abdominal pain, diarrhea, nausea or vomiting Genitourinary Genitourinary ED: Denies dysuria, hematuria or urinary frequency Musculoskeletal Musculoskeletal: Denies arthralgias or myalgias Integumentary Denies abscess or rash Neurologic Neurologic: Denies headache(s) or weakness Psychiatric Psychiatric: Denies anxiety, depression, suicidal ideation or suicidal thoughts Endocrine Endocrinology: Denies polydipsia, polyphagia or polyuria Allergic/Immunologic Allergic/Immunologic ED: Denies mouth swelling, tongue swelling or urticaria EXAM Physical Exam Const Vital Signs: 06/23/23 04:37 06/23/23 04:40 06/23/23 06:00 Temperature 97.7 F L 97.7 F L Temperature Source Temporal Temporal Pulse Rate 65 64 Respiratory Rate 27 H 24 H Respiratory Effort Short of Breath Respiratory Depth Normal Respiratory Pattern Normal Blood Pressure 183/85 H 183/85 H Blood Pressure Mean 117 117 Pulse Ox 89 88 Oxygen Delivery Method Room Air Room Air Oxygen Flow Rate (L/min) 06/23/23 06:31 06/23/23 06:36 06/23/23 06:50 Temperature Temperature Source Pulse Rate Respiratory Rate Respiratory Effort Respiratory Depth Respiratory Pattern Blood Pressure Blood Pressure Mean Pulse Ox 84 84 95 Oxygen Delivery Method Room Air Room Air Nasal Cannula Oxygen Flow Rate (L/min) 2 06/23/23 07:38 Temperature 97.5 F L Temperature Source Oral Pulse Rate 67 Respiratory Rate 19 H Respiratory Effort Respiratory Depth Respiratory Pattern Blood Pressure 193/92 H Blood Pressure Mean 125 Pulse Ox 95 Oxygen Delivery Method Nasal Cannula Oxygen Flow Rate (L/min) 2 Positive well nourished, well developed and obese General Appearance ED: well developed Nutritional Appearance: obese HEENT Reports normocephalic, head/scalp atraumatic and moist mucous membranes Eyes PERRL and EOMs intact bilaterally Neck no lymphadenopathy, supple and no JVD Resp normal respiratory effort Auscultation: diminished lung sounds bilateral lower Cardio regular rate, regular rhythm and no murmurs GI normal to inspection, nondistended, normoactive bowel sounds and non-tender Palpation: soft Back/Spine no CVA tenderness and normal ROM Extremity General Extremety ED: Yes edema General Extremity: edema bilateral lower extremity Details: moderate Neuro oriented x3 and CN's II-XII intact bilaterally Sensorium / Orientation: alert Motor Exam: strength 5/5 throughout Psych mental status grossly normal Mood & Affect: Negative for depressed or tearful Skin no rashes or lesions noted and no wounds MDM MDM MDM Narrative Medical decision making narrative: While at rest the patient's oxygen is 90 to 93% with a good waveform. The 10 to15 feet to the bathroom the patient becomes acutely dyspneic and his pulse ox isin the mid to low 80s. My independent interpretation of the chest x-ray is small pleural effusions. White count 8.6 with hemoglobin of 13.4. Platelet count of 2 2 BUN of 18 with acreatinine of 1.18. Total bilirubin 1.8 direct bilirubin 0.48. Urinalysis shows no overt infection. CT of the chest with IV contrast obtained which demonstrates bilateral pleural effusions -right greater than left. No large pericardial effusion was noted. Coming back from CT and sitting him up he is 84% on room air. This is with a good waveform. Patient received supplemental oxygen and later Lasix 80 mg IV. I do not see a recent echocardiogram with ejection fraction of the computer. Hehas bilateral pleural effusions and orthopnea. He has hypoxia with exertion. He does not feel like he can take a deep breath. He has lower extremity edema. His diuretics are low-dose. Any the patient most likely has evidence of heart failure would benefit from admission and aggressive diuresis further treatment. In addition he is requiring supplemental oxygen with any type of exertion. Lab Data Attestation: I reviewed the patient's lab results. Labs: Laboratory Results - last 24 hr 06/23/23 06/23/23 04:47 06:00 WBC 8.6 RBC 5.08 Hgb 13.4 Hct 43.5 MCV 85.6 MCH 26.4 L MCHC 30.8 L RDW Std Deviation 56.3 H RDW Coeff of Zay 18.3 H Plt Count 228 MPV 10.9 Immature Gran % (Auto) 0.600 Neut % (Auto) 71.9 H Lymph % (Auto) 15.8 L [place] % (Auto) 7.1 Eos % (Auto) 3.9 Baso % (Auto) 0.7 Absolute Neuts (auto) 6.2 Absolute Lymphs (auto) 1.36 Nucleated RBC % 0 Sodium 144 Potassium 3.6 Chloride 110 H Carbon Dioxide 32.0 Anion Gap 2 L BUN 18 Creatinine 1.18 Estim Creat Clear Calc 57.57 Est GFR (MDRD) Af Amer 78 Est GFR (MDRD) Non-Af 64 BUN/Creatinine Ratio 15.3 Glucose 117 H Calcium 8.9 Total Bilirubin 1.80 H Direct Bilirubin 0.48 H AST 13 L ALT 20 Alkaline Phosphatase 111 Troponin I High Sens 41 Total Protein 7.1 Albumin 3.2 Globulin 3.9 Urine Color Yellow Urine Clarity Clear Urine pH 7.0 Ur Specific [place] 1.010 Urine Protein 15 H Urine Glucose (UA) Normal Urine Ketones 5 H Urine Occult Blood Negative Urine Nitrite Negative Urine Bilirubin Negative Urine Urobilinogen 8 H Ur Leukocyte Esterase Negative Urine RBC 0 SEEN Urine WBC 0 SEEN Ur Squamous Epith Cells 0 SEEN Amorphous Sediment 1+ Urine Bacteria 0 SEEN Urine Mucus 1+ Radiography Diagnostic Testing: Clinical Impression(s) from Imaging Studies Chest X-Ray 06/23/23 05:30 IMPRESSION: Small bilateral pleural effusions more prominent on the left. Compressive atelectasis in the lung bases. Electronically Signed: Chio Corona MD at 6:01 EDT , Chest CT 06/23/23 06:09 IMPRESSION: Moderate bilateral pleural effusions with compressive atelectasis in the lung bases. There is a small pericardial effusion. Electronically Signed: Chio Corona MD at 7:26 EDT , EKG Initial EKG: Attestation: I personally reviewed and interpreted this EKG as follows: Comments: Sinus rhythm with 1st degree AV Block. ventricular rate 64 bpm. Discharge Plan Dx/Rx/DC Orders Clinical Impression: Congestive heart failure, Acute hypoxemic respiratory failure, Atherosclerosis of [place] coronary artery of [place] heart without angina pectoris, Bilateral pleural effusion Disposition Disposition: Acute Care Hospital [facility] What to do if you have Problems For any increased pain, shortness of breath, bleeding, nausea or vomiting, chestpain, or any unexpected problems, contact your Primary Care Provider. Call [facility] ([phone]) or report to the closest Emergency Room. Call 911 if necessary. 06/23/23 0758 <Electronically signed by Konrad Maldonado DO> Cosigner Signature (if applicable): CC: Dr. Nathan Damon MD ~ Signed [facility] Work Phone: 1(605) 979-717510-25-2023 Discharge summary Author Konrad Maldonado [facility] June 23, 2023 7:58am Note Date/Time June 23, 2023 5 :13am [facility] Medical Records Department [address] [place] [address] Emergency Department Summary 06/23/23 MR#: [id number] Acct: [id number] Name: ADARSH MAYER Rep #:[id number] : 1950 72 From: Konrad Cote PCP: Dr. Nathan Damon MD Status: REG ER Location: ED HPI History of Present Illness Chief Complaint: Shortness of Breath Informant: patient and spouse/S.O. Narrative Narrative: 72-year-old male with a history of coronary artery disease presenting to the emergency room with dyspnea. Patient notes months of shortness of breath. He states that during the summer due to having a prior coronary artery disease and intervention he underwent a stress test. After that he began to notice belchingparticularly with every breath at night. He notes that he has been short of breath ever since. He states last week he did a home sleep test that measured his oxygen level and he was told that his oxygen drops into the 50% at night. He has not had a formal sleep study. He was referred to pulmonology has an appointment July 07. He states that he has been now sleeping in a chair unable to lay flat. He wakesup gasping/frequently catching his breath. He notes dyspnea with exertion. He takes Lasix 10 mg per day. He states that he was having problems with the higher doses of Lasix because of having to spend so much time using the bathroom. He denies a history of congestive heart failure. He follows locally with [facility]. He did have the stress test which was negative earlier this year. He denies fevers. He notes a cough that is nonproductive and frequent. [facility] Medical History (Updated 06/23/23 @ 06:[address] Konrad Maldonado DO) Acute respiratory failure with hypoxia Atherosclerosis of [place] coronary artery of [place] heart without angina pectoris Diabetes mellitus type II, controlled Essential (primary) hypertension Hematuria Hydroureteronephrosis Ischemic cardiomyopathy Kidney stones Non-ST elevation (NSTEMI) myocardial infarction (01/14/16) Obesity Pure hypercholesterolemia Home Medications aspirin 81 mg chewable tablet 81 mg PO DAILY@0800 01/03/16 [History Last Taken 01/14/18 81 MG] lisinopril 20 mg tablet 20 mg PO BID #180 tabs 06/10/21 [Rx Last Taken Unknown] furosemide 20 mg tablet 10 mg PO DAILY 12/10/21 [History Last Taken Unknown] potassium chloride 20 mEq tablet,extended release 20 meq PO DAILY 12/10/21 [History Last Taken Unknown] clopidogrel 75 mg tablet 75 mg PO DAILY #90 tabs 07/06/22 [Rx Last Taken Unknown] pantoprazole 40 mg tablet,delayed release 40 mg PO DAILY #90 tabs 08/27/22 [Rx Last Taken Unknown] allopurinol 100 mg tablet 200 mg PO DAILY 01/07/23 [History Last Taken Unknown] cyanocobalamin (vitamin B-12) 1,000 mcg tablet 1,000 mcg PO DAILY 01/07/23 [History Last Taken Unknown] metformin 500 mg 24 hr tablet,extended release 1,000 mg PO DAILY 01/07/23 [History Last Taken Unknown] atorvastatin 80 mg tablet 80 mg PO QHS #90 tabs 01/12/23 [Rx Last Taken Unknown] nitroglycerin 0.4 mg sublingual tablet 0.4 mg sublingual ONCE PRN chest pain #25tabs 03/19/23 [Rx Last Taken Unknown] carvedilol 12.5 mg tablet 12.5 mg PO BID #180 tabs 03/29/23 [Rx Last Taken Unknown] amlodipine 5 mg tablet 5 mg PO DAILY 06/23/23 [History Last Taken Unknown] Allergy/AdvReac Type Severity Reaction Status Date / Time ticagrelor [From BR[facility]TA] Allergy Shortness Verified 06/23/23 04:42 of breath Family History Father CAD (coronary artery disease) Diabetes Surgical History History of cataract surgery History of coronary artery stent placement (01/04/16) History of tonsillectomy History of umbilical hernia repair History of vasectomy Social History Smoking Status: Never smoker ROS ROS ED Constitutional Constitutional ED: Denies chills or weight loss Eyes Eyes: Denies change in vision or diplopia ENT ENT ED: Denies ear pain, rhinorrhea or sore throat Cardiovascular Cardiovascular: Reports orthopnea; Denies chest pain, palpitations or racing heartbeat Respiratory/Chest Respiratory/Chest: Reports cough, dyspnea, dyspnea on exertion and orthopnea Gastrointestinal Gastrointestinal: Reports other Details: Belching ; Denies abdominal pain, diarrhea, nausea or vomiting Genitourinary Genitourinary ED: Denies dysuria, hematuria or urinary frequency Musculoskeletal Musculoskeletal: Denies arthralgias or myalgias Integumentary Denies abscess or rash Neurologic Neurologic: Denies headache(s) or weakness Psychiatric Psychiatric: Denies anxiety, depression, suicidal ideation or suicidal thoughts Endocrine Endocrinology: Denies polydipsia, polyphagia or polyuria Allergic/Immunologic Allergic/Immunologic ED: Denies mouth swelling, tongue swelling or urticaria EXAM Physical Exam Const Vital Signs: 06/23/23 04:37 06/23/23 04:40 06/23/23 06:00 Temperature 97.7 F L 97.7 F L Temperature Source Temporal Temporal Pulse Rate 65 64 Respiratory Rate 27 H 24 H Respiratory Effort Short of Breath Respiratory Depth Normal Respiratory Pattern Normal Blood Pressure 183/85 H 183/85 H Blood Pressure Mean 117 117 Pulse Ox 89 88 Oxygen Delivery Method Room Air Room Air Oxygen Flow Rate (L/min) 06/23/23 06:31 06/23/23 06:36 06/23/23 06:50 Temperature Temperature Source Pulse Rate Respiratory Rate Respiratory Effort Respiratory Depth Respiratory Pattern Blood Pressure Blood Pressure Mean Pulse Ox 84 84 95 Oxygen Delivery Method Room Air Room Air Nasal Cannula Oxygen Flow Rate (L/min) 2 06/23/23 07:38 Temperature 97.5 F L Temperature Source Oral Pulse Rate 67 Respiratory Rate 19 H Respiratory Effort Respiratory Depth Respiratory Pattern Blood Pressure 193/92 H Blood Pressure Mean 125 Pulse Ox 95 Oxygen Delivery Method Nasal Cannula Oxygen Flow Rate (L/min) 2 Positive well nourished, well developed and obese General Appearance ED: well developed Nutritional Appearance: obese HEENT Reports normocephalic, head/scalp atraumatic and moist mucous membranes Eyes PERRL and EOMs intact bilaterally Neck no lymphadenopathy, supple and no JVD Resp normal respiratory effort Auscultation: diminished lung sounds bilateral lower Cardio regular rate, regular rhythm and no murmurs GI normal to inspection, nondistended, normoactive bowel sounds and non-tender Palpation: soft Back/Spine no CVA tenderness and normal ROM Extremity General Extremety ED: Yes edema General Extremity: edema bilateral lower extremity Details: moderate Neuro oriented x3 and CN's II-XII intact bilaterally Sensorium / Orientation: alert Motor Exam: strength 5/5 throughout Psych mental status grossly normal Mood & Affect: Negative for depressed or tearful Skin no rashes or lesions noted and no wounds MDM MDM MDM Narrative Medical decision making narrative: While at rest the patient's oxygen is 90 to 93% with a good waveform. The 10 to15 feet to the bathroom the patient becomes acutely dyspneic and his pulse ox isin the mid to low 80s. My independent interpretation of the chest x-ray is small pleural effusions. White count 8.6 with hemoglobin of 13.4. Platelet count of 2 2 BUN of 18 with acreatinine of 1.18. Total bilirubin 1.8 direct bilirubin 0.48. Urinalysis shows no overt infection. CT of the chest with IV contrast obtained which demonstrates bilateral pleural effusions -right greater than left. No large pericardial effusion was noted. Coming back from CT and sitting him up he is 84% on room air. This is with a good waveform. Patient received supplemental oxygen and later Lasix 80 mg IV. I do not see a recent echocardiogram with ejection fraction of the computer. Hehas bilateral pleural effusions and orthopnea. He has hypoxia with exertion. He does not feel like he can take a deep breath. He has lower extremity edema. His diuretics are low-dose. Any the patient most likely has evidence of heart failure would benefit from admission and aggressive diuresis further treatment. In addition he is requiring supplemental oxygen with any type of exertion. Lab Data Attestation: I reviewed the patient's lab results. Labs: Laboratory Results - last 24 hr 06/23/23 06/23/23 04:47 06:00 WBC 8.6 RBC 5.08 Hgb 13.4 Hct 43.5 MCV 85.6 MCH 26.4 L MCHC 30.8 L RDW Std Deviation 56.3 H RDW Coeff of [place]ay 18.3 H Plt Count 228 MPV 10.9 Immature Gran % (Auto) 0.600 Neut % (Auto) 71.9 H Lymph % (Auto) 15.8 L [place] % (Auto) 7.1 Eos % (Auto) 3.9 Baso % (Auto) 0.7 Absolute Neuts (auto) 6.2 Absolute Lymphs (auto) 1.36 Nucleated RBC % 0 Sodium 144 Potassium 3.6 Chloride 110 H Carbon Dioxide 32.0 Anion Gap 2 L BUN 18 Creatinine 1.18 Estim Creat Clear Calc 57.57 Est GFR (MDRD) Af Amer 78 Est GFR (MDRD) Non-Af 64 BUN/Creatinine Ratio 15.3 Glucose 117 H Calcium 8.9 Total Bilirubin 1.80 H Direct Bilirubin 0.48 H AST 13 L ALT 20 Alkaline Phosphatase 111 Troponin I High Sens 41 Total Protein 7.1 Albumin 3.2 Globulin 3.9 Urine Color Yellow Urine Clarity Clear Urine pH 7.0 Ur Specific [place] 1.010 Urine Protein 15 H Urine Glucose (UA) Normal Urine Ketones 5 H Urine Occult Blood Negative Urine Nitrite Negative Urine Bilirubin Negative Urine Urobilinogen 8 H Ur Leukocyte Esterase Negative Urine RBC 0 SEEN Urine WBC 0 SEEN Ur Squamous Epith Cells 0 SEEN Amorphous Sediment 1+ Urine Bacteria 0 SEEN Urine Mucus 1+ Radiography Diagnostic Testing: Clinical Impression(s) from Imaging Studies Chest X-Ray 06/23/23 05:30 IMPRESSION: Small bilateral pleural effusions more prominent on the left. Compressive atelectasis in the lung bases. Electronically Signed: Chio Corona MD at 6:01 EDT , Chest CT 06/23/23 06:09 IMPRESSION: Moderate bilateral pleural effusions with compressive atelectasis in the lung bases. There is a small pericardial effusion. Electronically Signed: Chio Corona MD at 7:26 EDT , EKG Initial EKG: Attestation: I personally reviewed and interpreted this EKG as follows: Comments: Sinus rhythm with 1st degree AV Block. ventricular rate 64 bpm. Discharge Plan Dx/Rx/DC Orders Clinical Impression: Congestive heart failure, Acute hypoxemic respiratory failure, Atherosclerosis of [place] coronary artery of [place] heart without angina pectoris, Bilateral pleural effusion Disposition Disposition: Acute Care Hospital [facility] What to do if you have Problems For any increased pain, shortness of breath, bleeding, nausea or vomiting, chestpain, or any unexpected problems, contact your Primary Care Provider. Call [facility] ([phone]) or report to the closest Emergency Room. Call 911 if necessary. 06/23/23 0758 <Electronically signed by Konrad Maldonado DO> Cosigner Signature (if applicable): CC: Dr. Nathan Damon MD ~ Signed [facility] Work Phone: [phone] 260-622405-09-2023 Nurse Note* Zulma Rizzo RN - 01/05/2023 10:35 AM EDT Patient arrived laying on left side. Patient does not appear to be in any pain at this time. Abdomen appears to be nondistended and soft to palpation. Patient encouraged to belch and pass gas as needed. [facility] and physical note * Riley Jaeger MD - 01/05/2023 9:00 AM EDT UPDATED PROCEDURAL SEDATION HISTORY AND PHYSICAL EXAMINATION SERVICE DATE: 01/05/2023 SERVICE TIME: 9:38 AM PHYSICAL EXAM MUST BE COMPLETED ON ADMISSION PROCEDURE: Procedure Indications: The History and Physical (completed in the past 30 days) has been reviewed and the patient has beenexamined. The contents accurately reflect the patient's condition with the following additions or revisions since the H&P was completed. ASA Class: ASA Class:: Patient with mild systemic disease Examination indicates no changes. AIRWAY: Airway Visualization of Uvula: Yes Mouth opening greater than 2 fingerbreadths: Yes Neck Full Range of Motion: Yes LUNGS: Lungs clear to auscultation CARDIAC: Regular rhythm,Regular rate Provisional Diagnosis/Treatment Plan: history of polyps - Colonoscopy SEDATION GOAL: Moderate This H&P can be found in the attached. SIGNATURE: Riley Jaeger MD PATIENT NAME: Adarsh Mayer DATE: January 05, 2023 TIME: 9:38 AM Source Note - Riley Jaeger MD - 01/05/2023 9:00 AM EDT Images from the original note were not included. HISTORY AND PHYSICAL Adarsh Mayer 1950 REFERRING PHYSICIAN: No ref. provider found CHIEF COMPLAINT: Consult (colonoscopy) HPI: The patient is a 72 year old male referred for endoscopy. Adarsh notes no colon complaints. Patient denies any change in bowel habits, weight changes, blood in stools, black tarry stools or abdominal pain. Denies family history of colon issues. The patient notes no upper GI complaints. Adarsh has undergone prior endoscopy. Last colonoscopy with removal of adenomatous polyps, 3 year follow up recommended. Denies problems with sedation in the past. PAST MEDICAL HISTORY PAST MEDICAL HISTORY Diagnosis Date Coronary artery disease DM (diabetes mellitus), type 2 (HCC) GERD (gastroesophageal reflux disease) HTN (hypertension) Hypercholesterolemia NE (myocardial infarction) (HCC) PAST SURGICAL HISTORY PAST SURGICAL HISTORY Procedure Laterality Date COLONOSCOPY 06/26/2014 COLONOSCOPY FLX DX W/COLLJ SPEC WHEN PFRMD 09/19/2019 Colonoscopy HEART CATHETERIZATION 2015 with stent placement REMOVE CATARACT, INSERT LENS,EX 2012 REPAIR FIRST ABDOMINAL WALL HERNIA 02/03/13 medium ventralex TONSILLECTOMY PRIMARY/SECONDARY <AGE 12 1956 Tonsillectomy VASECTOMY UNI/BI SPX W/POSTOP SEMEN EXAMS CURRENT MEDICATIONS Current Outpatient Medications Medication Sig allopurinol (ZYLOPRIM) 100 mg tablet Take 100 mg by mouth twice daily. furosemide (LASIX) 20 mg tablet Take 20 mg by mouth twice daily. potassium chloride SR (MICRO-K) 10 mEq CR capsule Take 20 mEq by mouth once daily. atorvastatin (LIPITOR) 80 mg tablet Take 80 mg by mouth once daily. carvedilol (COREG) 12.5 mg tablet Take 12.5 mg by mouth twice daily with meals. clopidogrel (PLAVIX) 75 mg tablet Take 75 mg by mouth once daily. hydroCHLOROthiazide (HYDRODIURIL, ESIDRIX) 25 mg tablet Take 25 mg by mouth once daily. metFORMIN (GLUCOPHAGE) 500 mg tablet Take 500 mg by mouth daily with breakfast. pantoprazole DR (PROTONIX) 40 mg tablet Take 40 mg by mouth once daily. nitroglycerin sublingual (NITROQUICK) 0.4 mg SL tablet Dissolve 0.4 mg under the tongue every 5 minutes as needed. amLODIPine (NORVASC) 5 mg tablet Take 5 mg by mouth once daily. lisinopril (ZESTRIL) 40 mg tablet Take 1 tablet by mouth once daily. (Patient taking differently: Take 20 mg by mouth twice daily.) aspirin, enteric coated (ASPIR-LOW) 81 mg EC tablet Take 1 tablet by mouth once daily. No current facility-administered medications for this visit. ALLERGIES: Brilinta [Ticagrelor] PERSONAL HISTORY: SOCIAL HISTORY Social History Tobacco Use Smoking status: Never Smokeless tobacco: Never Vaping Use Vaping Use: Never used Substance Use Topics Alcohol use: No Drug use: No FAMILY HISTORY: FAMILY HISTORY FAMILY HISTORY Problem Relation Age of Onset Colon Cancer Father Diabetes Father Heart Father Hypertension Father Hypertension Mother REVIEW OF SYMPTOMS: The review of systems data was entered by the nurse and reviewed by nv Nursing Notes: Lisa Haro LPN 11/27/2022 3:26 PM Signed REVIEW OF SYSTEMS: General: The patient denies fatigue, denies weight loss, denies weight gain, denies feeling hot, and denies feelings of cold. Eyes: The patient denies glaucoma, denies eye injury/surgery, wears glasses or contacts. Ear/Nose/Throat: The patient NOTES allergies, denies hayfever, denies ear infections, and denies bloody noses. Cardiovascular: The patient denies chest pain, NOTES heart disease, NOTES high blood pressure,denies cardiac stent, denies prior heart attack, denies irregular heart beat, NOTES high cholesterol, denies poor circulation, denies heart failure, other cardiac issues, denies claudication, denies cold feet, denies peripheral arterial stent. Respiratory: The patient denies tuberculosis, denies pneumonia, denies frequent cough, denies pulmonary embolism, denies shortness of breath, and denies coughing up blood. Gastrointestinal: The patient denies difficulty swallowing, denies acid reflux, denies ulcers, denies vomiting, denies jaundice/hepatitis, denies gallbladder problems, denies black or tarry stools, denies hemorrhoids, denies bleeding from rectum, denies diverticulitis, denies constipation, denies diarrhea, denies loss of stool control, and NOTES hernias. Kidney/Bladder: The patient denies kidney stones, denies urine infections, and denies bloody urine. Skin: The patient denies a history of skin cancer, denies bleeding/changing moles, and denies a history of skin rash. Neurologic: The patient denies a history of epilepsy/convulsions, denies headaches, denies head/spinal injuries, and denies stroke/TIA. Psychiatric: The patient denies psychiatric medications, denies depression, and denies voices, denies substance abuse. Endocrine: The patient denies thyroid disorders, denies diabetes, and denies hormonal problems. Hematologic: The patient denies a history of bruising, denies bleeding, and denies anemia, denies blood clots. Infections: The patient denies a history of measles and mumps, denies rheumatic fever, and denies sexually transmitted diseases. Musculoskeletal: The patient denies back pain/injury, denies back problems, denies sciatica, deniesknee/foot trouble, denies arthritis, or denies gout. When was patient's last Mammogram screening? N/A Last Colonoscopy: 2013 Lisa Haro LPN Correction to above: last colonoscopy 2019 I have confirmed and edited as necessary, the PFSH and ROS obtained by others. Melany Crespo PA-C PHYSICAL EXAMINATION: General: The patient is 72 year old male, well nourished, well hydrated in no acute distress. The patient is oriented to time, place, and person. VITALS: Blood pressure 120/78, pulse 67, temperature 36.6 C (97.9 F), height 177.8 cm (5' 10), weight 120.3 kg (265 lb 3.2 oz), SpO2 98 %. Body mass index is 38.05 kg/m . HEENT: Normal cephalic, ataumatic, pupils are equally round, sclera are anicteric, mucous membranesare moist, oropharynx is clear. Neck has no masses, asymmetry or lymphadenopathy. Respiratory: Clear to auscultation and percussion. Normal respiratory excursion and pattern. Cardiac: Examination is regular rate and rhythm. Normal S1/S2 Abdominal exam: Soft, nontender, with no palpable masses. No hepatosplenomegaly. No palpable hernias. Extremities: no clubbing, cyanosis or edema. No adenopathy. LABORATORY VALUES: As Noted RADIOLOGIC STUDIES: As Noted Assessment IMPRESSION: family history of colon cancer, personal history of colon polyps PLAN: I have reviewed my findings with the surgeon. Will plan for lower endoscopy. We discussed therisks and benefits of the planned endoscopy. I have informed the patient that complications can occur including failure to complete the endoscopy and perforation. The patient had the opportunity to ask questions concerning the planned endoscopy. My staff has also explained the procedure to the patient in understandable terms and has given the patient printed material concerning the procedure. Thepatient freely consents to surgery. The patient was offered a surgery/procedure at a [facility] facility. I have counseled the patient regarding the risk of exposure to and/or potential harm posed by the COVID-19 virus with having a surgery/procedure at this time versus the risk of delaying the surgery/procedure. It is not possible to know either the risk of delaying the surgery or procedure or chance of getting an infection with perfect accuracy, but a joint decision was made between the patient and myself to proceed at this time with endoscopy. I plan to use Golytely bowel preparation Diagnoses: (Z80.0) Family history of colon cancer (primary encounter diagnosis) (Z86.010) Personal history of colonic polyps Consultation requested by Dr. Damon for an opinion regarding surveillance colonoscopy. My final recommendations will be communicated back to the requesting physician by way of shared Medical record or letter to requesting physician via US mail. Melany Crespo PA-C * Riley Jaeger MD - 01/05/2023 9:00 AM EDT Images from the original note were not included. HISTORY AND PHYSICAL Adarsh Mayer 1950 REFERRING PHYSICIAN: No ref. provider found CHIEF COMPLAINT: Consult (colonoscopy) HPI: The patient is a 72 year old male referred for endoscopy. Adarsh notes no colon complaints. Patient denies any change in bowel habits, weight changes, blood in stools, black tarry stools or abdominal pain. Denies family history of colon issues. The patient notes no upper GI complaints. Adarsh has undergone prior endoscopy. Last colonoscopy with removal of adenomatous polyps, 3 year follow up recommended. Denies problems with sedation in the past. PAST MEDICAL HISTORY PAST MEDICAL HISTORY Diagnosis Date Coronary artery disease DM (diabetes mellitus), type 2 (HCC) GERD (gastroesophageal reflux disease) HTN (hypertension) Hypercholesterolemia NE (myocardial infarction) (HCC) PAST SURGICAL HISTORY PAST SURGICAL HISTORY Procedure Laterality Date COLONOSCOPY 06/26/2014 COLONOSCOPY FLX DX W/COLLJ SPEC WHEN PFRMD 09/19/2019 Colonoscopy HEART CATHETERIZATION 2016 with stent placement REMOVE CATARACT, INSERT LENS,EX 2013 REPAIR FIRST ABDOMINAL WALL HERNIA 02/03/13 medium ventralex TONSILLECTOMY PRIMARY/SECONDARY <AGE 11 1956 Tonsillectomy VASECTOMY UNI/BI SPX W/POSTOP SEMEN EXAMS CURRENT MEDICATIONS Current Outpatient Medications Medication Sig allopurinol (ZYLOPRIM) 100 mg tablet Take 100 mg by mouth twice daily. furosemide (LASIX) 20 mg tablet Take 20 mg by mouth twice daily. potassium chloride SR (MICRO-K) 10 mEq CR capsule Take 20 mEq by mouth once daily. atorvastatin (LIPITOR) 80 mg tablet Take 80 mg by mouth once daily. carvedilol (COREG) 12.5 mg tablet Take 12.5 mg by mouth twice daily with meals. clopidogrel (PLAVIX) 75 mg tablet Take 75 mg by mouth once daily. hydroCHLOROthiazide (HYDRODIURIL, ESIDRIX) 25 mg tablet Take 25 mg by mouth once daily. metFORMIN (GLUCOPHAGE) 500 mg tablet Take 500 mg by mouth daily with breakfast. pantoprazole DR (PROTONIX) 40 mg tablet Take 40 mg by mouth once daily. nitroglycerin sublingual (NITROQUICK) 0.4 mg SL tablet Dissolve 0.4 mg under the tongue every 5 minutes as needed. amLODIPine (NORVASC) 5 mg tablet Take 5 mg by mouth once daily. lisinopril (ZESTRIL) 40 mg tablet Take 1 tablet by mouth once daily. (Patient taking differently: Take 20 mg by mouth twice daily.) aspirin, enteric coated (ASPIR-LOW) 81 mg EC tablet Take 1 tablet by mouth once daily. No current facility-administered medications for this visit. ALLERGIES: Brilinta [Ticagrelor] PERSONAL HISTORY: SOCIAL HISTORY Social History Tobacco Use Smoking status: Never Smokeless tobacco: Never Vaping Use Vaping Use: Never used Substance Use Topics Alcohol use: No Drug use: No FAMILY HISTORY: FAMILY HISTORY FAMILY HISTORY Problem Relation Age of Onset Colon Cancer Father Diabetes Father Heart Father Hypertension Father Hypertension Mother REVIEW OF SYMPTOMS: The review of systems data was entered by the nurse and reviewed by nv Nursing Notes: Lisa HaroTUNDE 11/27/2022 3:26 PM Signed REVIEW OF SYSTEMS: General: The patient denies fatigue, denies weight loss, denies weight gain, denies feeling hot, and denies feelings of cold. Eyes: The patient denies glaucoma, denies eye injury/surgery, wears glasses or contacts. Ear/Nose/Throat: The patient NOTES allergies, denies hayfever, denies ear infections, and denies bloody noses. Cardiovascular: The patient denies chest pain, NOTES heart disease, NOTES high blood pressure,denies cardiac stent, denies prior heart attack, denies irregular heart beat, NOTES high cholesterol, denies poor circulation, denies heart failure, other cardiac issues, denies claudication, denies cold feet, denies peripheral arterial stent. Respiratory: The patient denies tuberculosis, denies pneumonia, denies frequent cough, denies pulmonary embolism, denies shortness of breath, and denies coughing up blood. Gastrointestinal: The patient denies difficulty swallowing, denies acid reflux, denies ulcers, denies vomiting, denies jaundice/hepatitis, denies gallbladder problems, denies black or tarry stools, denies hemorrhoids, denies bleeding from rectum, denies diverticulitis, denies constipation, denies diarrhea, denies loss of stool control, and NOTES hernias. Kidney/Bladder: The patient denies kidney stones, denies urine infections, and denies bloody urine. Skin: The patient denies a history of skin cancer, denies bleeding/changing moles, and denies a history of skin rash. Neurologic: The patient denies a history of epilepsy/convulsions, denies headaches, denies head/spinal injuries, and denies stroke/TIA. Psychiatric: The patient denies psychiatric medications, denies depression, and denies voices, denies substance abuse. Endocrine: The patient denies thyroid disorders, denies diabetes, and denies hormonal problems. Hematologic: The patient denies a history of bruising, denies bleeding, and denies anemia, denies blood clots. Infections: The patient denies a history of measles and mumps, denies rheumatic fever, and denies sexually transmitted diseases. Musculoskeletal: The patient denies back pain/injury, denies back problems, denies sciatica, deniesknee/foot trouble, denies arthritis, or denies gout. When was patient's last Mammogram screening? N/A Last Colonoscopy: 2013 Lisa Haro LPN Correction to above: last colonoscopy 2019 I have confirmed and edited as necessary, the PFSH and ROS obtained by others. Melany Crespo PA-C PHYSICAL EXAMINATION: General: The patient is 72 year old male, well nourished, well hydrated in no acute distress. The patient is oriented to time, place, and person. VITALS: Blood pressure 120/78, pulse 67, temperature 36.6 C (97.9 F), height 177.8 cm (5' 10), weight 120.3 kg (265 lb 3.2 oz), SpO2 98 %. Body mass index is 38.05 kg/m . HEENT: Normal cephalic, ataumatic, pupils are equally round, sclera are anicteric, mucous membranesare moist, oropharynx is clear. Neck has no masses, asymmetry or lymphadenopathy. Respiratory: Clear to auscultation and percussion. Normal respiratory excursion and pattern. Cardiac: Examination is regular rate and rhythm. Normal S1/S2 Abdominal exam: Soft, nontender, with no palpable masses. No hepatosplenomegaly. No palpable hernias. Extremities: no clubbing, cyanosis or edema. No adenopathy. LABORATORY VALUES: As Noted RADIOLOGIC STUDIES: As Noted Assessment IMPRESSION: family history of colon cancer, personal history of colon polyps PLAN: I have reviewed my findings with the surgeon. Will plan for lower endoscopy. We discussed therisks and benefits of the planned endoscopy. I have informed the patient that complications can occur including failure to complete the endoscopy and perforation. The patient had the opportunity to ask questions concerning the planned endoscopy. My staff has also explained the procedure to the patient in understandable terms and has given the patient printed material concerning the procedure. Thepatient freely consents to surgery. The patient was offered a surgery/procedure at a [facility] facility. I have counseled the patient regarding the risk of exposure to and/or potential harm posed by the COVID-19 virus with having a surgery/procedure at this time versus the risk of delaying the surgery/procedure. It is not possible to know either the risk of delaying the surgery or procedure or chance of getting an infection with perfect accuracy, but a joint decision was made between the patient and myself to proceed at this time with endoscopy. I plan to use Golytely bowel preparation Diagnoses: (Z80.0) Family history of colon cancer (primary encounter diagnosis) (Z86.010) Personal history of colonic polyps Consultation requested by Dr. Damon for an opinion regarding surveillance colonoscopy. My final recommendations will be communicated back to the requesting physician by way of shared Medical record or letter to requesting physician via US mail. Melany Crespo PA-C [facility] NoteHNO ID: [id number] Author: Melany Crespo PA-C Service: ? Author Type: Physician Rn Clinical Documentation Specialist Type: Progress Notes Filed: 12/07/2022 7:55 PM Note Text: HISTORY AND PHYSICAL Adarsh Mayer 1950 REFERRING PHYSICIAN: No ref. provider found CHIEF COMPLAINT: Consult (colonoscopy) HPI: The patient is a 72 year old male referred for endoscopy. Adarsh notes no colon complaints. Patient denies any change in bowel habits, weight changes, blood in stools, black tarry stools or abdominal pain. Denies family history of colon issues. The patient notes no upper GI complaints. Adarsh has undergone prior endoscopy. Last colonoscopy with removal of adenomatous polyps, 3 year follow up recommended. Denies problems with sedation in the past. PAST MEDICAL HISTORY Diagnosis Date Coronary artery disease DM (diabetes mellitus), type 2 (HCC) GERD (gastroesophageal reflux disease) HTN (hypertension) Hypercholesterolemia NE (myocardial infarction) (HCC) PAST SURGICAL HISTORY Procedure Laterality Date COLONOSCOPY 06/26/2014 COLONOSCOPY FLX DX W/COLLJ SPEC WHEN PFRMD 09/19/2019 Colonoscopy HEART CATHETERIZATION 2015 with stent placement REMOVE CATARACT, INSERT LENS,EX 2012 REPAIR FIRST ABDOMINAL WALL HERNIA 02/03/13 medium ventralex TONSILLECTOMY PRIMARY/SECONDARY Tonsillectomy VASECTOMY UNI/BI SPX W/POSTOP SEMEN EXAMS Current Outpatient Medications Medication Sig allopurinol (ZYLOPRIM) 100 mg tablet Take 100 mg by mouth twice daily. furosemide (LASIX) 20 mg tablet Take 20 mg by mouth twice daily. potassium chloride SR (MICRO-K) 10 mEq CR capsule Take 20 mEq by mouth once daily. atorvastatin (LIPITOR) 80 mg tablet Take 80 mg by mouth once daily. carvedilol (COREG) 12.5 mg tablet Take 12.5 mg by mouth twice daily with meals. clopidogrel (PLAVIX) 75 mg tablet Take 75 mg by mouth once daily. hydroCHLOROthiazide (HYDRODIURIL, ESIDRIX) 25 mg tablet Take 25 mg by mouth once daily. metFORMIN (GLUCOPHAGE) 500 mg tablet Take 500 mg by mouth daily with breakfast. pantoprazole DR (PROTONIX) 40 mg tablet Take 40 mg by mouth once daily. nitroglycerin sublingual (NITROQUICK) 0.4 mg SL tablet Dissolve 0.4 mg under the tongue every 5 minutes as needed. amLODIPine (NORVASC) 5 mg tablet Take 5 mg by mouth once daily. lisinopril (ZESTRIL) 40 mg tablet Take 1 tablet by mouth once daily. (Patient taking differently: Take 20 mg by mouth twice daily.) aspirin, enteric coated (ASPIR-LOW) 81 mg EC tablet Take 1 tablet by mouth once daily. No current facility-administered medications for this visit. ALLERGIES: Brilinta [Ticagrelor] PERSONAL HISTORY: Social History Tobacco Use Smoking status: Never Smokeless tobacco: Never Vaping Use Vaping Use: Never used Substance Use Topics Alcohol use: No Drug use: No FAMILY HISTORY: FAMILY HISTORY Problem Relation Age of Onset Colon Cancer Father Diabetes Father Heart Father Hypertension Father Hypertension Mother REVIEW OF SYMPTOMS: The review of systems data was entered by the nurse and reviewed by nv Nursing Notes: Lisa Haro LPN 11/27/2022 3:26 PM Signed REVIEW OF SYSTEMS: General: The patient denies fatigue, denies weight loss, denies weight gain, denies feeling hot, and denies feelings of cold. Eyes: The patient denies glaucoma, denies eye injury/surgery, wears glasses or contacts. Ear/Nose/Throat: The patient NOTES allergies, denies hayfever, denies ear infections, and denies bloody noses. Cardiovascular: The patient denies chest pain, NOTES heart disease, NOTES high blood pressure,denies cardiac stent, denies prior heart attack, denies irregular heart beat, NOTES high cholesterol, denies poor circulation, denies heart failure, other cardiac issues, denies claudication, denies cold feet, denies peripheral arterial stent. Respiratory: The patient denies tuberculosis, denies pneumonia, denies frequent cough, denies pulmonary embolism, denies shortness of breath, and denies coughing up blood. Gastrointestinal: The patient denies difficulty swallowing, denies acid reflux, denies ulcers, denies vomiting, denies jaundice/hepatitis, denies gallbladder problems, denies black or tarry stools, denies hemorrhoids, denies bleeding from rectum, denies diverticulitis, denies constipation, denies diarrhea, denies loss of stool control, and NOTES hernias. Kidney/Bladder: The patient denies kidney stones, denies urine infections, and denies bloody urine. Skin: The patient denies a history of skin cancer, denies bleeding/changing moles, and denies a history of skin rash. Neurologic: The patient denies a history of epilepsy/convulsions, denies headaches, denies head/spinal injuries, and denies stroke/TIA. Psychiatric: The patient denies psychiatric medications, denies depression, and denies voices, denies substance abuse. Endocrine: The patient denies thyroid disorders, denies diabetes, and denies horm (more content not included)...[facility] 11-27-2022 History of Present illness Narrative* Melany Crespo PA-C - 11/27/2022 3:27 PM EDT HISTORY AND PHYSICAL Adarsh Arenas Moreno 1950 REFERRING PHYSICIAN: No ref. provider found CHIEF COMPLAINT: Consult (colonoscopy) HPI: The patient is a 72 year old male referred for endoscopy. Adarsh notes no colon complaints. Patient denies any change in bowel habits, weight changes, blood in stools, black tarry stools or abdominal pain. Denies family history of colon issues. The patient notes no upper GI complaints. Adarsh has undergone prior endoscopy. Last colonoscopy with removal of adenomatous polyps, 3 year follow up recommended. Denies problems with sedation in the past. PAST MEDICAL HISTORY Diagnosis Date Coronary artery disease DM (diabetes mellitus), type 2 (HCC) GERD (gastroesophageal reflux disease) HTN (hypertension) Hypercholesterolemia NE (myocardial infarction) (HCC) PAST SURGICAL HISTORY Procedure Laterality Date COLONOSCOPY 06/26/2014 COLONOSCOPY FLX DX W/COLLJ SPEC WHEN PFRMD 09/19/2019 Colonoscopy HEART CATHETERIZATION 2015 with stent placement REMOVE CATARACT, INSERT LENS,EX 2012 REPAIR FIRST ABDOMINAL WALL HERNIA 02/03/13 medium ventralex TONSILLECTOMY PRIMARY/SECONDARY <AGE 11 1956 Tonsillectomy VASECTOMY UNI/BI SPX W/POSTOP SEMEN EXAMS Current Outpatient Medications Medication Sig allopurinol (ZYLOPRIM) 100 mg tablet Take 100 mg by mouth twice daily. furosemide (LASIX) 20 mg tablet Take 20 mg by mouth twice daily. potassium chloride SR (MICRO-K) 10 mEq CR capsule Take 20 mEq by mouth once daily. atorvastatin (LIPITOR) 80 mg tablet Take 80 mg by mouth once daily. carvedilol (COREG) 12.5 mg tablet Take 12.5 mg by mouth twice daily with meals. clopidogrel (PLAVIX) 75 mg tablet Take 75 mg by mouth once daily. hydroCHLOROthiazide (HYDRODIURIL, ESIDRIX) 25 mg tablet Take 25 mg by mouth once daily. metFORMIN (GLUCOPHAGE) 500 mg tablet Take 500 mg by mouth daily with breakfast. pantoprazole DR (PROTONIX) 40 mg tablet Take 40 mg by mouth once daily. nitroglycerin sublingual (NITROQUICK) 0.4 mg SL tablet Dissolve 0.4 mg under the tongue every 5 minutes as needed. amLODIPine (NORVASC) 5 mg tablet Take 5 mg by mouth once daily. lisinopril (ZESTRIL) 40 mg tablet Take 1 tablet by mouth once daily. (Patient taking differently: Take 20 mg by mouth twice daily.) aspirin, enteric coated (ASPIR-LOW) 81 mg EC tablet Take 1 tablet by mouth once daily. No current facility-administered medications for this visit. ALLERGIES: Brilinta [Ticagrelor] PERSONAL HISTORY: Social History Tobacco Use Smoking status: Never Smokeless tobacco: Never Vaping Use Vaping Use: Never used Substance Use Topics Alcohol use: No Drug use: No FAMILY HISTORY: FAMILY HISTORY Problem Relation Age of Onset Colon Cancer Father Diabetes Father Heart Father Hypertension Father Hypertension Mother REVIEW OF SYMPTOMS: The review of systems data was entered by the nurse and reviewed by nv Nursing Notes: Lisa Haro LPN 11/27/2022 3:26 PM Signed REVIEW OF SYSTEMS: General: The patient denies fatigue, denies weight loss, denies weight gain, denies feeling hot, and denies feelings of cold. Eyes: The patient denies glaucoma, denies eye injury/surgery, wears glasses or contacts. Ear/Nose/Throat: The patient NOTES allergies, denies hayfever, denies ear infections, and denies bloody noses. Cardiovascular: The patient denies chest pain, NOTES heart disease, NOTES high blood pressure,denies cardiac stent, denies prior heart attack, denies irregular heart beat, NOTES high cholesterol, denies poor circulation, denies heart failure, other cardiac issues, denies claudication, denies cold feet, denies peripheral arterial stent. Respiratory: The patient denies tuberculosis, denies pneumonia, denies frequent cough, denies pulmonary embolism, denies shortness of breath, and denies coughing up blood. Gastrointestinal: The patient denies difficulty swallowing, denies acid reflux, denies ulcers, denies vomiting, denies jaundice/hepatitis, denies gallbladder problems, denies black or tarry stools, denies hemorrhoids, denies bleeding from rectum, denies diverticulitis, denies constipation, denies diarrhea, denies loss of stool control, and NOTES hernias. Kidney/Bladder: The patient denies kidney stones, denies urine infections, and denies bloody urine. Skin: The patient denies a history of skin cancer, denies bleeding/changing moles, and denies a history of skin rash. Neurologic: The patient denies a history of epilepsy/convulsions, denies headaches, denies head/spinal injuries, and denies stroke/TIA. Psychiatric: The patient denies psychiatric medications, denies depression, and denies voices, denies substance abuse. Endocrine: The patient denies thyroid disorders, denies diabetes, and denies hormonal problems. Hematologic: The patient denies a history of bruising, denies bleeding, and denies anemia, denies blood clots. Infections: The patient denies a history of measles and mumps, denies rheumatic fever, and denies sexually transmitted diseases. Musculoskeletal: The patient denies back pain/injury, denies back problems, denies sciatica, deniesknee/foot trouble, denies arthritis, or denies gout. When was patient's last Mammogram screening? N/A Last Colonoscopy: 2013 Lisa Haro LPN Correction to above: last colonoscopy 2019 I have confirmed and edited as necessary, the PFSH and ROS obtained by others. Melany Crespo PA-C PHYSICAL EXAMINATION: General: The patient is 72 year old male, well nourished, well hydrated in no acute distress. The patient is oriented to time, place, and person. VITALS: Blood pressure 120/78, pulse 67, temperature 36.6 C (97.9 F), height 177.8 cm (5' 10), weight 120.3 kg (265 lb 3.2 oz), SpO2 98 %. Body mass index is 38.05 kg/m . HEENT: Normal cephalic, ataumatic, pupils are equally round, sclera are anicteric, mucous membranesare moist, oropharynx is clear. Neck has no masses, asymmetry or lymphadenopathy. Respiratory: Clear to auscultation and percussion. Normal respiratory excursion and pattern. Cardiac: Examination is regular rate and rhythm. Normal S1/S2 Abdominal exam: Soft, nontender, with no palpable masses. No hepatosplenomegaly. No palpable hernias. Extremities: no clubbing, cyanosis or edema. No adenopathy. LABORATORY VALUES: As Noted RADIOLOGIC STUDIES: As Noted Assessment IMPRESSION: family history of colon cancer, personal history of colon polyps PLAN: I have reviewed my findings with the surgeon. Will plan for lower endoscopy. We discussed therisks and benefits of the planned endoscopy. I have informed the patient that complications can occur including failure to complete the endoscopy and perforation. The patient had the opportunity to ask questions concerning the planned endoscopy. My staff has also explained the procedure to the patient in understandable terms and has given the patient printed material concerning the procedure. Thepatient freely consents to surgery. The patient was offered a surgery/procedure at a [facility] facility. I have counseled the patient regarding the risk of exposure to and/or potential harm posed by the COVID-19 virus with having a surgery/procedure at this time versus the risk of delaying the surgery/procedure. It is not possible to know either the risk of delaying the surgery or procedure or chance of getting an infection with perfect accuracy, but a joint decision was made between the patient and myself to proceed at this time with endoscopy. I plan to use Golytely bowel preparation Diagnoses: (Z80.0) Family history of colon cancer (primary encounter diagnosis) (Z86.010) Personal history of colonic polyps Consultation requested by Dr. Damon for an opinion regarding surveillance colonoscopy. My final recommendations will be communicated back to the requesting physician by way of shared Medical record or letter to requesting physician via US mail. Melany Crespo PA-C [facility]* Lisa Haro, INSPECTOR [employer]AR [employer]LECTRONICS - 11/27/2022 3:23 PM EDT REVIEW OF SYSTEMS: General: The patient denies fatigue, denies weight loss, denies weight gain, denies feeling hot, and denies feelings of cold. Eyes: The patient denies glaucoma, denies eye injury/surgery, wears glasses or contacts. Ear/Nose/Throat: The patient NOTES allergies, denies hayfever, denies ear infections, and denies bloody noses. Cardiovascular: The patient denies chest pain, NOTES heart disease, NOTES high blood pressure,denies cardiac stent, denies prior heart attack, denies irregular heart beat, NOTES high cholesterol, denies poor circulation, denies heart failure, other cardiac issues, denies claudication, denies cold feet, denies peripheral arterial stent. Respiratory: The patient denies tuberculosis, denies pneumonia, denies frequent cough, denies pulmonary embolism, denies shortness of breath, and denies coughing up blood. Gastrointestinal: The patient denies difficulty swallowing, denies acid reflux, denies ulcers, denies vomiting, denies jaundice/hepatitis, denies gallbladder problems, denies black or tarry stools, denies hemorrhoids, denies bleeding from rectum, denies diverticulitis, denies constipation, denies diarrhea, denies loss of stool control, and NOTES hernias. Kidney/Bladder: The patient denies kidney stones, denies urine infections, and denies bloody urine. Skin: The patient denies a history of skin cancer, denies bleeding/changing moles, and denies a history of skin rash. Neurologic: The patient denies a history of epilepsy/convulsions, denies headaches, denies head/spinal injuries, and denies stroke/TIA. Psychiatric: The patient denies psychiatric medications, denies depression, and denies voices, denies substance abuse. Endocrine: The patient denies thyroid disorders, denies diabetes, and denies hormonal problems. Hematologic: The patient denies a history of bruising, denies bleeding, and denies anemia, denies blood clots. Infections: The patient denies a history of measles and mumps, denies rheumatic fever, and denies sexually transmitted diseases. Musculoskeletal: The patient denies back pain/injury, denies back problems, denies sciatica, deniesknee/foot trouble, denies arthritis, or denies gout. When was patient's last Mammogram screening? 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 Essential (primary) hypertension chronic Pure hypercholesterolemia ch ronic History of coronary artery stent placement January 03 [facility] Work Phone: [phone] Evaluation note* Diagnosis Onset Date Resolution Status Essential (primary) hypertension chronic Pure hypercholesterolemia ch ronic History of coronary artery stent placement January 03 [facility] Work Phone: Discharge summary Author Hu Fields [facility] March 13, 2023 1:25pm Note Date/Time March 13, 2023 11:3 3am [facility] Medical Records Department [address] [place] [address] Emergency Department Summary 03/13/23 MR#: [id number] Acct: [id number] Name: ADARSH MAYER Rep #:[id number] : 1950 72 From: Hu Fields MD PCP: Dr. Nathan Damon MD Status: REG ER Location: ED HPI History of Present Illness Chief Complaint: Numb/Ting Informant: patient and spouse/S.O. Onset/Context/Timing Onset: Days Context: Gradual Onset Timing: Intermittent Current Severity: Mild Maximum Severity: Mild Narrative Narrative: 72-year-old male history of CAD, NE, 1 cardiac stent, cardiomyopathy, diabetes and hypertension. He is on aspirin and Plavix. He says really felt well for a week there is been good days and not so good days. Has had some intermittent tingling of his right arm but no weakness or clumsiness. No trouble with his vision or speech. No trouble ambulating. Denies any recent illness. No vomiting, diarrhea or fever. No chest pain or shortness of breath. He actuallyhad a outpatient stress test about 1 to 2 weeks ago which was unremarkable. Prior similar symptoms: No Recent Illness/Hospitalization: No [facility] Medical History (Updated 03/13/23 @ 13:[address] Hu Fields MD) Acute respiratory failure with hypoxia Atherosclerosis [place] coronary artery [place] heart without angina pectoris Diabetes mellitus type II, controlled Essential (primary) hypertension Hematuria Hydroureteronephrosis Ischemic cardiomyopathy Kidney stones Non-ST elevation (NSTEMI) myocardial infarction (01/14/16) Obesity Pure hypercholesterolemia Home Medications aspirin 81 mg chewable tablet 81 mg PO DAILY@0800 01/03/16 [History Last Taken 01/14/18 81 MG] nitroglycerin 0.4 mg sublingual tablet 0.4 mg sublingual ONCE PRN chest pain #25tabs 12/10/20 [Rx Last Taken Unknown] lisinopril 20 mg tablet 20 mg PO BID #180 tabs 06/10/21 [Rx Last Taken Unknown] furosemide 20 mg tablet 10 mg PO DAILY 12/10/21 [History Last Taken Unknown] potassium chloride 20 mEq tablet,extended release 20 meq PO DAILY 12/10/21 [History Last Taken Unknown] carvedilol 12.5 mg tablet 12.5 mg PO BID #180 tabs 02/08/22 [Rx Last Taken Unknown] clopidogrel 75 mg tablet 75 mg PO DAILY #90 tabs 07/06/22 [Rx Last Taken Unknown] hydrochlorothiazide 25 mg tablet 25 mg PO DAILY #90 tabs 07/06/22 [Rx Last Taken Unknown] pantoprazole 40 mg tablet,delayed release 40 mg PO DAILY #90 tabs 08/27/22 [Rx Last Taken Unknown] amlodipine 5 mg tablet See Rx Instructions .Route .COMPLEX #90 tabs 12/30/22 [Rx Last Taken Unknown] allopurinol 100 mg tablet 200 mg PO DAILY 01/07/23 [History Last Taken Unknown] cyanocobalamin (vitamin B-12) 1,000 mcg tablet 1,000 mcg PO DAILY 01/07/23 [History Last Taken Unknown] metformin 500 mg 24 hr tablet,extended release 1,000 mg PO DAILY 01/07/23 [History Last Taken Unknown] atorvastatin 80 mg tablet 80 mg PO QHS #90 tabs 01/12/23 [Rx Last Taken Unknown] Allergy/AdvReac Type Severity Reaction Status Date / Time ticagrelor [From BRILINTA] Allergy Shortness Verified 03/13/23 11:12 of breath Family History Father CAD (coronary artery disease) Diabetes Surgical History History of cataract surgery History of coronary artery stent placement (01/04/16) History of tonsillectomy History of umbilical hernia repair History of vasectomy Social History Smoking Status: Never smoker ROS ROS ED ROS Narrative Denies recent illness. Review of Systems ROS Unobtainable: Denies due to encephalopathy Constitutional Constitutional ED: Denies chills or fever(s) Eyes Eyes: Denies blurry vision ENT ENT ED: Denies ear pain Cardiovascular Cardiovascular: Denies chest pain Respiratory/Chest Respiratory/Chest: Denies cough or dyspnea Gastrointestinal Gastrointestinal: Denies abdominal pain, diarrhea, melena, nausea or vomiting Genitourinary Genitourinary ED: Denies dysuria or hematuria Musculoskeletal Musculoskeletal: Denies arthralgias Integumentary Denies abscess Neurologic Neurologic: Denies headache(s) Psychiatric Psychiatric: Denies anxiety Endocrine Endocrinology: Denies cold intolerance Hematologic/Lymphatic Hematologic/Lymphatic: Reports none Allergic/Immunologic Allergic/Immunologic ED: Denies mouth swelling, tongue swelling or urticaria EXAM Physical Exam Narrative Exam Narrative: 72-year-old male no acute distress. Vital signs stable afebrile. Patient does not look septic or toxic in any distress. Sitting upright in bed. at bedside. H EENT exam unremarkable. No facial droop. Normal speech. Neck nontender. No lymphadenopathy. Lungs clear to auscultation bilaterally. Heartregular rate and rhythm rate about 60 no murmur. Chest wall nontender. Abdomensoft nontender. Moving all 4 extremities. 5 out of 5 parts inspector strength bilaterally. Equal symmetrical radial pulses. He has normal fingertip to nose. Normal range of motion. No deformity or tenderness. Lower extremities are unremarkable. Normal dorsi and plantarflexion. Neurologically he is awake and alert with no focal motor deficits. Const Vital Signs: 03/13/23 11:10 03/13/23 11:19 03/13/23 11:22 Temperature 97.7 F L Temperature Source Temporal Pulse Rate 57 L 59 L Respiratory Rate 16 15 Respiratory Effort Short of Breath Blood Pressure 150/83 H 155/75 H Blood Pressure Mean 105 101 Pulse Ox 93 90 Oxygen Delivery Method Room Air Room Air 03/13/23 11:24 03/13/23 13:06 Temperature Temperature Source Pulse Rate 58 L 56 L Respiratory Rate 19 H 24 H Respiratory Effort Blood Pressure 155/75 H 151/81 H Blood Pressure Mean 101 104 Pulse Ox 94 93 Oxygen Delivery Method Room Air Room Air Positive well nourished and well developed; Negative for cachectic, contracturesor unkempt General Appearance ED: well developed and NAD; Negative for unkempt, cachectic, contractures, cyanotic, diaphoretic or pallor Nutritional Appearance: Negative for cachectic HEENT Reports moist mucous membranes; Denies dry mucous membranes or other Negative for trauma, tenderness or other Mouth ED: No dry mucous membranes Mouth: No dry mucous membranes Eyes PERRL and EOMs intact bilaterally General Eye ED: Negative for pale conjunctiva or scleral icterus Neck no lymphadenopathy, supple and no JVD General: Negative for tenderness Lymph Lymphatic: Negative for other Chest Wall inspection of chest normal and palpation of chest normal Chest: Negative for other Resp normal respiratory effort and clear to auscultation bilaterally Effort and Inspection: Negative for retractions Auscultation: Negative for rales, rhonchi or wheezes Cardio regular rate, regular rhythm, S1 normal heart sound, S2 normal heart sound and no murmurs GI normal to inspection, nondistended, normoactive bowel sounds, non-tender, non-distended and no masses Inspection: Negative for abdominal distention Auscultation: normoactive bowel sounds Palpation: soft; Negative for tender or guarding Back/Spine no CVA tenderness General Back: Negative for CVA tenderness Cervical Spine: Negative for cervical spine tenderness Thoracic Spine / Upper Back: Negative for thoracic spinal tenderness Lumbar Spine / Lower Back: Negative for lumbar spinal tenderness Extremity normal to inspection Neuro oriented x3 and CN's II-XII intact bilaterally Sensorium / Orientation: alert; Negative for orientation impaired, lethargic or stuporous Motor Exam: strength 5/5 throughout Psych mental status grossly normal Appearance: Negative for unkempt Attitude: No agitated Mood & Affect: Negative for depressed, anxious or tearful Skin no rashes or lesions noted, no wounds and skin turgor normal General Skin Exam: elasticity normal; Negative for jaundice or pallor Lesions: No lesion noted Rashes: No rashes noted Trauma: Negative for abrasion Wounds: Negative for wounds noted MDM MDM MDM Narrative Medical decision making narrative: 72-year-old male with right arm tingling. Has a normal neurologic exam. He just had malaise intermittently for a week. Screening labs will be obtained. His exam is benign as are his vital signs. Exam at 1:20 PM patient is doing well. We went over all his test results of both he and his . His repeat exam is normal and unchanged. He has normal strength and pulse in his right hand. Hand is neurovascularly intact. He will be discharged home with outpatient follow-up. He does not need any further testing or imaging. He does not require admission. History & Record Review Discussion w/independent historian: Patient and Family Lab Data Attestation: I reviewed the patient's lab results. Lab results narrative: CBC unremarkable. White count is 6.9. H&H 13.6 and 42. Platelets 218. Chemistries show a gap of 3. Normal BUN and creatinine of 1.2. Glucose of 112. Labs: Laboratory Results - last 24 hr 03/13/23 11:40 WBC 6.9 RBC 4.80 Hgb 13.6 Hct 42.3 MCV 88.1 MCH 28.3 MCHC 32.2 RDW Std Deviation 52.7 H RDW Coeff of Zay 16.4 H Plt Count 218 MPV 10.1 Immature Gran % (Auto) 0.400 Neut % (Auto) 65.0 Lymph % (Auto) 22.1 [place] % (Auto) 7.9 Eos % (Auto) 4.2 Baso % (Auto) 0.4 Absolute Neuts (auto) 4.5 Absolute Lymphs (auto) 1.53 Nucleated RBC % 0 Sodium 142 Potassium 4.0 Chloride 109 H Carbon Dioxide 30.0 Anion Gap 3 L BUN 18 Creatinine 1.22 Estim Creat Clear Calc 55.68 Est GFR (MDRD) Af Amer 75 Est GFR (MDRD) Non-Af 62 BUN/Creatinine Ratio 14.8 Glucose 112 H Calcium 9.0 Radiography Chest X-Ray - ED: 1 View, Read by ED Physician, Read by Radiologist, Heart, Lungs, Mediastinum, Bony Structures, No Acute Disease and Chronic Changes Diagnostic Testing: Clinical Impression(s) from Imaging Studies Brain CT 03/13/23 11:27 IMPRESSION: No acute intracranial process. Intracranial atherosclerotic vascular calcifications. Electronically Signed: Des Norwood MD at 13:07 EDT , Chest X-Ray 03/13/23 11:57 IMPRESSION: No radiographic evidence of acute cardiopulmonary disease. Electronically Signed: Des Norwood MD at 12:11 EDT , Chest x-ray, portable, single view shows no acute abnormality. Interpreted bothby myself and radiologist. Rhythm Strip Rhythm Strip: Sinus Rhythm Rate: 57 Ectopy: None EKG Initial EKG: Attestation: I personally reviewed and interpreted this EKG as follows: Interpretation: Sinus Rhythm and Sinus Bradycardia Comments: Sinus bradycardia rate of 57. No acute signs of NE or ischemia. Discharge Plan Triage Chief Complaint: Numb/Ting ED Provider: Hu Fields Dx/Rx/DC Orders Clinical Impression: Numbness and tingling of right arm, History of diabetes mellitus Instructions: ED Paraesthesias Prescriptions: No Action nitroglycerin 0.4 mg tablet, sublingual 0.4 mg SUBLINGUAL ONCE PRN (Reason: chest pain) Qty: 25 6RF Rx Instructions: take one tablet for chest pain every 5-15 minutes for a total of 3 doses potassium chloride 20 mEq tablet extended release 20 meq PO DAILY furosemide 20 mg tablet 10 mg PO DAILY allopurinol 100 mg tablet 200 mg PO DAILY cyanocobalamin (vitamin B-12) 1,000 mcg tablet 1,000 mcg PO DAILY aspirin 81 MG tablet,chewable 81 mg PO DAILY@0800 Patient Comments: ON HOLD metformin 500 mg tablet,ER ana.retention 24 hr 1,000 mg PO DAILY lisinopril 20 mg tablet 20 mg PO BID Qty: 180 4RF carvedilol 12.5 mg tablet 12.5 mg PO BID Qty: 180 4RF clopidogrel 75 mg tablet 75 mg PO DAILY Qty: 90 4RF hydrochlorothiazide 25 mg tablet 25 mg PO DAILY Qty: 90 4RF pantoprazole 40 mg tablet,delayed release (DR/EC) 40 mg PO DAILY Qty: 90 3RF amlodipine 5 mg tablet See Rx Instructions .ROUTE .COMPLEX Qty: 90 3RF Dose Instruction: TAKE 1 TABLET EVERY DAY Rx Instructions: TAKE 1 TABLET EVERY DAY atorvastatin 80 mg tablet 80 mg PO QHS Qty: 90 4RF Primary Care Provider: Nathan Damon Referrals: Nathan Damon MD [Primary Care Provider] - 3-5 Days Activity Restrictions/Additional Instructions: Your exam, lab work, chest x-ray, EKG and CAT scan are unremarkable. Nothing bad that we can find. Call and follow-up your primary care physician. Disposition Disposition: Home, Self Care What to do if you have Problems For any increased pain, shortness of breath, bleeding, nausea or vomiting, chestpain, or any unexpected problems, contact your Primary Care Provider. Call [facility] ([phone]) or report to the closest Emergency Room. Call 911 if necessary. 03/13/23 1325 <Electronically signed by Hu Fields MD> Cosigner Signature (if applicable): CC: Dr. Nathan Damon MD ~ Signed [facility] Work Phone: Evaluation note* Diagnosis Family history of colon cancer- Primary Family history of malignant neoplasm of gastrointestinal tract Personal history of colonic polyps documented in this encounter [facility] note* Diagnosis Onset Date Resolution Status Acute hypoxemic respiratory failure acute Bilateral pleural effusion a cute Congestive heart failure acu te [id number] chronic [facility] Work Phone: Evaluation note* Diagnosis Special screening for malignant neoplasms, colon- Primary Family history of colon cancer Family history of malignant neoplasm of gastrointestinal tract Personal history of colonic polyps documented in this encounter [facility] noteNo assessment information availableWDayton [facility] Work Phone: Hospital Discharge instructions Additional Instructions Your exam, lab work, chest x-ray, EKG and CAT scan are unremarkable. Nothing bad that we can find. Call and follow-up your primary care physician.[facility] Work Phone: Reason for referral (narrative)* Outpatient Procedure (Routine) - Closed Specialty Diagnoses / Procedures Referred By Merari franco Ref[facility] To Contact [facility] Diagnoses Family history of colon cancer Personal history of colonic polyps Procedures COLONOSCOPY SCREENING COLONOSCOPY FLX DX W/COLLJ SPEC WHEN Melany Seth PA-C [address] [place] [address] [facility] [place] [address] [place] [address] Referral ID Status Reason Start Date Expiration Date V isits Requested Visits Authorized [id number] Closed Auto-Generate d Referral 11/27/2022 11/28/2023 1 1 [facility] for referral (narrative)No reason for referral information availableWDayton Children[facility] Work Phone: Reason for visit Narrative* Outpatient Procedure (Routine) - Closed Specialty Diagnoses / Procedures Referred By Merari franco Referred To Contact [facility] Diagnoses Family history of colon cancer Personal history of colonic polyps Procedures COLONOSCOPY SCREENING COLONOSCOPY FLX DX W/COLLJ SPEC WHEN Melany Seth PA-C [address] [place] [address] [facility] [place] [address] [place] [address] Referral ID Status Reason Start Date Expiration Date V isits Requested Visits Authorized [id number] Closed Auto-Generate d Referral 11/27/2022 11/28/2023 1 1 [facility] Chief Complaint and Reason for Visit Chief Complaint 1 Y FU Reason for Visit [id number] Essential (primary) hypertension Pure hypercholesterolemia History of coronary artery stent placement Chief Complaint 1 YR FU CAD Coronary artery disease Reason for Visit Essential (primary) hypertension Pure hypercholesterolemia History of coronary artery stent placement Chief Complaint 1 YR FU CAD Coronary artery disease RIGHT ARM NUMBNESS Reason for Visit Essential (primary) hypertension Pure hypercholesterolemia History of coronary artery stent placement Chief Complaint 1 YR FU CAD Coronary artery disease RIGHT ARM NUMBNESS EORDERS- LABS AND XRAY-bloating, belching Reason for Visit Essential (primary) hypertension Pure hypercholesterolemia History of coronary artery stent placement Chief Complaint CAD Coronary artery disease RIGHT ARM NUMBNESS EORDERS- LABS AND XRAY-bloating, belching CHF, HYPOXIA Reason for Visit Acute hypoxemic resp iratory failure Bilateral pleural effusion Congestive heart failure [id number] Chief Complaint CAD Coronary artery disease RIGHT ARM NUMBNESS EORDERS- LABS AND XRAY-bloating, belching CHF EXACERBATION CHF, HYPOXIA CHF EXACERBATION CHF EXACERBATION Reason for Visit Acute hypoxemic resp iratory failure Bilateral pleural effusion Congestive heart failure [id number] Chief Complaint Admit Date Intra-abdominal and pelvic swelling, mas s and lump November 03, 2024 9:12am Chief Complaint Admit Date 1 Y FU March 06, 2025 1:09p m Chief Complaint Admit Date 1 Y FU March 06, 2025 1:09p m INT LAB ORDERS March 06, 2025 1:54p m Reason for Visit Admit Date Essential (primary) hypertension February 1:09pm Pure hypercholesterolemia March 06, 2025 1:09pm History of coronary artery stent placeme nt March 06, 2025 1:09pm Family History No Family History Records Found Relationship Condition Age at Onset Recorded Date/T larissa father Coronary artery disease Unknown Diabetes mellitus Unknown Advance Directives No Advanced Directives Records Found Advance Directive Response Recorded Date/ Time Living Will Yes March 09, 2018 10:01am Power of Directory Clerk Yes March 09 8 10:01am Advance Directive Response Recorded Date/ Time Name of Medical Power of Directory Clerk TERI AU MILAGROS- SPOUSE March 13, 2023 11:19am Living Will Yes March 13, 2023 11:19am Power of Directory Clerk Yes March 13 11:19am Advance Directive Response Recorded Date/ Time Name of Medical Power of Directory Clerk TERI AU MILAGROS- SPOUSE March 13, 2023 11:19am Name of Medical Power of Directory Clerk Teri- June 23, 2023 4:40am Living Will Yes June 23 4:40am Power of Directory Clerk Yes June 23, 2023 4:40am Advance Directive Response Recorded Date/ Time Name of Medical Power of Directory Clerk TERI LINARES- SPOUSE March 13, 2023 11:19am Name of Medical Power of Directory Clerk TERI LINARES () June 23, 2023 8:45am Living Will Yes June 23 8:45am Power of Directory Clerk Yes June 23, 2023 8:45am Advance Directive Response Recorded Date/ Time Living Will Yes June 23 8:45am Power of Directory Clerk Yes June 23, 2023 8:45am Advance Directive Response Recorded Date/ Time Living Will Yes June 23 8:45am Do you have a Healthcare Power of Directory Clerk? Yes June 23, 2023 8:45am Summary Purpose Medications Administered Section Inactive Administered Medications - up to 3 most recent administrations Medication Order MAR Action Action Date Dose Rate Site fentaNYL 50 mcg/mL 25-100 mcg injection (SUBLIMAZE) 25-100 mcg, INTRAVENOUS, DIRECTED, Starting on Wed01/05/23 at 1000, Until Wed01/05/23 at 1359, DOSING DIRECTED BY PHYSICIAN FOR PROCEDURAL SEDATION ONLY, Intraprocedure Given by [facility] 01/05/2023 9:53 AM EDT 25 mcg Given by [facility] 01/05/2023 9:50 AM EDT 50 mcg lactated ringers iv infusion 30 mL/hr, INTRAVENOUS, CONTINUOUS, Starting on Wed01/05/23 at 0900, Until Wed01/05/23 at 1020, Preprocedure New Bag/Syringe/Bot tle 01/05/2023 8:45 AM EDT 30 mL/hr 30 mL/hr Forearm, Right midazolam 1-5 mg injection (VERSED) 1-5 mg, INTRAVENOUS, DIRECTED, Starting on Wed01/05/23 at 1000, Until Wed01/05/23 at 1359, DOSING DIRECTED BY PHYSICIAN FOR PROCEDURAL SEDATION ONLY, Intraprocedure Given by [facility] 01/05/2023 9:53 AM EDT 1 mg Given by [facility] 01/05/2023 9:50 AM EDT 3 mg Additional Source Comments Goals (unrecognized section and content) Goals may be documented in a n alternate sectionGoals may be documented in an alternate sectionGoals may be documented in an alternate sectionGoals may be documented in an alternate sectionGoals may be documented in an alternate sectionGoals may be documented in an alternate sectionGoals may be documented in an alternate sectionGoals may be documented in an alternate sectionGoals may be documented in an alternate sectionGoals may be documented in an alternate sectionGoals may be documented in an alternate section Source Comments (unrecognize d section and content) In the event this informatio n is protected by the Federal Confidentiality of Alcohol and Drug Abuse Patient Records regulations: The Federal rules restrict any use of the information to criminally investigate or prosecute any alcohol or drug abuse patient.[facility] the event this information is protected by the Federal Confidentiality of Alcohol and Drug Abuse Patient Records regulations: The Federal rules restrict any use of the information to criminally investigate or prosecute any alcohol or drug abuse patient.[facility] Reason for Visit (unrecogniz ed section and content) Reason Comments Consult colonoscopy Care Teams (unrecognized sec tion and content) [employer]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 Nathan Damon MD Family Provider Active Dr. Nathan Damon MD Primary Care Provider Activ e Team Status: Inactive Member Role Status Dates Dr. Nathan Damon MD Primary Care Provider, Refe rring Provider Active Dr. Chris Frazier MD Attending Provider Active Team Status: Active Member Role Status Dates Dr. Nathan Damon MD Primary Care Provider Activ e Dr. Chris Frazier MD Attending Provider, Referring Provider, Other Provider Active Team Status: Inactive Member Role Status Dates Dr. Nathan Damon MD Primary Care Provider, Attending Provider, Referring Provider Active Team Status: Inactive Member Role Status Dates Dr. Nathan Damon MD Primary Care Provider Activ e Dr. Chris Frazier MD Attending Provider, Referring Pro vider Active Team Status: Inactive Member Role Status Dates Dr. Nathan Damon MD Primary Care Provider Activ e Dr. Hu Fields MD Emergency Provider Active Team Status: Inactive Member Role Status Dates Dr. Nathan Damon MD Primary Care Provider Activ e Dr. Hu Fields MD Attending Provider, Emergency Pro vider Active Team Status: Active Member Role Status Dates Dr. Nathan Damon MD Primary Care Provider Activ e Dr. Konrad Maldonado , DO Emergency Provider Active Dr. Davide Vasques MD Admit Provider, Attending Provider Active Team Status: Active Member Role Status Dates Dr. Nathan Damon MD Primary Care Provider Activ e Dr. Konrad Maldonado DO Emergency Provider Active Dr. Davide Vasques MD Admit Provi ginette, Attending Provider, Other Provider Active Team Status: Active Member Role Status Dates Dr. Nathan Damon MD Primary Care Provider Activ e Dr. Marilyn Araujo MD Attending Provider Active Team Status: Inactive Member Role Status Dates Dr. Nathan Damon MD Primary Care Provider Activ e Dr. Konrad Maldonado , Emergency Provider Active Dr. 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 Roxie Damon MD Family Provider Active Dr. Roxie Damon MD Primary Care Provider Acti ve Team Status: Inactive Member Role Status Dates Dr. Roxie Damon MD Primary Care Provider, Att ending Provider Active Team Status: Active Member Role Status Dates Dr. Roxie Damon MD Primary Care Provider Acti ve Team Status: Inactive Member Role Status Dates Dr. Roxie Damon MD Primary Care Provider Acti ve Start: July 18, 2024 End: July 18, 2024 Dr. Roxie Damon MD Attending Provider Active Start: July 18, 2024 End: July 18, 2024 Team Status: Inactive Member Role Status Dates Dr. Roxie Damon MD Primary Care Provider Acti ve Start: October 25, 2024 End: October 25, 2024 Dr. Roxie Damon MD Attending Provider Active Start: October 25, 2024 End: October 25, 2024 Dr. Roxie Damon MD Referring Provider Active Start: October 25, 2024 End: October 25, 2024 Team Status: Active Member Role Status Dates Dr. Roxie Damon MD Primary Care Provider Acti ve Start: November 03, 2024 Dr. Roxie Damon MD Attending Provider Active Start: November 03, 2024 Dr. Roxie Damon MD Referring Provider Active Start: November 03, 2024 Team Status: Inactive Member Role Status Dates Dr. Roxie Damon MD Primary Care Provider Acti ve Start: November 03, 2024 End: November 03, 2024 Dr. Roxie Damon MD Attending Provider Active Start: November 03, 2024 End: November 03, 2024 Dr. Roxie Damon MD Referring Provider Active Start: November 03, 2024 End: November 03, 2024 Team Status: Active Member Role/Relationship Status Dates Dr. Roxie Damon MD Primary Care Provider Acti ve Team Status: Inactive Member Role/Relationship Status Dates Dr. Roxie Damon MD Primary Care Provider Acti ve Start: March 06, 2025 End: March 06, 2025 Dr. Roxie Damon MD Referring Provider Active Start: March 06, 2025 End: March 06, 2025 Dr. Chris Frazier MD Attending Provider Active S tart: March 06, 2025 End: March 06, 2025 Team Status: Inactive Member Role/Relationship Status Dates Dr. Roxie Damon MD Primary Care Provider Acti ve Start: March 06, 2025 End: March 06, 2025 Dr. Chris Frazier MD Attending Provider Active S tart: March 06, 2025 End: March 06, 2025 Dr. Chris Frazier MD Referring Provider Active S tart: March 06, 2025 End: March 06, 2025 (unrecognized sect ion and content) No Status Records FoundNo Status Records Found INFORMATION SOURCE (unrecogn ized section and content) DATE CREATED AUTHOR 01/06/2023 [facility] DATE CREATED AUTHOR AUTHOR'S ELIZABETH ABARCA 03/17/2025 [facility] FOR RECORDS PERTAINING TO PATIENTS WHO ARE OR HAVE BEEN ENROLLED IN A CHEMICAL DEPENDENCY/SUBSTANCEABUSE PROGRAM, SOME INFORMATION MAY BE OMITTED. This clinical summary was aggregated from multiple sources. Caution should be exercised in using it in the provision of clinical care. This summary normalizes information from multiple sources, and as a consequence, information in this document may materially change the coding, format and clinical context of patient data. In addition, data may be omitted in some cases. CLINICAL DECISIONS SHOULD BE BASED ON THE PRIMARY CLINICAL RECORDS. [employer] [facility]. provides no warranty or guarantee of the accuracy or completeness of information in this document.
[2025-07-26 13:42] VITALS: BMI 36.8
[2025-07-26 13:46] LABS: Hematocrit 42.7 % (40-54); Hemoglobin 13.5 g/dL (13.0-16.5); Immature Granulocytes Count 0.060 X10^3/uL (0.0-0.0); Mean Corp Hgb Conc 31.6 g/dL (32-36); Mean Corpuscular Volume 87.3 fL (80-94); Mean Platelet Vol. 9.9 fl (6.2-12.0); NRBC Flagged by Analyzer 0 % (0-5); Platelet Count 250 K/mm3 (150-450); RBC Distribution Width CV 16.4 % (11.6-14.6); RBC Distribution Width SD 52.6 fl (35.1-43.9); Red Blood Count 4.89 M/mm3 (4.6-6.2); White Blood Count 10.6 K/mm3 (4.4-11.0)
[2025-07-26] MEDS: Ampicillin/Sulbactam 3 GM in 0.9% Normal Saline (100mL MB+) 100 ML IV (13:52)
[2025-07-26 13:55] VITALS: BP 132/59; PULSE 56; RESP 16; O2SAT 94
[2025-07-26 14:05] LABS: Anion Gap 10 (5-15); BUN 25 mg/dL (4-19); BUN/Creat Ratio 20.8 RATIO (10-20); Calcium,Total 9.5 mg/dL (7.6-11.0); Carbon Dioxide 26.7 mmol/L (21.0-32.0); Chloride 107 mmol/L (98-108); Estimated Creatinine Clearance 67.98 ml/min (50-250); Glucose 154 mg/dL (70-99); Potassium 4.0 mmol/L (3.3-5.1)
[2025-07-26 15:25] VITALS: BP 137/82; PULSE 78; RESP 16; TEMP 36.6; O2SAT 99
== END 2025-07-26 15:29 | disposition home or self-care (01) ==
PROVIDERS: Emergency Provider Emergency Medicine; PCP Family Medicine; Visit Provider Emergency Medicine
DX: K11.20 Sialoadenitis, unspecified (principal); E11.9 Type 2 diabetes mellitus without complications; I25.10 Atherosclerotic heart disease of native coronary artery without angina pectoris; E78.00 Pure hypercholesterolemia, unspecified; I25.5 Ischemic cardiomyopathy; I25.2 Old myocardial infarction; Z83.3 Family history of diabetes mellitus; Z79.84 Long term (current) use of oral hypoglycemic drugs; R03.0 Elevated blood-pressure reading, without diagnosis of hypertension; Z95.5 Presence of coronary angioplasty implant and graft; Z98.52 Vasectomy status
CPT/HCPCS: 80048; 85025; 96365; 99283; A4216; J0295